=== PATIENT | female | born 1945 | race African-American/Black ===

== ENCOUNTER 2016-03-24 12:29 | Inpatient (IN) | payer MEDICARE, MEDICAID ==
[~2016-03-24] VITALS: Ht 152.4 cm; Wt 65.0 kg
[~2016-03-24 12:29] MED LIST: ASPI81TA3 PO; AZIT250T4 PO; CALC0.257 PO; CINA30TA PO; DOCU-41 PO; FERR-83 PO; FLUO20CA25 PO; FOLI1TAB34 PO; FURO40TA4 PO; HYDR-656 PO; ONDA4TAB12 PO; OXYC-466 PO; PHO667 PO; PROZ20 PO
[2016-03-24 12:38] VITALS: BP 181/77; PULSE 71; RESP 18; O2SAT 100
--- NOTE | 2016-03-24 12:55 | ED.REPORT ---
HPI-Abd Pain F 40 and Over Date of Service Mar 24, 2016 ED Provider: Andrew Kim MD 71 year old diabetic female with a history of cholecystectomy, and ESRD on dialysis M/W/F presents to the ER via EMS complaining of stabbing right side abdominal pain rated 9/10 in severity onset after her dialysis appointment 5 days ago. Associated symptoms include weakness, nausea, vomiting x10, and diarrhea. Patient missed dialysis yesterday due to symptoms. She states that one of her caregivers has lately been ill with cold symptoms. Nursing Notes Stated Complaint: NAUSEA/VOMITING Chief Complaint: Female Abdominal Pain Nursing Notes Reviewed: Yes ([employer] not reconciled) Allergies: Coded Allergies: gabapentin (Verified Allergy, Severe, 12/17/15) Swelling and gait problems hydromorphone HCl (Verified Allergy, Severe, Hallucinations, 12/17/15) "Trip like on LSD" sumatriptan succinate (Verified Allergy, Severe, Dizziness, 12/17/15) Chest pain and dizziness TAPE (Verified Allergy, Intermediate, 12/17/15) itching latex (Verified Allergy, Intermediate, 12/17/15) Itching from gloves morphine (Verified Allergy, Unknown, Hallucinations, 12/17/15) Scheduled Aspirin Chew (Aspirin Chew) 81 Mg Chew 81 MG PO DAILY Azithromycin (Zithromax (Z-Regino)) 250 Mg Tablet 250 MG PO DAILY 2 pills day one then one daily for 4 more days Calcitriol (Rocaltrol) 0.25 Mcg Capsule 0.25 MCG PO DAILY Calcium Acetate (Phoslo) 667 Mg Tablet 1,334 MG PO TIDWM Cinacalcet (Sensipar) 30 Mg Tablet 30 MG PO BID Ferrous Sulfate (Ferrous Sulfate) 325 Mg Tablet 325 MG PO DAILY Fluoxetine (Fluoxetine) 20 Mg Capsule 20 MG PO TID Fluoxetine (Prozac) 20 Mg Capsule 30 MG PO DAILY Folic Acid/Vitamin B Comp W-C (Dialyvite Tablet) 1 Each Tablet 1 EACH PO DAILY Furosemide (Furosemide) 40 Mg Tablet 40 MG PO DAILY Scheduled PRN Docusate Sodium (Colace) 100 Mg Capsule 100 MG PO HS PRN PRN For Constipation Ondansetron ODT (Ondansetron ODT) 4 Mg Tab.rapdis 8 MG PO Q8H PRN PRN For Nausea hydrOXYzine Hcl (HydrOXYzine Hcl) 25 Mg Tablet 25 MG PO QID PRN PRN For Itching oxyCODONE-Acetaminophen 10-325 mg (oxyCODONE-Acetaminophen 10-325 mg) 1 Each Tablet 1 TAB PO Q6H PRN PRN For Pain General Time Seen by MD: 12:41 Chief Complaint Abdominal pain Hx Obtained From: Patient Arrived By: Ambulance Sudden in Onset?: No Onset Occurred: 5 days ago Symptom Duration: Since onset Progression since Onset: Gradually worsening Location: : RLQ Quality: Painful, Sharp, Stabbing Severity: Current: Pain level 9 out of 10 Severity: Maximum: Pain level 9 out of 10 Associated with: Reports: Diarrhea, Nausea, Vomiting Pertinent Negative: Pt denies other symptoms Past Medical History Past Medical History Notes: cpa tax: Dr. Allen chronic pain medication Past Medical History ESRD on dialysis MWF Chronic tobacco dependence. Anemia of chronic disease. History of right lower lobe pneumonia. Hospitalization, November 2012, for atypical chest pain with negative myocardial stress test. Staph aureus sepsis, December 2012. 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 Reports: COPD, Diabetes mellitus, Hypertension, Stroke Past Surgical History Left arm fistula. Left brachial basilic fistula. Right brachial basilic fistula. Evacuation of wound hematoma due to thrombosed left brachial basilic fistula, April 2012. 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 Reports: , Cholecystectomy Family History Noncontributory Smoking History Current Every Day Smoker Social History Alcohol Use: "Social" Drug Use: Denies drug use Other Social History: Lives alone, Local resident Ambulatory Status Wheelchair Review of Systems Constitutional: Reports: Weakness - generalized, Denies: Chills, Fever Respiratory: Denies: Non-productive cough, Shortness of breath Cardiovascular: Denies: Chest pain GI: Reports: Abdominal pain (Right), Diarrhea, Nausea, Vomiting Complete sys rev & neg: except as marked. Neurologic: Denies: Headache Physical Exam Vital Signs Vital Signs (First) Date Time Temp Pulse Resp B/P Pulse Ox O2 Delivery O2 Flow Rate FiO2 03/24/16 12:38 36.4 71 18 181/77 100 Nasal Cannula 03/24/16 14:39 3 Initial VS: Reviewed, Vital signs abnormal (HTN) Head / Eyes: Atraumatic, Normocephalic ENT: Mucous membranes moist, Conjunctiva normal, No scleral icterus Neck: Supple, Non-tender, Full range of motion Extremities: Vascular intact, Neuro intact, No swelling, No tenderness Skin: Warm, Dry, No cyanosis Neurologic: Alert, Oriented, Nonfocal General/Constitutional: Awake, Alert, No acute distress Appears fatigued. Respiratory / Chest: Breath sounds NL, Breath sounds = bilat, No respiratory distress, No rales, No rhonchi, No wheezing, No stridor Dialysis access port, right chest. Cardiovascular: Heart rate NL, Regular rhythm, Heart sounds NL, Peripheral circulation NL Abdomen: No guarding, No rebound, No distention Tenderness/Guarding/Rebound: Positive: McBurney's point tender, Tender RLQ... ( Moderate) Interpretation & Diagnostics Lab Results Interpretation Result Diagram: 03/24/16 1425 03/24/16 1425 Test 03/24/16 14:25 White Blood Count 5.1th/mm3 (3.8-10.1) Red Blood Count 2.92mil/mm3 (3.90-5.20) Hemoglobin 8.6g/dL (12.0-15.6) Hematocrit 26.5% (35.0-46.0) Mean Corpuscular Volume 90.8fL (81-100) Mean Corpuscular Hemoglobin 29.5pg (27.0-35.0) Mean Corpuscular Hemoglobin Concent 32.5% (32.0-37.0) Red Cell Distribution Width 17.8% (12.3-15.4) Platelet Count 147bil/L (150-400) Neutrophils (%) (Auto) 71.3% (40-74) Lymphocytes (%) (Auto) 18.4% (14-46) Monocytes (%) (Auto) 7.2% (4-12) Eosinophils (%) (Auto) 2.5% (0-5) Basophils (%) (Auto) 0.4% (0-3) Sodium Level 138mEq/L (134-144) Potassium Level 5.5mEq/L (3.5-5.2) Chloride Level 98mEq/L (97-108) Carbon Dioxide Level 28mmol/L (18-29) Blood Urea Nitrogen 26mg/dL (8-27) Creatinine 8.40mg/dL (0.57-1.00) Estimat Glomerular Filtration Rate 6mL/min (>59) Glucose Level 94mg/dL (60-99) Calcium Level 9.1mg/dL (8.5-10.1) Phosphorus Level 5.6mg/dL (2.5-4.9) Magnesium Level 2.5mg/dL (1.6-2.6) Total Bilirubin 0.6mg/dL (0.0-1.2) Aspartate Amino Transf (AST/SGOT) 10U/L (0-50) Alanine Aminotransferase (ALT/SGPT) < 5U/L (0-32) Alkaline Phosphatase 416U/L (25-165) Total Protein 6.7g/dL (6.4-8.4) Albumin 3.5g/dL (3.4-5.0) Lab Results Interpretation: CBC chronic anemia unchanged CMP trace hyperkalemia, chronic severe renal failure, glucose normal-no metabolic acidosis CT Abd / Pelvis Interpretation IMPRESSION: 1. Multifocal bilateral renal calcifications in cysts, unchanged compared to prior exam. 2. Asymmetric appearance of the level the distal sigmoid/rectum. This could represent stool or peristalsis. Evaluation is limited without IV or oral contrast. This is of clinical concern for mass lesion, additional followup contrast study or colonoscopy is recommended. 3. No distinct inflammatory changes present within the right lower quadrant, mildly limited secondary to lack of oral and IV contrast. 4. Somewhat mottled appearance of the osseous structures as described above. Appearance can be seen with metastatic disease. In addition, a rounded lucency is present at L1, new compared to prior exam. Recommend clinical correlation to patient history and as clinically indicated, bone scan is recommended for additional evaluation. Dictated by: Nova Benjamin M.D. on 03/24/2016 at 14:40 Approved by: Nova Benjamin M.D. on 03/24/2016 at 14:40 Study type: Abdominal CT no contrast Interpretation / Wet Read by: Interpret - Radiologist Re-Eval/Medical Decision Med Decision/Clinical Course This is a 71-year-old female with multiple comorbidities including dialysis and chronic renal failure who presents complaining of right lower quadrant bowel pain, nausea vomiting and some diarrhea along with concern that she may have appendicitis. She felt poorly and skipped dialysis yesterday. Still feels poorly and weak, and comes in complaining of some nausea and vomiting, moderate to significant diarrhea, and increasing right lower quadrant pain. On exam she is fatigued, she is chronically ill, but she does not appear toxic. He does have mild tenderness to the right lower quadrant on initial exam. Reveal no evidence of leukocytosis, potassium is only marginally elevated, and creatinine and is severely elevated as expected in this chronic renal fair patient CT imaging did not reveal appendicitis or other definite pathology. See the radiology notes for some incidental bone abnormalities with outpatient follow- up recommended. Stool study has been ordered given the patient's multiple comorbidities, status and the dialysis center, and severity of her description of diarrhea. She has not provided a stool sample thus far. Regular to reexamine her she is extremely fatigued, and she slightly difficult to arouse. She had received a dose of fentanyl 40 minutes earlier, but she is breathing at a rate of 22, and does not have overt respiratory depression or hypoxia. Challenges the patient's chronic comorbidities-she does not demonstrate volume overload, and indeed clinically is mildly dehydrated so received some IV fluids. She does not have severe hyperkalemia, and she does not have overt appendicitis or other acute surgical pathology. She does have a vomiting diarrheal illness, with a differential being moderately extensive. There are currently no beds available in the hospital at present. At this time we are reevaluating and watching her for a longer period to determine if she can recover enough that she feels comfortable with discharge home with follow-up tomorrow for her dialysis, or she will ultimately require admission and potentially transfer. She is being turned over to Dr. jacquelyn lópez at change of shift for re-eval. ADDENDUM: I want to stay in the department and managing this patient. (Initial note indicates the patient was turned over Dr. jacquelyn lópez, but I remained to manage the patient in the) Recheck her, she is now alert and perky, she is taking by mouth, she feels much better, she has no abdominal pain, and she would like to go home. She has not had any diarrhea in the department. Again on CT scan there are no signs of appendicitis, she has no tenderness on the abdominal exam on repeat evaluation, and she has some infection, inflammatory findings on CT. Think it is indeed reasonable for discharge home. She tells me she does have ondansetron, and I remain suspicious that she may have a viral illness causing her vomiting and diarrhea, particularly given the recent outbreak of noroovirus. The patient received a dose loperamide in the department just prior to discharge. It was stressed that she is due for dialysis tomorrow and she absolutely needs to make dialysis, and if she feels too poorly and she does not think she should go dialysis-I advised needs to come back to the emergency department. Patient is comfortable this and is discharged in improved condition. Source of Hx: Old records Differential Diagnosis: Positive: Acute abdominal pain, Diarrhea, Negative: Abdominal aortic aneurysm, Ectopic , Esophageal rupture, Peritonitis, Sexually transmit disease Discharge & Departure Shift Change Sign-Out Patient Care Transferred: No Discussed Complaint(s): No Laboratory Evaluation: Back, reviewed by me Imaging Studies: Imaging discussed Primary Impression: Abdominal pain Abdominal location: right lower quadrant Qualified Code: R10.31 - Right lower quadrant pain Additional Impressions: Nausea vomiting and diarrhea Generalized weakness Chronic renal failure, stage 5 Discharge Condition All VS Reviewed: Yes Condition: Stable Referrals: KATI TYSON DO (PCP) Care Transferred to: [facility] Portions of this note were transcribed by Jorden Bahena. I, Dr. Kim, personally performed the history, physical exam and medical decision-making; I reviewed and confirmed the accuracy of the information in the transcribed note. Signed by: Ebenezer Huggins, 03/24/2016 and 14:58. copies to: KATI TYSON Matthew F MD Mar 24, 2016 12:55 JORDEN BAHENA Mar 24, 2016 13:06
[2016-03-24] MEDS ORDERED: 0.9% Sodium Chloride 500 ML IV ONE (13:05)
[2016-03-24] MEDS ORDERED: Ondansetron 2 mg/mL 2 mL Inj IVPUSH ONE (13:05)
[2016-03-24] MEDS: fentaNYL-PF 50 mCg/mL 2 mL Inj IVPUSH PRN ×2 (14:36→16:38)
[2016-03-24 14:37] LABS: BASOPHILS % (AUTO) 0.4 % (0-3); EOSINOPHILS % (AUTO) 2.5 % (0-5); MONOCYTES % (AUTO) 7.2 % (4-12); Mean Corpuscular Hemoglobin 29.5 pg (27.0-35.0); Mean Corpuscular Volume 90.8 fL (81-100); NEUTROPHILS % (AUTO) 71.3 % (40-74); Platelet Count 147 bil/L (150-400)
[2016-03-24 14:39] VITALS: BP 159/73; PULSE 78; RESP 13; O2SAT 96
--- NOTE | 2016-03-24 14:42 | DRSVH ---
PROCEDURE: CT ABDOMEN AND PELVIS WITHOUT CONTRAST ([id number]) INDICATIONS: RLQ pain, renal failure TECHNIQUE: Noncontrast 5 mm thick sections acquired from the diaphragms to the symphysis. 5 mm coronal and sagi ttal reformats were then performed. For radiation dose reduction, the following was used: automated exposure control, adjustment of mA and/or kV according to patient size. COMPARISON: [facility], CT, CT ABD PELVIS WO CON, 07/05/2015, 5:32. FINDINGS: Image quality: Limited exam secondary to patient positioning and artifact. ABDOMEN: Lung bases: Lung bases are clear. Heart size is normal. Solid organs: Liver and spleen are normal in size. Gallbladder has been remaining. There continues to be prominence of the extrahepatic biliary system, unchanged compared to prior exam.. Pancreas is normal in contours. No adrenal nodules. Kidneys are atrophic, without hydronephrosis. Multiple, bi lateral nonobstructing renal calculi are present, unchanged. Bilateral renal cysts are unchanged. Peritoneum and bowel: Unenhanced bowel loops are nonobstructive. There is an asymmetric appearance at the distal sigmoid colon near the level of the rectum, seen on series 2 image 62. Nodes and vessels: No retroperitoneal or mesenteric adenopathy by size criteria. Aorta and inferior vena cava are normal in caliber. Miscellaneous: No ventral hernias. PELVIS: Genitourinary: Bladder wall thickness is normal. Miscellaneous: No inguinal hernias or adenopathy. Bones: The bones demonstrate an overall mottled appearance particularly within the thoracic and lumba r spine as well as pelvic bones, appearing more prominent when compared to prior exam. There is a pro minent area of lucency at the level of L1, new compared to prior exam. IMPRESSION: 1. Multifocal bilateral renal calcifications in cysts, unchanged compared to prior exam. 2. Asymmetric appearance of the level the distal sigmoid/rectum. This could represent stool or perist alsis. Evaluation is limited without IV or oral contrast. This is of clinical concern for mass lesion , additional followup contrast study or colonoscopy is recommended. 3. No distinct inflammatory changes present within the right lower quadrant, mildly limited secondary to lack of oral and IV contrast. 4. Somewhat mottled appearance of the osseous structures as described above. Appearance can be seen w ith metastatic disease. In addition, a rounded lucency is present at L1, new compared to prior exam. Recommend clinical correlation to patient history and as clinically indicated, bone scan is recommend ed for additional evaluation. Dictated by: Nova Benjamin M.D. on 03/24/2016 at 14:40 Approved by: Nova Benjamin M.D. on 03/24/2016 at 14:40
[2016-03-24 15:19] LABS: Magnesium 2.5 mg/dL (1.6-2.6); Phosphorus 5.6 mg/dL (2.5-4.9)
[2016-03-24 16:48] VITALS: BP 130/68; PULSE 89; RESP 25; O2SAT 96
[2016-03-24] MEDS ORDERED: Polyethylene Glycol (PEG) 17 Gm Powder PO PRN (21:10)
[2016-03-24] MEDS ORDERED: Alum-Mag Hydrox-Simeth 30 mL Suspension PO PRN (21:10)
[2016-03-24] MEDS ORDERED: Ondansetron 2 mg/mL 2 mL Inj IVPUSH PRN (21:10)
--- NOTE | 2016-03-24 21:55 | DRSVH ---
PROCEDURE: CT BRAIN WITHOUT CONTRAST ([id number]) INDICATIONS: altered mental status TECHNIQUE: Noncontrast 4.5 mm thick angled axial sections acquired from the foramen magnum to the vertex, with c oronal reformats. COMPARISON: [facility], CT, BRAIN W/O CONTRAST, 10/31/2013, 12:49. FINDINGS: Image quality: Excellent. CSF spaces: Basal cisterns are patent. No extra-axial fluid collections. Ventricles are normal in size and shape. Brain: No midline shift. No intracranial masses or hemorrhage. Fung-white matter interface is norm al. Skull and face: Calvarium and visualized facial bones are intact, without suspicious lesions. Sinuses: Visualized sinuses and mastoids are clear. IMPRESSION: No acute intracranial abnormality. Dictated by: Donn Lizama M.D. on 03/24/2016 at 21:53 Approved by: Donn Lizama M.D. on 03/24/2016 at 21:53
[2016-03-24 22:15] VITALS: BP 123/60; PULSE 84; RESP 16; O2SAT 96
[2016-03-24 22:24] VITALS: PULSE 84
--- NOTE | 2016-03-24 23:26 | PCM.HPMED ---
Subjective Date of Service Mar 24, 2016 Primary Provider: Admitting Physician: Lazaro Camilo MD Primary Care Physician: Latisha Parham DO Attending Physician: Lazaro Camilo MD Admit Status: From the Emergency Department, Full Admit, Remote Telemetry Chief Complaint: Confusion and lethargy History of Present Illness: Dahiana Rosas is a 71 year old female with a history of ESRD on dialysis, COPD on 3L O2 at home, diabetes mellitus, Stroke and hypertension who presents to [facility] Emergency department with complaints of abdominal pain Pain described as stabbing right side abdominal pain rated 9/10 in severity onset after her dialysis appointment 5 days ago. Associated symptoms include weakness, nausea, vomiting x10, and diarrhea. Patient missed dialysis yesterday due to not feeling well. She states that one of her caregivers has lately been ill with cold symptoms. Denies any fever or chills. Patient has history of missing dialysis due to not having transportation. She was hospitalized at [facility] on 12/02-12/04/15 due to Uncontrolled Hypertension and fluid overload, which resolved with dialysis. Patient is chronically on narcotics for pain. Patient was clear for discharge earlier in the day with negative work up (see Dr Nirav Kim note) She received Ativan due to claustrophobia prior to having the CT scan abdomen and also a dose of Fentanyl for pain. Patient was noted to progressively becoming lethargic and sleepy while waiting for her ride home. Case discussed with Dr Rich and patient will be admitted for close monitoring overnight. Review of Systems: unable to obtain due to patient sleeping and feeling tired to talk Allergies Coded Allergies: gabapentin (Verified Allergy, Severe, 12/17/15) Swelling and gait problems hydromorphone HCl (Verified Allergy, Severe, Hallucinations, 12/17/15) "Trip like on LSD" sumatriptan succinate (Verified Allergy, Severe, Dizziness, 12/17/15) Chest pain and dizziness TAPE (Verified Allergy, Intermediate, 12/17/15) itching latex (Verified Allergy, Intermediate, 12/17/15) Itching from gloves morphine (Verified Allergy, Unknown, Hallucinations, 12/17/15) Home Medications From [facility], not yet confirmed Dahiana Rosas [id number] 1945 03/10/2016 11:30 AM Page: 03/12 calcitriol 0.25 mcg capsule take 1 capsule by oral route every day Dialyvite 100 mg-1 mg Tab take 1 tablet by oral route every day Dulcolax Stool Softener (docusate) 100 mg capsule take 1 capsule by oral route every day at bedtime as needed ferrous sulfate 325 mg (65 mg iron) tablet,delayed release take 325 mg tablet P.O Daily fluoxetine 20 mg capsule take 1 capsule by oral route 3 times every day hydroxyzine HCl 25 mg tablet take 1 tablet by oral route 4 times every day Lasix 40 mg Tab take 1 tablet (40MG) by oral route every day Percocet 10 mg-325 mg tablet take 1 tablet by oral route every 6 hours as needed PhosLo 667 mg capsule take 2 capsule by oral route 3 times every day with meals Prozac 20 mg Cap take 1.5 capsule (30MG) by oral route every day in the morning Sensipar 30 mg tablet take 1 tablet by oral route every day with food Zofran ODT [address] 2 tablet by translingual route every 8 hours for 2 days on top of the tongue where they will dissolve, then swallow [facility] Reports mass on pancreas Diastolic dysfunction on echocardiogram, November 10, 2012. 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 ESRD, on hemodialysis Hypertension Chronic tobacco dependence Anemia of chronic disease Staph aureus sepsis, December 2012. Clostridium difficile colitis Diabetic gastroparesis COPD Diabetes mellitus Stroke . Surgical History Left arm fistula Left brachial basilic fistula Right brachial basilic fistula Evacuation of wound hematoma due to thrombosed left brachial basilic fistula, April 2012. 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 Cholecystectomy s/p closed left tibia and fibula proximal shaft fracture Family History Hypertension, stroke Social History Hx Alcohol Use: Yes (OCCAS) Hx Substance Use: No Hx Tobacco Use: Yes (1 pack per 2-3 days since the age of 17) Smoking Status: Current Every Day Smoker Living Arrangement: with Family Exam Vital Signs Vital Sign - Last Date Time Temp Pulse Resp B/P Pulse Ox O2 Delivery O2 Flow Rate FiO2 03/24/16 16:48 89 25 130/68 96 Nasal Cannula 2 03/24/16 12:38 36.4 Exam General: Awake on saying her name but doses off after a few seconds. No acute Distress Eyes: PERRLA, Scleral Anicteric Mouth: Mouth Normal, Mucous Membranes Moist/[place] Neck: Supple, no Thyromegaly, trachea central. Chest & Lungs: Clear to auscultation & percussion, No adventitious breath sounds, no crackles, no wheeze Cardiovascular: Normal S1, Normal S2, No Murmurs/Rubs/Gallops, Regular Rate/ Rhythm, (No JVD, no peripheral edema) Pulses: Radial (present and equal), Dorsalis Pedi (present and equal) Abdomen: Soft, Non-tender, Non-distended, Normoactive bowel tones. Musculoskeletal: Unremarkable. Normal range of motion, no swollen or erythematous joints Extremities: No edema, no cyanosis, no clubbing. Skin: No rashes. Warm and dry, no erythematous areas Neurological: Grossly neurologically intact, has generalized weakness, Normal Speech, Sensation Intact Lymphatic: Lymph nodes Cervical and Axillary not palpable. Lab and Diagnostics Labs Laboratory Tests Test 03/24/16 14:25 White Blood Count 5.1th/mm3 (3.8-10.1) Red Blood Count 2.92mil/mm3 (3.90-5.20) Hemoglobin 8.6g/dL (12.0-15.6) Hematocrit 26.5% (35.0-46.0) Mean Corpuscular Volume 90.8fL (81-100) Mean Corpuscular Hemoglobin 29.5pg (27.0-35.0) Mean Corpuscular Hemoglobin Concent 32.5% (32.0-37.0) Red Cell Distribution Width 17.8% (12.3-15.4) Platelet Count 147bil/L (150-400) Neutrophils (%) (Auto) 71.3% (40-74) Lymphocytes (%) (Auto) 18.4% (14-46) Monocytes (%) (Auto) 7.2% (4-12) Eosinophils (%) (Auto) 2.5% (0-5) Basophils (%) (Auto) 0.4% (0-3) Sodium Level 138mEq/L (134-144) Potassium Level 5.5mEq/L (3.5-5.2) Chloride Level 98mEq/L (97-108) Carbon Dioxide Level 28mmol/L (18-29) Blood Urea Nitrogen 26mg/dL (8-27) Creatinine 8.40mg/dL (0.57-1.00) Estimat Glomerular Filtration Rate 6mL/min (>59) Glucose Level 94mg/dL (60-99) Calcium Level 9.1mg/dL (8.5-10.1) Phosphorus Level 5.6mg/dL (2.5-4.9) Magnesium Level 2.5mg/dL (1.6-2.6) Total Bilirubin 0.6mg/dL (0.0-1.2) Aspartate Amino Transf (AST/SGOT) 10U/L (0-50) Alanine Aminotransferase (ALT/SGPT) < 5U/L (0-32) Alkaline Phosphatase 416U/L (25-165) Total Protein 6.7g/dL (6.4-8.4) Albumin 3.5g/dL (3.4-5.0) Hold Gordon Top Tube Received (Received) Result Diagram: 03/24/16 1425 03/24/16 1425 X-Rays, CTs and MRIs CT ABDOMEN AND PELVIS WITHOUT CONTRAST 03/24 IMPRESSION: 1. Multifocal bilateral renal calcifications in cysts, unchanged compared to prior exam. 2. Asymmetric appearance of the level the distal sigmoid/rectum. This could represent stool or peristalsis. Evaluation is limited without IV or oral contrast. This is of clinical concern for mass lesion, additional followup contrast study or colonoscopy is recommended. 3. No distinct inflammatory changes present within the right lower quadrant, mildly limited secondary to lack of oral and IV contrast. 4. Somewhat mottled appearance of the osseous structures as described above. Appearance can be seen with metastatic disease. In addition, a rounded lucency is present at L1, new compared to prior exam. Recommend clinical correlation to patient history and as clinically indicated, bone scan is recommended for additional evaluation. Dictated by: Nova Benjamin M.D. on 03/24/2016 at 14:40 Approved by: Nova Benjamin M.D. on 03/24/2016 at 14:40 CT BRAIN WITHOUT CONTRAST 03/24 IMPRESSION: No acute intracranial abnormality. Dictated by: Donn Lizama M.D. on 03/24/2016 at 21:53 Approved by: Donn Lizama M.D. on 03/24/2016 at 21:53 Assessment & Plan 71 year old female with a history of ESRD on dialysis, COPD on 3L O2 at home, diabetes mellitus, Stroke and hypertension who presents to the Emergency department for abdominal pain that resolved but then she developed lethargy and difficult to arouse while waiting to be discharge 1. Acute Encephalopathy. Present on admission Etiology unclear but likely multifactorial. Patient received doses of Fentanyl and Ativan in the ED, with missed dialysis these medications may be lingering and not excreted. Also she may have Uremia from missed dialysis. CT head showed no bleeding or Strokes. - monitor clinically - avoid narcotics, benzodiazepines and other sedative medications at this time - Urinalysis ordered - dialysis planned for tomorrow 2. Acute Abdominal pain. Present on admission. Resolved Etiology unclear but CT scan showed no clear cause at this time. Differential diagnosis includes acute pancreatitis but CT showed normal pancreas enhancements. Liver function tests are all normal - monitor closely - checking Lipase levels - checking stools for C difficile (prior history of C diff infection) 3. Hypertension. History of uncontrolled Hypertension - resume all antihypertensive in the morning 4 Endstage Renal Disease on hemodialysis with Renal osteodystrophy and Anemia Schedule for Wed, Wed and Fridays. - Nephrology consulted for inpatient dialysis orders - continuing Calcitrol, Dialyvite and Phoslo - continuing Iron supplementation - social work therapist needs to help address issues with missed dialysis 5 Chronic Obstructive Pulmonary Disease with chronic respiratory failure Currently without any symptoms to meet criteria for acute exacerbation. Patient still smoking despite counselling and will cause more problems down the line. - continue supplemental oxygen (Maintain between 88-92%) - will order PRN Albuterol if needed 6. Depression -Continue home medication (Prozac and Fluoxetine) 7 Chronic pain syndrome with narcotics and related constipation - continuing pain regimen with no changes - continuing Dulcolax PRN 8. Nicotine dependence. Ongoing smoking despite counselling - Nicotine patch on request - Acetaminophen as needed for mild pain/fever/headache - Bowel regimen as needed - Antiemetic as needed Patient is admitted under observation status with expected length of stay less than 2 midnights due to severity of presenting symptoms, risk of adverse event, and complexity of treatment plan . Resuscitation Status: CPR: Attempt Resuscitation Lazaro Camilo MD Mar 24, 2016 21:37
[2016-03-25 00:30] VITALS: BP 114/56; PULSE 92; RESP 16; O2SAT 96
--- NOTE | 2016-03-25 00:31 | NUR ---
Admission note Admission assessment and screening completed. VSS. Pt appears drowsy but arousable. No overt complication noted.
--- NOTE | 2016-03-25 00:40 | NUR ---
Transfer Pt was transferred to [facility] # [id number]. Report given and care transferred to the primary RN (Jerica Noble RN)
[2016-03-25 01:00] VITALS: BP 138/71; PULSE 97; RESP 20; O2SAT 100
--- NOTE | 2016-03-25 06:11 | NUR ---
Patient arrived to [facility]2 extremely sleepy related to fentanyl and Ativan received in the ER;however, the patient was easy to arouse with touch. Alert and oriented x 4 makes needs known to staff reg care. Denies shortness of breath, chest pain, and resp distress. Vitals stable/afebrile. The resident slept most of the shift on and off. She awaken at 0500 upset about still being in the hospital and she wanted to "go home now." The patient sat up on the side of the bed demanding to be released. This RN educated the patient on the risks of leaving against medical advice, so the patient decided to finish out her care in the hospital. She requested something small to eat and drink. A cola and dry crackers given without swallowing issues noted. At this time the patient appears to be asleep in bed resting.
[2016-03-25 09:19] VITALS: PULSE 77
[2016-03-25 09:36] VITALS: BP 139/80; PULSE 70; RESP 18; O2SAT 92
--- NOTE | 2016-03-25 10:08 | NUR ---
Social Work Note - Initial Assessment Dahiana Rosas is a 71 yr old admitted for nausea/vomiting. EMR reviewed: Pt has Medicare and [employer]. Her PCP is Latisha Parham at [facility] Residency clinic. Readmit score is not available at time of writing. See attached CM initial assessment. JEWELRY SALES COORDINATOR met with pt - introduced d/c planning and explained SW role. Pt known from previous admissions - has [facility] report for multiple ED visits, missed outpt dialysis and concerns of noncompliance. Pt lives in [place] in an accessible apartment. Her daughters live in the same complex and her daughter's chris is being paid as pt's GAIL caregiver. Her daughter is Dory Hamilton [phone] and her caregiver is Madi Mccullough. Pt [facility] to [facility] - MD is Tiffany. She has a Hover round wheel chair, transport chair, shower bench and O2 thru [employer]. Pt states that APS is involved - her APS worker is Eugenio Antoine [phone]. JEWELRY SALES COORDINATOR called [facility] and left a message. She states that he is involved because she has been non-compliant with getting to dialysis. She states she has been going to her appointments - admits to missing Wednesday's appointment at dialysis. Pt is interested in Home Health - She states that she is not sure that [facility] is still involved. JEWELRY SALES COORDINATOR called Maximilian at [facility] and left a message. JEWELRY SALES COORDINATOR encouraged pt to follow up with her PCP, to make all dialysis appointments and to begin working on transportation home. JEWELRY SALES COORDINATOR updated [facility] and will continue to follow. Plan: Home with [facility]ADY ESPITIA PT JEWELRY SALES COORDINATOR with transportation from pt's family. ANGE Mott Addendum: 03/25/16 at 1049 by BOBBY URIOSTEGUI SS Amended: Links added.
[2016-03-25] MEDS ORDERED: oxyCODONE-Acetamin 10-325 mg Tablet PO PRN (11:15)
--- NOTE | 2016-03-25 11:30 | PCM.PNMED ---
Subjective Date of Service Mar 25, 2016 Subjective Patient is currently undergoing hemodialysis. She does complain of loose stool yesterday but none since 11:30 AM. She does complain of recurrent nausea vomiting and claims that she cannot keep anything down food chi. She said she missed her hemodialysis on Wednesday and she was not feeling well. She does note some dyspnea and denies chest pain. Exam Vital Signs Vital Sign - Last Date Time Temp Pulse Resp B/P Pulse Ox O2 Delivery O2 Flow Rate FiO2 03/25/16 09:36 Supplement Oxygen 03/25/16 09:36 36.5 70 18 139/80 92 4.00 Intake and Output 03/24/16 03/24/16 03/25/16 Cumulative From/Thru 15:00 23:00 07:00 03/24/16 12:38 - 03/25/16 05:39 Intake Total 500 ml 360 ml 860 ml Balance 500 ml 360 ml 860 ml Intake Oral 360 ml 360 ml IV Total 500 ml 500 ml Exam Constitutional: Elderly woman in no acute distress Head: Normocephalic atraumatic Chest: Crackles at her bases posteriorly Cor: Regular rate and rhythm S1-S2 Abdomen: Soft nontender bowel sounds present Extremities trace bilateral pedal edema does have an ulcer on her left heel chronic Lab and Diagnostics Laboratory Tests 72 Hours Test 03/24/16 14:25 03/25/16 09:45 White Blood Count 5.1th/mm3 (3.8-10.1) Red Blood Count 2.92mil/mm3 (3.90-5.20) Hemoglobin 8.6g/dL (12.0-15.6) Hematocrit 26.5% (35.0-46.0) Mean Corpuscular Volume 90.8fL (81-100) Mean Corpuscular Hemoglobin 29.5pg (27.0-35.0) Mean Corpuscular Hemoglobin Concent 32.5% (32.0-37.0) Red Cell Distribution Width 17.8% (12.3-15.4) Platelet Count 147bil/L (150-400) Neutrophils (%) (Auto) 71.3% (40-74) Lymphocytes (%) (Auto) 18.4% (14-46) Monocytes (%) (Auto) 7.2% (4-12) Eosinophils (%) (Auto) 2.5% (0-5) Basophils (%) (Auto) 0.4% (0-3) Sodium Level 138mEq/L (134-144) Potassium Level 5.5mEq/L (3.5-5.2) Chloride Level 98mEq/L (97-108) Carbon Dioxide Level 28mmol/L (18-29) Blood Urea Nitrogen 26mg/dL (8-27) Creatinine 8.40mg/dL (0.57-1.00) Estimat Glomerular Filtration Rate 6mL/min (>59) Glucose Level 94mg/dL (60-99) Calcium Level 9.1mg/dL (8.5-10.1) Phosphorus Level 5.6mg/dL (2.5-4.9) Magnesium Level 2.5mg/dL (1.6-2.6) Total Bilirubin 0.6mg/dL (0.0-1.2) Aspartate Amino Transf (AST/SGOT) 10U/L (0-50) Alanine Aminotransferase (ALT/SGPT) < 5U/L (0-32) Alkaline Phosphatase 416U/L (25-165) Total Protein 6.7g/dL (6.4-8.4) Albumin 3.5g/dL (3.4-5.0) Lipase 20U/L (13-60) Hold Gordon Top Tube Received (Received) Result Diagram: 03/24/16 1425 03/24/16 1425 X-Rays, CTs and MRIs CT ABDOMEN AND PELVIS WITHOUT CONTRAST 03/24 IMPRESSION: 1. Multifocal bilateral renal calcifications in cysts, unchanged compared to prior exam. 2. Asymmetric appearance of the level the distal sigmoid/rectum. This could represent stool or peristalsis. Evaluation is limited without IV or oral contrast. This is of clinical concern for mass lesion, additional followup contrast study or colonoscopy is recommended. 3. No distinct inflammatory changes present within the right lower quadrant, mildly limited secondary to lack of oral and IV contrast. 4. Somewhat mottled appearance of the osseous structures as described above. Appearance can be seen with metastatic disease. In addition, a rounded lucency is present at L1, new compared to prior exam. Recommend clinical correlation to patient history and as clinically indicated, bone scan is recommended for additional evaluation. Dictated by: Nova Benjamin M.D. on 03/24/2016 at 14:40 Approved by: Nova Benjamin M.D. on 03/24/2016 at 14:40 CT BRAIN WITHOUT CONTRAST 03/24 IMPRESSION: No acute intracranial abnormality. Dictated by: Donn Lizama M.D. on 03/24/2016 at 21:53 Approved by: Donn Lizama M.D. on 03/24/2016 at 21:53 Assessment & Plan 71 year old female with a history of ESRD on dialysis, COPD on 3L O2 at home, diabetes mellitus, Stroke and hypertension who presents to the Emergency department for abdominal pain that resolved but then she developed lethargy and difficult to arouse while waiting to be discharge 1. Acute Encephalopathy. Present on admission Etiology unclear but likely multifactorial. Patient received doses of Fentanyl and Ativan in the ED, with missed dialysis these medications may be lingering and not excreted. Also she may have Uremia from missed dialysis. CT head showed no bleeding or Strokes. - monitor clinically - avoid narcotics, benzodiazepines and other sedative medications at this time - Urinalysis ordered - dialysis planned for tomorrow -Appears to be at baseline is mentating and verbally communicative appropriately 2. Acute Abdominal pain. Present on admission. Resolved Etiology unclear but CT scan showed no clear cause at this time. Differential diagnosis includes acute pancreatitis but CT showed normal pancreas enhancements. Liver function tests are all normal - monitor closely - checking Lipase levels - checking stools for C difficile (prior history of C diff infection) -Currently no stool over 24-hour period of time hence cannot be C. difficile colitis and she currently has no abdominal pain 3. Hypertension. History of uncontrolled Hypertension - resume all antihypertensive in the morning 4 Endstage Renal Disease on hemodialysis with Renal osteodystrophy and Anemia Schedule for Wed, Wed and Fridays. - Nephrology consulted for inpatient dialysis orders - continuing Calcitrol, Dialyvite and Phoslo - continuing Iron supplementation - older adult social work specialist needs to help address issues with missed dialysis 5 Chronic Obstructive Pulmonary Disease with chronic respiratory failure Currently without any symptoms to meet criteria for acute exacerbation. Patient still smoking despite counselling and will cause more problems down the line. - continue supplemental oxygen (Maintain between 88-92%) - will order PRN Albuterol if needed 6. Depression -Continue home medication (Prozac and Fluoxetine) 7 Chronic pain syndrome with narcotics and related constipation - continuing pain regimen with no changes - continuing Dulcolax PRN 8. Nicotine dependence. Ongoing smoking despite counselling - Nicotine patch on request - Acetaminophen as needed for mild pain/fever/headache - Bowel regimen as needed - Antiemetic as needed Patient is admitted under observation status with expected length of stay less than 2 midnights due to severity of presenting symptoms, risk of adverse event, and complexity of treatment plan . Resuscitation Status: CPR: Attempt Resuscitation Time spent 30 minutes Selene Ha MD Mar 25, 2016 11:30
[2016-03-25] MEDS ORDERED: Darbepoetin Alfa (ESRD) 60 mCg/0.3 mL Inj SUBQ ONE (11:45)
--- NOTE | 2016-03-25 12:38 | CONS ---
[address] [address] CONSULTATION REPORT PATIENT: ROMAINE ALEXIS : 1945 MR#: [id number] ADMIT: 03/24/2016 JOB ID: [id number] DATE OF SERVICE: RENAL CONSULTATION: HISTORY: The patient is a very pleasant 71-year-old, female, who has a longstanding history of end-stage renal disease. She had come to the emergency department yesterday for abdominal pain, nausea, vomiting, diarrhea, nasal congestion, cough, wheezing, generalized malaise and myalgias. Today, she was sent to CT and was heavily medicated, and was subsequently admitted because of confusion and lethargy. Today is her dialysis day, and renal consultation is being sought for further management of her chronic kidney disease. She is followed by an outside concrete foreman and normally dialyzes on Wednesday, Wednesday and Wednesday. The etiology of her chronic kidney disease is due to hypertension and diabetic nephropathy. Her last dialysis was on Wednesday. At the time of my evaluation, the patient was quite alert and oriented, and answered all of her questions appropriately. PAST MEDICAL HISTORY: Significant for: 1. End-stage renal disease, which is dialysis dependent. 2. Hypertension with hypertensive heart disease and hypertensive nephrosclerosis, and a history of diastolic dysfunction. 3. COPD. 4. Anemia secondary to her chronic kidney disease. 5. Remote history of staph sepsis. 6. History of C. difficile colitis in the past. 7. She has also had a stroke. PAST SURGICAL HISTORY: Significant for several fistulas in the left arm and in the right arm with a clot evacuation. She has had several tunnelled catheters placed, a closed reduction of the left tibia and fibula, cholecystectomy and a section. ALLERGIES: She is allergic to: 1. GABAPENTIN. 2. HYDROMORPHONE. 3. SUMATRIPTAN. 4. MORPHINE. 5. TAPE. 6. LATEX. SOCIAL HISTORY: She states that she has occasional alcohol and continues to smoke approximately one pack every other day. She is somewhat limited in her activities of daily living. FAMILY HISTORY: Unremarkable. REVIEW OF SYSTEMS: Detailed above. Otherwise, she denies any chest pain or shortness of breath. MEDICATIONS: At time of admission include calcitriol, vitamins, Dulcolax, ferrous sulfate, fluoxetine, hydroxyzine, Lasix, Percocet, PhosLo, Sensipar and Zofran. PHYSICAL EXAMINATION: Revealed an elderly 71-year-old, female, who was alert and oriented x3, in no distress at time of my evaluation. Her blood pressure was 140/80 with a heart rate of 70. HEENT examination was remarkable for some upper eyelid periorbital edema and pale sclerae. Arcus senilis is also noted. Neck is supple without adenopathy, thyromegaly, or jugular venous distention. Lungs were clear to auscultation. Heart was regular and rhythmical, with a soft systolic murmur. Abdomen soft, without any tenderness, rebound, guarding, masses, or hepatosplenomegaly. Extremities do not show any clubbing, cyanosis, or edema. Skin turgor was good. There was no evidence of any rashes. LABORATORY EXAMINATION: In the emergency department her white count was 5.1, hemoglobin of 8.6, hematocrit 26.5, red cell indices and platelet count were normal. She had 71 neutrophils and 18 lymphocytes. Her sodium was 138, potassium 5.5, chloride 98, CO2 of 28, BUN and creatinine were 26 and 8.4. Her phosphorus is elevated at 5.6, and her alkaline phosphatase is also elevated at 416. IMPRESSION: 1. End-stage renal disease -- dialysis dependent. 2. Probable influenza versus other viral illnesses based on the patient's history. 3. Hypertension with hypertensive heart disease and hypertensive nephrosclerosis. 4. Diabetic nephropathy. RECOMMENDATION: The patient should be dialyzed today for 4 hours on a 2 potassium bath. She will be given regular heparin of 1200 and 500 an hour. We will take approximately 2 kg of fluid off, and she will get a dose of Aranesp today. Once again, I would like to thank you for allowing me to participate in the care of this most pleasant, interesting patient. I will be following her closely with you.
[2016-03-25 14:08] VITALS: BP 104/57; PULSE 67; RESP 18; O2SAT 93
--- NOTE | 2016-03-25 15:02 | PCM.DIMED ---
Discharge Instructions Date of Service Mar 25, 2016 Dates of Hospitalization Mar 24, 2016 at 21:30 Discharge Diagnosis Discharge Diagnosis ESRD needing dialysis,lethargy Diet Heart Healthy, Diabetic Activity No restrictions Call your provider Fever or Chills, Shortness of breath, Chest pain, Vomitting Patient Instructions Need to be compliant with dialysis sessions Follow-up with PCP in: 1 week Selene Ha MD Mar 25, 2016 15:02
--- NOTE | 2016-03-25 15:17 | PCM.DC.MED ---
Discharge Summary Date of Service Mar 25, 2016 Dates of Hospitalization Date of Hospital Admission Mar 24, 2016 at 21:30 Date of Discharge: Mar 25, 2016 Providers: Admitting Physician: Lazaro Camilo MD Primary Care Physician: Latisha Parham DO Attending Physician: Lazaro Camilo MD Diagnosis at Time of Discharge Diagnosis at Time of Discharge ESRD needing dialysis,lethargy Consultations Nephrology Procedures XRay, CTs & MRIs CT ABDOMEN AND PELVIS WITHOUT CONTRAST 03/24 IMPRESSION: 1. Multifocal bilateral renal calcifications in cysts, unchanged compared to prior exam. 2. Asymmetric appearance of the level the distal sigmoid/rectum. This could represent stool or peristalsis. Evaluation is limited without IV or oral contrast. This is of clinical concern for mass lesion, additional followup contrast study or colonoscopy is recommended. 3. No distinct inflammatory changes present within the right lower quadrant, mildly limited secondary to lack of oral and IV contrast. 4. Somewhat mottled appearance of the osseous structures as described above. Appearance can be seen with metastatic disease. In addition, a rounded lucency is present at L1, new compared to prior exam. Recommend clinical correlation to patient history and as clinically indicated, bone scan is recommended for additional evaluation. Dictated by: Nova Benjamin M.D. on 03/24/2016 at 14:40 Approved by: Nova Benjamin M.D. on 03/24/2016 at 14:40 CT BRAIN WITHOUT CONTRAST 03/24 IMPRESSION: No acute intracranial abnormality. Dictated by: Donn Lizama M.D. on 03/24/2016 at 21:53 Approved by: Donn Lizama M.D. on 03/24/2016 at 21:53 Brief History Dahiana Rosas is a 71 year old female with a history of ESRD on dialysis, COPD on 3L O2 at home, diabetes mellitus, Stroke and hypertension who presents to [facility] Emergency department with complaints of abdominal pain Pain described as stabbing right side abdominal pain rated 9/10 in severity onset after her dialysis appointment 5 days ago. Associated symptoms include weakness, nausea, vomiting x10, and diarrhea. Patient missed dialysis yesterday due to not feeling well. She states that one of her caregivers has lately been ill with cold symptoms. Denies any fever or chills. Patient has history of missing dialysis due to not having transportation. She was hospitalized at [facility] on 12/02-12/04/15 due to Uncontrolled Hypertension and fluid overload, which resolved with dialysis. Patient is chronically on narcotics for pain. Patient was clear for discharge earlier in the day with negative work up (see Dr Nirav Kim note) She received Ativan due to claustrophobia prior to having the CT scan abdomen and also a dose of Fentanyl for pain. Patient was noted to progressively becoming lethargic and sleepy while waiting for her ride home. Case discussed with Dr Rich and patient will be admitted for close monitoring overnight. Hospital Course 71 year old female with a history of ESRD on dialysis, COPD on 3L O2 at home, diabetes mellitus, Stroke and hypertension who presents to the Emergency department for abdominal pain that resolved but then she developed lethargy and difficult to arouse while waiting to be discharge 1. Acute Encephalopathy. Present on admission, resolved Etiology unclear but likely multifactorial. Patient received doses of Fentanyl and Ativan in the ED, with missed dialysis these medications may be lingering and not excreted. Also she may have Uremia from missed dialysis. CT head showed no bleeding or Strokes. - monitor clinically - avoid narcotics, benzodiazepines and other sedative medications at this time - Urinalysis ordered - dialysis planned for tomorrow -Appears to be at baseline is mentating and verbally communicative appropriately 2. Acute Abdominal pain. Present on admission. Resolved Etiology unclear but CT scan showed no clear cause at this time. Differential diagnosis includes acute pancreatitis but CT showed normal pancreas enhancements. Liver function tests are all normal - monitor closely - checking Lipase levels - checking stools for C difficile (prior history of C diff infection) -Currently no stool over 24-hour period of time hence cannot be C. difficile colitis and she currently has no abdominal pain 3. Hypertension., Chronic History of uncontrolled Hypertension - resume all antihypertensive in the morning 4 Endstage Renal Disease on hemodialysis with Renal osteodystrophy and Anemia Schedule for Wed, Wed and Fridays. - Nephrology consulted for inpatient dialysis orders - continuing Calcitrol, Dialyvite and Phoslo - continuing Iron supplementation - rn social work needs to help address issues with missed dialysis -Patient completed dialysis session today 5 Chronic Obstructive Pulmonary Disease with chronic respiratory failure Currently without any symptoms to meet criteria for acute exacerbation. Patient still smoking despite counselling and will cause more problems down the line. - continue supplemental oxygen (Maintain between 88-92%) - will order PRN Albuterol if needed 6. Depression -Continue home medication (Prozac and Fluoxetine) 7 Chronic pain syndrome with narcotics and related constipation - continuing pain regimen with no changes - continuing Dulcolax PRN 8. Nicotine dependence. Ongoing smoking despite counselling - Nicotine patch on request 9. Social and compliance issues, ongoing Case management and psych social worker have been working with her and have arranged for morteza in the house. Also see their notes for further details. - Acetaminophen as needed for mild pain/fever/headache - Bowel regimen as needed - Antiemetic as needed Patient is admitted under observation status with expected length of stay less than 2 midnights due to severity of presenting symptoms, risk of adverse event, and complexity of treatment plan . Exam Vital Signs (Last) Date Time Temp Pulse Resp B/P Pulse Ox O2 Delivery O2 Flow Rate FiO2 03/25/16 14:08 36.3 67 18 104/57 93 Nasal Cannula 4.00 Test 03/24/16 14:25 03/25/16 09:45 White Blood Count 5.1th/mm3 (3.8-10.1) Red Blood Count 2.92mil/mm3 (3.90-5.20) Hemoglobin 8.6g/dL (12.0-15.6) Hematocrit 26.5% (35.0-46.0) Mean Corpuscular Volume 90.8fL (81-100) Mean Corpuscular Hemoglobin 29.5pg (27.0-35.0) Mean Corpuscular Hemoglobin Concent 32.5% (32.0-37.0) Red Cell Distribution Width 17.8% (12.3-15.4) Platelet Count 147bil/L (150-400) Neutrophils (%) (Auto) 71.3% (40-74) Lymphocytes (%) (Auto) 18.4% (14-46) Monocytes (%) (Auto) 7.2% (4-12) Eosinophils (%) (Auto) 2.5% (0-5) Basophils (%) (Auto) 0.4% (0-3) Sodium Level 138mEq/L (134-144) Potassium Level 5.5mEq/L (3.5-5.2) Chloride Level 98mEq/L (97-108) Carbon Dioxide Level 28mmol/L (18-29) Blood Urea Nitrogen 26mg/dL (8-27) Creatinine 8.40mg/dL (0.57-1.00) Estimat Glomerular Filtration Rate 6mL/min (>59) Glucose Level 94mg/dL (60-99) Calcium Level 9.1mg/dL (8.5-10.1) Phosphorus Level 5.6mg/dL (2.5-4.9) Magnesium Level 2.5mg/dL (1.6-2.6) Total Bilirubin 0.6mg/dL (0.0-1.2) Aspartate Amino Transf (AST/SGOT) 10U/L (0-50) Alanine Aminotransferase (ALT/SGPT) < 5U/L (0-32) Alkaline Phosphatase 416U/L (25-165) Total Protein 6.7g/dL (6.4-8.4) Lipase 20U/L (13-60) Hold Gordon Top Tube Received (Received) Hold Purple Top Tube Received (Received) Hold [place] Top Tube Received (Received) Discharge Medications Discharge Medications Aspirin Chew (Aspirin Chew) 81 Mg Chew 81 MG PO DAILY Prescribed by: WILDA SILVERIO MD Calcitriol (Rocaltrol) 0.25 Mcg Capsule 0.25 MCG PO DAILY (Reported) Calcium Acetate (Phoslo) 667 Mg Tablet 1,334 MG PO TIDWM (Reported) Cinacalcet (Sensipar) 30 Mg Tablet 30 MG PO BID (Reported) Ferrous Sulfate (Ferrous Sulfate) 325 Mg Tablet 325 MG PO DAILY (Reported) Fluoxetine (Fluoxetine) 20 Mg Capsule 20 MG PO TID (Reported) Fluoxetine (Prozac) 20 Mg Capsule 30 MG PO DAILY (Reported) Folic Acid/Vitamin B Comp W-C (Dialyvite Tablet) 1 Each Tablet 1 EACH PO DAILY ( Reported) Furosemide (Furosemide) 40 Mg Tablet 40 MG PO DAILY (Reported) As needed Docusate Sodium (Colace) 100 Mg Capsule 100 MG PO HS PRN PRN For Constipation ( Reported) Ondansetron ODT (Ondansetron ODT) 4 Mg Tab.rapdis 8 MG PO Q8H PRN PRN For Nausea (Reported) hydrOXYzine Hcl (HydrOXYzine Hcl) 25 Mg Tablet 25 MG PO QID PRN PRN For Itching (Reported) oxyCODONE-Acetaminophen 10-325 mg (oxyCODONE-Acetaminophen 10-325 mg) 1 Each Tablet 1 TAB PO Q6H PRN PRN For Pain Prescribed by: WILDA SILVERIO MD Followup Plan Discharge Diet: Heart Healthy, Diabetic Discharge Activity: No restrictions Patient Instructions Need to be compliant with dialysis sessions Follow-up with PCP in: 1 week Time spent 45 minutes Selene Ha MD Mar 25, 2016 15:17
[2016-03-25] MEDS ORDERED: Vitamin B Complex/Vit C Tablet PO SCH (16:00)
[2016-03-25] MEDS ORDERED: hydrOXYzine Pamoate 25 mg Capsule PO PRN (16:05)
--- NOTE | 2016-03-25 17:00 | NUR ---
Social Work Note- Discharge KITMAN spoke with who identified that pt is able to d/c home today. Pt states she does not have a ride home, states that her family can not come to pick her up. KITMAN contacted [facility] and arranged Medicaid transport home. Pt states she is willing to have [facility] involved - MD signed F2F. KITMAN gave access to [facility] and faxed referral to office. KITMAN discussed case with RN - updated RN on taxi arrival - asked RN to provide portable tank for pt to transport home and taxi will return to hospital. Plan: Home with [facility] RN PT and [facility] caregivers. ANGE Mott
--- NOTE | 2016-03-25 17:24 | NUR ---
DISCHARGE Patient discharge home at 1700, left by [employer] that will drive her home to [place]. Patient contacted family who will meet her in [place] to assist her out of cab and into home. Patient left with Oxygen tank ([place] 3L) and cab company will return tank to hospital. Patient dies pain nausea and shortness of breath. Iv catheter removed intact, medication gone over with patient and she verbalized understanding. Patient states she has appointment with Dr Burkett (nephrology) and will follow up with wound care in [facility] for left heel wound. Patient also states she will see PCP in one week.
--- NOTE | 2016-03-25 17:26 | NUR ---
Wound Care Wound evaluation performed, pt seen at bedside. 71 yo female with DM, ESRD and a left heel pressure ulcer (POA) Pt reports the ulcer formed under her cast while being treated for a left Tibial and fibular fracture this past summer. Currently pt is being seen by wound care nurse on [facility], apparently she receives her dialysis in [place]. Assessment; Left heel pressure injury measures 2 cm x 2 cm x 0.3 cm, no drainage or erythema noted. Wound base is dry fibrin plug, no odor or tunneling. Unable to palpate pulses at her left foot or knee for that matter but there is hair growth on the leg. Redressed by offloading wound with thick duoderm dressing, hydrogel to wound bed and then a mepilex adhesive foam overall. Pt has an offloading brace made by [facility] which could use somwe modification, will contact physical optics teacher.
== END 2016-03-25 16:28 | disposition home or self-care (01) | DRG 70 ==
LOC: EDUNIT# 12:29 → SED 12:29 → EDBD 12:29 → MPC 21:30 → OFED 21:52 → MOC 03-25 00:27
PROVIDERS: ADMIT Hospitalist; ATTEND Hospitalist
DX: G93.40 Encephalopathy, unspecified (principal); N18.6 End stage renal disease; J96.10 Chronic respiratory failure, unspecified whether with hypoxia or hypercapnia; I13.11 Hypertensive heart and chronic kidney disease without heart failure, with stage 5 chronic kidney disease, or end stage renal disease; E11.29 Type 2 diabetes mellitus with other diabetic kidney complication; J44.9 Chronic obstructive pulmonary disease, unspecified; F32.9 Major depressive disorder, single episode, unspecified; G89.4 Chronic pain syndrome; R10.9 Unspecified abdominal pain; N25.0 Renal osteodystrophy; D63.1 Anemia in chronic kidney disease; F17.210 Nicotine dependence, cigarettes, uncomplicated; Z91.15 Patient's noncompliance with renal dialysis; Z99.2 Dependence on renal dialysis; Z86.73 Personal history of transient ischemic attack (TIA), and cerebral infarction without residual deficits; Z79.82 Long term (current) use of aspirin

== ENCOUNTER 2016-04-13 04:17 | Emergency (ER) | payer MEDICARE, MEDICAID ==
[~2016-04-13] VITALS: Ht 152.4 cm; Wt 58.2 kg
[~2016-04-13 04:17] MED LIST changes: -AZIT250T4 PO
[2016-04-13 05:04] VITALS: BP 182/78; PULSE 76; RESP 18; O2SAT 97
[2016-04-13] MEDS ORDERED: 0.9% Sodium Chloride 1,000 ML IV ONE (05:32)
[2016-04-13] MEDS ORDERED: Ondansetron 2 mg/mL 2 mL Inj IVPUSH PRN (05:35)
[2016-04-13 06:10] VITALS: BP 176/82; RESP 18; O2SAT 98
--- NOTE | 2016-04-13 06:30 | ED.REPORT ---
HPI-Trauma Minor / Fall Date of Service Apr 13, 2016 ED Provider: Fiaza Waters MD 71 year old diabetic female with ESRD on dialysis presents to the ER via EMS complaining of head injury status post ground level fall in her home just prior to arrival. She states that she fell out of her wheelchair and struck her head on her tiled bathroom floor. Associated symptom of acute on chronic back pain exacerbated by the fall. Patient also reports three days of diarrhea, nausea, and intractable vomiting; unable to keep water down. She denies fever. Symptoms have been treated with Zofran with inconsistent relief. She admits that she has not received dialysis for 5 days. Typically she dialyzes Wednesday/Wednesday/ Wednesday at 05:30, followed by Dr. Allen, Nephrology. Wheelchair-bound due to 6 months of non-healing leg fracture. Nursing Notes Stated Complaint: DIARRHEA,NAUSEA,GLF Chief Complaint: General Complaint Nursing Notes Reviewed: Yes Allergies: Coded Allergies: gabapentin (Verified Allergy, Severe, 04/13/16) Swelling and gait problems hydromorphone HCl (Verified Allergy, Severe, Hallucinations, 04/13/16) "Trip like on LSD" sumatriptan succinate (Verified Allergy, Severe, Dizziness, 04/13/16) Chest pain and dizziness TAPE (Verified Allergy, Intermediate, 04/13/16) itching latex (Verified Allergy, Intermediate, 12/17/15) Itching from gloves morphine (Verified Allergy, Unknown, Hallucinations, 12/17/15) Scheduled Aspirin Chew (Aspirin Chew) 81 Mg Chew 81 MG PO DAILY Calcitriol (Rocaltrol) 0.25 Mcg Capsule 0.25 MCG PO DAILY Calcium Acetate (Phoslo) 667 Mg Tablet 1,334 MG PO TIDWM Cinacalcet (Sensipar) 30 Mg Tablet 30 MG PO BID Ferrous Sulfate (Ferrous Sulfate) 325 Mg Tablet 325 MG PO DAILY Fluoxetine (Fluoxetine) 20 Mg Capsule 20 MG PO TID Fluoxetine (Prozac) 20 Mg Capsule 30 MG PO DAILY Folic Acid/Vitamin B Comp W-C (Dialyvite Tablet) 1 Each Tablet 1 EACH PO DAILY Furosemide (Furosemide) 40 Mg Tablet 40 MG PO DAILY Scheduled PRN Docusate Sodium (Colace) 100 Mg Capsule 100 MG PO HS PRN PRN For Constipation Ondansetron ODT (Ondansetron ODT) 4 Mg Tab.rapdis 8 MG PO Q8H PRN PRN For Nausea hydrOXYzine Hcl (HydrOXYzine Hcl) 25 Mg Tablet 25 MG PO QID PRN PRN For Itching oxyCODONE-Acetaminophen 10-325 mg (oxyCODONE-Acetaminophen 10-325 mg) 1 Each Tablet 1 TAB PO Q6H PRN PRN For Pain General Time Seen by MD: 05:26 Chief Complaint Fall, Head injury Hx Obtained From: Patient Arrived By: Ambulance Onset Occurred: Just prior to arrival Symptom Duration: Since onset Caused by: Accidental, Fall on ground Context: Occurred at: Home injury Location: Head Quality: Painful Severity: Current: Moderate Severity: Maximum: Moderate Associated with: Reports: Nausea, Vomiting, Denies: Fever Additional Notes: Diarrhea Recent Healthcare: Recent doctor visit, Recent hospitalization Past Medical History Past Medical History Notes: pulmonary function technician: Dr. Allen chronic pain medication Past Medical History ESRD on dialysis MWF Chronic tobacco dependence. Anemia of chronic disease. History of right lower lobe pneumonia. Hospitalization, November 2012, for atypical chest pain with negative myocardial stress test. Staph aureus sepsis, December 2012. 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 Reports: COPD, Diabetes mellitus, Hypertension, Stroke Past Surgical History Left arm fistula. Left brachial basilic fistula. Right brachial basilic fistula. Evacuation of wound hematoma due to thrombosed left brachial basilic fistula, April 2012. 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 Reports: , Cholecystectomy Family History Noncontributory Smoking History Current Every Day Smoker Social History Alcohol Use: "Social" Drug Use: Denies drug use Other Social History: Lives alone, Local resident Ambulatory Status Wheelchair Review of Systems Constitutional: Denies: Chills, Fever Respiratory: Reports: Non-productive cough, Denies: Shortness of breath Musculoskeletal: Reports: Back pain, Extremity pain, Lumbar pain, Denies: Neck pain, Thoracic pain Neurologic: Reports: Headache, Denies: Syncope Complete sys rev & neg: except as marked. Cardiovascular: Denies: Chest pain GI: Reports: Diarrhea, Nausea, Vomiting, Denies: Abdominal pain Physical Exam Initial Vital Signs Vital Signs (First) Date Time Temp Pulse Resp B/P Pulse Ox O2 Delivery O2 Flow Rate FiO2 04/13/16 05:04 36.5 76 18 182/78 97 Room Air 04/13/16 12:06 5 Initial VS: Reviewed Abdomen / GI: Soft, Non-tender, No guarding, No rebound, No distention Skin: Warm, Dry, No cyanosis Neurologic: Alert, Oriented, Nonfocal Psychiatric: Mood/affect normal, Behavior normal, Normal thought content General/Constitutional: Awake, Alert, No acute distress Neck: Atraumatic, Supple, Full range of motion, No midline vertebral tend, No tracheal deviation Significant JVD. Head / Eyes: Normocephalic, No photophobia Facial edema Respiratory / Chest: Breath sounds NL, Breath sounds = bilat, No respiratory distress, No rales, No rhonchi, No wheezing, No chest tenderness, No chest wall deformity, No crepitus Cardiovascular: Heart rate NL, Regular rhythm, Heart sounds NL, Cap refill not delayed, Peripheral circulation NL Lower Ext Edema: Positive: Bilateral 2+ Dialysis catheter right subclavian. Back: Full range of motion, No CVA tenderness Point tenderness at T4. Chronic tenderness at T12 and entire lumbar area. Impressive scoliosis. Interpretation & Diagnostics Lab Results Interpretation Result Diagram: 04/13/16 0655 04/13/16 0655 Test 04/13/16 06:55 White Blood Count 7.3th/mm3 (3.8-10.1) Red Blood Count 3.38mil/mm3 (3.90-5.20) Hemoglobin 9.9g/dL (12.0-15.6) Hematocrit 30.1% (35.0-46.0) Mean Corpuscular Volume 89.1fL (81-100) Mean Corpuscular Hemoglobin 29.3pg (27.0-35.0) Mean Corpuscular Hemoglobin Concent 32.9% (32.0-37.0) Red Cell Distribution Width 18.5% (12.3-15.4) Platelet Count 164bil/L (150-400) Neutrophils (%) (Auto) 78.8% (40-74) Lymphocytes (%) (Auto) 11.7% (14-46) Monocytes (%) (Auto) 6.4% (4-12) Eosinophils (%) (Auto) 2.7% (0-5) Basophils (%) (Auto) 0.3% (0-3) Sodium Level 143mEq/L (134-144) Potassium Level 4.7mEq/L (3.5-5.2) Chloride Level 98mEq/L (97-108) Carbon Dioxide Level 25mmol/L (18-29) Blood Urea Nitrogen 42mg/dL (8-27) Creatinine 11.26mg/dL (0.57-1.00) Estimat Glomerular Filtration Rate 4mL/min (>59) Glucose Level 83mg/dL (60-99) Calcium Level 9.2mg/dL (8.5-10.1) Magnesium Level 2.5mg/dL (1.6-2.6) Total Bilirubin 0.6mg/dL (0.0-1.2) Aspartate Amino Transf (AST/SGOT) 12U/L (0-50) Alanine Aminotransferase (ALT/SGPT) 5U/L (0-32) Alkaline Phosphatase 364U/L (25-165) Total Protein 7.5g/dL (6.4-8.4) Albumin 4.1g/dL (3.4-5.0) Lipase 18U/L (13-60) X-Ray Interpretation Xray Interpretation: IMPRESSION: Markedly limited view of the spine. Discrete vertebral bodies there are characterize, and compression deformity cannot be excluded. If there is high clinical suspicion for acute fracture, a noncontrast CT or MRI of the thoracic spine is recommended. Dictated by: Tiffanie Acosta M.D. on 04/13/2016 at 8:42 Approved by: Tiffanie Acosta M.D. on 04/13/2016 at 8:44 Study Performed: PROCEDURE: X-RAY THORACIC SPINE, 3 VIEWS Interpretation / Wet Read by: Interpret - Radiologist CT Head Interpretation CONCLUSION: No acute intracranial hemorrhage is identified. Findings consistent with small vessel ischemic change, which is probably chronic. Findings consistent with an old lacunar infarct in the left thalamus. Bilateral mastoid effusions. Calvarial thickening. Electronically signed by Brigido Rios MD Study: Head CT no contrast Interpretation / Wet Read by: Interpret - Radiologist Re-Eval/Medical Decision Source of Hx: Old records Re-Evaluation/Progress #1: Time of Eval: 06:35 Re-Evaluation/Progress Note: Updated patient on the plan of care. Re-Evaluation/Progress #2: Time of Eval: 08:30 Re-Evaluation/Progress Note: Patient sleeping comfortably with apneic spells. O2 saturation in the 50's. Her purse containing her bottle of oxycodone was sitting on her lap. Patient placed on non-rebreather. Narcan administered. Re-Evaluation/Progress #3: Time of Eval: 08:59 Re-Evaluation/Progress Note: Discussed lab and radiology results and plan to discharge, with instructions to go to dialysis this afternoon. Patient is amenable to the plan. Return precautions given. All other questions addressed. Re-Evaluation/Progress #4: Time of Eval: 09:15 Re-Evaluation/Progress Note: O2 saturation back up to high 90's when awake, drifts back to low 80's when asleep. Counseled Regarding: Diagnosis, Lab results, Need for follow-up, When/why to return to ED Discharge & Departure Impression: Primary Impression: Fall Additional Impressions: Chronic renal failure Overdose Encounter type: initial encounter Injury intent: accidental or unintentional Qualified Code: T50.901A - Poisoning by unspecified drugs, medicaments and biological substances, accidental (unintentional), initial encounter Disposition: Home Discharge Condition All VS Reviewed: Yes Condition: Stable Additional Instructions: Your workup today was reassuring. There were no indications of dangerous injuries on your X-ray and CT scan. Careful with transfers. We will get you to dialysis today. Return to the ER if you develop any worsening or concerning symptoms. Referrals: KATI TYSON DO (PCP) Bere Allen MD Attestation Portions of this note were transcribed by Jorden Bahena. I, Dr. Waters, personally performed the history, physical exam and medical decision-making; I reviewed and confirmed the accuracy of the information in the transcribed note. Signed by: Ebenezer Huggins, 04/13/2016 and 09:46. copies to: Bere Allen MD; KATI TYSON Shawna L MD Apr 13, 2016 06:29 JORDEN BAHENA Apr 13, 2016 06:49
[2016-04-13 07:13] LABS: BASOPHILS % (AUTO) 0.3 % (0-3); EOSINOPHILS % (AUTO) 2.7 % (0-5); MONOCYTES % (AUTO) 6.4 % (4-12); Mean Corpuscular Hemoglobin 29.3 pg (27.0-35.0); Mean Corpuscular Volume 89.1 fL (81-100); NEUTROPHILS % (AUTO) 78.8 % (40-74); Platelet Count 164 bil/L (150-400)
[2016-04-13 07:59] LABS: Magnesium 2.5 mg/dL (1.6-2.6)
--- NOTE | 2016-04-13 08:45 | DRSVH ---
PROCEDURE: X-RAY THORACIC SPINE, 3 VIEWS INDICATIONS: fall, tender t4 area, ? new compression fracture TECHNIQUE: 3 views of the thoracic spine were acquired. COMPARISON: None. FINDINGS: Tunneled hemodialysis catheter is projected over the spine. Bones: This is a markedly view of the spine. Discrete vertebral bodies are not well characterized. Soft tissues: Soft tissues are grossly unremarkable. IMPRESSION: Markedly limited view of the spine. Discrete vertebral bodies there are characterize, and compression deformity cannot be excluded. If there is high clinical suspicion for acute fracture, a noncontrast CT or MRI of the thoracic spine is recommended. Dictated by: Tiffanie Acosta M.D. on 04/13/2016 at 8:42 Approved by: Tiffanie Acosta M.D. on 04/13/2016 at 8:44
[2016-04-13 08:53] VITALS: BP 134/87; PULSE 103; RESP 19; O2SAT 95
--- NOTE | 2016-04-13 09:02 | DRSVH ---
PROCEDURE: CT BRAIN WITHOUT CONTRAST ([id number]) INDICATIONS: fall from wheelchair TECHNIQUE: Noncontrast 4.5 mm thick angled axial sections acquired from the foramen magnum to the vertex, with c oronal reformats. COMPARISON: [facility], CT, CT BRAIN WO CON, 03/24/2016, 21:43. FINDINGS: Image quality: Excellent. CSF spaces: Basal cisterns are patent. No extra-axial fluid collections. The ventricles are symmet doris in size and shape. Brain: No intracranial bleeds or masses. There is an old lacunar infarct in the left thalamus. Ther e is cerebral volume loss for age, with resultant ventricular and sulcal prominence. There are periv entricular and deep white matter chronic small vessel ischemic changes. There is intracranial improvement intern al carotid artery atherosclerosis. Skull and face: Calvarium and visualized facial bones appear intact, without suspicious lesions. Sinuses: Visualized sinuses. There is fluid in mastoids bilaterally. IMPRESSION: 1. No acute intracranial abnormalities. 2. An old lacunar infarct in the left thalamus. 3. Cerebral volume loss and chronic microvascular ischemic changes. 4. Fluid in mastoids bilaterally. Recommend clinical correlation for mastoiditis. No significant discrepancy with the commodity analyst radiology preliminary report. Dictated by: Eliud Lawrence M.D. on 04/13/2016 at 8:04 Approved by: Eliud Lawrence M.D. on 04/13/2016 at 9:00
[2016-04-13 10:42] VITALS: BP 125/75; PULSE 78; RESP 18; O2SAT 92
[2016-04-13 12:06] VITALS: BP 108/52; PULSE 98; RESP 12; O2SAT 95
== END 2016-04-13 12:08 | disposition home or self-care (01) ==
LOC: SED 04:17 → EDBD 04:17 → SED 12:08
DX: S09.90XA Unspecified injury of head, initial encounter (principal); T50.901A Poisoning by unspecified drugs, medicaments and biological substances, accidental (unintentional), initial encounter; I12.0 Hypertensive chronic kidney disease with stage 5 chronic kidney disease or end stage renal disease; N18.6 End stage renal disease; E11.22 Type 2 diabetes mellitus with diabetic chronic kidney disease; Z86.73 Personal history of transient ischemic attack (TIA), and cerebral infarction without residual deficits; W05.0XXA Fall from non-moving wheelchair, initial encounter; Y93.89 Activity, other specified; Y99.8 Other external cause status; Y92.012 Bathroom of single-family (private) house as the place of occurrence of the external cause; Z88.5 Allergy status to narcotic agent; Z99.2 Dependence on renal dialysis; Z91.040 Latex allergy status; Z79.82 Long term (current) use of aspirin; F17.200 Nicotine dependence, unspecified, uncomplicated; M54.6 Pain in thoracic spine; R11.2 Nausea with vomiting, unspecified
CPT/HCPCS: 36415; 70450; 72072; 80053; 83690; 83735; 85025; 96361; 96374; 96375; 99285; J2310; J7030

== ENCOUNTER 2016-04-21 11:25 | Emergency (ER) | payer MEDICARE, MEDICAID ==
[~2016-04-21] VITALS: Ht 152.4 cm; Wt 54.5 kg
[2016-04-21 11:34] VITALS: BP 190/87; RESP 18; O2SAT 97
--- NOTE | 2016-04-21 11:46 | ED.REPORT ---
HPI-Chest Pain 40 and Over Date of Service Apr 21, 2016 ED Provider: Rosalba Borrero MD The patient is a 71 year old with a hx of DM, HTN, COPD, stroke, and frequent ER visits who presents to the ED via EMS from due to intermittent chest pain every other day for the past week. The pain waxes and wanes and she describes it as a sharp, stabbing sensation. She most recently experienced the pain about an hour ago at . Patient isn't quite sure why sent her here and is annoyed at having to pay the ambulance fee. She refuses the EKG because she, "just received one at Urgent Care 20 minutes ago," but agrees to have her blood drawn. She is slightly agitated and complains about the care provided. Pt denies diaphoresis or any other symptoms. She frequently skips dialysis and then calls an ambulance to come to the hospital. Pt just had dialysis yesterday. Nursing Notes Stated Complaint: CHEST PAIN Chief Complaint: Chest Pain Nursing Notes Reviewed: Yes Allergies: Coded Allergies: gabapentin (Verified Allergy, Severe, 04/21/16) Swelling and gait problems hydromorphone HCl (Verified Allergy, Severe, Hallucinations, 04/21/16) "Trip like on LSD" sumatriptan succinate (Verified Allergy, Severe, Dizziness, 04/21/16) Chest pain and dizziness TAPE (Verified Allergy, Intermediate, 04/21/16) itching latex (Verified Allergy, Intermediate, 04/21/16) Itching from gloves morphine (Verified Allergy, Unknown, Hallucinations, 04/21/16) Scheduled Aspirin Chew (Aspirin Chew) 81 Mg Chew 81 MG PO DAILY Calcitriol (Rocaltrol) 0.25 Mcg Capsule 0.25 MCG PO DAILY Calcium Acetate (Phoslo) 667 Mg Tablet 1,334 MG PO TIDWM Cinacalcet (Sensipar) 30 Mg Tablet 30 MG PO BID Ferrous Sulfate (Ferrous Sulfate) 325 Mg Tablet 325 MG PO DAILY Fluoxetine (Fluoxetine) 20 Mg Capsule 20 MG PO TID Fluoxetine (Prozac) 20 Mg Capsule 30 MG PO DAILY Folic Acid/Vitamin B Comp W-C (Dialyvite Tablet) 1 Each Tablet 1 EACH PO DAILY Furosemide (Furosemide) 40 Mg Tablet 40 MG PO DAILY Scheduled PRN Docusate Sodium (Colace) 100 Mg Capsule 100 MG PO HS PRN PRN For Constipation Ondansetron ODT (Ondansetron ODT) 4 Mg Tab.rapdis 8 MG PO Q8H PRN PRN For Nausea hydrOXYzine Hcl (HydrOXYzine Hcl) 25 Mg Tablet 25 MG PO QID PRN PRN For Itching oxyCODONE-Acetaminophen 10-325 mg (oxyCODONE-Acetaminophen 10-325 mg) 1 Each Tablet 1 TAB PO Q6H PRN PRN For Pain General Time Seen by MD: 11:46 Chief Complaint Chest pain Hx Obtained From: Patient Arrived By: Ambulance Sudden in Onset?: Yes Onset Occurred: Just prior to arrival Symptom Duration: Since onset Location: : Chest left Quality: Sharp Radiation: : Does not radiate Severity: Current: Mild Recent Healthcare: Recent doctor visit Similar Sx Previous: Yes Past Medical History 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 Anemia of chronic disease. History of right lower lobe pneumonia. Hospitalization, November 2012, for atypical chest pain with negative myocardial stress test. Staph aureus sepsis, December 2012. 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 Reports: COPD, Diabetes mellitus, Hypertension, Stroke Past Surgical History Left arm fistula. Left brachial basilic fistula. Right brachial basilic fistula. Evacuation of wound hematoma due to thrombosed left brachial basilic fistula, April 2012. 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 Reports: , Cholecystectomy Family History Noncontributory Smoking History Current Every Day Smoker Social History Alcohol Use: "Social" Drug Use: Denies drug use Other Social History: Lives alone, Local resident Ambulatory Status Wheelchair Review of Systems Cardiovascular: Reports: Chest pain (left ) GI: Denies: Nausea Skin: Denies Diaphoresis Complete sys rev & neg: except as marked. Physical Exam Initial Vital Signs Vital Signs (First) Date Time Temp Pulse Resp B/P Pulse Ox O2 Delivery O2 Flow Rate FiO2 04/21/16 11:34 36.1 18 190/87 97 Room Air Initial VS: Reviewed Head / Eyes: Atraumatic, Normocephalic, PERRL ENT: Mucous membranes moist, Conjunctiva normal, No scleral icterus Neck: Supple, Non-tender, Full range of motion Back: No CVA tenderness Extremities: Vascular intact, Neuro intact, No swelling, No tenderness Skin: Warm, Dry, No cyanosis General/Constitutional: Awake, Alert Behavior: Positive: Agitated, Uncooperative Uncooperative at first but agrees to blood draw upon reevaluation Respiratory / Chest: Atraumatic, Breath sounds NL, Breath sounds = bilat, No respiratory distress, No rales, No rhonchi, No wheezing, No retractions Cardiovascular: Heart rate NL, Regular rhythm, Heart sounds NL Lower Ext Edema: Positive: Right 2+ no chest tenderness Abdomen: Atraumatic, Soft, Non-tender, McBurney's non-tender, No guarding, No rebound, BS normoactive Interpretation & Diagnostics Lab Results Interpretation Test 04/21/16 12:35 Troponin T 0.129ug/L (0.0-0.011) ECG Interpretation ECG Interpretation: EKG from this morning pt refuses an EKG at [facility] flipped t-waves Time: 10:00 Interpreted by: ED physician Normal ECG Interpretation: Normal ECG w/ rate of... (72), Normal rate, Normal sinus rhythm, No acute ischemic changes, Normal intervals, No change from prior ECGs (03/24/16) X-Ray Chest Interpretation Chest Xray Interpretation: IMPRESSION: Probable left lower lobe pneumonia, correlate clinically. Dictated by: Ze Lawton M.D. on 04/21/2016 at 12:34 Approved by: Ze Lawton M.D. on 04/21/2016 at 12:35 View: Portable Interpretation / Wet Read by: Interpret - Radiologist Re-Eval/Medical Decision Med Decision/Clinical Course The patient presents with atypical chest pain and has had similar symptoms in the past. Her troponin is elevated however it has been this elevated in the past with normal stress test. It was more than twice evaluated today with a normal stress test. Given the duration of pain and no acute EKG changes or bump in her normal troponin this does not appear to be cardiac in nature. There was possibility of pneumonia on her chest x-ray however when she was questioned she has not been sick in the last couple weeks and there are no infectious type symptoms such as cough or difficulty breathing or increased fatigue. She states she was told she had viral pneumonia at one point and these could be residual changes related to that. The patient was very hesitant to allow many of the tests but she did allow the chest x-ray and troponin. I was able to obtain the EKG she had an urgent care, she refused one here. Time of Eval: 12:14 Patient Status: Condition unchanged Re-Evaluation/Progress Note: Pt rechecked. Her EKG from is normal and she refuses to have another EKG done at [facility]. She agrees in have her blood drawn. Time of Eval: 13:13 Patient Status: Condition unchanged Re-Evaluation/Progress Note: Pt rechecked. Discussed chest x-rays results. Pt states that she had a bad cold two months ago but has not had any other pneumonia symptoms since. Blood work does not show any signs of heart attack. Pt understands and agrees with plan. F/U and RTER warnings given. All questions addressed. Counseled Regarding: Diagnosis, Lab results, Need for follow-up, When/why to return to ED Discharge & Departure Primary Impression: Atypical chest pain Disposition: Home Discharge Condition All VS Reviewed: Yes Condition: Stable Additional Instructions: After reviewing your x-ray and blood work, there is no sign of heart attack. Your chest pain is normal for you. Please follow up with your primary care physician to discuss having a stress test. Return to the Emergency Department if you experience any new or worsening symptoms. We hope you feel better soon! Referrals: Latisha Parham DO (PCP) Jostin Attestation Portion of this note were transcribed by Brielle Doyle. I, Dr. Borrero, personally performed the history, physical exam, and medical decision-making: I reviewed and confirmed the accuracy for the information in the transcribed note. Signed by: jostin Schneider, 04/21/16 [id number] copies to: Latisha Parham Jena M MD Apr 21, 2016 11:46 BRIELLE DOYLE Apr 21, 2016 12:15
[2016-04-21] MEDS ORDERED: oxyCODONE-Acetamin 5-325 mg Tablet PO ONE (12:25)
--- NOTE | 2016-04-21 12:36 | DRSVH ---
PROCEDURE: X-RAY CHEST ONE VIEW, PORTABLE ([id number]) INDICATIONS: chest pain TECHNIQUE: One view of the chest was acquired. COMPARISON: 12/17/2015 FINDINGS: Surgical changes and devices: Right-sided dialysis catheter. Surgical clips right upper quadrant.. Lungs and pleura: No pleural effusions or pneumothorax. Left perihilar and lower lobe infiltrate is suspect for pneumonia. Mediastinum: Mediastinal contours appear normal. Heart size is normal. Bones and chest wall: No suspicious bony lesions. Overlying soft tissues appear unremarkable. IMPRESSION: Probable left lower lobe pneumonia, correlate clinically. Dictated by: Ze Lawton M.D. on 04/21/2016 at 12:34 Approved by: Ze Lawton M.D. on 04/21/2016 at 12:35
== END 2016-04-21 14:47 | disposition home or self-care (01) ==
LOC: SED 11:25
DX: R07.89 Other chest pain (principal); J44.9 Chronic obstructive pulmonary disease, unspecified; I12.0 Hypertensive chronic kidney disease with stage 5 chronic kidney disease or end stage renal disease; E11.22 Type 2 diabetes mellitus with diabetic chronic kidney disease; N18.6 End stage renal disease; F17.200 Nicotine dependence, unspecified, uncomplicated; Z86.73 Personal history of transient ischemic attack (TIA), and cerebral infarction without residual deficits; Z79.82 Long term (current) use of aspirin; Z88.5 Allergy status to narcotic agent; Z88.8 Allergy status to other drugs, medicaments and biological substances; Z91.040 Latex allergy status; Z91.048 Other nonmedicinal substance allergy status
CPT/HCPCS: 36415; 71010; 84484; 99284; G0463

== ENCOUNTER 2016-05-21 03:57 | Emergency (ER) | payer MEDICARE, MEDICAID ==
[~2016-05-21] VITALS: Ht 152.4 cm; Wt 52.3 kg
--- NOTE | 2016-05-21 04:03 | ED.REPORT ---
HPI-General Illness Date of Service May 21, 2016 ED Provider: Dr. Andrea Morgan M.D. A 71 year old female with an extensive medical history including diabetes, hypertension, stroke, COPD, diabetic gastroparesis, and ESRD on dialysis presents to the ED accompanied by her caregiver with intermittent right-sided abdominal pain onset "a while ago," worsening this morning, waking her up. Associated symptoms include nausea and vomiting which have resolved in the ED. The patient also reports palpating a mass in the painful area of her right abdomen. She denies fever or other symptoms. The patient has recently stopped taking her Prozac and Dulcolax. She reports recent intermittent constipation but had a normal bowel movement last night and was incontinent of stool upon arrival in the ED. The patient receives dialysis // with her most recent dialysis appointment yesterday. She is on 2L O2 at home. Nursing Notes Stated Complaint: RT SIDE PAIN Nursing Notes Reviewed: Yes Allergies: Coded Allergies: gabapentin (Verified Allergy, Severe, 04/21/16) Swelling and gait problems hydromorphone HCl (Verified Allergy, Severe, Hallucinations, 04/21/16) "Trip like on LSD" sumatriptan succinate (Verified Allergy, Severe, Dizziness, 04/21/16) Chest pain and dizziness TAPE (Verified Allergy, Intermediate, 04/21/16) itching latex (Verified Allergy, Intermediate, 04/21/16) Itching from gloves morphine (Verified Allergy, Unknown, Hallucinations, 04/21/16) Scheduled Aspirin Chew (Aspirin Chew) 81 Mg Chew 81 MG PO DAILY Calcitriol (Rocaltrol) 0.25 Mcg Capsule 0.25 MCG PO DAILY Calcium Acetate (Phoslo) 667 Mg Tablet 1,334 MG PO TIDWM Cinacalcet (Sensipar) 30 Mg Tablet 30 MG PO BID Ferrous Sulfate (Ferrous Sulfate) 325 Mg Tablet 325 MG PO DAILY Fluoxetine (Fluoxetine) 20 Mg Capsule 20 MG PO TID Fluoxetine (Prozac) 20 Mg Capsule 30 MG PO DAILY Folic Acid/Vitamin B Comp W-C (Dialyvite Tablet) 1 Each Tablet 1 EACH PO DAILY Furosemide (Furosemide) 40 Mg Tablet 40 MG PO DAILY Scheduled PRN Docusate Sodium (Colace) 100 Mg Capsule 100 MG PO HS PRN PRN For Constipation Ondansetron ODT (Ondansetron ODT) 4 Mg Tab.rapdis 8 MG PO Q8H PRN PRN For Nausea hydrOXYzine Hcl (HydrOXYzine Hcl) 25 Mg Tablet 25 MG PO QID PRN PRN For Itching oxyCODONE-Acetaminophen 10-325 mg (oxyCODONE-Acetaminophen 10-325 mg) 1 Each Tablet 1 TAB PO Q6H PRN PRN For Pain General Time Seen by MD: 04:02 Chief Complaint 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 Anemia of chronic disease. History of right lower lobe pneumonia. Hospitalization, November 2012, for atypical chest pain with negative myocardial stress test. Staph aureus sepsis, December 2012. 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 Reports: COPD, Diabetes mellitus, Hypertension, Stroke Past Surgical History Left arm fistula. Left brachial basilic fistula. Right brachial basilic fistula. Evacuation of wound hematoma due to thrombosed left brachial basilic fistula, April 2012. 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 Reports: , Cholecystectomy Family History Noncontributory Smoking History Current Every Day Smoker Social History Alcohol Use: "Social" Drug Use: Denies drug use Other Social History: Lives alone, Local resident Ambulatory Status Wheelchair Review of Systems + Palpable right abdomen mass per patient Full Review of Systems Constitutional: Denies: Fever Respiratory: Denies: Non-productive cough, Shortness of breath GI: Reports: Abdominal pain (Right-sided, intermittent), Constipation ( Intermittent), Nausea, Vomiting Neurologic: Reports: Bowel dysfunction Complete sys rev & neg: except as marked. Physical Exam Vital Signs Vital Signs Date Time Temp Pulse Resp B/P Pulse Ox O2 Delivery O2 Flow Rate FiO2 05/21/16 06:10 22 146/73 100 Room Air 05/21/16 04:07 36.3 74 16 178/90 97 Nasal Cannula Initial VS: Reviewed Head / Eyes: Atraumatic, Normocephalic ENT: Conjunctiva normal, No scleral icterus Respiratory: Breath sounds normal, Clear to auscultation, No respiratory distress Cardiovascular: Regular rate & rhythm, Heart sounds normal Extremities: Vascular intact, Neuro intact Skin: Warm, Dry, No cyanosis Neurologic: Alert, Oriented, Nonfocal Psychiatric: Mood/affect normal, Behavior normal, Normal thought content General/Constitutional: Awake, Alert, No acute distress Abdomen: Soft, No palpable mass Tenderness to right mid abdomen Interpretation & Diagnostics Lab Results Interpretation Result Diagram: 05/21/16 0455 05/21/16 0455 Test 05/21/16 04:55 White Blood Count 6.0th/mm3 (3.8-10.1) Red Blood Count 3.50mil/mm3 (3.90-5.20) Hemoglobin 10.2g/dL (12.0-15.6) Hematocrit 30.6% (35.0-46.0) Mean Corpuscular Volume 87.4fL (81-100) Mean Corpuscular Hemoglobin 29.1pg (27.0-35.0) Mean Corpuscular Hemoglobin Concent 33.3% (32.0-37.0) Red Cell Distribution Width 19.3% (12.3-15.4) Platelet Count 162bil/L (150-400) Neutrophils (%) (Auto) 71.5% (40-74) Lymphocytes (%) (Auto) 17.1% (14-46) Monocytes (%) (Auto) 8.1% (4-12) Eosinophils (%) (Auto) 2.0% (0-5) Basophils (%) (Auto) 0.5% (0-3) Hematology Comments A Sodium Level 135mEq/L (134-144) Potassium Level 5.0mEq/L (3.5-5.2) Chloride Level 93mEq/L (97-108) Carbon Dioxide Level 24mmol/L (18-29) Blood Urea Nitrogen 14mg/dL (8-27) Creatinine 4.37mg/dL (0.57-1.00) Estimat Glomerular Filtration Rate 13mL/min (>59) Glucose Level 105mg/dL (60-99) Calcium Level 9.1mg/dL (8.5-10.1) Magnesium Level 2.4mg/dL (1.6-2.6) Total Bilirubin 0.5mg/dL (0.0-1.2) Aspartate Amino Transf (AST/SGOT) 36U/L (0-50) Alanine Aminotransferase (ALT/SGPT) 6U/L (0-32) Alkaline Phosphatase 393U/L (25-165) Total Protein 7.8g/dL (6.4-8.4) Albumin 4.2g/dL (3.4-5.0) Lipase 35U/L (13-60) CT Abd / Pelvis Interpretation No CT evidence of acute intra-abdominal pathology. Probable vascular calcification in the kidneys but small calculi cannot be excluded but there is no hydronephrosis. Coarse trabecular pattern of the pelvic bones raising the possibility of Paget's disease. Irregularity of the inferior endplate of T11 may have been the result of previous osteomyelitis/discitis. Transmitted to ED by Neel Aguilar M.D. at 05/21/2016 5:20:21 AM PDT Study type: Abdominal CT no contrast Interpretation / Wet Read by: Interpret - Radiologist Re-Eval/Medical Decision Med Decision/Clinical Course 71-year-old end-stage renal disease patient well known to this emergency Department, presents with intermittent abdominal pain and nausea. This is been going on for months. She is concerned there is a mass in her abdomen. CT scan does not reveal a mass but moderate constipation, well known because of her chronic opioid use. Very strategies discussed with her caregiver. No findings to require hospitalization. Discharged now in stable condition. Source of Hx: Old records Time of Eval: 05:48 Patient Status: Condition improved Re-Evaluation/Progress Note: Patient's pain has improved. Discussed with patient CT and lab results, diagnosis, and plan for discharge. Follow-up and return to the ER instructions given. Patient agrees with plan for care and all questions were addressed. Counseled Regarding: Diagnosis, Lab results, Need for follow-up, When/why to return to ED Discharge & Departure Shift Change Sign-Out Response to Therapy: Improved Primary Impression: Abdominal pain Abdominal location: unspecified location Qualified Code: R10.9 - Unspecified abdominal pain Additional Impressions: ESRD (end stage renal disease) on dialysis Nausea Constipation Constipation type: unspecified constipation type Qualified Code: K59.00 - Constipation, unspecified Disposition: Home Discharge Condition All VS Reviewed: Yes Condition: Improved Patient Instructions: Constipation (ED) Additional Instructions: Begin Metamucil twice daily. Continue intermittent Dulcolax as needed Follow-up with your doctor in the office Return for any immediate issues. Referrals: Latisha Parham DO (PCP) Jordynibe Attestation Portions of this note were transcribed by Cierra Bryant. I, Dr. Morgan, personally performed the history, physical exam, and medical decision-making; I reviewed and confirmed the accuracy of the information in the transcribed note. Signed by: Ebenezer Smiley, 05/21/2016, 06:00 copies to: Latisha Parham Christopher W MD May 21, 2016 04:03 CIERRA BRYANT May 21, 2016 04:19
[2016-05-21 04:07] VITALS: BP 178/90; PULSE 74; RESP 16; O2SAT 97
[2016-05-21] MEDS ORDERED: Ondansetron 2 mg/mL 2 mL Inj IVPUSH ONE (04:25)
[2016-05-21] MEDS ORDERED: Ketorolac 15 mg/mL Inj IVPUSH ONE (04:25)
[2016-05-21 05:04] LABS: BASOPHILS % (AUTO) 0.5 % (0-3); MONOCYTES % (AUTO) 8.1 % (4-12); Mean Corpuscular Hemoglobin 29.1 pg (27.0-35.0); Mean Corpuscular Volume 87.4 fL (81-100); NEUTROPHILS % (AUTO) 71.5 % (40-74); Platelet Count 162 bil/L (150-400)
[2016-05-21 05:35] LABS: Magnesium 2.4 mg/dL (1.6-2.6)
[2016-05-21 06:10] VITALS: BP 146/73; RESP 22; O2SAT 100
--- NOTE | 2016-05-21 12:18 | DRSVH ---
PROCEDURE: CT ABDOMEN AND PELVIS WITHOUT CONTRAST ([id number]) INDICATIONS: pain, ?mass rlq TECHNIQUE: Noncontrast 5 mm thick sections acquired from the diaphragms to the symphysis. 5 mm coronal and sagi ttal reformats were then performed. For radiation dose reduction, the following was used: automated exposure control, adjustment of mA and/or kV according to patient size. COMPARISON: [facility], CT, CT ABD PELVIS WO CON, 07/05/2015, 5:32. [facility] al, MR, MR ABD MRCP, 07/05/2015, 21:44. [facility], CT, CT ABD PELVIS WO CON, 03/24/2016, 13:42. FINDINGS: Image quality: Excellent. ABDOMEN: Lung bases: Lung bases are clear. Heart size is normal. Solid organs: Liver and spleen are normal in size. Gallbladder has been removed. There is a mild pr ominence of the pancreatic duct within the pancreatic head with an overall appearance of soft tissue prominence of the pancreatic head and uncinate process. Evaluation is considered limited secondary to lack of IV and oral contrast. However, a similar appearance was identified on MR examination dated . No adrenal nodules. Kidneys are atrophic with multiple areas of nonobstructing calcification bilaterally. There is felt to be a significant component of arterial calcification present. Renal cy sts are present bilaterally, most prominent and numerous on the left measuring 31 mm in transverse di mension. Peritoneum and bowel: Unenhanced bowel loops demonstrate normal wall thickness and caliber. No free fluid or air. Nodes and vessels: No retroperitoneal or mesenteric adenopathy by size criteria. Aorta and inferior vena cava are normal in caliber. Miscellaneous: No ventral hernias. PELVIS: Genitourinary: Bladder wall thickness is normal. Miscellaneous: No inguinal hernias or adenopathy. Bones: Osseous structures demonstrate overall diffuse mottled appearance particularly within the thor acic and lumbar spine extending into the pelvic bones. This has demonstrated interval progression ove r multiple prior exams, although appear stable compared to most recent prior exam on 03/24/16. IMPRESSION: 1. No acute visualized cause of pain. 2. Likely prominent renal vascular calcifications. Underlying areas of nonobstructing renal calculi c annot be excluded. 3. Poorly visualized appearance of the pancreas with suggestion of enlargement in the pancreatic head and uncinate process, as suggested on prior MRI examination of 07/05/15. If concern for pancreatic ma ss exists, CT or MRI with pancreatic protocol is recommended. 4. Persistent diffuse mottled appearance of the osseous structures as above. This could be related to metastatic disease or potentially Paget's disease. As previously noted, bone scan could be obtained if clinically indicated for additional evaluation. Dictated by: Nova Benjamin M.D. on 05/21/2016 at 12:10 Approved by: Nova Benjamin M.D. on 05/21/2016 at 12:16
== END 2016-05-21 05:52 | disposition home or self-care (01) ==
LOC: SED 03:57
DX: K59.00 Constipation, unspecified (principal); R11.0 Nausea; I12.0 Hypertensive chronic kidney disease with stage 5 chronic kidney disease or end stage renal disease; N18.6 End stage renal disease; E11.29 Type 2 diabetes mellitus with other diabetic kidney complication; E11.43 Type 2 diabetes mellitus with diabetic autonomic (poly)neuropathy; J44.9 Chronic obstructive pulmonary disease, unspecified; D64.9 Anemia, unspecified; F17.200 Nicotine dependence, unspecified, uncomplicated; Z86.73 Personal history of transient ischemic attack (TIA), and cerebral infarction without residual deficits; Z99.2 Dependence on renal dialysis; Z79.82 Long term (current) use of aspirin; Z88.8 Allergy status to other drugs, medicaments and biological substances; Z88.5 Allergy status to narcotic agent
CPT/HCPCS: 36415; 74176; 80053; 83690; 83735; 85025; 96372; 99285; J1885

== ENCOUNTER 2016-06-29 06:46 | Emergency (ER) | payer MEDICARE, MEDICAID ==
[~2016-06-29] VITALS: Ht 152.4 cm; Wt 50.0 kg
[2016-06-29 06:48] VITALS: BP 144/85; PULSE 80; RESP 16; O2SAT 95
--- NOTE | 2016-06-29 06:51 | ED.REPORT ---
HPI-Chest Pain 40 and Over Date of Service Jun 29, 2016 ED Provider: Faiza Waters MD 71 year old female with an extensive medical history including COPD, HTN, diabetes, stroke, and ESRD on dialysis presents to the ER via EMS complaining of chest pain onset around 01:30 this morning. Her pain is described as stabbing in character, and rated 10/10 in severity at its worst. Currently her pain is significantly improved, nearly resolved. Associated symptoms of shortness of breath, headache, and diffuse right side weakness similar to prior stroke. Symptoms spontaneously resolved upon medics' arrival at her home. Patient denies radiation of pain, diaphoresis, and any other symptoms at this time. Her dialysis is schedule for today, and she states that she missed her last appointment. She has a chronic left heel wound due to peripheral neuropathy secondary to PVD and was started on a 14 day course of clindamycin days as of June 23. Nursing Notes Stated Complaint: CHEST PAIN Chief Complaint: Chest Pain Nursing Notes Reviewed: Yes Allergies: Coded Allergies: gabapentin (Verified Allergy, Severe, 04/21/16) Swelling and gait problems hydromorphone HCl (Verified Allergy, Severe, Hallucinations, 04/21/16) "Trip like on LSD" sumatriptan succinate (Verified Allergy, Severe, Dizziness, 04/21/16) Chest pain and dizziness TAPE (Verified Allergy, Intermediate, 04/21/16) itching latex (Verified Allergy, Intermediate, 04/21/16) Itching from gloves morphine (Verified Allergy, Unknown, Hallucinations, 04/21/16) Scheduled Aspirin Chew (Aspirin Chew) 81 Mg Chew 81 MG PO DAILY Calcitriol (Rocaltrol) 0.25 Mcg Capsule 0.25 MCG PO DAILY Calcium Acetate (Phoslo) 667 Mg Tablet 1,334 MG PO TIDWM Cinacalcet (Sensipar) 30 Mg Tablet 30 MG PO BID Ferrous Sulfate (Ferrous Sulfate) 325 Mg Tablet 325 MG PO DAILY Fluoxetine (Fluoxetine) 20 Mg Capsule 20 MG PO TID Fluoxetine (Prozac) 20 Mg Capsule 30 MG PO DAILY Folic Acid/Vitamin B Comp W-C (Dialyvite Tablet) 1 Each Tablet 1 EACH PO DAILY Furosemide (Furosemide) 40 Mg Tablet 40 MG PO DAILY Scheduled PRN Docusate Sodium (Colace) 100 Mg Capsule 100 MG PO HS PRN PRN For Constipation Ondansetron ODT (Ondansetron ODT) 4 Mg Tab.rapdis 8 MG PO Q8H PRN PRN For Nausea hydrOXYzine Hcl (HydrOXYzine Hcl) 25 Mg Tablet 25 MG PO QID PRN PRN For Itching oxyCODONE-Acetaminophen 10-325 mg (oxyCODONE-Acetaminophen 10-325 mg) 1 Each Tablet 1 TAB PO Q6H PRN PRN For Pain General Time Seen by MD: 06:38 Chief Complaint Chest pain Hx Obtained From: Patient Arrived By: Ambulance Sudden in Onset?: No Onset Occurred: 5 - 8 hours ago Symptom Duration: 5 - 8 hours Location: : Substernal Quality: Stabbing Radiation: : Does not radiate Migration/Movement: Reports: None Severity: Current: No pain currently Severity: Maximum: Pain level 10 out of 10 Associated with: Reports: Shortness of Breath Pertinent Negative: Pt denies other symptoms Context Related History: Reports: Diabetes mellitus, Hypertension Recent Healthcare: Recent doctor visit Similar Sx Previous: Yes Past Medical History Past Medical History 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 Allen chronic pain medication Past Medical History ESRD on dialysis MWF Chronic tobacco dependence. Anemia of chronic disease. History of right lower lobe pneumonia. Hospitalization, November 2012, for atypical chest pain with negative myocardial stress test. Staph aureus sepsis, December 2012. 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 Reports: COPD, Diabetes mellitus, Hypertension, Stroke Past Surgical History Left arm fistula. Left brachial basilic fistula. Right brachial basilic fistula. Evacuation of wound hematoma due to thrombosed left brachial basilic fistula, April 2012. 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 Reports: , Cholecystectomy Family History Noncontributory Smoking History Current Every Day Smoker Social History Alcohol Use: "Social" Drug Use: Denies drug use Other Social History: Lives alone, Local resident Ambulatory Status Wheelchair Review of Systems Constitutional: Denies: Chills, Fever Respiratory: Reports: Shortness of breath, Denies: Non-productive cough Cardiovascular: Reports: Chest pain GI: Denies: Abdominal pain, Constipation, Diarrhea, Nausea, Vomiting Musculoskeletal: Denies: Back pain, Extremity pain, Neck pain Skin: Denies Diaphoresis Neurologic: Reports: Focal weakness (Right Side), Headache Complete sys rev & neg: except as marked. Physical Exam Initial Vital Signs Vital Signs (First) Date Time Temp Pulse Resp B/P Pulse Ox O2 Delivery O2 Flow Rate FiO2 06/29/16 06:48 36 80 16 144/85 95 Nasal Cannula 2 Initial VS: Reviewed Head / Eyes: Atraumatic, Normocephalic Neck: Supple, Non-tender, Full range of motion Extremities: Vascular intact, Neuro intact, No swelling, No tenderness Skin: Warm, Dry, No cyanosis Neurologic: Alert, Oriented, Nonfocal General/Constitutional: Awake, Alert Respiratory / Chest: Breath sounds NL, Breath sounds = bilat, No respiratory distress, No rales, No rhonchi, No wheezing Cardiovascular: Heart rate NL, Regular rhythm, Heart sounds NL, No murmurs, Peripheral circulation NL, Pulses = bilaterally, No gross BP differential Dialysis catheter in the right upper chest. Veins are distended, diffusely. Abdomen: Atraumatic, Soft, Non-tender, No guarding, No rebound, No distention Neurologic: Oriented X3, Speech NL, No motor deficits, No sensory deficits, CN II - XII intact Describes weakness in the right side, though not elicited on clinical testing. Ankle / Foot: Full range of motion, No deformity Left heel is wrapped Interpretation & Diagnostics Interpretation & Diagnostics: Elevated troponin and her chronic ranges PROCEDURE: CT TIBIA FIBULA LEFT W/O CONTRAST (61215) INDICATIONS: LEG FX TECHNIQUE: Noncontrast 3 mm axial sections acquired of the left lower extremity, with coronal and sagittal reformats. For radiation dose reduction, the following was used: automated exposure control, adjustment of mA and/or kV according to patient size. COMPARISON: Outside Film, CR, XR TIBIA FIBULA 2VW LT, 06/17/2016, 14:36. FINDINGS: Image quality: Excellent. Bones: There is a non-unified fracture of the proximal third of the tibial diaphysis. And a similar-appearing non-unified fracture at the proximal third of the fibular diaphysis. There is sclerosis of the fracture margins and non- bridging callus present. Bones are osteopenic. There is a partially healed fracture of the distal tibial diaphysis and a partially healed fracture of the distal fibular diaphysis. There is a small non-unified fracture of the medial malleolus which has a chronic, corticated appearance. Soft tissues: Dense atheromatous calcifications are present throughout the vasculature. IMPRESSION: 1. Non-unified fractures of the proximal tibial and fibular diaphyses. 2. Partial unified fractures of the distal tibial and fibular diaphyses. 3. Extensive arterial atherosclerosis. Dictated by: Tiffanie Acosta M.D. on 06/29/2016 at 8:14 Approved by: Tiffanie Acosta M.D. on 06/29/2016 at 8:19 Lab Results Interpretation Result Diagram: 06/29/16 0735 06/29/16 0735 Test 06/29/16 07:35 White Blood Count 5.0th/mm3 (3.8-10.1) Red Blood Count 3.69mil/mm3 (3.90-5.20) Hemoglobin 10.4g/dL (12.0-15.6) Hematocrit 31.7% (35.0-46.0) Mean Corpuscular Volume 85.9fL (81-100) Mean Corpuscular Hemoglobin 28.2pg (27.0-35.0) Mean Corpuscular Hemoglobin Concent 32.8% (32.0-37.0) Red Cell Distribution Width 18.7% (12.3-15.4) Platelet Count 176bil/L (150-400) Neutrophils (%) (Auto) 64.1% (40-74) Lymphocytes (%) (Auto) 27.7% (14-46) Monocytes (%) (Auto) 5.6% (4-12) Eosinophils (%) (Auto) 2.0% (0-5) Basophils (%) (Auto) 0.4% (0-3) Sodium Level 137mEq/L (134-144) Potassium Level 4.7mEq/L (3.5-5.2) Chloride Level 94mEq/L (97-108) Carbon Dioxide Level 21mmol/L (18-29) Blood Urea Nitrogen 55mg/dL (8-27) Creatinine 8.92mg/dL (0.57-1.00) Estimat Glomerular Filtration Rate 6mL/min (>59) Glucose Level 93mg/dL (60-99) Calcium Level 10.2mg/dL (8.5-10.1) Magnesium Level 2.6mg/dL (1.6-2.6) Total Bilirubin 0.4mg/dL (0.0-1.2) Aspartate Amino Transf (AST/SGOT) 12U/L (0-50) Alanine Aminotransferase (ALT/SGPT) 5U/L (0-32) Alkaline Phosphatase 479U/L (25-165) Troponin T 0.147ug/L (0.0-0.011) Total Protein 7.6g/dL (6.4-8.4) Albumin 4.5g/dL (3.4-5.0) ECG Interpretation ECG Interpretation: Sinus rhythm, rate 74 Repolarization abnormality in lateral leads Similar to 12/17/2015 Time: 07:12 Interpreted by: ED physician X-Ray Chest Interpretation Chest Xray Interpretation: IMPRESSION: 1. Focal right upper lobe airspace opacity present in mass or consolidation cannot be excluded. When clinically feasible recommend obtaining two-view chest radiograph for further assessment. 2. Interstitial opacities similar to prior examination and mild cardiomegaly suggesting chronic CHF. Acute superimposed interstitial process cannot be excluded and clinical correlation recommended. Dictated by: Noam Amado RR Interpreted: Asad Hung MD on 06/29/2016 at 9:35 Transcribed by: IVETH on 06/29/2016 at 9:38 View: Portable, 1 view Interpretation / Wet Read by: Interpret - Radiologist Re-Eval/Medical Decision Med Decision/Clinical Course 71-year-old woman presents with chest pain over the course of the evening or crepitus sleep. Has had multiple similar presentations. Typically happens when she misses dialysis and, coincidentally, she missed dialysis on Wednesday. She has moderate volume overload at this point and is due for dialysis at 11:00 this morning. Labs are remarkable for her chronic abnormalities but nothing new or acutely changed. EKG does not show any acute ischemia. She was to have a CT scan of her left lower extremity done on July 01 after she missed her appointment last week. Because she was in the emergency Department we went ahead and facilitated ordering that CT scan so she does not need to worry about transport on the . Source of Hx: Old records Time of Eval: 08:04 Re-Evaluation/Progress Note: Patient is resting peacefully. Time of Eval: 09:44 Re-Evaluation/Progress Note: Patient is doing well. Discussed lab and imaging results and plan to discharge with instructions to go to scheduled dialysis appointment today. Patient is amenable to the plan. Return precautions given. All other questions addressed. Counseled Regarding: Diagnosis, Lab results, Need for follow-up, When/why to return to ED Discharge & Departure Primary Impression: Non-cardiac chest pain Additional Impression: Chronic renal failure Disposition: Home Discharge Condition All VS Reviewed: Yes Condition: Stable Patient Instructions: Chest Pain (ED) Additional Instructions: I am happy to tell you that we did not find any severe problems today. You are not having a heart attack. I suspect the chest pain you are currently having is because you need your dialysis. Go to your scheduled dialysis appointment today. We were able to do the CT of your left leg here in the ER rather than in two days from now. Follow-up as planned after the CT. Return to the ER if you develop worsening or concerning symptoms. Referrals: Latisha Parham DO (PCP) Nestor Ang Attestation Portions of this note were transcribed by Jorden Bahena. I, Dr. Waters, personally performed the history, physical exam and medical decision-making; I reviewed and confirmed the accuracy of the information in the transcribed note. Signed by: Ebenezer Huggins, 06/29/2016 at 09:59 copies to: Nestor Ang DO; Latisha Parham Shawna L MD Jun 29, 2016 06:51 JORDEN BAHENA Jun 29, 2016 06:59
[2016-06-29 07:44] LABS: BASOPHILS % (AUTO) 0.4 % (0-3); MONOCYTES % (AUTO) 5.6 % (4-12); Mean Corpuscular Hemoglobin 28.2 pg (27.0-35.0); Mean Corpuscular Volume 85.9 fL (81-100); NEUTROPHILS % (AUTO) 64.1 % (40-74); Platelet Count 176 bil/L (150-400)
--- NOTE | 2016-06-29 08:21 | DRSVH ---
PROCEDURE: CT TIBIA FIBULA LEFT W/O CONTRAST ([id number]) INDICATIONS: LEG FX TECHNIQUE: Noncontrast 3 mm axial sections acquired of the left lower extremity, with coronal and sagittal refor mats. For radiation dose reduction, the following was used: automated exposure control, adjustment of mA and/or kV according to patient size. COMPARISON: Outside Film, CR, XR TIBIA FIBULA 2VW LT, 06/17/2016, 14:36. FINDINGS: Image quality: Excellent. Bones: There is a non-unified fracture of the proximal third of the tibial diaphysis. And a similar-a ppearing non-unified fracture at the proximal third of the fibular diaphysis. There is sclerosis of t he fracture margins and non-bridging callus present. Bones are osteopenic. There is a partially heale d fracture of the distal tibial diaphysis and a partially healed fracture of the distal fibular diaph ysis. There is a small non-unified fracture of the medial malleolus which has a chronic, corticated a ppearance. Soft tissues: Dense atheromatous calcifications are present throughout the vasculature. IMPRESSION: 1. Non-unified fractures of the proximal tibial and fibular diaphyses. 2. Partial unified fractures of the distal tibial and fibular diaphyses. 3. Extensive arterial atherosclerosis. Dictated by: Tiffanie Acosta M.D. on 06/29/2016 at 8:14 Approved by: Tiffanie Acosta M.D. on 06/29/2016 at 8:19
[2016-06-29 08:26] LABS: Magnesium 2.6 mg/dL (1.6-2.6)
[2016-06-29 08:31] LABS: TROPONIN T 0.147 ug/L (0.0-0.011)
--- NOTE | 2016-06-29 09:39 | DRSVH ---
PROCEDURE: X-RAY CHEST ONE VIEW, PORTABLE ([id number]) INDICATIONS: CHEST PAIN TECHNIQUE: One view of the chest was acquired. COMPARISON: [facility], CR, XR CHEST 1VW (PORTABLE), 08/22/2015, 19:04. [facility], CR, XR CHEST 1VW (PORTABLE), 12/17/2015, 12:07. [facility], CR, XR CHEST 1VW (PO RTABLE), 04/21/2016, 12:20. FINDINGS: Surgical changes and devices: Stable positioning of right IJ dialysis catheter. Lungs and pleura: Focal air space opacity involves the right upper lobe. Diffuse, widespread bilater al interstitial opacities present similar to prior examination. No pleural effusion or pneumothorax. Mediastinum: Mediastinal contours appear normal. Heart size is enlarged. Bones and chest wall: No suspicious bony lesions. Overlying soft tissues appear unremarkable. IMPRESSION: 1. Focal right upper lobe airspace opacity present in mass or consolidation cannot be excluded. When clinically feasible recommend obtaining two-view chest radiograph for further assessment. 2. Interstitial opacities similar to prior examination and mild cardiomegaly suggesting chronic CHF. Acute superimposed interstitial process cannot be excluded and clinical correlation recommended. Dictated by: Noam Amado [facility] Interpreted: Asad Hung MD on 06/29/2016 at 9:35 Transcribed by: IVETH on 06/29/2016 at 9:38 Approved by: Asad Hung M.D. on 06/29/2016 at 10:52
[2016-06-29 10:29] VITALS: BP 155/81; PULSE 77; RESP 18; O2SAT 95
== END 2016-06-29 10:37 | disposition home or self-care (01) ==
LOC: SED 06:46
DX: R07.89 Other chest pain (principal); I12.0 Hypertensive chronic kidney disease with stage 5 chronic kidney disease or end stage renal disease; N18.6 End stage renal disease; E11.29 Type 2 diabetes mellitus with other diabetic kidney complication; I73.9 Peripheral vascular disease, unspecified; G62.9 Polyneuropathy, unspecified; J44.9 Chronic obstructive pulmonary disease, unspecified; F17.200 Nicotine dependence, unspecified, uncomplicated; Z86.73 Personal history of transient ischemic attack (TIA), and cerebral infarction without residual deficits; Z99.2 Dependence on renal dialysis; Z79.82 Long term (current) use of aspirin; Z88.5 Allergy status to narcotic agent; Z88.8 Allergy status to other drugs, medicaments and biological substances

== ENCOUNTER 2016-07-06 16:09 | Inpatient (IN) | payer MEDICARE, MEDICAID ==
[~2016-07-06] VITALS: Ht 152.4 cm; Wt 55.6 kg
[2016-07-06 16:17] VITALS: BP 111/70; PULSE 81; RESP 14; O2SAT 92
[2016-07-06] MEDS ORDERED: oxyCODONE-Acetamin 5-325 mg Tablet PO ONE (17:55)
--- NOTE | 2016-07-06 18:00 | ED.REPORT ---
HPI-Extremity Problem Lower Date of Service July 06, 2016 ED Provider: Raymundo Ma PA-C Dahiana is a 71-year-old female with a history of kidney failure who presents with a chief complaint of a wound on her left heel. She reports that the wound has been present for several months but worsening pain today. Complains of foul -smelling green discharge. Denies fever, vomiting. Reports a history of a fracture of the left leg which results in chronic swelling. Seen at [facility] approximately 2 weeks ago. Placed on clindamycin, but she reports only taking a few days of it as it upset her stomach. Nursing Notes Stated Complaint: HEEL WOUND,INFECTED Chief Complaint: General Complaint Nursing Notes Reviewed: Yes Allergies: Coded Allergies: gabapentin (Verified Allergy, Severe, 04/21/16) Swelling and gait problems hydromorphone HCl (Verified Allergy, Severe, Hallucinations, 04/21/16) "Trip like on LSD" sumatriptan succinate (Verified Allergy, Severe, Dizziness, 04/21/16) Chest pain and dizziness TAPE (Verified Allergy, Intermediate, 04/21/16) itching latex (Verified Allergy, Intermediate, 04/21/16) Itching from gloves morphine (Verified Allergy, Unknown, Hallucinations, 04/21/16) Scheduled Calcitriol (Rocaltrol) 0.25 Mcg Capsule 0.25 MCG PO DAILY Calcium Acetate (Calcium Acetate) 667 Mg Tablet 667 MG PO TIDWM Cinacalcet (Sensipar) 30 Mg Tablet 30 MG PO BID Ferrous Sulfate (Ferrous Sulfate) 325 Mg Tablet 325 MG PO DAILY Fluoxetine (Fluoxetine) 20 Mg Capsule 20 MG PO TID Fluoxetine (Prozac) 20 Mg Capsule 30 MG PO DAILY Folic Acid/Vitamin B Comp W-C (Dialyvite Tablet) 1 Each Tablet 1 EACH PO DAILY Furosemide (Furosemide) 40 Mg Tablet 40 MG PO BID Scheduled PRN Docusate Sodium (Colace) 100 Mg Capsule 100 MG PO HS PRN PRN For Constipation Ondansetron ODT (Ondansetron ODT) 4 Mg Tab.rapdis 8 MG PO Q8H PRN PRN For Nausea hydrOXYzine Hcl (HydrOXYzine Hcl) 25 Mg Tablet 25 MG PO QID PRN PRN For Itching oxyCODONE-Acetaminophen 10-325 mg (oxyCODONE-Acetaminophen 10-325 mg) 1 Each Tablet 1 TAB PO Q6H PRN PRN For Pain General Time Seen by MD: 17:26 Chief Complaint Foot injury left Past Medical History 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 Anemia of chronic disease. History of right lower lobe pneumonia. Hospitalization, November 2012, for atypical chest pain with negative myocardial stress test. Staph aureus sepsis, December 2012. 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 Reports: COPD, Diabetes mellitus, Hypertension, Stroke Past Surgical History Left arm fistula. Left brachial basilic fistula. Right brachial basilic fistula. Evacuation of wound hematoma due to thrombosed left brachial basilic fistula, April 2012. 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 Reports: , Cholecystectomy Family History Noncontributory Smoking History Current Every Day Smoker Social History Alcohol Use: "Social" Drug Use: Denies drug use Other Social History: Lives alone, Local resident Ambulatory Status Wheelchair Review of Systems Negative unless stated otherwise in history of present illness Physical Exam General: Well appearing, well developed, well nourished, no acute distress. Head: Atraumatic, normocephalic. Eyes: No scleral icterus or injection. No discharge. Vision grossly intact. ENT: Voice clear, hearing grossly intact. Respiratory: Regular rate and rhythm. Breath sounds present, clear to auscultation and equal bilaterally. No respiratory distress. No increased work of breathing, speaks in complete sentences. Cardiovascular: Regular rate and rhythm, without murmur, gallop or rub. No pedal edema. Gastrointestinal: Abdomen flat and non-tender without guarding or rebound. Bowel sounds normoactive. Skin: Warm and dry. Left leg/foot: Notably more swollen than right leg, with mild heat. Difficult to assess capillary refill due to dark skin color. DP and PT pulses not appreciated bilaterally, but detected with Doppler. 2 cm sore present on posterior calcaneus, without obvious swelling, purulent discharge. Tenderness to palpation over her ankle and heel. Neurological: Grossly nonfocal. Psychological: Alert and oriented. Speech appropriate, linear and logical. Behavior appropriate. Initial Vital Signs Vital Signs (First) Date Time Temp Pulse Resp B/P Pulse Ox O2 Delivery O2 Flow Rate FiO2 07/06/16 16:17 36.1 81 14 111/70 92 Room Air Initial VS: Vital signs normal Interpretation & Diagnostics Lab Results Interpretation Result Diagram: 07/07/16 0705 07/07/16 0705 Test 07/06/16 18:45 07/06/16 21:05 Erythrocyte Sedimentation Rate 71mm/hr (0-40) C-Reactive Protein 2.1mg/dL (0.0-0.5) Urine Color Yellow (YELLOW) Urine Appearance Clear (CLEAR,HAZY) Urine pH 7.0 (5.0-8.0) Urine Specific [place] 1.020 (1.003-1.035) Urine Protein 100mg/dL (NEG,TRACE) Urine Glucose (UA) 100mg/dL (NEGATIVE) Urine Ketones Negativemg/dL (NEGATIVE) Urine Occult Blood Small (NEGATIVE) Urine Nitrite Negative (NEGATIVE) Urine Bilirubin Negative (NEGATIVE) Urine Urobilinogen Normalmg/dL (NORMAL) Urine Leukocyte Esterase Small (NEGATIVE) Urine RBC 0-2/hpf (0-2) Urine WBC 0-5/hpf (0-5) Urine Epithelial Cells None/hpf (NONE-MOD) Urine Crystals None seen (NONE SEEN) Urine Bacteria Few/hpf (NONE-FEW) Urine Hyaline Casts None/lpf (NONE) Urine Granular Casts None seen (NONE SEEN) Urine Waxy Casts None seen (NONE SEEN) Urine Red Blood Cell Casts None seen (NONE SEEN) Urine White Blood Cell Casts None seen (NONE SEEN) Urine Mucus None seen (None Seen) Urine Trichomonas None seen (NONE SEEN) Urine Yeast None (NONE SEEN) Urinalysis Comment None Urine Culture Reflexed Indicated Re-Eval/Medical Decision Med Decision/Clinical Course After initial evaluation by Raymundo Ma, I feel this patient's care at 2100 hrs. This is an elderly dialysis patient known to me from multiple previous visits. Today she is complaining of pain in her right heel however she also has a cough generalized weakness and mental status is not at baseline. She is noted to have infiltrates on her chest x-ray. She was pancultured and started on broad-spectrum antibiotic coverage associated pneumonia. Case was discussed with Dr. Day, she will be admitted to the hospitalist service. 71-year-old female also patient presents with chief complaint of left heel sore. States increasing pain over the last several days, purulent discharge. Recent history of poorly healed tib-fib fracture. Examination reveals swelling in the left leg but the patient states is at baseline as well as heat. Open sore present on posterior calcaneus and left foot, negative discharge. DP and PT pulses not appreciated on palpation but detected with Doppler. I discussed his case with Dr. Joseph who met with and examine the patient and CBC CMP sedimentation rate and CRP ordered as well as x-ray. X-ray is reassuring against osteomyelitis. CBC reveals slight left shift but no leukocytosis. Sedimentation rate 71 and CRP 2.1. CMP reveals hypokalemia at 3.3, hypochloremia at 92, creatinine high at 3.24, calcium 10.7. Care transferred to Dr. Kohli at shift change. Discharge & Departure Impression: Primary Impression: Healthcare associated bacterial pneumonia Disposition: ADMITTED TO HOSPITAL Referrals: Latisha Parham DO (PCP) EDSupervising Provider for APC: Diogo Kohli MD, Seth PA-C July 06, 2016 18:00 Diogo Kohli MD July 07, 2016 03:03 None/hpf (NONE-MOD) Urine Crystals None seen (NONE SEEN) Urine Bacteria Few/hpf (NONE-FEW) Urine Hyaline Casts None/lpf (NONE) Urine Granular Casts None seen (NONE SEEN) Urine Waxy Casts None seen (NONE SEEN) Urine Red Blood Cell Casts None seen (NONE SEEN) Urine White Blood Cell Casts None seen (NONE SEEN) Urine Mucus None seen (None Seen) Urine Trichomonas None seen (NONE SEEN) Urine Yeast None (NONE SEEN) Urinalysis Comment None Urine Culture Reflexed Indicated Re-Eval/Medical Decision Med Decision/Clinical Course After initial evaluation by Raymundo Ma, I feel this patient's care at 2100 hrs. This is an elderly dialysis patient known to me from multiple previous visits. Today she is complaining of pain in her right heel however she also has a cough generalized weakness and mental status is not at baseline. She is noted to have infiltrates on her chest x-ray. She was pancultured and started on broad-spectrum antibiotic coverage associated pneumonia. Case was discussed with Dr. Day, she will be admitted to the hospitalist service. 71-year-old female also patient presents with chief complaint of left heel sore. States increasing pain over the last several days, purulent discharge. Recent history of poorly healed tib-fib fracture. Examination reveals swelling in the left leg but the patient states is at baseline as well as heat. Open sore present on posterior calcaneus and left foot, negative discharge. DP and PT pulses not appreciated on palpation but detected with Doppler. I discussed his case with Dr. Joseph who met with and examine the patient and CBC CMP sedimentation rate and CRP ordered as well as x-ray. X-ray is reassuring against osteomyelitis. CBC reveals slight left shift but no leukocytosis. Sedimentation rate 71 and CRP 2.1. CMP reveals hypokalemia at 3.3, hypochloremia at 92, creatinine high at 3.24, calcium 10.7. Care transferred to Dr. Kohli at shift change. Discharge & Departure Impression: Primary Impression: Healthcare associated bacterial pneumonia Disposition: ADMITTED TO HOSPITAL Referrals: Latisha Parham DO (PCP) Raymundo aM PA-C July 06, 2016 18:00 Diogo Kohli MD July 07, 2016 03:03
--- NOTE | 2016-07-06 18:25 | DRSVH ---
PROCEDURE: X-RAY LEFT FOOT COMPLETE, MINIMUM THREE VIEWS ([id number]) INDICATIONS: heel wound TECHNIQUE: 3 views of the foot were acquired. COMPARISON: Outside Film, CR, XR FOOT 3VW LT, 06/17/2016, 14:36. FINDINGS: Bones: Diffuse osteopenia is present. Healing fractures of the mid shafts of the third and fourth met atarsals are present, as before. Healing fracture of the distal fifth metatarsal is present, as befor e. Healing distal tibial and fibular fractures. Soft tissues: No tibiotalar joint effusion. Achilles tendon appears normal. IMPRESSION: 1. Healing third, fourth, and fifth metatarsal fractures. 2. No plain film evidence of osteomyelitis. Bone scan could be performed to assess for osteomyelitis, if clinically indicated. 3. Healing distal tibial and fibular fractures. Dictated by: Donn Lizama M.D. on 07/06/2016 at 18:22 Approved by: Donn Lizama M.D. on 07/06/2016 at 18:24
[2016-07-06 19:03] LABS: BASOPHILS % (AUTO) 0.2 % (0-3); EOSINOPHILS % (AUTO) 2.6 % (0-5); MONOCYTES % (AUTO) 5.1 % (4-12); Mean Corpuscular Hemoglobin 28.5 pg (27.0-35.0); Mean Corpuscular Volume 87.3 fL (81-100); NEUTROPHILS % (AUTO) 75.6 % (40-74); Platelet Count 189 bil/L (150-400)
[2016-07-06 20:26] LABS: ERYTHROCYTE SEDIMENTATION RATE 71 mm/hr (0-40)
[2016-07-06 21:11] VITALS: BP 95/56; PULSE 70; RESP 14; O2SAT 94
--- NOTE | 2016-07-06 21:19 | DRSVH ---
PROCEDURE: X-RAY CHEST ONE VIEW, PORTABLE ([id number]) INDICATIONS: weakness cough TECHNIQUE: One view of the chest was acquired. COMPARISON: [facility], CR, XR CHEST 1VW (PORTABLE), 06/29/2016, 7:09. FINDINGS: Surgical changes and devices: Right internal jugular vein tunneled hemodialysis catheter. Lungs and pleura: No pleural effusions or pneumothorax. Mild patchy airspace opacity within the left midlung and lung base. Mediastinum: Mediastinal contours appear normal. Heart size is enlarged. Bones and chest wall: No suspicious bony lesions. Overlying soft tissues appear unremarkable. IMPRESSION: Left mid and lower lung pneumonia. Follow up plain films of the chest are recommended to ensure resolution, and to exclude underlying or central malignancy. Dictated by: Donn Lizama M.D. on 07/06/2016 at 21:16 Approved by: Donn Lizama M.D. on 07/06/2016 at 21:17
[2016-07-06] MEDS ORDERED: 0.9% Sodium Chloride 500 ML IV ONE (21:25)
[2016-07-06] MEDS ORDERED: Piperacillin-Tazo 3.375 Gm Inj 3.375 GM in Dextrose 5% Minibag Plus 50 ML IV ONE (21:30)
[2016-07-06] MEDS ORDERED: Vancomycin Dose per Pharmacist XX ONE (21:30)
[2016-07-06] MEDS ORDERED: levoFLOXacin Inj 750 MG in IV Premix 1 EACH IV ONE (21:30)
[2016-07-06 21:50] LABS: APPEARANCE,URINE CLEAR (CLEAR,HAZY); COLOR,URINE YELLOW (YELLOW); OCCULT BLOOD,URINE SMALL (NEGATIVE); UROBILINOGEN,URINE NORMAL (NORMAL)
[2016-07-06] MEDS ORDERED: Vancomycin Inj 1,000 MG in IV Premix 1 EACH IV ONE (21:50)
[2016-07-06] MEDS ORDERED: Alum-Mag Hydrox-Simeth 30 mL Suspension PO PRN (22:20)
[2016-07-06] MEDS ORDERED: CALC667T5 PO (22:56)
[2016-07-06 22:57] VITALS: BP 120/69; PULSE 71; RESP 16; O2SAT 96
[2016-07-06] MEDS ORDERED: 0.9% Sodium Chloride 1,000 ML IV SCH (23:28)
[2016-07-06] MEDS ORDERED: Polyethylene Glycol (PEG) 17 Gm Powder PO PRN (23:30)
[2016-07-06] MEDS ORDERED: hydrOXYzine Pamoate 25 mg Capsule PO PRN (23:35)
--- NOTE | 2016-07-06 23:44 | PCM.HPMED ---
Subjective Date of Service July 06, 2016 Primary Provider: Admitting Physician: Vicki Day DO Primary Care Physician: Latisha Parham DO Attending Physician: Vicki Day DO Chief Complaint: Left heel pain and SOB History of Present Illness: Dahiana Rosas is a delightful 71 year old woman with a PMH of ESRD on HD MWF, DM2 diet controlled, chronic pain secondary to multiple orthopedic issues, tobacco dependence, HTN, and impaired physical capacity who presents with a several day history of Left heel pain and a 2 day history of SOB with cough. She states that since breaking her leg in August of last year she has never fully recovered, and continues to have severe pain and greatly impaired strength in the afflicted limb. She further relates that she has been experiencing a general physical decline over the past several months, and is concerned that she may not be being adequately dialyzed at her current HD center in [place]. She relates that over the past couple days she has been feeling increasingly SOB, with a non productive cough; her main complaint is pain in her left heel from a chronic non-healing ulcer which she states has been expressing purulent discharge. She denies chest pain, palpitations, pain with deep inspiration, headache, alterations in speech vision or sensation, or any changes in bowel or bladder habits beyond her chronic constipation. In the ED the wound on her heel was examined and felt not to be infected with a benign xray, CXR revealed LLL pneumonia and thus the patient was started on HCAP antibiotics given her HD status. Review of Systems: Comprehensive ROS negative except as listed in the HPI Allergies Coded Allergies: gabapentin (Verified Allergy, Severe, 04/21/16) Swelling and gait problems hydromorphone HCl (Verified Allergy, Severe, Hallucinations, 04/21/16) "Trip like on LSD" sumatriptan succinate (Verified Allergy, Severe, Dizziness, 04/21/16) Chest pain and dizziness TAPE (Verified Allergy, Intermediate, 04/21/16) itching latex (Verified Allergy, Intermediate, 04/21/16) Itching from gloves morphine (Verified Allergy, Unknown, Hallucinations, 04/21/16) Home Medications Aspirin Chew (Aspirin Chew) 81 Mg Chew 81 MG PO DAILY Calcitriol (Rocaltrol) 0.25 Mcg Capsule 0.25 MCG PO DAILY Calcium Acetate (Phoslo) 667 Mg Tablet 1,334 MG PO TIDWM Cinacalcet (Sensipar) 30 Mg Tablet 30 MG PO BID Ferrous Sulfate (Ferrous Sulfate) 325 Mg Tablet 325 MG PO DAILY Fluoxetine (Fluoxetine) 20 Mg Capsule 20 MG PO TID Fluoxetine (Prozac) 20 Mg Capsule 30 MG PO DAILY Folic Acid/Vitamin B Comp W-C (Dialyvite Tablet) 1 Each Tablet 1 EACH PO DAILY Furosemide (Furosemide) 40 Mg Tablet 40 MG PO DAILY Scheduled PRN Docusate Sodium (Colace) 100 Mg Capsule 100 MG PO HS PRN PRN For Constipation Ondansetron ODT (Ondansetron ODT) 4 Mg Tab.rapdis 8 MG PO Q8H PRN PRN For Nausea hydrOXYzine Hcl (HydrOXYzine Hcl) 25 Mg Tablet 25 MG PO QID PRN PRN For Itching oxyCODONE-Acetaminophen 10-325 mg (oxyCODONE-Acetaminophen 10-325 mg) 1 Each Tablet 1 TAB PO Q6H PRN PRN For Pain PMH ESRD on HD MWF HTN DM2 diet controlled Tobacco dependence Depression and anxiety chronic pain chronic constipation secondary to opiate analgesia Family History Father HTN, DM2, and CAD Mother with early onset Alzheimer's Social History Hx Alcohol Use: No Hx Substance Use: No Hx Tobacco Use: Yes (1 pack per 2-3 days since the age of 17) Smoking Status: Current Every Day Smoker Living Arrangement: Alone Exam Vital Signs Vital Sign - Last Date Time Temp Pulse Resp B/P Pulse Ox O2 Delivery O2 Flow Rate FiO2 07/06/16 22:57 36.4 71 16 120/69 96 Room Air Exam Gen: A/O x3 pleasant cooperative, frail elderly woman in NAD, kyphotic in bed HEENT: L eye non reactive to light with arcus senilis and erythema, R eye reactive to light, EOMI in R, mucous membranes moist, dentures in place Neck: Supple, Full ROM within general kyphotic parameters CV: RRR, no murmurs rubs or gallops Vascular: Tunnel cath HD access below right clavicle Resp: Diffuse expiratory wheezing and coarse breath sounds in LLL Abd: Soft, non tender, no organomegaly Extr: Small approx 1.5 cm diameter non purulent ulcer on L heel, no cyanosis clubbing or edema Neuro: CN 2-12 grossly intact, no focal neurologic deficit Psych: Pleasant and appropriate affect, very talkative Lab and Diagnostics Labs Item Value Date Time Red Blood Count 4.10 mil/mm3 07/06/161844 Red Cell Distribution Width 17.9 % H 07/06/161844 Neutrophils (%) (Auto) 75.6 % H 07/06/161844 Lymphocytes (%) (Auto) 16.3 % 07/06/161844 Monocytes (%) (Auto) 5.1 % 07/06/161844 Eosinophils (%) (Auto) 2.6 % 07/06/161844 Basophils (%) (Auto) 0.2 % 07/06/161844 Erythrocyte Sedimentation Rate 71 mm/hr H 07/06/161844 Estimat Glomerular Filtration Rate 18 mL/min 07/06/161844 Calcium Level 10.7 mg/dL H 07/06/161844 C-Reactive Protein 2.1 mg/dL H 07/06/161844 Result Diagram: 07/06/16184407/06/161844 Microbiology Blood and urine cultures pending X-Rays, CTs and MRIs X-RAY LEFT FOOT COMPLETE, MINIMUM THREE VIEWS IMPRESSION: 1. Healing third, fourth, and fifth metatarsal fractures. 2. No plain film evidence of osteomyelitis. Bone scan could be performed to assess for osteomyelitis, if clinically indicated. 3. Healing distal tibial and fibular fractures. Dictated by: Donn Lizama M.D. on 07/06/2016 at 18:22 Approved by: Donn Lizama M.D. on 07/06/2016 at 18:24 X-RAY CHEST ONE VIEW, PORTABLE IMPRESSION: Left mid and lower lung pneumonia. Follow up plain films of the chest are recommended to ensure resolution, and to exclude underlying or central malignancy. Dictated by: Donn Lizama M.D. on 07/06/2016 at 21:16 Approved by: Donn Lizama M.D. on 07/06/2016 at 21:17 . Assessment & Plan Dahiana Rosas is a 71 year old woman presenting with complaints of heel pain and SOB with non productive cough. PE and imaging reassuring that L heel ulcer is not actively infected; the patient does have a LLL infiltrate by CXR and will be treated for HCAP, which will incidentally cover any potential soft tissue infections as well. 1. Healthcare associated pneumonia, present on admission, acute. Active -LLL on CXR as above, no leukocytosis but does have a neutrophilic shift in the setting of ESRD immune suppression -Vanco per pharmacy, Zosyn, Levofloxacin for HCAP coverage -Repeat CXR, CBC, CMP, procalc tomorrow AM -NS @ 45 ml/hr, may consider discontinuation if remains stable following admission 2. ESRD on hemodialysis, present on admission, chronic. Active -Patient is MWF dialysis patient in [place] -Dr. Pate from nephrology is aware of the patient and will likely provide dialysis tomorrow -Continue home Cinalcet 3. Chronic Pain, present on admission. Active -Continue home Oxycodone 10-325 Q6 -Acetaminophen 975 Q6 PRN for pain 4. HTN, present on admission, chronic. Active -Hold home Lasix 40 mg PO BID with acute illness, likely restart 5/ or 5/3 5. Chronic constipation secondary to opiate analgesia, present on admission. Active -Senna, Miralax 6. Anxiety and depression, present on admission, chronic. Active/stable -Continue home Fluoxetine 7. Tobacco dependence, present on admission, chronic. Active -Patient counseled on tobacco cessation -Nicotine patch 14 mg/24hr provided Code Status: patient is adamantly FULL CODE Disposition: Inpatient, with anticipated Length of stay >2 midnights due to severity of condition and complexity of treatment plan. Pain Evaluation: Adequate Pain Control GI Prophylaxis: Proton Pump Inhibitor VTE Prophylaxis: Sub-Q Heparin (Unfractionated) VTE Mechanical Devices: Intermittant Pneumatic CD Resuscitation Status: CPR: Attempt Resuscitation Attending Statement The patient was seen and examined together with house staff on 07/06/2016 and I agree with the history, exam and plan as outlined in the note above. Diego Hdz DO July 06, 2016 23:44 Vicki Day DO July 07, 2016 00:40
[2016-07-07] MEDS: Heparin 5,000 Unit/mL Inj SUBQ SCH ×3 (00:10→17:58)
--- NOTE | 2016-07-07 02:11 | PCM.CONPHA ---
Subjective Date of Service: July 07, 2016 Requesting Provider: Diego Hdz DO Left heel pain and SOB History of Present Illness HCAP Reason for Pharmacy Consult: Vancomycin Dosing Objective Weight (Kilograms): 55.600 Height (Feet): 5 Height (Inches): 0.00 Assessment/Plan Assessment/Plan A/ - 71 y/o female required Vancomycin for empirical coverage of health care associated pneumonia. Patient has medical hx of ESRD on HD: Mon, Wed, and Wed. had not received HD yesterday, and likely be tomorrow - In ER, patient received Vancomycin 1G loading dose, along with Zosyn and Levaquin - Afebrile; WBC: 4.4 with left shift of neutrophil; blood cultures and sputum are pending - Wt: 55.6kg, ht: 152.4cm, SCr: 3.24 mg/dL, P/ - Random trough ordered on dialysis day and dose follows per trough level. Pharmacy will follow and make necessary adjustment. Thank you for consulting clinical pharmacy in the care of this patient Sharmila Richardson July 07, 2016 02:11
[2016-07-07] MEDS ORDERED: Vancomycin Serum Trough XX ONE (05:00)
[2016-07-07] MEDS: oxyCODONE-Acetamin 10-325 mg Tablet PO PRN ×2 (05:11→14:41)
[2016-07-07] MEDS: Ondansetron 2 mg/mL 2 mL Inj IVPUSH PRN ×2 (05:31→10:11)
[2016-07-07 05:35] VITALS: BP 117/73; PULSE 77; RESP 16; O2SAT 96
[2016-07-07 07:29] LABS: BASOPHILS % (AUTO) 0.4 % (0-3); EOSINOPHILS % (AUTO) 2.6 % (0-5); MONOCYTES % (AUTO) 5.8 % (4-12); Mean Corpuscular Hemoglobin 28.3 pg (27.0-35.0); Mean Corpuscular Volume 88.2 fL (81-100); NEUTROPHILS % (AUTO) 68.7 % (40-74); Platelet Count 152 bil/L (150-400)
--- NOTE | 2016-07-07 07:58 | PCM.PNMED ---
Subjective Date of Service July 07, 2016 Subjective Patient is still feeling " not good ". Has numerous complaints including pain in her left heel from chronic ulcer, is probably her most acute problem at this time. It seems to note difficulty breathing and cough as well likely related to her pneumonia. Appetite however is adequate. As any current fever or chills. No other acute complaints at this time. Exam Vital Signs Vital Sign - Last Date Time Temp Pulse Resp B/P Pulse Ox O2 Delivery O2 Flow Rate FiO2 07/07/16 05:35 36.2 77 16 117/73 96 Room Air Intake and Output 07/06/16 07/06/16 07/07/16 Cumulative From/Thru 15:00 23:00 07:00 07/06/16 16:17 - 07/07/16 06:13 Intake Total 0 ml 0 ml Output Total 240 ml 240 ml Balance -240 ml -240 ml Intake TPN/PPN 0 ml 0 ml Output Urine Total 240 ml 240 ml # Bowel Movements 0 0 General: Alert, Oriented X3, Cooperative, Mild Distress Chest & Lungs: Other (patient demonstrated diminished breath sounds in left lower quadrant and distant with dullness on percussion. Otherwise lung colon are clear auscultation. ) Cardiovascular: Regular Rate/Rhythm Extremities: No cyanosis/clubbing/edma bilat, Other (ulceration of left heel demonstrates some epithelial tissue over the top approximately 2 cm in circumference. No surrounding erythema is noted. ) Neurological: Grossly Neurologically Intact IVs and Medications Medications Reviewed: Medications were reviewed in detail Lab and Diagnostics Result Diagram: 07/07/16 0705 07/06/16 1845 Microbiology Blood and urine cultures pending X-Rays, CTs and MRIs X-RAY LEFT FOOT COMPLETE, MINIMUM THREE VIEWS IMPRESSION: 1. Healing third, fourth, and fifth metatarsal fractures. 2. No plain film evidence of osteomyelitis. Bone scan could be performed to assess for osteomyelitis, if clinically indicated. 3. Healing distal tibial and fibular fractures. Dictated by: Donn Lizama M.D. on 07/06/2016 at 18:22 Approved by: Donn Lizama M.D. on 07/06/2016 at 18:24 X-RAY CHEST ONE VIEW, PORTABLE IMPRESSION: Left mid and lower lung pneumonia. Follow up plain films of the chest are recommended to ensure resolution, and to exclude underlying or central malignancy. Dictated by: Donn Lizama M.D. on 07/06/2016 at 21:16 Approved by: Donn Lizama M.D. on 07/06/2016 at 21:17 . Assessment & Plan Dahiana Rosas is a 71 year old woman presenting with complaints of heel pain and SOB with non productive cough. PE and imaging reassuring that L heel ulcer is not actively infected; the patient does have a LLL infiltrate by CXR and will be treated for HCAP, which will incidentally cover any potential soft tissue infections as well. #. Healthcare associated pneumonia, present on admission, acute. Active -LLL on CXR as above, no leukocytosis but does have a neutrophilic shift in the setting of ESRD immune suppression -Vanco per pharmacy, Zosyn, Levofloxacin for HCAP coverage. Patient did have a reaction to vancomycin overnight but was benefited with copious gestation of Benadryl. -NS @ 45 ml/hr started initially now discontinued will defer fluid management to nephrology consult. #. ESRD on hemodialysis, present on admission, chronic. Active -Patient is MWF dialysis patient in [place] -Dr. Pate from nephrology is aware of the patient and will likely provide dialysis tomorrow -Continue home Cinalcet #Heel ulcer/diabetic foot wound - Antibiotic coverage for hospital-acquired pneumonia will be covering for infection at this time which does not appear severe in spite of the patient's discomfort. - We will consult wound care for further evaluation, consider possible x-ray of foot should pain continue or other concerns develop. #. Chronic Pain, present on admission. Active -Continue home Oxycodone 10-325 Q6 -Acetaminophen 975 Q6 PRN for pain #. HTN, present on admission, chronic. Active -Continue to hold home Lasix 40 mg PO BID with acute illness, likely restart 07/08 , will consider nephrology recommendations. #. Chronic constipation secondary to opiate analgesia, present on admission. Active -Senna, Miralax #. Anxiety and depression, present on admission, chronic. Active/stable -Continue home Fluoxetine #. Tobacco dependence, present on admission, chronic. Active -Patient counseled on tobacco cessation -Nicotine patch 14 mg/24hr provided Code Status: patient is adamantly FULL CODE Disposition: Inpatient, with anticipated Length of stay >2 midnights due to severity of condition and complexity of treatment plan. Pain Evaluation: Adequate Pain Control GI Prophylaxis: Proton Pump Inhibitor VTE Prophylaxis: Sub-Q Heparin (Unfractionated) VTE Mechanical Devices: Intermittant Pneumatic CD Resuscitation Status: CPR: Attempt Resuscitation Time spent 30 minutes Fox Oswald DO July 07, 2016 07:58
[2016-07-07] MEDS ORDERED: Vancomycin Dose per Pharmacist XX SCH (08:30)
[2016-07-07] MEDS: Vitamin B Complex/Vit C Tablet PO SCH (08:39)
[2016-07-07] MEDS: Pantoprazole 20 mg ER24 Tablet PO SCH (08:39)
--- NOTE | 2016-07-07 09:32 | DRSVH ---
PROCEDURE: X-RAY CHEST ONE VIEW, PORTABLE ([id number]) INDICATIONS: HCAP TECHNIQUE: One view of the chest was acquired. COMPARISON: [facility], CR, XR CHEST 1VW (PORTABLE), 07/06/2016, 21:01. [facility], CR, XR CHEST 1VW (PORTABLE), 06/29/2016, 7:09. FINDINGS: Surgical changes and devices: Stable positioning of right IJ dialysis catheter. Lungs and pleura: Focal air space opacity involves the right upper lobe appears unchanged. Diffuse, widespread bilateral interstitial opacities present similar to prior examination. Patchy airspace op acity involves the lung bases similar to prior examination. Mediastinum: Mediastinal contours appear normal. Heart size is enlarged. Bones and chest wall: No suspicious bony lesions. Overlying soft tissues appear unremarkable. IMPRESSION: 1. Focal right upper lobe airspace opacity present . A mass or consolidation cannot be excluded. Recommend continued radiographic followup and if the density does not resolve, recommend n oncontrast chest CT scan to exclude neoplasm. 2. Interstitial opacities similar to prior examination and mild cardiomegaly suggesting chronic CHF. 3. Bibasilar patchy air space opacities similar prior examination which may be related to focal pulm onary edema but pneumonia cannot be excluded.. Dictated by: Noam ALEXANDRE Interpreted: Song Lee MD on 07/07/2016 at 9:28 Transcribed by: DARIUS on 07/07/2016 at 9:32 Approved by: Song Lee M.D. on 07/07/2016 at 10:24
[2016-07-07] MEDS: Piperacillin-Tazo 3.375 Gm Inj 3.375 GM in Dextrose 5% Minibag Plus 50 ML IV SCH ×2 (10:59→20:29)
--- NOTE | 2016-07-07 13:00 | PCM.PHAPRO ---
Progress Left heel pain and SOB VANCOMYCIN DOSING PER PHARMACY SCr: 3.86 WBC: 4.7 A: Pt receiving dialysis MWF, Received 1 g loading dose last night (07/06) P: Will draw another trough tomorrow (07/08) @ 0500 and dose as appropriate, thanks! Lina Cox PharmD July 07, 2016 13:00
--- NOTE | 2016-07-07 13:19 | CONS ---
[address] [address] CONSULTATION REPORT PATIENT: ROMAINE LAEXIS : 1945 MR#: [id number] ADMIT: 07/06/2016 JOB ID: [id number] DATE OF SERVICE: 07/07/2016 NEPHROLOGY CONSULTATION: REQUESTING PHYSICIAN: Dr. Day. REASON FOR CONSULTATION: Management of end-stage renal disease. CHIEF COMPLAINT: Left heel pain. PRESENT ILLNESS: This is a 71-year-old lady with multiple comorbidities include end-stage renal disease on hemodialysis, type 2 diabetes, hypertension, COPD, stroke who presented to the emergency department due to left heel pain. The patient reported that she broke her left leg last year. Since then, she had chronic left leg pain. She has been seen by Wound Care. She reported that the pain has gotten worse over the past two weeks and she believes that it could be infected. She then came to the hospital for further investigation. According to the ED note, she was complaining of shortness of breath and productive cough. The chest x-ray showed possible left lower lung pneumonia. During my evaluation today, she reports no history of cough, no fever, no chills. Her last dialysis was performed yesterday. She appears to be comfortable at the moment. The only complaint is that she has chronic back pain due to scoliosis and chronic left heel pain. Overnight the patient received IV vancomycin, Zosyn and Levaquin. Left foot x-ray performed yesterday showed no evidence of osteomyelitis, healing 3rd, 4th and 5th metatarsal fractures and healing distal tibia and fibula fractures. Initial CBC showed WBC of 5.7, hemoglobin of 11.7. Basic metabolic panel showed a sodium of 138, potassium of 3.3, BUN of 11, and creatinine of 3.24. PAST MEDICAL HISTORY: 1. End-stage renal disease, on hemodialysis every Wednesday, Wednesday, and Wednesday. 2. Diastolic heart failure. 3. Hypertension with hypertensive nephrosclerosis. 4. Type 2 diabetes. 5. COPD with history of tobacco dependence. 6. Anemia of chronic kidney disease. 7. Renal osteodystrophy. 8. Stroke. 9. History of C. difficile colitis. SURGICAL HISTORY: 1. Status post multiple bilateral AV fistula placement which became malfunctioning. 2. Repeated tunneled catheter placement and revision with a high-grade stenosis of the left brachial basilic veins. 3. Status post C section. 4. Status post cholecystectomy. 5. Status post ORIF left tibia and fibular proximal fracture. FAMILY HISTORY: Positive for hypertension and stroke. SOCIAL HISTORY: The patient smokes one pack for 2-3 days since the age of 17. The patient drinks alcohol occasionally. No history of illicit drug use. ALLERGIES: GABAPENTIN, HYDROMORPHONE, SUMATRIPTAN, TAPE, LATEX and MORPHINE. REVIEW OF SYSTEMS: Fourteen point review of system was performed. PHYSICAL EXAM: Vitals: Temperature 36.2, pulse 77, respiratory rate 16, blood pressure 117/73, O2 sat 96% on room air. General appearance: Awake, alert, oriented x3. Not in acute distress. HEENT: Mild pallor. No jaundice. No JVD. No lymphadenopathy. No thyroid enlargement. Atraumatic. Moist mucous membranes. PERRLA. Neck: Supple. No lymphadenopathy. No thyroid enlargement. Heart: Regular rhythm. Normal S1, S2. No murmurs, rubs or gallops. Lungs: Fine crackles at the bases. No wheezing. No rhonchi. Abdomen: Soft, active bowel sounds. Nontender. Nondistended. No hepatosplenomegaly. Extremities: No edema. Positive for chronic skin changes on the lower extremities. Nonhealing ulcers noted on the left heel measured 2 x 2 cm. Granulation tissue noted. No pulse. No drainage. LABORATORY: WBC 4.7, hemoglobin 10.1, platelets 152. Sodium 134, potassium 3.9, chloride 92, bicarbonate 27, BUN 17, creatinine 3.86, calcium 9.8, alkaline phosphatase 468, albumin 3.9. ASSESSMENT: 1. End-stage renal disease, on hemodialysis every Wednesday, Wednesday and Wednesday. 2. Suspected healthcare associated pneumonia. 3. Chronic nonhealing ulcers on the left heel. 4. COPD with history of tobacco dependence. 5. Hypertension with hypertensive nephrosclerosis. 6. History of depression. 7. Renal osteodystrophy. 8. Anemia of chronic kidney disease. Per renal standpoint, the patient does not require emergent dialysis today. We will continue Sensipar 60 mg once a day. Will hold PhosLo and calcitriol given hypercalcemia. Will check phosphorus level today. Given stable blood pressure, will discontinue IV fluids Thank you for the consultation. We will monitor along with you. SURESH
[2016-07-07 15:20] VITALS: BP 100/56; PULSE 74; RESP 17; O2SAT 93
[2016-07-07 20:39] VITALS: BP 106/68; PULSE 75; RESP 17; O2SAT 96
[2016-07-08] MEDS: Ondansetron 2 mg/mL 2 mL Inj IVPUSH PRN ×2 (01:30→02:46)
[2016-07-08] MEDS: Heparin 5,000 Unit/mL Inj SUBQ SCH ×3 (01:30→16:30)
[2016-07-08] MEDS ORDERED: Vancomycin Serum Trough XX ONE (05:00)
[2016-07-08 05:20] VITALS: BP 108/62; PULSE 82; RESP 18; O2SAT 97
[2016-07-08] MEDS: Pantoprazole 20 mg ER24 Tablet PO SCH (08:54)
[2016-07-08] MEDS: Vitamin B Complex/Vit C Tablet PO SCH (08:55)
[2016-07-08 09:28] VITALS: BP 110/63; PULSE 80
--- NOTE | 2016-07-08 10:48 | PCM.PNNEPH ---
Subjective Date of Service July 08, 2016 Subjective Pt is seen during HD. BP stable. c/o back and left heel pain. Exam Vital Signs Vital Sign - Last Date Time Temp Pulse Resp B/P Pulse Ox O2 Delivery O2 Flow Rate FiO2 07/08/16 05:20 36.4 82 18 108/62 97 Room Air Intake and Output 07/07/16 07/07/16 07/08/16 Cumulative From/Thru 15:00 23:00 07:00 07/06/16 16:17 - 07/08/16 06:40 Intake Total 1332 ml 400 ml 1732 ml Output Total 0 ml 240 ml Balance 1332 ml 400 ml 1492 ml Intake Oral 298 ml 400 ml 698 ml IV Total 1034 ml 1034 ml TPN/PPN 0 ml Output Urine Total 0 ml 240 ml # Voids 3 3 # Bowel Movements 0 0 Exam General appearance: Awake, alert, oriented x3. Not in acute distress. HEENT: Mild pallor. No jaundice. No JVD. No lymphadenopathy. No thyroid enlargement. Atraumatic. Moist mucous membranes. PERRLA. Neck: Supple. No lymphadenopathy. No thyroid enlargement. Heart: Regular rhythm. Normal S1, S2. No murmurs, rubs or gallops. Lungs: Fine crackles at the bases. No wheezing. No rhonchi. Abdomen: Soft, active bowel sounds. Nontender. Nondistended. No hepatosplenomegaly. Extremities: No edema. Positive for chronic skin changes on the lower extremities. Nonhealing ulcers noted on the left heel measured 2 x 2 cm. Granulation tissue noted. No pulse. No drainage. Lab and Diagnostics Result Diagram: 07/07/16 0707/07/16 07 Microbiology Blood and urine cultures pending X-Rays, CTs and MRIs X-RAY LEFT FOOT COMPLETE, MINIMUM THREE VIEWS IMPRESSION: 1. Healing third, fourth, and fifth metatarsal fractures. 2. No plain film evidence of osteomyelitis. Bone scan could be performed to assess for osteomyelitis, if clinically indicated. 3. Healing distal tibial and fibular fractures. Dictated by: Donn Lizama M.D. on 07/06/2016 at 18:22 Approved by: Donn Lizama M.D. on 07/06/2016 at 18:24 X-RAY CHEST ONE VIEW, PORTABLE IMPRESSION: Left mid and lower lung pneumonia. Follow up plain films of the chest are recommended to ensure resolution, and to exclude underlying or central malignancy. Dictated by: Donn Lizama M.D. on 07/06/2016 at 21:16 Approved by: Donn Lizama M.D. on 07/06/2016 at 21:17 . Plan Impression ASSESSMENT: 1. End-stage renal disease, on hemodialysis every Wednesday, Wednesday and Wednesday. 4 hr, 3K, 35HCO3, UF 2L DFR 600, BFR 400, tunneled cath, revaclear. 2. Suspected healthcare associated pneumonia. 3. Chronic nonhealing ulcers on the left heel. 4. COPD with history of tobacco dependence. 5. Hypertension with hypertensive nephrosclerosis. 6. History of depression. 7. Renal osteodystrophy. 8. Anemia of chronic kidney disease. Plan: Continue HD per schedule. Abx as per primary team. Wound care. Joseline Garcia MD July 08, 2016 10:48
[2016-07-08] MEDS: Piperacillin-Tazo 3.375 Gm Inj 3.375 GM in Dextrose 5% Minibag Plus 50 ML IV SCH (14:55)
[2016-07-08] MEDS ORDERED: LEVO750T9 PO (15:39)
--- NOTE | 2016-07-08 15:42 | PCM.DIMED ---
Discharge Instructions Date of Service July 08, 2016 Dates of Hospitalization July 06, 2016 at 22:12 Discharge Diagnosis Discharge Diagnosis #. Healthcare associated pneumonia, present on admission, acute. Active: - Transition to oral Levaquin for 5 days. Condition has been improving. #. ESRD on hemodialysis, present on admission, chronic. Active #Heel ulcer/diabetic foot wound - Follow up in wound care clinic as previously planned Diet Diabetic, Renal Diet Activity No restrictions Call your provider Fever or Chills, Shortness of breath, Chest pain Patient Instructions Follow-up Provider: Latisha Parham DO Follow-up with PCP in: 1 week Fox Oswald DO July 08, 2016 15:42
--- NOTE | 2016-07-08 15:48 | PCM.DC.MED ---
Discharge Summary Date of Service July 08, 2016 Dates of Hospitalization Date of Hospital Admission July 06, 2016 at 22:12 Date of Discharge: July 08, 2016 Providers: Admitting Physician: Vicki Day DO Primary Care Physician: Latisha Parham DO Attending Physician: Vicki Day DO Diagnosis at Time of Discharge Diagnosis at Time of Discharge #. Healthcare associated pneumonia, present on admission, acute. Active: - Transition to oral Levaquin for 5 days. Condition has been improving. #. ESRD on hemodialysis, present on admission, chronic. Active #Heel ulcer/diabetic foot wound - Follow up in wound care clinic as previously planned Consultations Nephrology, Dr. Garcia Procedures XRay, CTs & MRIs X-RAY LEFT FOOT COMPLETE, MINIMUM THREE VIEWS IMPRESSION: 1. Healing third, fourth, and fifth metatarsal fractures. 2. No plain film evidence of osteomyelitis. Bone scan could be performed to assess for osteomyelitis, if clinically indicated. 3. Healing distal tibial and fibular fractures. Dictated by: Donn Lizama M.D. on 07/06/2016 at 18:22 Approved by: Donn Lizama M.D. on 07/06/2016 at 18:24 X-RAY CHEST ONE VIEW, PORTABLE IMPRESSION: Left mid and lower lung pneumonia. Follow up plain films of the chest are recommended to ensure resolution, and to exclude underlying or central malignancy. Dictated by: Donn Lizama M.D. on 07/06/2016 at 21:16 Approved by: Donn Lizama M.D. on 07/06/2016 at 21:17 . Brief History per HPI by admitting physcian. "Dahiana Rosas is a delightful 71 year old woman with a PMH of ESRD on HD MWF, DM2 diet controlled, chronic pain secondary to multiple orthopedic issues, tobacco dependence, HTN, and impaired physical capacity who presents with a several day history of Left heel pain and a 2 day history of SOB with cough. She states that since breaking her leg in August of last year she has never fully recovered, and continues to have severe pain and greatly impaired strength in the afflicted limb. She further relates that she has been experiencing a general physical decline over the past several months, and is concerned that she may not be being adequately dialyzed at her current HD center in [place]. She relates that over the past couple days she has been feeling increasingly SOB, with a non productive cough; her main complaint is pain in her left heel from a chronic non-healing ulcer which she states has been expressing purulent discharge. She denies chest pain, palpitations, pain with deep inspiration, headache, alterations in speech vision or sensation, or any changes in bowel or bladder habits beyond her chronic constipation. In the ED the wound on her heel was examined and felt not to be infected with a benign xray, CXR revealed LLL pneumonia and thus the patient was started on HCAP antibiotics given her HD status. " Hospital Course #. Healthcare associated pneumonia, present on admission, acute. Active Respiratory function is significantly improved. Cultures thus far negative after nearly 48 hours. MRSA swab also is negative. The patient is stable on room air, resting discharge home given her improved condition. About X were thus tapered from initially being broad-spectrum including Zosyn and Levaquin and vancomycin, to solely Levaquin by mouth for an additional 5 days to complete course. Follow-up was recommended within 1 week for further evaluation and respiratory function and consideration of resistant pulmonary condition. #. ESRD on hemodialysis, present on admission, chronic. Active Performed on day of discharge. Patient will continue all medications and follow-up as previously #Heel ulcer/diabetic foot wound Patient seen by wound care during hospitalization no no acute intervention or treatment was required No evidence of acute cellulitic process is appears to be more chronic ulceration healing likely limited due to diabetic condition and vascular disease. Plan for follow-up with wound care and outpatient setting on July 22 which was already scheduled. #. Chronic Pain, present on admission. Active: Home meds continued -Continue home Oxycodone 10-325 Q6 -Acetaminophen 975 Q6 PRN for pain #. HTN, present on admission, chronic. Active Lasix held on admission but restarted at time of discharge #. Chronic constipation secondary to opiate analgesia, present on admission. Active -Senna, Miralax #. Anxiety and depression, present on admission, chronic. Active/stable -Continued home Fluoxetine #. Tobacco dependence, present on admission, chronic. Active -Patient counseled on tobacco cessation, but patient declined. -Nicotine patch 14 mg/24hr provided while in hospital. Exam Vital Signs (Last) Date Time Temp Pulse Resp B/P Pulse Ox O2 Delivery O2 Flow Rate FiO2 07/08/16 09:28 80 5/3/17 05:20 36.4 18 108/62 97 Room Air Test 07/06/16 18:45 07/06/16 21:05 07/07/16 07:05 07/07/16 14:20 Erythrocyte Sedimentation Rate 71mm/hr (0-40) C-Reactive Protein 2.1mg/dL (0.0-0.5) Urine Color Yellow (YELLOW) Urine Appearance Clear (CLEAR,HAZY) Urine pH 7.0 (5.0-8.0) Urine Specific [place] 1.020 (1.003-1.035) Urine Protein 100mg/dL (NEG,TRACE) Urine Glucose (UA) 100mg/dL (NEGATIVE) Urine Ketones Negativemg/dL (NEGATIVE) Urine Occult Blood Small (NEGATIVE) Urine Nitrite Negative (NEGATIVE) Urine Bilirubin Negative (NEGATIVE) Urine Urobilinogen Normalmg/dL (NORMAL) Urine Leukocyte Esterase Small (NEGATIVE) Urine RBC 0-2/hpf (0-2) Urine WBC 0-5/hpf (0-5) Urine Epithelial Cells None/hpf (NONE-MOD) Urine Crystals None seen (NONE SEEN) Urine Bacteria Few/hpf (NONE-FEW) Urine Hyaline Casts None/lpf (NONE) Urine Granular Casts None seen (NONE SEEN) Urine Waxy Casts None seen (NONE SEEN) Urine Red Blood Cell Casts None seen (NONE SEEN) Urine White Blood Cell Casts None seen (NONE SEEN) Urine Mucus None seen (None Seen) Urine Trichomonas None seen (NONE SEEN) Urine Yeast None (NONE SEEN) Urinalysis Comment None Urine Culture Reflexed Indicated White Blood Count 4.7th/mm3 (3.8-10.1) Red Blood Count 3.57mil/mm3 (3.90-5.20) Hemoglobin 10.1g/dL (12.0-15.6) Hematocrit 31.5% (35.0-46.0) Mean Corpuscular Volume 88.2fL (81-100) Mean Corpuscular Hemoglobin 28.3pg (27.0-35.0) Mean Corpuscular Hemoglobin Concent 32.1% (32.0-37.0) Red Cell Distribution Width 17.9% (12.3-15.4) Platelet Count 152bil/L (150-400) Neutrophils (%) (Auto) 68.7% (40-74) Lymphocytes (%) (Auto) 22.3% (14-46) Monocytes (%) (Auto) 5.8% (4-12) Eosinophils (%) (Auto) 2.6% (0-5) Basophils (%) (Auto) 0.4% (0-3) Sodium Level 134mEq/L (134-144) Potassium Level 3.9mEq/L (3.5-5.2) Chloride Level 92mEq/L (97-108) Carbon Dioxide Level 27mmol/L (18-29) Blood Urea Nitrogen 17mg/dL (8-27) Creatinine 3.86mg/dL (0.57-1.00) Estimat Glomerular Filtration Rate 15mL/min (>59) Glucose Level 94mg/dL (60-99) Calcium Level 9.8mg/dL (8.5-10.1) Phosphorus Level 5.0mg/dL (2.5-4.9) Total Bilirubin 0.4mg/dL (0.0-1.2) Aspartate Amino Transf (AST/SGOT) 14U/L (0-50) Alanine Aminotransferase (ALT/SGPT) 5U/L (0-32) Alkaline Phosphatase 468U/L (25-165) Total Protein 6.9g/dL (6.4-8.4) Albumin 3.9g/dL (3.4-5.0) Procalcitonin 0.31ng/mL (0.00-0.08) Parathyroid Hormone (Intact) 650pg/mL (15-65) Test 07/08/16 07:15 Vancomycin Level Trough 12.8mcg/mL Microbiology Results Blood and urine cultures pending Discharge Medications Discharge Medications Calcitriol (Rocaltrol) 0.25 Mcg Capsule 0.25 MCG PO DAILY (Reported) Calcium Acetate (Calcium Acetate) 667 Mg Tablet 667 MG PO TIDWM (Reported) Cinacalcet (Sensipar) 30 Mg Tablet 30 MG PO BID (Reported) Ferrous Sulfate (Ferrous Sulfate) 325 Mg Tablet 325 MG PO DAILY (Reported) Fluoxetine (Fluoxetine) 20 Mg Capsule 20 MG PO TID (Reported) Fluoxetine (Prozac) 20 Mg Capsule 30 MG PO DAILY (Reported) Folic Acid/Vitamin B Comp W-C (Dialyvite Tablet) 1 Each Tablet 1 EACH PO DAILY ( Reported) Furosemide (Furosemide) 40 Mg Tablet 40 MG PO BID (Reported) Levofloxacin (Levaquin) 750 Mg Tablet 750 MG PO DAILY Prescribed by: MIRANDA RAYMUNDO DO As needed Docusate Sodium (Colace) 100 Mg Capsule 100 MG PO HS PRN PRN For Constipation ( Reported) Ondansetron ODT (Ondansetron ODT) 4 Mg Tab.rapdis 8 MG PO Q8H PRN PRN For Nausea (Reported) hydrOXYzine Hcl (HydrOXYzine Hcl) 25 Mg Tablet 25 MG PO QID PRN PRN For Itching (Reported) oxyCODONE-Acetaminophen 10-325 mg (oxyCODONE-Acetaminophen 10-325 mg) 1 Each Tablet 1 TAB PO Q6H PRN PRN For Pain Prescribed by: WILDA SILVERIO MD Followup Plan Disposition: Patient discharged home establishment of home health services. Right initial 5 day course of Levaquin to complete treatment for pneumonia. Discharge Diet: Diabetic, Renal Diet Discharge Activity: No restrictions Follow-up Provider: Latisha Parham DO Follow-up with PCP in: 1 week Time spent 45 minute copies to: Latisha Parham Benjamin P DO July 08, 2016 15:48
[2016-07-08 17:30] VITALS: BP 102/60; PULSE 80; RESP 18; O2SAT 100
[2016-07-08] MEDS ORDERED: levoFLOXacin Inj 500 MG in IV Premix 1 EACH IV SCH (20:00)
== END 2016-07-08 19:01 | disposition home health service (06) | DRG 177 ==
LOC: SED 16:09 → OBSVTOIN 22:12 → MPC 22:12 → INTOOBSV 22:12 → MPC 22:25
PROVIDERS: ADMIT Internal Medicine; ATTEND Internal Medicine
PROC: 5A1D00Z (ICD-10-PCS; principal; 2016-07-08)
DX: J15.6 Pneumonia due to other Gram-negative bacteria (principal); N18.6 End stage renal disease; L97.429 Non-pressure chronic ulcer of left heel and midfoot with unspecified severity; I12.0 Hypertensive chronic kidney disease with stage 5 chronic kidney disease or end stage renal disease; J44.0 Chronic obstructive pulmonary disease with (acute) lower respiratory infection; F17.210 Nicotine dependence, cigarettes, uncomplicated; E11.621 Type 2 diabetes mellitus with foot ulcer; G89.29 Other chronic pain; F41.9 Anxiety disorder, unspecified; F32.9 Major depressive disorder, single episode, unspecified; Z99.2 Dependence on renal dialysis

== ENCOUNTER 2016-07-15 04:21 | Emergency (ER) | payer MEDICARE, MEDICAID ==
[~2016-07-15] VITALS: Ht 152.4 cm; Wt 50.0 kg
[~2016-07-15 04:21] MED LIST changes: -ASPI81TA3 PO; +CALC667T5 PO; +LEVO750T9 PO; -PHO667 PO
[2016-07-15 04:33] VITALS: BP 155/64; PULSE 70; RESP 26; O2SAT 100
--- NOTE | 2016-07-15 04:35 | ED.REPORT ---
HPI-General Illness Date of Service July 15, 2016 ED Provider: Andrea Morgan MD 71 year old female with an extensive medical history including COPD, HTN, diabetes, stroke, and ESRD on dialysis presents to the ER via EMS complaining of shortness of breath onset upon awakening four hours ago. She is scheduled for dialysis this morning, and she missed her last dialysis appointment two days ago. Patient was discharged a from the hospital here a week ago after being treated for pneumonia. She is well known to us here in the department. Nursing Notes Stated Complaint: SHORT OF BREATH Chief Complaint: Respiratory Complaints Nursing Notes Reviewed: Yes Allergies: Coded Allergies: gabapentin (Verified Allergy, Severe, 07/15/16) Swelling and gait problems hydromorphone HCl (Verified Allergy, Severe, Hallucinations, 07/15/16) "Trip like on LSD" sumatriptan succinate (Verified Allergy, Severe, Dizziness, 07/15/16) Chest pain and dizziness TAPE (Verified Allergy, Intermediate, 07/15/16) itching latex (Verified Allergy, Intermediate, 07/15/16) Itching from gloves morphine (Verified Allergy, Unknown, Hallucinations, 07/15/16) Scheduled Calcitriol (Rocaltrol) 0.25 Mcg Capsule 0.25 MCG PO DAILY Calcium Acetate (Calcium Acetate) 667 Mg Tablet 667 MG PO TIDWM Cinacalcet (Sensipar) 30 Mg Tablet 30 MG PO BID Ferrous Sulfate (Ferrous Sulfate) 325 Mg Tablet 325 MG PO DAILY Fluoxetine (Fluoxetine) 20 Mg Capsule 20 MG PO TID Fluoxetine (Prozac) 20 Mg Capsule 30 MG PO DAILY Folic Acid/Vitamin B Comp W-C (Dialyvite Tablet) 1 Each Tablet 1 EACH PO DAILY Furosemide (Furosemide) 40 Mg Tablet 40 MG PO BID Levofloxacin (Levaquin) 750 Mg Tablet 750 MG PO DAILY Scheduled PRN Docusate Sodium (Colace) 100 Mg Capsule 100 MG PO HS PRN PRN For Constipation Ondansetron ODT (Ondansetron ODT) 4 Mg Tab.rapdis 8 MG PO Q8H PRN PRN For Nausea hydrOXYzine Hcl (HydrOXYzine Hcl) 25 Mg Tablet 25 MG PO QID PRN PRN For Itching oxyCODONE-Acetaminophen 10-325 mg (oxyCODONE-Acetaminophen 10-325 mg) 1 Each Tablet 1 TAB PO Q6H PRN PRN For Pain General Time Seen by MD: :34 Chief Complaint Other (Shortness of Breath) Hx Obtained From: Patient Arrived By: Ambulance Sudden in Onset?: No Onset Occurred: 1 - 4 hours ago (4) Symptom Duration: Since onset Pertinent Negative: Pt denies other symptoms Context Related History: Reports COPD Recent Healthcare: Recent doctor visit, Recent hospitalization Similar Sx Previous: Yes Past Medical History 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 Anemia of chronic disease. History of right lower lobe pneumonia. Hospitalization, November 2012, for atypical chest pain with negative myocardial stress test. Staph aureus sepsis, December 2012. 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 Reports: COPD, Diabetes mellitus, Hypertension, Stroke Past Surgical History Left arm fistula. Left brachial basilic fistula. Right brachial basilic fistula. Evacuation of wound hematoma due to thrombosed left brachial basilic fistula, April 2012. 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 Reports: , Cholecystectomy Family History Noncontributory Smoking History Current Every Day Smoker Social History Alcohol Use: "Social" Drug Use: Denies drug use Other Social History: Lives alone, Local resident Ambulatory Status Wheelchair Review of Systems Full Review of Systems Constitutional: Denies: Chills, Fever Respiratory: Reports: Shortness of breath, Denies: Non-productive cough Cardiovascular: Denies: Chest pain GI: Denies: Abdominal pain, Diarrhea, Nausea, Vomiting Complete sys rev & neg: except as marked. Physical Exam Vital Signs Vital Signs Date Time Temp Pulse Resp B/P Pulse Ox O2 Delivery O2 Flow Rate FiO2 07/15/16 04:33 36.4 70 26 155/64 100 Room Air Initial VS: Reviewed Head / Eyes: Atraumatic, Normocephalic Abdomen / GI: Soft, Non-tender, No guarding, No rebound, No distention Extremities: Vascular intact, Neuro intact, No swelling, No tenderness Skin: Warm, Dry, No cyanosis Neurologic: Alert, Oriented, Nonfocal Psychiatric: Mood/affect normal, Behavior normal, Normal thought content General/Constitutional: Awake, Alert Neck: Supple, Full range of motion, Non-tender Neck Vascular: Positive: JVD moderate Respiratory / Chest: No respiratory distress, No wheezing, No chest tenderness , No chest wall deformity Crackles bilaterally. Cardiovascular: Heart rate NL, Regular rhythm, Heart sounds NL, Cap refill not delayed, Peripheral circulation NL Interpretation & Diagnostics ECG Interpretation ECG Interpretation: Sinus rhythm, rate 69 Abnormal T Time: 04:30 Interpreted by: ED physician X-Ray Chest Interpretation Chest Xray Interpretation: Findings consistent with CHF. View: Portable, 1 view Interpretation / Wet Read by: Wet read ED physician Re-Eval/Medical Decision Med Decision/Clinical Course 71-year-old presents with shortness of breath and mild CHF after missing dialysis. She is due this morning for dialysis in any case. No acute findings on exam and no particular distress at this point. She is transported to dialysis via ambulance for her scheduled appointment. Discharged in stable condition. Incidental note of fungal dermatitis on her feet. Turbinafine cream provided. Source of Hx: Old records Time of Eval: 05:04 Re-Evaluation/Progress Note: Patient is resting comfortably. Discussed plan to discharge to dialysis. Patient is amenable to the plan. Return precautions given. All other questions addressed. Counseled Regarding: Diagnosis, Lab results, Need for follow-up, When/why to return to ED Discharge & Departure Primary Impression: ESRD (end stage renal disease) on dialysis Additional Impressions: Shortness of breath Fluid overload Fungal dermatitis Disposition: Home Discharge Condition All VS Reviewed: Yes Condition: Stable Patient Instructions: Foot Care for People with Diabetes (ED) Additional Instructions: Go to dialysis as scheduled. It is critical that you do not miss your appointments. These emergencies are avoidable if you would keep your scheduled dialysis appointments. Terbinafine cream twice daily to the scaly parts of your feet. Referrals: Franklyn Bose DO (PCP) Ebenezer Attestation Portions of this note were transcribed by Jorden Bahena. I, Dr. Morgan, personally performed the history, physical exam and medical decision-making; I reviewed and confirmed the accuracy of the information in the transcribed note. Signed by: Ebenezer Huggins, 07/15/2016 at 05:13 copies to: Franklyn Bose Christopher W MD July 15, 2016 04:35 JORDEN BAHENA July 15, 2016 04:44
[2016-07-15] MEDS ORDERED: TerBINafine 1% 15 Gm Cream TOPICAL ONE (05:05)
--- NOTE | 2016-07-15 08:39 | DRSVH ---
PROCEDURE: X-RAY CHEST ONE VIEW, PORTABLE ([id number]) INDICATIONS: SHORT OF BREATH TECHNIQUE: One view of the chest was acquired. COMPARISON: [facility], CR, XR CHEST 1VW (PORTABLE), 07/07/2016, 5:33. FINDINGS: Surgical changes and devices: Stable right-sided dual-lumen dialysis catheter with tips in the right atrium. Bilateral breast postoperative change. Lungs and pleura: No pleural effusions or pneumothorax. Right apical pulmonary opacity is stable and partially scared of the right clavicle. Previously noted bibasilar pulmonary opacities are poorly se en. Stable interstitial pulmonary opacities. Mediastinum: Mild enlargement of the cardiac mediastinal silhouette.. Heart size is normal. Bones and chest wall: No suspicious bony lesions. Overlying soft tissues appear unremarkable. IMPRESSION: 1. Stable right apical pulmonary opacity partially obscured by the clavicle. Recommend a chest CT wit h contrast for further evaluation. 2. Interval mild enlargement of the cardiomediastinal silhouette. 3. Right sided dialysis catheter with tips in the right atrium. Dictated by: Marty Thompson M.D. on 07/15/2016 at 8:28 Approved by: Marty Thompson M.D. on 07/15/2016 at 8:32
== END 2016-07-15 05:20 | disposition other institution (70) ==
LOC: SED 04:21
DX: I12.0 Hypertensive chronic kidney disease with stage 5 chronic kidney disease or end stage renal disease (principal); N18.6 End stage renal disease; R06.02 Shortness of breath; B36.9 Superficial mycosis, unspecified; E87.70 Fluid overload, unspecified; E11.22 Type 2 diabetes mellitus with diabetic chronic kidney disease; E11.43 Type 2 diabetes mellitus with diabetic autonomic (poly)neuropathy; K31.84 Gastroparesis; J44.9 Chronic obstructive pulmonary disease, unspecified; F17.200 Nicotine dependence, unspecified, uncomplicated; Z99.2 Dependence on renal dialysis; Z86.73 Personal history of transient ischemic attack (TIA), and cerebral infarction without residual deficits; Z88.5 Allergy status to narcotic agent; Z88.8 Allergy status to other drugs, medicaments and biological substances; Z91.040 Latex allergy status; Z91.048 Other nonmedicinal substance allergy status

== ENCOUNTER 2016-08-10 09:30 | Emergency (ER) | payer MEDICARE, MEDICAID ==
[~2016-08-10] VITALS: Ht 152.4 cm; Wt 52.3 kg
[2016-08-10 09:32] VITALS: BP 147/68; PULSE 61; RESP 14; O2SAT 100
--- NOTE | 2016-08-10 09:40 | ED.REPORT ---
HPI-General Illness Date of Service Aug 10, 2016 ED Provider: Hermilo Walker MD Patient is a 71 year old female with a history of CVA, CHF, hypertension, ERSD and chronic back pain from scoliosis who presents to the ED via EMS initially complaining of shortness of breath. Upon further interviewing the patient's complain is back pain from her scoliosis. Associated symptoms include diarrhea, abdominal pain, nausea and vomiting. Patient reports that she missed her dialysis treatment and is also out of pain medication. Nursing Notes Stated Complaint: PAIN CONTROL/NEEDS DIALYSIS Chief Complaint: General Complaint Nursing Notes Reviewed: Yes Allergies: Coded Allergies: gabapentin (Verified Allergy, Severe, 07/15/16) Swelling and gait problems hydromorphone HCl (Verified Allergy, Severe, Hallucinations, 07/15/16) "Trip like on LSD" sumatriptan succinate (Verified Allergy, Severe, Dizziness, 07/15/16) Chest pain and dizziness TAPE (Verified Allergy, Intermediate, 07/15/16) itching latex (Verified Allergy, Intermediate, 07/15/16) Itching from gloves morphine (Verified Allergy, Unknown, Hallucinations, 07/15/16) Scheduled Calcitriol (Rocaltrol) 0.25 Mcg Capsule 0.25 MCG PO DAILY Calcium Acetate (Calcium Acetate) 667 Mg Tablet 667 MG PO TIDWM Cinacalcet (Sensipar) 30 Mg Tablet 30 MG PO BID Ferrous Sulfate (Ferrous Sulfate) 325 Mg Tablet 325 MG PO DAILY Fluoxetine (Fluoxetine) 20 Mg Capsule 20 MG PO TID Fluoxetine (Prozac) 20 Mg Capsule 30 MG PO DAILY Folic Acid/Vitamin B Comp W-C (Dialyvite Tablet) 1 Each Tablet 1 EACH PO DAILY Furosemide (Furosemide) 40 Mg Tablet 40 MG PO BID Levofloxacin (Levaquin) 750 Mg Tablet 750 MG PO DAILY Scheduled PRN Docusate Sodium (Colace) 100 Mg Capsule 100 MG PO HS PRN PRN For Constipation Ondansetron ODT (Ondansetron ODT) 4 Mg Tab.rapdis 8 MG PO Q8H PRN PRN For Nausea hydrOXYzine Hcl (HydrOXYzine Hcl) 25 Mg Tablet 25 MG PO QID PRN PRN For Itching oxyCODONE-Acetaminophen 10-325 mg (oxyCODONE-Acetaminophen 10-325 mg) 1 Each Tablet 1 TAB PO Q6H PRN PRN For Pain General Time Seen by : 09:40 Chief Complaint Back pain Hx Obtained From: Patient, EMS Arrived By: Ambulance Sudden in Onset?: No Context of Onset: Ran out of medication Symptom Duration: Since onset Location: : Back Severity: Current: Moderate Associated with: Reports: Abdominal pain, Nausea, Vomiting Recent Healthcare: Recent doctor visit, Recent hospitalization Similar Sx Previous: Yes Past Medical History 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 Anemia of chronic disease. History of right lower lobe pneumonia. Hospitalization, November 2012, for atypical chest pain with negative myocardial stress test. Staph aureus sepsis, December 2012. 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 Reports: COPD, Diabetes mellitus, Hypertension, Stroke Past Surgical History Left arm fistula. Left brachial basilic fistula. Right brachial basilic fistula. Evacuation of wound hematoma due to thrombosed left brachial basilic fistula, April 2012. 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 Reports: , Cholecystectomy Family History Noncontributory Smoking History Current Every Day Smoker Social History Alcohol Use: "Social" Drug Use: Denies drug use Other Social History: Lives alone, Local resident Ambulatory Status Wheelchair Review of Systems Full Review of Systems Constitutional: Denies: Fever Respiratory: Denies: Non-productive cough, Shortness of breath GI: Reports: Abdominal pain, Diarrhea, Nausea, Vomiting Musculoskeletal: Reports: Back pain Complete sys rev & neg: except as marked. Physical Exam Vital Signs Vital Signs Date Time Temp Pulse Resp B/P Pulse Ox O2 Delivery O2 Flow Rate FiO2 08/10/16 09:32 36.7 61 14 147/68 100 Nasal Cannula 2 Initial VS: Reviewed General/Constitutional: Awake, Alert, No acute distress, Well appearing Head / Eyes: Atraumatic, Normocephalic, PERRL, EOMI Respiratory / Chest: Atraumatic, Breath sounds NL, Breath sounds = bilat, No respiratory distress Cardiovascular: Heart rate NL, Regular rhythm, Heart sounds NL Abdomen: Atraumatic, Soft, Non-tender BACK: right paraspinal tenderness Skin: Atraumatic, Color NL, No rash, Warm, Dry Neurologic: Oriented X3, Speech NL, No motor deficits, No sensory deficits Psychiatric: Affect NL, Mood NL Re-Eval/Medical Decision Med Decision/Clinical Course [place] elements: patient has been out of Percocet since yesterday and her chronic back pain is worse without medication. She also missed her dialysis treatment. Patient's exam was normal, her abdomen was soft and she was well appearing. Source of Hx: Old records Time of Eval: 09:45 Re-Evaluation/Progress Note: Discussed plan for transfer to dialysis treatment. Patient understands and agrees to the plan. All questions were addressed. Consultation #1: Referral / Consult Name: Franklyn Bose DO Consulted With: Primary care physician Call Returned at: 09:45 Family Specialist: Agrees with eval, Agrees with plan Consultation #2: Call Returned at: 09:53 Family Specialist: Will see patient, Agrees with eval, Agrees with plan Note: Dialysis will accept the patient for treatment at 1100. Counseled Regarding: Diagnosis, Lab results, Need for follow-up, When/why to return to ED Discharge & Departure Primary Impression: Chronic back pain Additional Impressions: Has run out of medications End stage renal disease on dialysis Disposition: Transfer, Acute Care Facility Discharge Condition All VS Reviewed: Yes Condition: Stable Additional Instructions: We gave you to 10 mg Percocet while you were here. No laboratory data was collected by Dr. Bose's request. Go directly to kidney dialysis. Referrals: Franklyn Bose DO (PCP) Scribe Attestation Portions of this note were transcribed by Marlee Espinosa. I, Dr. Walker personally performed the history, physical exam and medical decision-making; I reviewed and confirmed the accuracy of the information in the transcribed note. Signed by: Ebenezer Elizabeth, 08/10/16 and 1918. copies to: Franklyn Bose Kirk H MD Aug 10, 2016 09:40 Obdulia Espinosa Aug 10, 2016 09:51
[2016-08-10] MEDS ORDERED: oxyCODONE-Acetamin 10-325 mg Tablet PO ONE (09:45)
== END 2016-08-10 11:05 | disposition short-term general hospital (02) ==
LOC: SED 09:30
DX: M54.9 Dorsalgia, unspecified (principal); I12.0 Hypertensive chronic kidney disease with stage 5 chronic kidney disease or end stage renal disease; N18.6 End stage renal disease; I50.9 Heart failure, unspecified; D63.1 Anemia in chronic kidney disease; J44.9 Chronic obstructive pulmonary disease, unspecified; E11.9 Type 2 diabetes mellitus without complications; F17.200 Nicotine dependence, unspecified, uncomplicated; Z99.2 Dependence on renal dialysis; Z86.73 Personal history of transient ischemic attack (TIA), and cerebral infarction without residual deficits; Z79.891 Long term (current) use of opiate analgesic; Z88.8 Allergy status to other drugs, medicaments and biological substances; Z88.5 Allergy status to narcotic agent

== ENCOUNTER 2016-08-18 10:03 | Emergency (ER) | payer MEDICARE, MEDICAID ==
[~2016-08-18] VITALS: Ht 147.3 cm; Wt 75.0 kg
[2016-08-18 10:12] VITALS: BP 172/85; PULSE 72; RESP 21; O2SAT 96
--- NOTE | 2016-08-18 10:22 | ED.REPORT ---
HPI-General Illness Date of Service Aug 18, 2016 ED Provider: Hermilo Walker MD 71 y/o female with a hx of ESRD on dialysis, Diabetic gastroparesis and chronic pain presents to the ED via EMS complaining of worsening back pain since last week. Associated sx include weakness, diarrhea and vomiting. She denies fever. The pt states she fell out of her wheelchair twice. She tales 3-4 pills of 10mg Percocet per day for pain. She has also not had dialysis for the last 8 days as she has not yet been cleared for hepatitis. Nursing Notes Stated Complaint: WEAKNESS Chief Complaint: General Complaint Nursing Notes Reviewed: Yes Allergies: Coded Allergies: gabapentin (Verified Allergy, Severe, 07/15/16) Swelling and gait problems hydromorphone HCl (Verified Allergy, Severe, Hallucinations, 07/15/16) "Trip like on LSD" sumatriptan succinate (Verified Allergy, Severe, Dizziness, 07/15/16) Chest pain and dizziness TAPE (Verified Allergy, Intermediate, 07/15/16) itching latex (Verified Allergy, Intermediate, 07/15/16) Itching from gloves morphine (Verified Allergy, Unknown, Hallucinations, 07/15/16) Scheduled Calcitriol (Rocaltrol) 0.25 Mcg Capsule 0.25 MCG PO DAILY Calcium Acetate (Calcium Acetate) 667 Mg Tablet 667 MG PO TIDWM Cinacalcet (Sensipar) 30 Mg Tablet 30 MG PO BID Ferrous Sulfate (Ferrous Sulfate) 325 Mg Tablet 325 MG PO DAILY Fluoxetine (Fluoxetine) 20 Mg Capsule 20 MG PO TID Fluoxetine (Prozac) 20 Mg Capsule 30 MG PO DAILY Folic Acid/Vitamin B Comp W-C (Dialyvite Tablet) 1 Each Tablet 1 EACH PO DAILY Furosemide (Furosemide) 40 Mg Tablet 40 MG PO BID Levofloxacin (Levaquin) 750 Mg Tablet 750 MG PO DAILY Scheduled PRN Docusate Sodium (Colace) 100 Mg Capsule 100 MG PO HS PRN PRN For Constipation Ondansetron ODT (Ondansetron ODT) 4 Mg Tab.rapdis 8 MG PO Q8H PRN PRN For Nausea hydrOXYzine Hcl (HydrOXYzine Hcl) 25 Mg Tablet 25 MG PO QID PRN PRN For Itching oxyCODONE-Acetaminophen 10-325 mg (oxyCODONE-Acetaminophen 10-325 mg) 1 Each Tablet 1 TAB PO Q6H PRN PRN For Pain General Time Seen by MD: 10:11 Chief Complaint Back pain Hx Obtained From: Patient, EMS Arrived By: Ambulance Sudden in Onset?: No Onset Occurred: 1 week ago Symptom Duration: Since onset Caused by: Fall on ground (fall from wheelchair) Location: : Back Quality: Painful Radiation: : Does not radiate Severity: Current: Moderate Severity: Maximum: Moderate Recent Healthcare: No recent doctor visit Similar Sx Previous: Yes Past Medical History 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 Anemia of chronic disease. History of right lower lobe pneumonia. Hospitalization, November 2012, for atypical chest pain with negative myocardial stress test. Staph aureus sepsis, December 2012. 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 Reports: COPD, Diabetes mellitus, Hypertension, Stroke Past Surgical History Left arm fistula. Left brachial basilic fistula. Right brachial basilic fistula. Evacuation of wound hematoma due to thrombosed left brachial basilic fistula, April 2012. 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 Reports: , Cholecystectomy Family History Noncontributory Smoking History Current Every Day Smoker Social History Alcohol Use: "Social" Drug Use: Denies drug use Other Social History: Lives alone, Local resident Ambulatory Status Wheelchair Review of Systems Full Review of Systems Musculoskeletal: Reports: Back pain Neurologic: Reports: Weakness Complete sys rev & neg: except as marked. Physical Exam Vital Signs Vital Signs Date Time Temp Pulse Resp B/P Pulse Ox O2 Delivery O2 Flow Rate FiO2 08/18/16 12:35 85 16 139/49 92 Nasal Cannula 2 08/18/16 10:12 36.8 72 21 172/85 96 Nasal Cannula 2 Initial VS: Reviewed Head / Eyes: Atraumatic, Normocephalic Neck: Non-tender, Full range of motion Respiratory: Breath sounds normal, Clear to auscultation, No respiratory distress Abdomen / GI: Soft, Non-tender Extremities: Vascular intact, Neuro intact, No tenderness Skin: Warm, Dry, No cyanosis Neurologic: Alert, Oriented, Nonfocal General/Constitutional: Awake, Alert, No acute distress, Cooperative Edematous female with eye lid edema consistent with her history. Kyphotic posture. Cardiovascular: Heart rate NL, Regular rhythm, Heart sounds NL, No gallop, No murmurs, No rubs, Peripheral circulation NL Mild peripheral edema. Back: Atraumatic, Full range of motion Excoriations in the back Interpretation & Diagnostics PROCEDURE: X-RAY LUMBAR SPINE, 2 OR 3 VIEW IMPRESSION: No lumbar spine vertebral body compression fractures. Grade 1 L4-L5 spondylolisthesis. Dictated by: Rogers Gonsales M.D. on 08/18/2016 at 10:26 Approved by: Rogers Gonsales M.D. on 08/18/2016 at 10:30 Lab Results Interpretation Result Diagram: 08/18/16 1120 08/18/16 1120 Test 08/18/16 11:20 White Blood Count 5.0th/mm3 (3.8-10.1) Red Blood Count 3.48mil/mm3 (3.90-5.20) Hemoglobin 10.2g/dL (12.0-15.6) Hematocrit 31.5% (35.0-46.0) Mean Corpuscular Volume 90.5fL (81-100) Mean Corpuscular Hemoglobin 29.3pg (27.0-35.0) Mean Corpuscular Hemoglobin Concent 32.4% (32.0-37.0) Red Cell Distribution Width 17.7% (12.3-15.4) Platelet Count 122bil/L (150-400) Neutrophils (%) (Auto) 64.7% (40-74) Lymphocytes (%) (Auto) 23.8% (14-46) Monocytes (%) (Auto) 9.1% (4-12) Eosinophils (%) (Auto) 2.2% (0-5) Basophils (%) (Auto) 0.2% (0-3) Sodium Level 139mEq/L (134-144) Potassium Level 4.7mEq/L (3.5-5.2) Chloride Level 96mEq/L (97-108) Carbon Dioxide Level 21mmol/L (18-29) Blood Urea Nitrogen 71mg/dL (8-27) Creatinine 12.64mg/dL (0.57-1.00) Estimat Glomerular Filtration Rate 4mL/min (>59) Glucose Level 98mg/dL (60-99) Calcium Level 9.3mg/dL (8.5-10.1) Total Bilirubin 0.5mg/dL (0.0-1.2) Aspartate Amino Transf (AST/SGOT) 10U/L (0-50) Alanine Aminotransferase (ALT/SGPT) 5U/L (0-32) Alkaline Phosphatase 579U/L (25-165) Total Protein 7.3g/dL (6.4-8.4) Albumin 4.1g/dL (3.4-5.0) Re-Eval/Medical Decision Source of Hx: Old records Time of Eval: 12:47 Patient Status: Condition improved Re-Evaluation/Progress Note: Rechecked pt. Discussed lab results, imaging results, diagnosis and plan to discharge. Pt understands and agrees with the plan. F/U instructions and RTER warning given. All questions addressed. Consultation #1: Call Returned at: 11:12 Note: Consulted dialysis unit. They don't have space available for the pt. Consultation #2: Referral / Consult Name: Myron Vaughan MD Consulted With: Nephrology Call Returned at: 12:40 Manager Float: Will see in office, Agrees with eval, Agrees with plan Note: Dr. Vaughan at [facility] agrees to follow up with the pt. he will arrange for outpatient dialysis at [facility] in [place] this . No emergent dialysis indicated today based on laboratory findings. Patient does not clinically appear to be excessively fluid overloaded. Counseled Regarding: Diagnosis, Need for follow-up, When/why to return to ED Discharge & Departure Primary Impression: Chronic renal failure, stage 5 Additional Impression: Chronic back pain Back pain location: low back pain Back pain laterality: left Sciatica presence: with sciatica Sciatica laterality: sciatica of left side Qualified Code: M54.42 - Lumbago with sciatica, left side Disposition: Home Discharge Condition All VS Reviewed: Yes Condition: Stable Patient Instructions: Chronic Kidney Disease (DC) Additional Instructions: Your blood work looks relatively reassuring and I believe that it is safe to wait until for your next dialysis. We were able to obtain the hepatitis panel and the results should be available tomorrow. I discussed the case myself with Dr. Vaughan who will arrange for dialysis on . Referrals: Franklyn Bose DO (PCP) Myron Vauhgan MD Scribe Attestation Portions of this note were transcribed by Edmar Azul. I, , personally performed the history, physical exam and medical decision-making;I reviewed and confirmed the accuracy of the information in the transcribed note. Signed by Ebenezer Warner. 08/18/16 12:49 copies to: Franklyn Bose DO; Myron Vaughan MD, Kirk H MD Aug 18, 2016 10:22 Edmar Azul Aug 18, 2016 10:34
[2016-08-18] MEDS ORDERED: oxyCODONE-Acetamin 10-325 mg Tablet PO ONE (10:45)
--- NOTE | 2016-08-18 11:31 | DRSVH ---
PROCEDURE: X-RAY LUMBAR SPINE, 2 OR 3 VIEW INDICATIONS: 71 year-old female with low back pain after fall 3 days ago. TECHNIQUE: 3 views of the lumbar spine were acquired. COMPARISON: [facility], CR, XR LUMBAR SPINE 2 OR 3VW, 06/17/2016, 14:36. FINDINGS: Bones: 5 [id number] vertebrae are present. There is mild L4-L5 spondylolisthesis from facet swapna nt degeneration. No vertebral body compression fractures. No suspicious bony lesions. Soft tissues: Patient is status post cholecystectomy. Overlying bowel gas pattern is normal. No fiorella picious soft tissue calcifications. There is moderate aortoiliac and femoral atherosclerosis. IMPRESSION: No lumbar spine vertebral body compression fractures. Grade 1 L4-L5 spondylolisthesis. Dictated by: Rogers Gonsales M.D. on 08/18/2016 at 10:26 Approved by: Rogers Gonsales M.D. on 08/18/2016 at 10:30
[2016-08-18 11:36] LABS: BASOPHILS % (AUTO) 0.2 % (0-3); EOSINOPHILS % (AUTO) 2.2 % (0-5); MONOCYTES % (AUTO) 9.1 % (4-12); Mean Corpuscular Hemoglobin 29.3 pg (27.0-35.0); Mean Corpuscular Volume 90.5 fL (81-100); NEUTROPHILS % (AUTO) 64.7 % (40-74); Platelet Count 122 bil/L (150-400)
[2016-08-18 12:35] VITALS: BP 139/49; PULSE 85; RESP 16; O2SAT 92
[2016-08-18 13:08] VITALS: BP 140/65; PULSE 86; RESP 20; O2SAT 93
[2016-08-18 13:37] VITALS: BP 140/65; PULSE 86; RESP 20; O2SAT 93
== END 2016-08-18 13:10 | disposition home or self-care (01) ==
LOC: SED 10:03
DX: I12.0 Hypertensive chronic kidney disease with stage 5 chronic kidney disease or end stage renal disease (principal); M54.42 Lumbago with sciatica, left side; N18.5 Chronic kidney disease, stage 5; W05.0XXA Fall from non-moving wheelchair, initial encounter; Y93.89 Activity, other specified; Y99.8 Other external cause status; Y92.129 Unspecified place in nursing home as the place of occurrence of the external cause; E08.43 Diabetes mellitus due to underlying condition with diabetic autonomic (poly)neuropathy; G89.29 Other chronic pain; D63.1 Anemia in chronic kidney disease; J44.9 Chronic obstructive pulmonary disease, unspecified; F17.200 Nicotine dependence, unspecified, uncomplicated; R60.0 Localized edema; Z86.73 Personal history of transient ischemic attack (TIA), and cerebral infarction without residual deficits; Z99.2 Dependence on renal dialysis; Z88.5 Allergy status to narcotic agent; Z88.8 Allergy status to other drugs, medicaments and biological substances

== ENCOUNTER 2016-08-21 11:20 | Emergency (ER) | payer MEDICARE, MEDICAID ==
[~2016-08-21] VITALS: Ht 152.4 cm; Wt 50.0 kg
--- NOTE | 2016-08-21 11:29 | ED.REPORT ---
HPI-Eye Problem Date of Service Aug 21, 2016 ED Provider: Dr. Walker 71 y/o female with a hx of ESRD on dialysis, Diabetic gastroparesis and chronic pain presents to the ED via EMS complaining of swollen eyes, onset a week ago. The pt has not had a dialysis treatment in two weeks but is scheduled for one tomorrow. She states her daughter insisted she visit the ED as the swelling was getting worse. She also complains of back pain. She is currently out of Percocet. The pt uses 2L of Oxygen at home. The pt denies fever and abdominal pain. Nursing Notes Stated Complaint: EYE SWELLING Nursing Notes Reviewed: Yes Allergies: Coded Allergies: gabapentin (Verified Allergy, Severe, 07/15/16) Swelling and gait problems hydromorphone HCl (Verified Allergy, Severe, Hallucinations, 07/15/16) "Trip like on LSD" sumatriptan succinate (Verified Allergy, Severe, Dizziness, 07/15/16) Chest pain and dizziness TAPE (Verified Allergy, Intermediate, 07/15/16) itching latex (Verified Allergy, Intermediate, 07/15/16) Itching from gloves morphine (Verified Allergy, Unknown, Hallucinations, 07/15/16) Scheduled Calcitriol (Rocaltrol) 0.25 Mcg Capsule 0.25 MCG PO DAILY Calcium Acetate (Calcium Acetate) 667 Mg Tablet 667 MG PO TIDWM Cinacalcet (Sensipar) 30 Mg Tablet 30 MG PO BID Ferrous Sulfate (Ferrous Sulfate) 325 Mg Tablet 325 MG PO DAILY Fluoxetine (Fluoxetine) 20 Mg Capsule 20 MG PO TID Fluoxetine (Prozac) 20 Mg Capsule 30 MG PO DAILY Folic Acid/Vitamin B Comp W-C (Dialyvite Tablet) 1 Each Tablet 1 EACH PO DAILY Furosemide (Furosemide) 40 Mg Tablet 40 MG PO BID Levofloxacin (Levaquin) 750 Mg Tablet 750 MG PO DAILY Scheduled PRN Docusate Sodium (Colace) 100 Mg Capsule 100 MG PO HS PRN PRN For Constipation Ondansetron ODT (Ondansetron ODT) 4 Mg Tab.rapdis 8 MG PO Q8H PRN PRN For Nausea hydrOXYzine Hcl (HydrOXYzine Hcl) 25 Mg Tablet 25 MG PO QID PRN PRN For Itching oxyCODONE-Acetaminophen 10-325 mg (oxyCODONE-Acetaminophen 10-325 mg) 1 Each Tablet 1 TAB PO Q6H PRN PRN For Pain General Time Seen by MD: 11:28 Chief Complaint Both eyes affected (swelling) Hx Obtained From: Patient Arrived By: Ambulance Sudden in Onset?: No Onset Occurred: 1 day ago Symptom Duration: Since onset Quality: Painful (Back) Radiation: Does not radiate Severity: Current: Moderate Severity: Maximum: Moderate Recent Healthcare: Recent doctor visit Similar Sx Previous: Yes Past Medical History 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 Anemia of chronic disease. History of right lower lobe pneumonia. Hospitalization, November 2012, for atypical chest pain with negative myocardial stress test. Staph aureus sepsis, December 2012. 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 Reports: COPD, Diabetes mellitus, Hypertension, Stroke Past Surgical History Left arm fistula. Left brachial basilic fistula. Right brachial basilic fistula. Evacuation of wound hematoma due to thrombosed left brachial basilic fistula, April 2012. 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 Reports: , Cholecystectomy Family History Noncontributory Smoking History Current Every Day Smoker Social History Alcohol Use: "Social" Drug Use: Denies drug use Other Social History: Lives alone, Local resident Ambulatory Status Wheelchair Review of Systems Reports: Eyes swollen Constitutional: Denies: Fever Complete sys rev & neg: except as marked. GI: Denies: Abdominal pain Musculoskeletal: Reports: Back pain Physical Exam Initial Vital Signs Vital Signs (First) Date Time Temp Pulse Resp B/P Pulse Ox O2 Delivery O2 Flow Rate FiO2 08/21/16 11:44 36.5 84 17 173/86 97 Nasal Cannula 4 Initial VS: Reviewed Neck: Non-tender, Full range of motion Respiratory: Breath sounds normal, Clear to auscultation, No respiratory distress Cardiovascular: Regular rate & rhythm, Heart sounds normal, Intact distal pulses Abdomen / GI: Soft, Non-tender Extremities: Vascular intact, Neuro intact, No swelling, No tenderness Skin: Warm, Dry, No cyanosis Neurologic: Alert, Oriented, Nonfocal Head / Eyes: Atraumatic, Normocephalic Significant facial edema, pronounced in eyelids. General/Constitutional: Awake, Alert Kyphotic No peripheral edema Re-Eval/Medical Decision Source of Hx: Old records Re-Evaluation/Progress : Time of Eval: 11:32 Re-Evaluation/Progress Note: Discussed the plan to discharge pt to dialysis directly. She understands and agrees with the plan. All questions answered. Consultation : Referral / Consult Name: Joseline Garcia MD Consulted With: Nephrology Call Returned at: 11:59 [facility]: Will see patient, Agrees with eval, Agrees with plan Note: Agrees the pt can be seen for a dialysis appointment today. Counseled Regarding: Diagnosis, Need for follow-up, When/why to return to ED Discharge & Departure Primary Impression: Edema Additional Impressions: Periorbital edema Chronic renal failure Chronic back pain COPD (chronic obstructive pulmonary disease) Supplemental oxygen dependent Disposition: Home Discharge Condition All VS Reviewed: Yes Condition: Stable Patient Instructions: Hemodialysis for Acute Renal Failure (ED) Additional Instructions: Go directly to kidney dialysis. Referrals: Franklyn Bose DO (PCP) Scribe Attestation Portions of this note were transcribed by Edmar Azul. I, , personally performed the history, physical exam and medical decision- making;I reviewed and confirmed the accuracy of the information in the transcribed note. Signed by Ebenezer Warner. 08/21/16 12:14 copies to: Franklyn Bose Kirk H MD Aug 21, 2016 11:29 Edmar Azul Aug 21, 2016 11:42
[2016-08-21 11:44] VITALS: BP 173/86; PULSE 84; RESP 17; O2SAT 97
[2016-08-21] MEDS ORDERED: oxyCODONE-Acetamin 5-325 mg Tablet PO ONE (11:55)
== END 2016-08-21 12:25 | disposition home or self-care (01) ==
LOC: EDBD 11:20 → SED 11:20
DX: H05.223 Edema of bilateral orbit (principal); I12.0 Hypertensive chronic kidney disease with stage 5 chronic kidney disease or end stage renal disease; E11.22 Type 2 diabetes mellitus with diabetic chronic kidney disease; N18.6 End stage renal disease; J44.9 Chronic obstructive pulmonary disease, unspecified; M54.9 Dorsalgia, unspecified; G89.29 Other chronic pain; E11.65 Type 2 diabetes mellitus with hyperglycemia; K31.84 Gastroparesis; F17.200 Nicotine dependence, unspecified, uncomplicated; Z99.2 Dependence on renal dialysis; Z86.73 Personal history of transient ischemic attack (TIA), and cerebral infarction without residual deficits; Z99.81 Dependence on supplemental oxygen; Z88.5 Allergy status to narcotic agent; Z88.8 Allergy status to other drugs, medicaments and biological substances; Z91.040 Latex allergy status; Z91.048 Other nonmedicinal substance allergy status

== ENCOUNTER 2016-09-12 15:52 | Inpatient (IN) | payer MEDICARE, MEDICAID ==
[~2016-09-12] VITALS: Ht 162.6 cm; Wt 52.2 kg
[2016-09-12 16:14] VITALS: BP 147/74; PULSE 92; RESP 15; O2SAT 83
--- NOTE | 2016-09-12 16:22 | ED.REPORT ---
HPI-General Illness Date of Service Sep 12, 2016 ED Provider: Venancio Oseguera DO The patient is a 71 year old female with history of end stage renal disease on dialysis MWF, chronic anemia, diabetes mellitus, gastroparesis, hypertension, COPD, and prior stroke, who presents to the emergency department by EMS complaining of not feeling well. The patient skipped 2 recent dialysis appointments. She went today and was on for 3 hours 45 minutes. Her family was concerned about her fatigue and edema. The patient is sleeping during interview and exam, and does not contribute any history. Nursing Notes Stated Complaint: NOT FEELING WELL Chief Complaint: General Complaint Nursing Notes Reviewed: Yes Allergies: Coded Allergies: gabapentin (Verified Allergy, Severe, 07/15/16) Swelling and gait problems hydromorphone HCl (Verified Allergy, Severe, Hallucinations, 07/15/16) "Trip like on LSD" sumatriptan succinate (Verified Allergy, Severe, Dizziness, 07/15/16) Chest pain and dizziness TAPE (Verified Allergy, Intermediate, 07/15/16) itching latex (Verified Allergy, Intermediate, 07/15/16) Itching from gloves morphine (Verified Allergy, Unknown, Hallucinations, 07/15/16) Scheduled Calcitriol (Rocaltrol) 0.25 Mcg Capsule 0.25 MCG PO DAILY Calcium Acetate (Calcium Acetate) 667 Mg Tablet 667 MG PO TIDWM Cinacalcet (Sensipar) 30 Mg Tablet 30 MG PO BID Ferrous Sulfate (Ferrous Sulfate) 325 Mg Tablet 325 MG PO DAILY Fluoxetine (Fluoxetine) 20 Mg Capsule 20 MG PO TID Fluoxetine (Prozac) 20 Mg Capsule 30 MG PO DAILY Folic Acid/Vitamin B Comp W-C (Dialyvite Tablet) 1 Each Tablet 1 EACH PO DAILY Furosemide (Furosemide) 40 Mg Tablet 40 MG PO BID Levofloxacin (Levaquin) 750 Mg Tablet 750 MG PO DAILY Scheduled PRN Docusate Sodium (Colace) 100 Mg Capsule 100 MG PO HS PRN PRN For Constipation Ondansetron ODT (Ondansetron ODT) 4 Mg Tab.rapdis 8 MG PO Q8H PRN PRN For Nausea hydrOXYzine Hcl (HydrOXYzine Hcl) 25 Mg Tablet 25 MG PO QID PRN PRN For Itching oxyCODONE-Acetaminophen 10-325 mg (oxyCODONE-Acetaminophen 10-325 mg) 1 Each Tablet 1 TAB PO Q6H PRN PRN For Pain General Time Seen by MD: 16:17 Chief Complaint Not feeling well Hx Obtained From: Other family..., EMS Unable to Obtain Hx: Patient condition Arrived By: Ambulance Sudden in Onset?: No Onset Occurred: 3 days ago Symptom Duration: Since onset Severity: Current: No pain currently Severity: Maximum: No pain Recent Healthcare: No recent hospitalization, Recent doctor visit Similar Sx Previous: Yes Past Medical History 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 Anemia of chronic disease. History of right lower lobe pneumonia. Hospitalization, November 2012, for atypical chest pain with negative myocardial stress test. Staph aureus sepsis, December 2012. 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 Reports: COPD, Diabetes mellitus, Hypertension, Stroke Past Surgical History Left arm fistula. Left brachial basilic fistula. Right brachial basilic fistula. Evacuation of wound hematoma due to thrombosed left brachial basilic fistula, April 2012. 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 Reports: , Cholecystectomy Family History Noncontributory Smoking History Current Every Day Smoker Social History Alcohol Use: "Social" Drug Use: Denies drug use Other Social History: Lives alone, Local resident Ambulatory Status Wheelchair Review of Systems Unable to Obtain ROS Patient condition Full Review of Systems Constitutional: Reports: Fatigue, Malaise Cardiovascular: Reports: Edema Physical Exam Vital Signs Vital Signs Date Time Temp Pulse Resp B/P Pulse Ox O2 Delivery O2 Flow Rate FiO2 09/12/16 16:14 37.0 92 15 147/74 83 Room Air 4 Initial VS: Reviewed Skin: Warm, Dry Alertness: Positive: Sleeping but arousable Eye opening to voice Head / Eyes: Normocephalic Periorbital edema bilaterally ENT: Atraumatic, Airway patent Respiratory / Chest: Breath sounds = bilat, No respiratory distress Cardiovascular: Heart rate NL, Regular rhythm, Heart sounds NL, No gallop, No murmurs Lower Ext Edema: Positive: Bilateral 2+ Abdomen: Atraumatic, Soft Upper Extremities Upper Extremity / MS: No deformity Lower Extremity / Pelvis / MS: No deformity NEURO: unable to evaluate PSY: unable to evaluate Interpretation & Diagnostics ECG Interpretation ECG Interpretation: Sinus rhythm Nonspecific ST changes Time: 17:35 Interpreted by: ED physician CT Head Interpretation IMPRESSION: 1. No acute intracranial findings. 2. Abnormal appearance of the medullary bone of the calvarium. Please correlate clinical history. This finding is suggestive of diffuse metastatic disease or multiple myeloma. This finding was discussed with Dr. Joseph at 5:45 PM on 09/12/16. Dictated by: Tiffanie Acosta M.D. on 09/12/2016 at 17:42 Study: Head CT no contrast Interpretation / Wet Read by: Interpret - Radiologist Re-Eval/Medical Decision Med Decision/Clinical Course Patient brought in for altered level of consciousness, her oxygen saturation is mildly low. She has had some minimal improvement but however continues to be somnolent in the ER. Head CT is negative for acute stroke or intracranial hemorrhage however currently waiting on laboratory and other evaluation. Source of Hx: Old records, EMS Time of Eval: 17:23 Re-Evaluation/Progress Note: Rechecked the patient. She is still sleeping but does respond to verbal stimuli. Counseled Regarding: Diagnosis, Lab results Discharge & Departure Shift Change Sign-Out Patient Care Transferred: Yes Discussed Complaint(s): Yes Laboratory Evaluation: Ordered, not yet done Imaging Studies: Ordered, not yet done Response to Therapy: Unchanged, Discussed Primary Impression: Fatigue Fatigue type: unspecified Qualified Code: R53.83 - Other fatigue Discharge Condition All VS Reviewed: Yes Condition: Stable Referrals: Franklyn Bose DO (PCP) Care Transferred to: Dr. Guerrero Care Transferred at: 18:01 Ebenezer Attestation Portions of this note were transcribed by Gayle Jose. I, Dr. Oseguera personally performed the history, physical exam and medical decision-making; I reviewed and confirmed the accuracy of the information in the transcribed note. Signed by: Ebenezer Hernandez, 09/12/2016 at 1800. copies to: Franklyn Bose Timothy S DO Sep 12, 2016 16:22 Gayle Jose Sep 12, 2016 16:24
--- NOTE | 2016-09-12 17:48 | DRSVH ---
PROCEDURE: CT BRAIN WITHOUT CONTRAST ([id number]) INDICATIONS: ALOC TECHNIQUE: Noncontrast 4.5 mm thick angled axial sections acquired from the foramen magnum to the vertex, with c oronal reformats. COMPARISON: [facility], CT, CT BRAIN WO CON, 04/13/2016, 6:09. FINDINGS: Image quality: Excellent. CSF spaces: Basal cisterns are patent. No extra-axial fluid collections. The ventricles are symmet doris in size and shape. Brain: No intracranial bleeds or masses. There is cerebral volume loss for age, with resultant vent ricular and sulcal prominence. There are periventricular and deep white matter chronic small vessel ischemic changes. There is intracranial internal carotid artery atherosclerosis. Skull and face: The medullary bone of the calvarium has a heterogeneous appearance with multiple subm illimeter lytic lesions. Although retrospectively may be present on the study dated 04/13/16, it is ma rkedly increased in conspicuity on the current study. Sinuses: Visualized sinuses and mastoids are clear. IMPRESSION: 1. No acute intracranial findings. 2. Abnormal appearance of the medullary bone of the calvarium. Please correlate clinical history. Thi s finding is suggestive of diffuse metastatic disease or multiple myeloma. This finding was discussed with Dr. Joseph at 5:45 PM on 09/12/16. Dictated by: Tiffanie Acosta M.D. on 09/12/2016 at 17:42 Approved by: Tiffanie Acosta M.D. on 09/12/2016 at 17:46
--- NOTE | 2016-09-12 18:34 | NUR ---
looked with ultrasound however did not find good results for IV start, patient position difficult as she is sitting forward not wishing to lie back, at one point needed to raise her as she having emesis
[2016-09-12 18:45] VITALS: BP 154/44; PULSE 100; RESP 19; O2SAT 100
--- NOTE | 2016-09-12 18:53 | DRSVH ---
PROCEDURE: X-RAY CHEST ONE VIEW, PORTABLE ([id number]) INDICATIONS: weakness, lethargy TECHNIQUE: One view of the chest was acquired. COMPARISON: [facility], CR, XR CHEST 1VW (PORTABLE), 07/15/2016, 4:30. FINDINGS: This is a limited study given patient positioning. Surgical changes and devices: Tunneled hemodialysis catheter is unchanged. Lungs and pleura: Lung volumes are low. There are diffuse interstitial markings throughout both lungs in a perihilar distribution. Mediastinum: The mediastinum is difficult to characterize given patient positioning. Bones and chest wall: No suspicious bony lesions. Overlying soft tissues appear unremarkable. IMPRESSION: Diffuse pulmonary interstitial markings suspicious for pulmonary edema. Infection could a lso be considered in the appropriate differential. Dictated by: Tiffanie Acosta M.D. on 09/12/2016 at 18:46 Approved by: Tiffanie Acosta M.D. on 09/12/2016 at 18:52
[2016-09-12] MEDS ORDERED: Lidocaine-Prilo 2.5-2.5% 30 Gm Cream TOPICAL ONE (18:55)
[2016-09-12 20:15] VITALS: BP 152/56; PULSE 95; RESP 22; O2SAT 100
[2016-09-12] MEDS ORDERED: fentaNYL-PF 50 mCg/mL 2 mL Inj IVPUSH ONE (22:10)
[2016-09-12 22:15] VITALS: BP 135/74; PULSE 95; RESP 22; O2SAT 100
[2016-09-12 22:22] LABS: BASOPHILS % (AUTO) 0.1 % (0-3); EOSINOPHILS % (AUTO) 0.1 % (0-5); MONOCYTES % (AUTO) 3.9 % (4-12); Mean Corpuscular Hemoglobin 29.7 pg (27.0-35.0); Mean Corpuscular Volume 91.6 fL (81-100); NEUTROPHILS % (AUTO) 90.2 % (40-74); Platelet Count 129 bil/L (150-400)
[2016-09-12] MEDS ORDERED: Cefepime Inj 2,000 MG in Dextrose 5% Minibag Plus 100 ML IV ONE (22:40)
[2016-09-12] MEDS: Ondansetron 2 mg/mL 2 mL Inj IVPUSH PRN (22:40)
[2016-09-12 22:57] LABS: TROPONIN T 0.161 ug/L (0.0-0.011)
[2016-09-12] MEDS ORDERED: DICL100G8 TOPICAL (23:27)
[2016-09-12 23:30] VITALS: BP 134/60; RESP 25; O2SAT 100
[2016-09-12] MEDS ORDERED: Alum-Mag Hydrox-Simeth 30 mL Suspension PO PRN (23:45)
[2016-09-12] MEDS ORDERED: Ondansetron 2 mg/mL 2 mL Inj IVPUSH PRN (23:45)
[2016-09-12] MEDS ORDERED: Polyethylene Glycol (PEG) 17 Gm Powder PO PRN (23:45)
[2016-09-12 23:56] VITALS: BP 113/73; PULSE 94; RESP 19; O2SAT 97
--- NOTE | 2016-09-12 23:57 | PCM.HPMED ---
Subjective Date of Service Sep 12, 2016 Primary Provider: Admitting Physician: Vicki Day DO Primary Care Physician: Franklyn Bose DO Attending Physician: Vicki Day DO Admit Status: From the Emergency Department, [facility] Telemetry Chief Complaint: Fatigue History of Present Illness: Ms. Alexis is a pleasant 71-year-old female with history of end-stage renal disease on hemodialysis MWF, tobacco dependence, chronic pain secondary to multiple orthopedic issues, and history of suspicious lesions of pancreas and bone, that presented to [facility] 09/12/2016 with complaints of fatigue and decreased consciousness following hemodialysis session. Patient was admitted for evaluation and treatment of need for additional hemodialysis, and etiology of decreased level of consciousness, including possibility of infection, electrolyte abnormality, or dysrhythmia. Hospital day: 1 Ms. Alexis is accompanied by her two daughters, who provided additional history. Patient states that she has felt "terrible" over the recent year, and states she feels the same pre-and postdialysis sessions. Patient and daughters confirm that patient has been noncompliant with dialysis session, often missing appointments, with a recent absence of 8 sessions, which estimates to a total of 2 weeks without receiving dialysis. Patient and family attribute missed dialysis sessions secondary to transport issues general feeling of being unwell. Her daughters that are present, state that the patient was unresponsive after her dialysis session today, and reports that she recently over the past week has been experiencing cold-like symptoms, such as runny nose, cough, congestion. Patient is a current smoker. Patient currently denies any of these cold-like symptoms, and states that she simply feels very fatigued. Patient denies any fever, chills, nausea, vomiting, diarrhea, constipation, dysuria, hematuria. She states chronic bilateral lower extremity pain, which she reports secondary to previous fractures that have remained "unhealed." The daughters have expressed concern of her recent unresponsive episode, and states that the patient is normally witty and alert. During the admission interview, patient was requesting multiple food items, including seasoned beef, grape crush, and lays potato chips. Patient states her conditioner tender is Dr. Vaughan, and receives dialysis at [facility]. Most recent dialysis session day of admission, 09/12/2016, with prior dialysis session 09/07/2016. In the ED, temperature 37.3, pulse 94, respiratory rate 19, blood pressure 113/ 73, 97% on room air; initial labs revealed sodium 141, potassium 5.1, creatinine 5.71, troponin 0.161, alkaline phosphatase 482, pro calcitonin 0.91, lactic acid 1.4; initial imaging included chest x-ray which revealed diffuse pulmonary interstitial markings; CT brain without contrast reviewed showed abnormal appearance of medullary bone of calvarium suggestive of diffuse metastatic disease or multiple myeloma, no other acute intracranial findings were noted. Initial therapies included cefepime 2 g and 50 g fentanyl. At time of admission, patient was alert, oriented, and responsive. She was transferred to [facility] in stable condition. Review of Systems: Complete ROS obtained; pertinent positives and negatives as noted in history of present illness Allergies Coded Allergies: gabapentin (Verified Allergy, Severe, 07/15/16) Swelling and gait problems hydromorphone HCl (Verified Allergy, Severe, Hallucinations, 07/15/16) "Trip like on LSD" sumatriptan succinate (Verified Allergy, Severe, Dizziness, 07/15/16) Chest pain and dizziness TAPE (Verified Allergy, Intermediate, 07/15/16) itching latex (Verified Allergy, Intermediate, 07/15/16) Itching from gloves morphine (Verified Allergy, Unknown, Hallucinations, 07/15/16) Home Medications Obtained from ED documentation; patient and family deny any changes since most recent admission July 2016 Calcitriol (Rocaltrol) 0.25 Mcg Capsule 0.25 MCG PO DAILY Calcium Acetate (Calcium Acetate) 667 Mg Tablet 667 MG PO TIDWM Cinacalcet (Sensipar) 30 Mg Tablet 30 MG PO BID Ferrous Sulfate (Ferrous Sulfate) 325 Mg Tablet 325 MG PO DAILY Fluoxetine (Fluoxetine) 20 Mg Capsule 20 MG PO TID Fluoxetine (Prozac) 20 Mg Capsule 30 MG PO DAILY Folic Acid/Vitamin B Comp W-C (Dialyvite Tablet) 1 Each Tablet 1 EACH PO DAILY Furosemide (Furosemide) 40 Mg Tablet 40 MG PO BID Scheduled PRN Docusate Sodium (Colace) 100 Mg Capsule 100 MG PO HS PRN PRN For Constipation Ondansetron ODT (Ondansetron ODT) 4 Mg Tab.rapdis 8 MG PO Q8H PRN PRN For Nausea hydrOXYzine Hcl (HydrOXYzine Hcl) 25 Mg Tablet 25 MG PO QID PRN PRN For Itching oxyCODONE-Acetaminophen 10-325 mg (oxyCODONE-Acetaminophen 10-325 mg) 1 Each Tablet 1 TAB PO Q6H PRN PRN For Pain PMH ESRD on dialysis MWF Chronic tobacco dependence. Anemia of chronic disease. History of right lower lobe pneumonia. Hospitalization, November 2012, for atypical chest pain with negative myocardial stress test. Staph aureus sepsis, December 2012. 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 Reports: COPD, Diabetes mellitus, Hypertension, Stroke Surgical History Left arm fistula. Not functioning Left brachial basilic fistula. Not functioning Right brachial basilic fistula. Evacuation of wound hematoma due to thrombosed left brachial basilic fistula, April 2012. 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 Reports: , Cholecystectomy Right-sided tunneled dialysis cath Status post ORIF left tibia and fibular proximal fracture Family History Father HTN, DM2, and CAD Mother with early onset Alzheimer's Social History Hx Alcohol Use: Yes (social; infrequent) Hx Substance Use: No Hx Tobacco Use: Yes (1 pack per 2-3 days since the age of 17) Smoking Status: Current Every Day Smoker (approximately 1 pack per day) Living Arrangement: Alone Exam Vital Signs Vital Sign - Last Date Time Temp Pulse Resp B/P Pulse Ox O2 Delivery O2 Flow Rate FiO2 09/12/16 23:30 25 134/60 100 Room Air 09/12/16 22:15 95 09/12/16 16:14 37.0 4 Exam General: Alert, oriented, no acute distress; patient was resting in bed HEENT: Atraumatic; arcus senilis noted; mild to moderate periorbital edema Cardiac: Regular rate and rhythm in time of examination, with rate approximately 80; no murmurs appreciated Respiratory: Adequate airflow all colon, faint wheeze noted bilateral upper lobes, no coarse sounds appreciated GI: Soft, nontender, nondistended, normal bowel sounds heard Extremities: No edema; ulceration noted on left heel with bandage is clean dry and intact; no cyanosis; mild pain noted with palpation to bilateral arches of feet; IV site left lower extremity without surrounding erythema Skin: Dry, warm; diffuse scaling of bilateral lower extremities Neuro: Facial expression symmetric, speech without slurring; cranial nerves grossly intact without focal deficit Psych: Appropriate mood, affect, and response to questioning Lymph: no cervical or supraclavicular lymphadenopathy Lab and Diagnostics Result Diagram: 09/12/16 2210 09/12/16 2210 X-Rays, CTs and MRIs Patient Name: ROMAINE ALEXIS MR#: [id number] Location: SED Ordering Phys: Venancio Oseguear DO Date of Service: 09/12/16 1633 PROCEDURE: X-RAY CHEST ONE VIEW, PORTABLE ([id number]) INDICATIONS: weakness, lethargy TECHNIQUE: One view of the chest was acquired. COMPARISON: [facility], CR, XR CHEST 1VW (PORTABLE), 07/15/2016, 4: 30. FINDINGS: This is a limited study given patient positioning. Surgical changes and devices: Tunneled hemodialysis catheter is unchanged. Lungs and pleura: Lung volumes are low. There are diffuse interstitial markings throughout both lungs in a perihilar distribution. Mediastinum: The mediastinum is difficult to characterize given patient positioning. Bones and chest wall: No suspicious bony lesions. Overlying soft tissues appear unremarkable. IMPRESSION: Diffuse pulmonary interstitial markings suspicious for pulmonary edema. Infection could also be considered in the appropriate differential. Dictated by: Tiffanie Acosta M.D. on 09/12/2016 at 18:46 Approved by: Tiffanie Acosta M.D. on 09/12/2016 at 18:52 Patient Name: ROMAINE ALEXIS MR#: [id number] Location: SED Ordering Phys: Venancio Oseguera DO Date of Service: 09/12/16 1639 PROCEDURE: CT BRAIN WITHOUT CONTRAST ([id number]) INDICATIONS: ALOC TECHNIQUE: Noncontrast 4.5 mm thick angled axial sections acquired from the foramen magnum to the vertex, with coronal reformats. COMPARISON: [facility], CT, CT BRAIN WO CON, 04/13/2016, 6:09. FINDINGS: Image quality: Excellent. CSF spaces: Basal cisterns are patent. No extra-axial fluid collections. The ventricles are symmetric in size and shape. Brain: No intracranial bleeds or masses. There is cerebral volume loss for age , with resultant ventricular and sulcal prominence. There are periventricular and deep white matter chronic small vessel ischemic changes. There is intracranial internal carotid artery atherosclerosis. Skull and face: The medullary bone of the calvarium has a heterogeneous appearance with multiple submillimeter lytic lesions. Although retrospectively may be present on the study dated 04/13/16, it is markedly increased in conspicuity on the current study. Sinuses: Visualized sinuses and mastoids are clear. IMPRESSION: 1. No acute intracranial findings. 2. Abnormal appearance of the medullary bone of the calvarium. Please correlate clinical history. This finding is suggestive of diffuse metastatic disease or multiple myeloma. This finding was discussed with Dr. Joseph at 5:45 PM on 09/12/16. Dictated by: Tiffanie Acosta M.D. on 09/12/2016 at 17:42 Approved by: Tiffanie Acosta M.D. on 09/12/2016 at 17:46 Assessment & Plan Ms. Alexis is a pleasant 71-year-old female with history of end-stage renal disease on hemodialysis MWF, tobacco dependence, chronic pain secondary to multiple orthopedic issues, and history of suspicious lesions of pancreas and bone, that presented to [facility] 09/12/2016 with complaints of fatigue and decreased consciousness following hemodialysis session. Patient was admitted for evaluation and treatment of need for additional hemodialysis, and etiology of decreased level of consciousness, including possibility of infection, electrolyte abnormality, or dysrhythmia. Hospital day: 1 Acute hypoxemic respiratory failure, present on admission. Resolved - On admit: 83% on room air - Resolved to 97% on room air - Likely secondary to decreased loss of consciousness at time of admission - No history of home oxygen, although patient is a current tobacco user - Monitor Suspected healthcare associated pneumonia, acute, present on admission. Under evaluation - On admit: WBC 9.3 with 90% neutrophils; chest x-ray revealed diffuse interstitial markings, which appear worsened compared to previous CXR July 2016 ( reviewed by admitting team at time of admission); PCT 0.91; afebrile - Family reports recent cough, congestion, rhinorrhea - Received cefepime 2 g in ED, MRSA screen - Elevated pro calcitonin may also be secondary to end-stage renal disease - Obtain PCR; patient does have history of osborn virus March 2016, and current chronic tobacco use - Continue cefepime at this time based on worsened CXR; patient received large dose in ER, no additional doses ordered at this time; consider completing 1 g postdialysis, it patient completes dialysis in a.m. Decreased LOC, acute, present on admission. Resolved - Family reports decreased LOC/unresponsiveness following HD day of admission; pt does not recall these events - Likely secondary to fluid shifts/fatigue following HD session - Resolved at time of admission - CT brain did not reveal evidence of acute intracranial changes suggestive of stroke - Will continue to monitor; consideration of infection on differential - No additional imaging at this time Abnormal CT brain, chronicity unknown, present on admission. Under investigation - On admit: Alkaline phosphatase 482 - CT brain without contrast 09/12/2016: No acute intracranial findings, abnormal appearance of medullary bone of calvarium suggestive of diffuse metastatic disease or multiple myeloma - Previous CT brain without contrast April 2016 did not reveal any suspicious lesions of calvarium - Previous CT abdomen and pelvis without contrast May 2016 did reveal a mild prominence of the pancreatic duct within the pancreatic head with an overall appearance of a soft tissue prominence of the pancreatic head and uncinate process. This evaluation was considered limited secondary to lack of IV and oral contrast. Another note of persistent diffuse mottled appearance of thoracic and lumbar spine in addition to the pelvic bones was noted, with concern of metastatic disease or Paget's disease. - Previous XR lumbar spine August 2016 did not note any suspicious bony lesions - Unknown history of malignancy and/or multiple myeloma - CA 19-9 Dated June 2015: Elevated at 63 - Alpha/beta/gamma globulins and monoclonal protein studies were ordered March 2016, which appeared unremarkable at that time - Consideration of CT chest, abdomen, pelvis, with contrast, which will need to be timed with hemodialysis sessions; or consideration of bone scan, MR pancreatic protocol - If considered imaging involves contrast, will need to work with nephrology team to correlate scan with hemodialysis - No additional tumor markers ordered at this time - No additional imaging ordered at this time ESRD on HD, chronic. Presumed stable - On admit: Creatinine 5.71, potassium 5.1, phosphorus 5.0 - Patient reports dialysis completed at [facility]; outpatient conditioner tender Dr. Vaughan - Reports last dialysis day of admission, 09/12/2016 - ED kindly contacted on-call nephrology; agrees to consult - Consult order placed - Continue renal medications when reconciliation completed HFrEF, chronic. Presumed stable - Echo 11/2015: EF 65-70, with mild concentric left ventricular hypertrophy; right ventricle mildly dilated with right ventricular systolic function mildly reduced - May be etiology of increase in abnormal chest x-ray findings - Continue furosemide Elevated troponin, likely chronic. Presumed stable - On admit: 0.161 - Records indicate history of elevation with most recently June 2016 at 0.147 - Likely secondary to ESRD - Monitor for symptoms of chest pain, shortness of breath Elevated alkaline phosphatase, chronic. Appears stable - On admit: 482 - Previous values, with earliest dated March 2016, at 416 - May be secondary to underlying malignancy Diabetes mellitus, non-insulin using, chronic. Presumed stable - Patient denies any history of diabetes, although diagnosis is found throughout chart - A1c November 2015: 5.5 - No diabetic medications on reconciliation - No correctional scale ordered at time Left heel ulceration, chronic. Presumed stable - Wound care consult Chronic bilateral lower extremity pain. Presumed stable - Patient reports history of "unhealed" fractures - No additional imaging ordered at this time Tobacco dependence, chronic. Presumed stable - Patient and family report daily tobacco use, estimated at 1 pack per day - Nicotine patch ordered Depression, chronic. Presumed stable - Continue fluoxetine per home schedule when reconciliation completed Goals of care. Ongoing - Patient currently full code - Questionable underlying malignancy based on previous imaging and laboratory values for tumor marker - Uncertain family is aware of these findings - At time of admission, daughters state that they are aware she is dying, but are consistent she remained full code - No definitive diagnosis has been found in chart - Palliative care consult placed Family concerns. - ANALYSIS ENGINEER consult - Pt has fired multiple caregivers, and family admits pt is "difficult" and "demanding" - Please assist with resources Diet: General; although patient is a renal patient, patient is unlikely to be compliant with renal diet. Due to uncertainty of underlying malignancy, will proceed with general diet at this time DVT: Hep q8 GI: None PRN: Bowel/nausea/fever/pain IVF: None Code: FULL CODE Patient status: Due to severity of presenting symptoms, anticipated course of care, and risk of adverse events, anticipated length of stay exceeds two midnights; patient admitted as inpatient status. Pain Evaluation: Adequate Pain Control GI Prophylaxis: Not indicated VTE Prophylaxis: Sub-Q Heparin (Unfractionated) Resuscitation Status: CPR: Attempt Resuscitation Attending Statement The patient was seen and examined together with house staff on 09/13/2016 and I agree with the history, exam and plan as outlined in the note above. Shara Godoy DO Sep 12, 2016 23:57 Vicki Day DO Sep 13, 2016 04:43
[2016-09-13] VITALS (9 sets, daily range): BP systolic 96–127; BP diastolic 56–73; PULSE 74–98; RESP 18–20; O2SAT 94–100
[2016-09-13 03:03] LABS: BASOPHILS % (AUTO) 0.1 % (0-3); EOSINOPHILS % (AUTO) 0 % (0-5); MONOCYTES % (AUTO) 5.3 % (4-12); Mean Corpuscular Hemoglobin 29.6 pg (27.0-35.0); Mean Corpuscular Volume 92.6 fL (81-100); Platelet Count 113 bil/L (150-400)
--- NOTE | 2016-09-13 05:57 | NUR ---
Admission Arrived to unit from ED. Pt. received dialysis today and later presented to ED with increased SOB and Edema. A&O to self and environment, reports generalized pain with more emphasis in spine r/t history of scoliosis and non-healing fracture to left leg. Transfer via slider board to bed. Had ~150cc emesis and incontinent of stool. Patent SL (22g IV Cath) placed in left calf. SPO2 94% on RA. Skin checks performed, med rec and admission completed. VSS, Tele: SR 90S with PAC/PVCs.
--- NOTE | 2016-09-13 08:43 | DRSVH ---
PROCEDURE: X-RAY CHEST ONE VIEW, PORTABLE ([id number]) INDICATIONS: Evaluate pneumonia. TECHNIQUE: One view of the chest was acquired. COMPARISON: [facility], CR, XR CHEST 1VW (PORTABLE), 09/12/2016, 18:19. FINDINGS: Surgical changes and devices: Right tunneled hemodialysis catheter with the tip extending into the ri ght atrium redemonstrated. Lungs and pleura: Evaluation is limited due to patient positioning with the neck soft tissues obscur ing the upper lung zones. There is persistent but decreased pulmonary edema. No definite pleural ef fusions. Mediastinum: Mediastinal contours appear similar to the prior study. Heart size is enlarged. Bones and chest wall: No suspicious bony lesions. Overlying soft tissues appear unremarkable. IMPRESSION: 1. Limited study demonstrates persistent but decreased pulmonary edema. Dictated by: Delroy Aguirre M.D. on 09/13/2016 at 8:34 Approved by: Delroy Aguirre M.D. on 09/13/2016 at 8:36
[2016-09-13] MEDS: Heparin 5,000 Unit/mL Inj SUBQ SCH ×3 (09:11→23:56)
--- NOTE | 2016-09-13 09:59 | PCM.PNMED ---
Subjective Date of Service Sep 13, 2016 Subjective Overnight patient was admitted for evaluation and treatment of need for additional hemodialysis, and etiology of decreased level of consciousness, including possibility of infection, electrolyte abnormality, or dysrhythmia. No acute event. This morning, patient remains somnolent but responsive to verbal stimuli. She states that she has "pain all over," then she mumbles and falls asleep. No further history can be obtained. No family in the room. Soon after I saw the patient, nursing reports that patient desats to 70s at room air while sleep so she was put on 6L of Oxymask and saturation went up to 96%. Exam Vital Signs Vital Sign - Last Date Time Temp Pulse Resp B/P Pulse Ox O2 Delivery O2 Flow Rate FiO2 09/13/16 08:14 91 09/13/16 02:46 36.8 19 113/63 94 Room Air 09/12/16 16:14 4 Intake and Output 09/12/16 09/12/16 09/13/16 Cumulative From/Thru 15:00 23:00 07:00 09/12/16 23:55 - 09/13/16 05:14 Intake Total 25 ml 25 ml Balance 25 ml 25 ml Intake Oral 25 ml 25 ml # Voids 2 2 # Bowel Movements 2 2 Exam General: Somnolent but responsive to verbal stimuli, no acute distress, chronically ill appearance HEENT: Atraumatic; arcus senilis noted; moderate bilateral periorbital edema Cardiac: Regular rate and rhythm; no murmurs appreciated Respiratory: Adequate airflow all colon, scattered rales noted, no wheezes appreciated GI: Soft, nontender, nondistended, normal bowel sounds Extremities: No edema; ulceration noted on left heel with bandage is clean dry and intact; no cyanosis; IV site left lower extremity without surrounding erythema Skin: Dry, warm; diffuse scaling of bilateral lower extremities Neuro: Facial expression symmetric, speech without slurring but incoherent; unable to assess the rest of neuro exam due eto Psych: Unable to assess IVs and Medications Medications Reviewed: Medications were reviewed in detail Lab and Diagnostics Result Diagram: 09/13/16 0255 09/12/16 8000 X-Rays, CTs and MRIs PROCEDURE: X-RAY CHEST ONE VIEW, PORTABLE IMPRESSION: Diffuse pulmonary interstitial markings suspicious for pulmonary edema. Infection could also be considered in the appropriate differential. Dictated by: Tiffanie Acosta M.D. on 09/12/2016 at 18:46 PROCEDURE: CT BRAIN WITHOUT CONTRAST IMPRESSION: 1. No acute intracranial findings. 2. Abnormal appearance of the medullary bone of the calvarium. Please correlate clinical history. This finding is suggestive of diffuse metastatic disease or multiple myeloma. Dictated by: Tiffanie Acosta M.D. on 09/12/2016 at 17:42 12-lead ECG Sinus rhythm at rate of [address] changes Assessment & Plan Ms. Rosas is a pleasant 71-year-old female with history of end-stage renal disease on hemodialysis MWF, tobacco dependence, chronic pain secondary to multiple orthopedic issues, and history of suspicious lesions of pancreas and bone, that presented to [facility] 09/12/2016 with complaints of fatigue and decreased consciousness following hemodialysis session. Patient was admitted for evaluation and treatment of need for additional hemodialysis, and etiology of decreased level of consciousness, including possibility of infection, electrolyte abnormality, or dysrhythmia. Hospital day: 2 C. diff diarrhea, POA, active. - Patient reports having diarrhea for several days. She denies any recent antibiotic use, but record indicates that she was on Levaquin for HCAP in July 2016. - c. diff PCR positive. - Contact isolation. - Vancomycin 125mg PO Q6H x 14 days. Day 1. Acute hypoxemic respiratory failure, present on admission. Active. - Patient had a desaturation episode on admission (83% at RA) then resolved to 97% at room air, but shows signs of sleep apnea this morning. - Likely secondary to decreased loss of consciousness - No history of home oxygen, although patient is a current tobacco user - Patient has a history of KATERIN, but reports not using CPAP at home. - Follow clinically and O2 during sleep. Suspected healthcare associated pneumonia, acute, present on admission. Under evaluation - On admit: WBC 9.3 with 90% neutrophils; chest x-ray revealed diffuse interstitial markings, which appear worsened compared to previous CXR July 2016 ( reviewed by admitting team at time of admission); afebrile - Family reports recent cough, congestion, rhinorrhea - Received cefepime 2 g in ED, MRSA screen pending. 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 Renal dose per pharmacist to be 1000mg daily. Decreased LOC, acute, present on admission. Resolved - Family reports decreased LOC/unresponsiveness following HD day of admission; pt does not recall these events - Likely secondary to fluid shifts/fatigue following HD session - Resolved at time of admission - CT brain did not reveal evidence of acute intracranial changes suggestive of stroke - Will continue to monitor; consideration of infection on differential - No additional imaging at this time Abnormal CT brain, chronicity unknown, present on admission. Under investigation - CT brain without contrast 09/12/2016: No acute intracranial findings, abnormal appearance of medullary bone of calvarium suggestive of diffuse metastatic disease or multiple myeloma - Previous CT brain without contrast April 2016 did not reveal any suspicious lesions of calvarium - Previous CT abdomen and pelvis without contrast May 2016 did reveal a mild prominence of the pancreatic duct within the pancreatic head with an overall appearance of a soft tissue prominence of the pancreatic head and uncinate process. This evaluation was considered limited secondary to lack of IV and oral contrast. Another note of persistent diffuse mottled appearance of thoracic and lumbar spine in addition to the pelvic bones was noted, with concern of metastatic disease or Paget's disease. - Unknown history of malignancy and/or multiple myeloma. - CA 19-9 Dated June 2015: Elevated at 63 - Alpha/beta/gamma globulins and monoclonal protein studies were ordered March 2016, which appeared unremarkable at that time - Will check CT abd pancreatic protocol. - Need mammogram as outpatient. ESRD on HD, chronic. Presumed stable - On admit: Creatinine 5.71, potassium 5.1, phosphorus 5.0 - Patient reports dialysis completed at [facility]; outpatient buzzle buffer Dr. Vaughan - Reports last dialysis day of admission, 09/12/2016 with prior dialysis session on 09/07/16. - Dr. Bose was consulted in the ED and agreed to follow. Appreciate his input. - Continue renal medications. HFrEF, chronic. Presumed stable - Echo 11/2015: EF 65-70, with mild concentric left ventricular hypertrophy; right ventricle mildly dilated with right ventricular systolic function mildly reduced - May be etiology of increase in abnormal chest x-ray findings - Resume home furosemide Elevated troponin, likely chronic. Presumed stable - On admit: 0.161 - Records indicate history of elevation with most recently June 2016 at 0.147 - EKG normal - Likely secondary to ESRD - Monitor for symptoms of chest pain, shortness of breath Elevated alkaline phosphatase, chronic. Appears stable - On admit: Alkaline phosphatase 482, likely due to bony lesions such as bone metastases or Paget's disease. - Previous values, with earliest dated March 2016, at 416 - May be secondary to underlying malignancy Diabetes mellitus, non-insulin using, chronic. Presumed stable - Patient denies any history of diabetes, although diagnosis is found throughout chart - A1c November 2015: 5.5 - No diabetic medications on reconciliation - No correctional scale ordered at time Left heel ulceration, chronic. Presumed stable - Wound care consult Chronic bilateral lower extremity pain. Presumed stable - Patient reports history of "unhealed" fractures - No additional imaging ordered at this time - Resume home pain management with Percocet 10mg Q6H PRN Tobacco dependence, chronic. Presumed stable - Patient and family report daily tobacco use, estimated at 1 pack per day - Nicotine patch ordered Depression, chronic. Presumed stable - Continue fluoxetine per home schedule when reconciliation completed Goals of care. Ongoing - Patient currently full code - Questionable underlying malignancy based on previous imaging and laboratory values for tumor marker - Uncertain family is aware of these findings - At time of admission, daughters state that they are aware she is dying, but are consistent she remained full code - No definitive diagnosis has been found in chart - Palliative care consult on Wednesday Family concerns. - POWER LINE INSTALLER AND REPAIRER consult - Pt has fired multiple caregivers, and family admits pt is "difficult" and "demanding" - Please assist with resources Diet: General; although patient is a renal patient, patient is unlikely to be compliant with renal diet. Due to uncertainty of underlying malignancy, will proceed with general diet at this time DVT: Hep q8 GI: None PRN: Bowel/nausea/fever/pain IVF: None Code: FULL CODE Patient status: Due to severity of presenting symptoms, anticipated course of care, and risk of adverse events, anticipated length of stay exceeds two midnights; patient admitted as inpatient status. Pain Evaluation: Adequate Pain Control GI Prophylaxis: Not indicated VTE Prophylaxis: Sub-Q Heparin (Unfractionated) Resuscitation Status: CPR: Attempt Resuscitation Attending Statement Patient seen and examined with house staff. Agree with all attached documentation. Dayo Mckeon DO Sep 13, 2016 09:35 Mac Hanks MD Sep 13, 2016 18:23
[2016-09-13] MEDS: Ondansetron 2 mg/mL 2 mL Inj IVPUSH PRN ×2 (11:23→17:19)
[2016-09-13] MEDS ORDERED: Albuterol-Ipratropium 3 mL Inhalation Solution NEB PRN (11:50)
--- NOTE | 2016-09-13 12:04 | NUR ---
Social Work: Attempted Assessment/Multidisciplinary Rounds D: Pt discussed in am rounds. Pt on dya 1 of stay. Pt scheduled for dialysis today. Normally dialyzes at [facility]. REWORK MACHINE OPERATOR attempted to meet with the patient at [facility] during dialysis. Pt declined to speak with REWORK MACHINE OPERATOR at this time and would like REWORK MACHINE OPERATOR to return at a later time. Per EMR review, pt lives alone in [place]; pt has GAIL but reportedly fired her caregivers. REWORK MACHINE OPERATOR received a telephone call from the patient's HCS CM Tanisha Valencia. She confirms that the patient lives, alone in [place]. She has 166 hours/month of caregiving but has fired every caregiver who is willing to work with her. Pt also has a $140 participation fee for GAIL which she has not been willing to pay. Per CM, The pt is non-compliant with dialysis and was recently transferred to the [facility] approximately 1 month ago- the pt has gone only 3 times during this time period. She states that the pt uses [facility] and that they come to pick her up and she states that she does not want to go. Only barriers to pt's dialysis appear to be the patient herself. CM is requesting MD address goals of care with the patient as it seems like dialysis is not something she wants to regularly do. The patient was briefly open with home health services however due to non-compliance was discharged from service. A: Pt who lives at home, alone. Family reportedly lives in a nearby apartment complex but does not provide a lot of assistance to the patient. P: Evolving; Anticipate the patient will discharge home via POV. REWORK MACHINE OPERATOR will continue to attempt assessment with the patient and will address concerns about pt's non-compliance with dialysis and caregiving with MD. REX Velarde
--- NOTE | 2016-09-13 12:09 | NUR ---
Loose Stool Pt has had 3 episodes of liquid loose stool. aware. Stool samples sent to lab.
--- NOTE | 2016-09-13 12:54 | CONS ---
[address] [address] CONSULTATION REPORT PATIENT: ROMAINE ALEXIS : 1945 MR#: [id number] ADMIT: 09/12/2016 JOB ID: [id number] DATE OF SERVICE: 09/13/2016 RENAL CONSULTATION: HISTORY OF PRESENT ILLNESS: The patient is a rather unfortunate 71-year-old female who was admitted to [facility] for generalized fatigue, difficulty with breathing, and waxing and waning consciousness following her dialysis treatment today. The patient is well known to our service from multiple previous admissions. Renal consultation is being sought for further evaluation of her end-stage renal disease. The patient has a longstanding history of end-stage renal disease secondary to diabetic and hypertensive renal disease. She is scheduled to dialyze on Wednesday, Wednesday, and Wednesday, but is chronically noncompliant with her dialysis treatment. She has had a number of admissions to the hospital for complications following her noncompliance. During several these hospitalizations she has been found to have a possible mass on her pancreas and other metastatic manifestations. Unfortunately, she has not followed through with any type of further workup with this. She complains of generalized weakness, cough, wheezing, and shortness of breath. She has also been losing weight, has had anorexia, and states that she has chronic diarrhea which has a foul odor. She has not had any recent antibiotics. She denies any fever, chills, nausea, or vomiting. There is no hemoptysis or any urinary complaints. PAST MEDICAL HISTORY: Significant for end-stage renal disease which she is scheduled to do her dialysis on Wednesday, Wednesday, and Wednesday. There is also a history of recurrent pneumonia, COPD, C. diff colitis, staph sepsis, possible mass on the head of the pancreas, depression, hypertension with hypertensive heart disease and hypertensive nephrosclerosis, prior stroke, and diabetes. 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 She is currently dialyzing through a tunneled catheter. She has also had a cholecystectomy, section, and an ORIF of her left tibia and fibula, ALLERGIES: SHE IS ALLERGIC TO TAPE, GABAPENTIN, HYDROMORPHONE, LATEX, AND SUMATRIPTAN. SOCIAL HISTORY: She states she drinks alcohol occasionally. She continues to smoke between 1/2 to a pack of cigarettes per day. There is no history of any drug abuse. She lives by herself and is unable to take care of her basic needs; however, she refuses any type of assistance or placement. MEDICATIONS: At time of admission include calcitriol, calcium acetate, cinacalcet, ferrous sulfate, fluoxetine, folic acid, furosemide, hydroxyzine, oxycodone, and Zofran. REVIEW OF SYSTEMS: As detailed above. Otherwise is noncontributory. FAMILY HISTORY: Significant for diabetes, hypertension, and dementia. PHYSICAL EXAMINATION: Revealed a frail, chronically ill appearing, 71-year-old female who was alert and oriented x3 and in some mild respiratory distress at the time of my evaluation. Her blood pressure was 113/63 with a pulse rate of 92. HEENT examination was remarkable for an occluded cornea of the left eye but her right eye showed some mild exophthalmos and pale sclera. Neck is supple, without adenopathy or thyromegaly; however, she had considerable jugular venous distention at 60 degrees. Lungs showed bibasilar rales and scattered end-expiratory wheezes. Heart was irregularly irregular. Abdomen was mildly distended, with diminished bowel sounds. There was some mild nonfocal tenderness without any rebound, guarding, masses, or hepatosplenomegaly. Extremities do not show any evidence of any clubbing, cyanosis, or edema. Skin turgor is good. LABORATORY EXAMINATION: On admission her sodium is 141, potassium 5.1, chloride 96, bicarbonate 23, BUN and creatinine were 27 and 5.7, with a white count of 9.2 and 86% neutrophils. Hemoglobin was 8.4. IMPRESSION: 1. End-stage renal disease-dialysis dependent. 2. Pulmonary edema secondary to noncompliance. 3. Diabetic nephropathy. 4. Hypertension with hypertensive heart disease and hypertensive nephrosclerosis. 5. Possible pancreatic mass. 6. Chronic obstructive pulmonary disease. RECOMMENDATION: I will go ahead and make arrangements for her to have 2-1/2 hours of ultrafiltration today on a standard dialyzer, 400 blood flow, 1000 of heparin, and 500 an hour. Will try to take 2 to 2.5 L of fluid off as tolerated. I will also go ahead and order some breathing treatments on her and would strongly urge a GI consult and further evaluation of the possible pancreatic mass. Once again, I would like to thank you for allowing me to participate in the care of this most pleasant but unfortunate patient. I will be following her closely with you.
--- NOTE | 2016-09-13 15:00 | NUR ---
Dialysis note: 2 1/2 hrs PUF 2500 ml net UF Right catheter, dsg changed, no s/s of infection noted Pls see DTR for VS details Qb 400 w/ cath limbs reversed A-V V-A due to poor cath function Heparin given O2 @ 2L via NC on during tx Pt had 2x loose brown stool, cleaned PRN Tolerated tx, slept at intervals Catheter flushed, heparin dwelled and secured Stable condition at end of tx Report given to Ashley ESPITIA
[2016-09-13] MEDS: Vancomycin 125 mg Oral Capsule PO SCH ×2 (15:55→21:09)
[2016-09-13] MEDS ORDERED: Cefepime Inj 1,000 MG in Dextrose 5% Minibag Plus 50 ML IV SCH (16:00)
[2016-09-13] MEDS ORDERED: 0.9% Sodium Chloride 250 ML ONE (17:08)
[2016-09-13] MEDS: oxyCODONE-Acetamin 10-325 mg Tablet PO PRN (17:12)
[2016-09-13] MEDS: CEFEPIME IV SCH (17:26)
[2016-09-13] MEDS: DEXTROSE 5% IV SCH (17:26)
--- NOTE | 2016-09-13 19:24 | NUR ---
FMS FMS order received from for containment of loose stool. Procedure was explained to pt and she was agreeable. FMS was placed and pt became extremely aggravated and c/o of rectal pain from the containment system. FMS was kept in place approximately 5 minutes before pt demanded to have it removed. Pt's anal area/perineum cleansed with 3/1 barrier wipes to help protect skin from breakdown from incontinence of bowel related to C-Diff.
--- NOTE | 2016-09-13 22:05 | NUR ---
dc tele pt stating she no longer wanted the tele box on it was bugging her and the stickers were making her itch, pt also not wanting to wear oxygen at night called MD and received order to dc tele if pt agrees to wear PUPIL PERSONNEL SERVICES DIRECTOR and oxygen at night when needs to. pt agreed, removed tele box placed pt on 2L NC and PUPIL PERSONNEL SERVICES DIRECTOR SpO2 mid to high 90s dropping to low 9s with some apnea spells
[2016-09-14] MEDS: Vancomycin 125 mg Oral Capsule PO SCH ×4 (02:29→21:35)
--- NOTE | 2016-09-14 04:14 | NUR ---
AM labs pt refused AM labs this morning, will try again when pt wakes up more Addendum: 09/14/16 at 0607 by NANCY JAY RN pt allowing labs to be drawn. said they can only try one time, was successful
[2016-09-14 05:45] LABS: BASOPHILS % (AUTO) 0.2 % (0-3); EOSINOPHILS % (AUTO) 1.7 % (0-5); MONOCYTES % (AUTO) 7.4 % (4-12); Mean Corpuscular Hemoglobin 29.7 pg (27.0-35.0); NEUTROPHILS % (AUTO) 75.8 % (40-74); Platelet Count 129 bil/L (150-400)
[2016-09-14] MEDS: oxyCODONE-Acetamin 10-325 mg Tablet PO PRN ×2 (05:57→14:20)
[2016-09-14] MEDS: hydrOXYzine Pamoate 25 mg Capsule PO PRN ×2 (05:57→14:21)
--- NOTE | 2016-09-14 06:07 | NUR ---
stool pt with one small stool this shift
[2016-09-14 06:14] LABS: Magnesium 2.1 mg/dL (1.6-2.6)
[2016-09-14 08:33] VITALS: BP 99/62; PULSE 62; RESP 20; O2SAT 91
[2016-09-14 08:55] VITALS: BP 113/67; PULSE 87
--- NOTE | 2016-09-14 10:48 | PCM.CONPAL ---
Date of Service Sep 14, 2016 Date of Hospital Admission: Sep 12, 2016 at 23:07 Date of Palliative Consult: Sep 14, 2016 Requesting Provider: Dayo Mckeon DO Reason Palliative Care Consult: Advance Care Planning, Goals of Care Discussion Reason for Consultation Clarification of Goals of Care. Discussion of stages of illness and prognosis. Hospital Unit @time of consult: Progressive Care Palliative Care Recommendation Summary of palliative recommendations: -Symptom management (Pain/other) Percocet has been effective for the right flank/abdominal pain -DPOA/Advanced Directives/POLST POA is Jordan Pozo Main family contact is daughter Betina. She is full code because she "doesn't want to ." She has a simplistic view of the code process. Chucky Mortality score predicts a 7-10% risk of dying in the next 6 months, much higher if the dialysis is stopped or cancer is confirmed. -Family/emotional support She would love to have her 83 year old sister from [place] visit her, but talks to her on the phone frequently. Her daughter in [place] has suggested that she move there and live with her, an offer that she has turned down. -Spiritual support Patient Goals: 1. Patient wants to be told the truth about his/her illness, even if it is unpleasant. - Yes, she confirms that. 2. Patient would like to be told prognosis when it can be predicted, to better guide treatment decisions. - Yes, she confirms that. 3. Patient would choose quality of life over quantity of life, and defines quality as..... She does not grasp the bipolar nature of this question and is unable to prioritize quality or quantity. Additional Medical Diagnoses with primary management by Hospitalist team include : C. diff diarrhea, POA, active. Acute hypoxemic respiratory failure, present on admission. Active. Suspected healthcare associated pneumonia, acute, present on admission. Under evaluation Decreased LOC, acute, present on admission. Resolved Abnormal CT brain, chronicity unknown, present on admission. Under investigation - CT brain without contrast 09/12/2016: No acute intracranial findings, abnormal appearance of medullary bone of calvarium suggestive of diffuse metastatic disease or multiple myeloma - Previous CT brain without contrast April 2016 did not reveal any suspicious lesions of calvarium - Previous CT abdomen and pelvis without contrast May 2016 did reveal a mild prominence of the pancreatic duct within the pancreatic head with an overall appearance of a soft tissue prominence of the pancreatic head and uncinate process. This evaluation was considered limited secondary to lack of IV and oral contrast. Another note of persistent diffuse mottled appearance of thoracic and lumbar spine in addition to the pelvic bones was noted, with concern of metastatic disease or Paget's disease. - Unknown history of malignancy and/or multiple myeloma. - CA 19-9 Dated June 2015: Elevated at 63 - Alpha/beta/gamma globulins and monoclonal protein studies were ordered March 2016, which appeared unremarkable at that time - Will check CT abd pancreatic protocol. - Need mammogram as outpatient. ESRD on HD, chronic. Presumed stable HFrEF, chronic. Presumed stable Elevated troponin, likely chronic. Presumed stable Elevated alkaline phosphatase, chronic. Appears stable Diabetes mellitus, non-insulin using, chronic. Presumed stable Left heel ulceration, chronic. Presumed stable Chronic bilateral lower extremity pain. Presumed stable Tobacco dependence, chronic. Presumed stable Depression, chronic. Presumed stable Problems: End of Life Preferences She is adamant that she wants to be full code and doesn't want to be "let go." Goals of Care To live independently. To have the possible cancer diagnosis clarified, so she knows what she is facing. To have her pain controlled. Disposition Family meeting with Daughter Betina and Palliative Care Varnish Remover tomorrow at 10:30 am. Try to get repeat pancreatic imaging results before the family meeting tomorrow. D/W hospitalist team who are looking for ways to accomplish the imaging despite the patient's stated intolerance/claustrophobia to CT scans. Resuscitation Status Resuscitation Status: CPR: Attempt Resuscitation POLST Updates/Changes POLST Review Outcome: No Change . Pain: Mild Pt History History of Present Illness Ms. Rosas is a pleasant 71-year-old female with history of end-stage renal disease on hemodialysis MWF, tobacco dependence, chronic pain secondary to multiple orthopedic issues, and history of suspicious lesions of pancreas and bone, that presented to [facility] 09/12/2016 with complaints of fatigue and decreased consciousness following hemodialysis session. Patient was admitted for evaluation and treatment of need for additional hemodialysis, and etiology of decreased level of consciousness, including possibility of infection, electrolyte abnormality, or dysrhythmia. Hospital day: 1 Ms. Rosas is accompanied by her two daughters, who provided additional history. Patient states that she has felt "terrible" over the recent year, and states she feels the same pre-and postdialysis sessions. Patient and daughters confirm that patient has been noncompliant with dialysis session, often missing appointments, with a recent absence of 8 sessions, which estimates to a total of 2 weeks without receiving dialysis. Patient and family attribute missed dialysis sessions secondary to transport issues general feeling of being unwell. Her daughters that are present, state that the patient was unresponsive after her dialysis session today, and reports that she recently over the past week has been experiencing cold-like symptoms, such as runny nose, cough, congestion. Patient is a current smoker. Patient currently denies any of these cold-like symptoms, and states that she simply feels very fatigued. Patient denies any fever, chills, nausea, vomiting, diarrhea, constipation, dysuria, hematuria. She states chronic bilateral lower extremity pain, which she reports secondary to previous fractures that have remained "unhealed." The daughters have expressed concern of her recent unresponsive episode, and states that the patient is normally witty and alert. During the admission interview, patient was requesting multiple food items, including seasoned beef, grape crush, and lays potato chips. Patient states her welfare case worker is Dr. Vaughan, and receives dialysis at [facility]. Most recent dialysis session day of admission, 09/12/2016, with prior dialysis session 09/07/2016. In the ED, temperature 37.3, pulse 94, respiratory rate 19, blood pressure 113/ 73, 97% on room air; initial labs revealed sodium 141, potassium 5.1, creatinine 5.71, troponin 0.161, alkaline phosphatase 482, pro calcitonin 0.91, lactic acid 1.4; initial imaging included chest x-ray which revealed diffuse pulmonary interstitial markings; CT brain without contrast reviewed showed abnormal appearance of medullary bone of calvarium suggestive of diffuse metastatic disease or multiple myeloma, no other acute intracranial findings were noted. Initial therapies included cefepime 2 g and 50 g fentanyl. At time of admission, patient was alert, oriented, and responsive. She was transferred to [facility] in stable condition. Past Medical History Significant PMH Noted: ESRD on dialysis MWF Chronic tobacco dependence. Anemia of chronic disease. History of right lower lobe pneumonia. Hospitalization, November 2012, for atypical chest pain with negative myocardial stress test. Staph aureus sepsis, December 2012. 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 COPD, Diabetes mellitus, Hypertension, Stroke Surgical History Left arm fistula. Not functioning Left brachial basilic fistula. Not functioning Right brachial basilic fistula. Evacuation of wound hematoma due to thrombosed left brachial basilic fistula, April 2012. 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 Her sister, Robi Forrester is 86 years old and still lives in [place]. She is too old and frail to travel. She would like nothing better than to see her sister again. That's what would make her the most happy. She moved here from [place] 15 years ago to be near her daughters, Betina and Jillian, and to help them raise the children after the daughters divorce. Alexia lives in [place]. She admits that she has been accused of being rude and mean to her caregivers but says that they sit and watch TV, come into her house dirty and nasty, and because she used to be a OVERHEAD LINE WORKER she knows better. She has many complaints about her previous welfare case worker and previous dialysis center. She thinks they messed up her knee, which messed up her body and that she was given Gabapentin and Robitussin DM instead of something that would have been better for her kidney failure. She is immediately sobered when I mention the possibility of Pancreatic cancer, and stops the conversation to call her daughter. I hear her say, "Pancreatic Cancer kills you right away. I'd rather just go like I am." She takes several phone calls while we are trying to talk to her. She doesn't want to lose her independence, doesn't want to live in an HALF-WAY, and is tired of everyone telling her what to do. She says she would talk over any treatment recommendations with her sister and is unable to tolerate the CT scan that was ordered, blaming that on claustrophobia. Social Support: Daughter Betina - lives in [place] Adopted Daughter Jillian - lives in [place] Daughter Alexia - lives in [place] [employer] Jordan Pozo - [employer] Sister Robi Forrester - lives in [place], Living Situation: Lives alone in an apartment in [place]. Spiritual Support Spiritual Support Tie Layer Jordan [facility] cell cleaner referral. Palliative Performance Scale PPS Patient Status: Current PPS Ambulation: Mainly Bed PPS Activity: Unable to do most activity PPS Self-Care: Considerable assistance required PPS Intake: Normal PPS Conscious Level: Full Performance Scale: 40% ADLs ADL Ambulation: Mainly Sit/Lie Allergy Allergies Reviewed: Yes Medications Current Medications: Current Medications Ondansetron HCl 4 mg Q15M PRN IVPUSH Last administered on 09/13/16 17:19; Admin Dose 4 MG; Start 09/12/16 at 22:25 Al Hydrox/Mg Hydrox/Simethicone 30 ml Q6H PRN PO; Start 09/12/16 at 23:45 Ondansetron HCl 4 to 8 mg Q4H PRN IVPUSH; Start 09/12/16 at 23:45; Stop 09/13/16 at 04:45; Status DC Senna 17.2 mg BID PRN PO; Start 09/12/16 at 23:45 Polyethylene Glycol 17 gm DAILY PRN PO; Start 09/12/16 at 23:45 Nicotine 1 patch Q24H TOPICAL Last administered on 09/13/16 23:59; Admin Dose 1 PATCH; Start 09/13/16 at 00:35 Acetaminophen 650 mg Q6H PRN PO; Start 09/13/16 at 00:35 Heparin Sodium (Porcine) 5,000 unit Q8 SUBQ Last administered on 09/13/16 23:56 ; Admin Dose 5,000 UNIT; Start 09/13/16 at 08:30 Calcitriol 0.25 mcg DAILY PO Last administered on 09/13/16 09:10; Admin Dose 0.25 MCG; Start 09/13/16 at 08:30 Calcium Acetate 1,334 mg TIDWM PO Last administered on 09/13/16 18:07; Admin Dose 1,334 MG; Start 09/13/16 at 08:00 Cinacalcet 30 mg DAILY PO Last administered on 09/13/16 09:10; Admin Dose 30 MG ; Start 09/13/16 at 08:30 Docusate Sodium 100 mg HS PRN PO; Start 09/13/16 at 01:45 Ferrous Sulfate 325 mg DAILY PO Last administered on 09/13/16 09:10; Admin Dose 325 MG; Start 09/13/16 at 08:30 Fluoxetine HCl 20 mg DAILY PO Last administered on 09/14/16 08:16; Admin Dose 20 MG; Start 09/13/16 at 08:30 Furosemide 40 mg DAILY PO Last administered on 09/13/16 09:11; Admin Dose 40 MG ; Start 09/13/16 at 08:30 Hydroxyzine Pamoate 25 mg Q8H PRN PO Last administered on 09/14/16 05:57; Admin Dose 25 MG; Start 09/13/16 at 01:50 Albuterol/ Ipratropium 3 ml Q6H PRN NEB; Start 09/13/16 at 11:50 Vancomycin HCl 125 mg Q6 PO Last administered on 09/14/16 02:29; Admin Dose 125 MG; Start 09/13/16 at 14:30 Oxycodone/ Acetaminophen 1 tab 1 tab Q6H PRN PO Last administered on 09/14/16 05:57; Admin Dose 1 TAB; Start 09/13/16 at 15:40 Cefepime HCl 1000 mg/Dextrose/Water 50 ml @ 12.5 mls/hr Q24 IV; Start 09/13/16 at 16:00; Status Cancel Cefepime HCl/ Dextrose/Water 50 ml @ 12.5 mls/hr DAILY@1830 IV Last administered on 09/13/16 17:26; Admin Dose 12.5 MLS/HR; Start 09/13/16 at 18:30 Scheduled Calcitriol (Rocaltrol) 0.25 Mcg Capsule 0.25 MCG PO DAILY Calcium Acetate (Calcium Acetate) 667 Mg Tablet 1,334 MG PO TIDWM Cinacalcet (Sensipar) 30 Mg Tablet 30 MG PO DAILY Ferrous Sulfate (Ferrous Sulfate) 325 Mg Tablet 325 MG PO DAILY Fluoxetine (Prozac) 20 Mg Capsule 20 MG PO DAILY Folic Acid/Vitamin B Comp W-C (Dialyvite Tablet) 1 Each Tablet 1 EACH PO DAILY Furosemide (Furosemide) 40 Mg Tablet 40 MG PO QAM Scheduled PRN Diclofenac Gel (Voltaren Gel) 100 Gm Tube 1 APPLIC TOPICAL QID PRN PRN joint pain Docusate Sodium (Colace) 100 Mg Capsule 100 MG PO HS PRN PRN For Constipation Ondansetron ODT (Ondansetron ODT) 4 Mg Tab.rapdis 4 MG PO Q8H PRN PRN For Nausea hydrOXYzine Hcl (HydrOXYzine Hcl) 25 Mg Tablet 25 MG PO Q8H PRN PRN For Itching oxyCODONE-Acetaminophen 10-325 mg (oxyCODONE-Acetaminophen 10-325 mg) 1 Each Tablet 1 TAB PO Q6H PRN PRN For Pain Objective Findings Exam Vital Sign - Last Date Time Temp Pulse Resp B/P Pulse Ox O2 Delivery O2 Flow Rate FiO2 09/14/16 08:33 36.9 62 20 99/62 91 Nasal Cannula 1.50 Intake and Output 09/13/16 09/13/16 09/14/16 Cumulative From/Thru 15:00 23:00 07:00 09/12/16 23:55 - 09/14/16 06:19 Intake Total 74 ml 511 ml 610 ml Output Total 2500 ml 1 ml 2501 ml Balance -2500 ml 74 ml 510 ml -1891 ml Intake Oral 0 ml 400 ml 425 ml IV Total 74 ml 111 ml 185 ml Output Urine/Stool Mix 1 ml 1 ml Ultrafiltrate 2500 ml 2500 ml # Voids 2 # Bowel Movements 10 12 General: Alert/Oriented x3, No acute distress Lungs: Normal Air Movement Abdomen: Tenderness to Palpation (Right lower quadrant/right flank mildly tender) Neuro: Weakness Extremities: No Edema Skin: Other (Typical skin lesions of ESRD/shelter dialysis) Lab/Diagnostics Lab and Imaging results reviewed in detail in EMR. Patient/Family Conference Members Present Family Members Present N/A - Meeting pending for tomorrow. Discussion/Goals of Care Seen today while undergoing active dialysis in [place] [facility] [place]. She was able to talk continuously for over 45 minutes, with an obvious need to express herself and explain her experience and life. She is committed to living alone despite multiple family/caregiver recommendations for other/better situations. She lacks insight into the failures of care that she has experienced as a result of living alone. This admission is an example of that problem and her lack of insight into that is a symptom of her larger problem. She is fiercely independent. Palliative Care counselled: Prognosis of currently known disease/comorbid conditions to be clarified with the patient and her family. Realistic understanding of caregiving needs and remaining resources for care/ independent living. Time spent Total time [85 ] minutes; >50% face to face with patient and/or family, providing counselling regarding plans and recommendations, and in care coordination with her medical team. I also spent an additional [5] minutes counseling for advanced care planning with the patient. Gregorio Askew MD Sep 14, 2016 10:48 taking care of themselves: Would patient choose quality of life over quantity of life? Would comfort care be more important than being awake and alert? If patient is no longer alert and aware because of their illness, would you choose comfort for them? Palliative Care counselled: Time spent Total time [85 ] minutes; >50% face to face with patient and/or family, providing counselling regarding plans and recommendations, and in care coordination with her medical team. I also spent an additional [5] minutes counseling for advanced care planning with the patient. Gregorio Askew MD Sep 14, 2016 10:48
--- NOTE | 2016-09-14 11:07 | NUR ---
Palliative Care Palliative Care received order from Dr Godoy 09/13/16 to assist with goals of care. Patient was admitted 09/12/16. She lives alone in [place]. Jillian Sotomayor (daughter) [phone] Palliative Care to follow. Sydnee Scott Addendum: 09/14/16 at 1109 by SYDNEE ALFARO [facility] will be held 09/15/16 at 10:30 a.m. Sydnee Scott
--- NOTE | 2016-09-14 11:13 | NUR ---
NUTRITION ASSESSMENT Assess: 71 YO F admitted with C.diff diarrhea, respiratory failure, and suspected PNA. Pt with ESRD, noncompliant with dialysis. General diet ordered due to pt's noncompliance with renal diet. PO intake has been inconsistent. Per EMR, it appears pt may have lost weight but specific amount is hard to determine as pt's weight has been variable over the past year, possibly d/t fluid shifts with dialysis noncompliance. Pt being worked up for possible pancreatic cancer. Palliative care consulted. PMHX: ESRD on HD, COPD, type 2 DM, HTN, PNA, stroke, sepsis, C.diff colitis, gastroparesis, tobacco dependence, anemia of chronic disease, pancreatic mass, L eye blindness. DIET: General. PO intake 0-100%. LABS: BUN 39, Cr 7.52, Ca 8.4, Alk Phos 429. MEDICATIONS: Reviewed. Lasix. GI: 12 BM (09/13) SKIN: No issues noted. ANTHROPOMETRICS: Wt: 51.3 kg, BMI 19.4 kg/m2, Admit wt: 54.0 kg, Per EMR, wt has been variable from 49.09-75 kg over the past year. ESTIMATED NEEDS: DIALYSIS Calories: 9950-9560 kcal/day (30-35 kcal/kg BW) Protein: 62-103 g/day (1.2-2.0 g/kg BW) NUTRITION DIAGNOSIS: 1) Altered GI function related to C.diff as evidenced by diarrhea, BM X 12 (09/13). 2) Increased nutrient needs related ESRD as evidence by need for dialysis. INTERVENTION: 1) Continue current diet as ordered. 2) Will add Nepro to pt's diet to encourage adequate calories and protein. 3) Consider addition of probiotics due to pt's diarrhea. MONITOR/EVALUATE: PO intake, labs, diet tolerance, GI/nutrition status. Follow per moderate nutrition risk guidelines.
--- NOTE | 2016-09-14 12:45 | NUR ---
neuros/IV/skin/Respiratory Pt in pleasant spirits this AM. C/O 9/10 pain to back but able to be repositioned and distracted. Able to swallow pills without difficulty. Pt very friendly with staff. Per IV therapist instruction, L venegas IV removed. IV therapy placed new IV to RFA. Pt skin is very flaky and dry. Lotion applied. Difficulty with getting nicotine patch to stay on. L heel remains covered with mepilex. Oxygen dipped into 80s on RA but quickly recovered to 91%.
--- NOTE | 2016-09-14 13:52 | PCM.PNMED ---
Subjective Date of Service Sep 14, 2016 Subjective Overnight: patient was not cooperative with care, requesting to have Telemetry and O2 off, but agreed to have O2 on at night and D/C telemetry. She has a total of 12 diarrhea yesterday. Today, patient is seen during dialysis and is more alert and talkative. She is clear that she does not want any further imaging or invasive procedure. She reports to have a history of endometrial cancer and breast cancer s/p lumpectomy. She does not remember what side of the breast, but denies any chemo/ radiation therapy in the past. She admits that she knows there is cancer in her body, but she does not wish to pursue any imaging and let "nature takes its course." Currently, she admits to mild RUQ abdominal pain and denies any other symptoms. Exam Vital Signs Vital Sign - Last Date Time Temp Pulse Resp B/P Pulse Ox O2 Delivery O2 Flow Rate FiO2 09/13/16 23:53 36.9 74 18 105/65 99 Nasal Cannula 2.00 Intake and Output 09/13/16 09/13/16 09/14/16 Cumulative From/Thru 15:00 23:00 07:00 09/12/16 23:55 - 09/14/16 06:19 Intake Total 74 ml 511 ml 610 ml Output Total 2500 ml 1 ml 2501 ml Balance -2500 ml 74 ml 510 ml -1891 ml Intake Oral 0 ml 400 ml 425 ml IV Total 74 ml 111 ml 185 ml Output Urine/Stool Mix 1 ml 1 ml Ultrafiltrate 2500 ml 2500 ml # Voids 2 # Bowel Movements 10 12 Exam General: Alert and oriented, in no acute distress, chronically ill appearance, cachetic HEENT: Atraumatic; arcus senilis noted; mild bilateral periorbital edema Cardiac: Regular rate and rhythm; no murmurs appreciated Respiratory: Adequate airflow all colon, scattered rales noted, no wheezes appreciated, no increased work of breathing GI: Soft, nondistended, mild tenderness to palpation in the RUQ, no guarding or rebound tenderness, normal bowel sounds Extremities: No edema; ulceration noted on left heel with bandage is clean dry and intact; no cyanosis; IV site left lower extremity without surrounding erythema Skin: Dry, warm; diffuse scaling of bilateral lower extremities Neuro: Facial expression symmetric, speech without slurring, Psych: appropriate mood and affect. IVs and Medications Medications Reviewed: Medications were reviewed in detail Lab and Diagnostics Result Diagram: 09/14/1615 09/14/1615 X-Rays, CTs and MRIs PROCEDURE: X-RAY CHEST ONE VIEW, PORTABLE IMPRESSION: Diffuse pulmonary interstitial markings suspicious for pulmonary edema. Infection could also be considered in the appropriate differential. Dictated by: Tiffanie Acosta M.D. on 09/12/2016 at 18:46 PROCEDURE: CT BRAIN WITHOUT CONTRAST IMPRESSION: 1. No acute intracranial findings. 2. Abnormal appearance of the medullary bone of the calvarium. Please correlate clinical history. This finding is suggestive of diffuse metastatic disease or multiple myeloma. Dictated by: Tiffanie Acosta M.D. on 09/12/2016 at 17:42 12-lead ECG Sinus rhythm at rate of [address] changes Assessment & Plan Ms. Rosas is a pleasant 71-year-old female with history of end-stage renal disease on hemodialysis MWF, tobacco dependence, chronic pain secondary to multiple orthopedic issues, and history of suspicious lesions of pancreas and bone, that presented to [facility] 09/12/2016 with complaints of fatigue and decreased consciousness following hemodialysis session. Patient was admitted for evaluation and treatment of need for additional hemodialysis, and etiology of decreased level of consciousness, including possibility of infection, electrolyte abnormality, or dysrhythmia. C. diff diarrhea, POA, active. - Patient reports having diarrhea for several days. She denies any recent antibiotic use, but record indicates that she was on Levaquin for HCAP in July 2016. - C. diff PCR positive. - Contact isolation. - Vancomycin 125mg PO Q6H x 14 days. Day 2. Acute hypoxemic respiratory failure, present on admission. Active. - Patient had a desaturation episode on admission (83% at RA) then resolved to 97% at room air, but shows signs of sleep apnea this morning. - Likely secondary to decreased loss of consciousness - No history of home oxygen, although patient is a current tobacco user - Patient has a history of KATERIN, but reports not using CPAP at home. - Follow clinically and have O2 available during sleep. Suspected healthcare associated pneumonia, acute, present on admission. Under evaluation - On admit: WBC 9.3 with 90% neutrophils; chest x-ray revealed diffuse interstitial markings, which appear worsened compared to previous CXR July 2016 ( reviewed by admitting team at time of admission); afebrile - Family reports recent cough, congestion, rhinorrhea - Elevated pro calcitonin at 0.91, but may also be secondary to end-stage renal disease. Today trend up to 1.41. 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 Continue cefepime at this time based on worsened CXR. Renal dose per pharmacist to be 500mg daily. Day 2. - Follow clinically and consider d/c antibiotics if she does not show any other signs of infection. Decreased LOC, acute, present on admission. Resolved - Family reports decreased LOC/unresponsiveness following HD day of admission; pt does not recall these events - Likely secondary to fluid shifts/fatigue following HD session - Resolved at time of admission - CT brain did not reveal evidence of acute intracranial changes suggestive of stroke - Will continue to monitor; consideration of infection on differential - No additional imaging at this time Abnormal CT brain, chronicity unknown, present on admission. Under investigation - High index of suspicion for bony metastasis from breast cancer. Patient has a history of breast cancer s/p lumpectomy. - CT brain without contrast 09/12/2016: No acute intracranial findings, abnormal appearance of medullary bone of calvarium suggestive of diffuse metastatic disease or multiple myeloma - Previous CT brain without contrast April 2016 did not reveal any suspicious lesions of calvarium - Previous CT abdomen and pelvis without contrast May 2016 did reveal a mild prominence of the pancreatic duct within the pancreatic head with an overall appearance of a soft tissue prominence of the pancreatic head and uncinate process. This evaluation was considered limited secondary to lack of IV and oral contrast. Another note of persistent diffuse mottled appearance of thoracic and lumbar spine in addition to the pelvic bones was noted, with concern of metastatic disease or Paget's disease. - Unknown history of malignancy and/or multiple myeloma. - CA 19-9 Dated June 2015: Elevated at 63 - Alpha/beta/gamma globulins and monoclonal protein studies were ordered March 2016, which appeared unremarkable at that time - Patient declined to have CT abd pancreatic protocol or any other imaging. She accepts the fact that she might have cancer and is not interested in further treatment at this point. ESRD on HD, chronic. Presumed stable - On admit: Creatinine 5.71, potassium 5.1, phosphorus 5.0 - Patient reports dialysis completed at [facility]; outpatient apprenticeship training representative Dr. Vaughan - Reports last dialysis day of admission, 09/12/2016 with prior dialysis session on 09/07/16. - Dr. Bose was consulted in the ED and agreed to follow. Appreciate his input. - Continue renal medications. HFrEF, chronic. Presumed stable - Echo 11/2015: EF 65-70, with mild concentric left ventricular hypertrophy; right ventricle mildly dilated with right ventricular systolic function mildly reduced - May be etiology of pulmonary edema in CXR. - Resume home furosemide Elevated troponin, likely chronic. Presumed stable - On admit: 0.161 - Records indicate history of elevation with most recently June 2016 at 0.147 - EKG normal - Likely secondary to ESRD - Monitor for symptoms of chest pain, shortness of breath Elevated alkaline phosphatase, chronic. Appears stable - On admit: Alkaline phosphatase 482, likely due to bony lesions such as bone metastases or Paget's disease. - Previous values, with earliest dated March 2016, at 416 - May be secondary to underlying malignancy Diabetes mellitus, non-insulin using, chronic. Presumed stable - Patient denies any history of diabetes, although diagnosis is found throughout chart - A1c November 2015: 5.5 - No diabetic medications on reconciliation - No correctional scale ordered at time Left heel ulceration, chronic. Presumed stable - Wound care consult Chronic bilateral lower extremity pain. Presumed stable - Patient reports history of "unhealed" fractures - No additional imaging ordered at this time - Resume home pain management with Percocet 10mg Q6H PRN Tobacco dependence, chronic. Presumed stable - Patient and family report daily tobacco use, estimated at 1 pack per day - Nicotine patch ordered Depression, chronic. Presumed stable - Continue fluoxetine per home schedule when reconciliation completed Goals of care. Ongoing - Patient currently full code - Questionable underlying malignancy based on previous imaging and laboratory values for tumor marker - Uncertain family is aware of these findings - At time of admission, daughters state that they are aware she is dying, but are consistent she remained full code - No definitive diagnosis has been found in chart, but possible metastatic cancer. Patient declined further imaging or treatment, but she is not interested in Hospice care either. - Palliative care consulted. Appreciate their input. Plan for a family meeting at 1000am tomorrow. Family concerns. - BUTTON P[employer]HER consult - Pt has fired multiple caregivers, and family admits pt is "difficult" and "demanding" - Please assist with resources Diet: General; although patient is a renal patient, patient is unlikely to be compliant with renal diet. Due to uncertainty of underlying malignancy, will proceed with general diet at this time DVT: Hep q8 GI: None PRN: Bowel/nausea/fever/pain IVF: None Code: Limited interventions. DNI. Patient status: Due to severity of presenting symptoms, anticipated course of care, and risk of adverse events, anticipated length of stay exceeds two midnights; patient admitted as inpatient status. Pain Evaluation: Adequate Pain Control GI Prophylaxis: Not indicated VTE Prophylaxis: Sub-Q Heparin (Unfractionated) Resuscitation Status: CPR: Attempt Resuscitation Attending Statement Patient seen and examined with house staff. Agree with all attached documentation. Dayo Mckeon DO Sep 14, 2016 07:52 Mac Hanks MD Sep 14, 2016 17:43
[2016-09-14 14:04] VITALS: BP 86/47; PULSE 87; RESP 20; O2SAT 95
--- NOTE | 2016-09-14 14:16 | NUR ---
Dialysis note: 4 hr tx. Net UF 1200 Right cath, A-V, V-A QB 400. contact precautions r/t C-diff Changed patient x 2 Dresg CDI Limbs secured with Heparin 1000 and caps. Report given to primary RN Chichi Pt returned to floor stable Please see DTR for complete record of VS
[2016-09-14] MEDS: Heparin 5,000 Unit/mL Inj SUBQ SCH ×2 (14:17→16:10)
--- NOTE | 2016-09-14 15:54 | NUR ---
Social Work Note: Multidisciplinary Rounds/Continued Discharge Planning Data& Assessment: Pt was discussed in AM rounds this morning. Pt remains medically complex and is not medically ready for discharge at this time. Palliative Care has been consulted. SW attempted to meet with pt at bedside to complete initial assessment and discuss discharge planning. Per pt RN, pt is less alert after dialysis and pt declined having anymore visitors this afternoon. SW to continue to attempt to meet with pt and discuss discharge planning with MD. No other discharge orders at this time. Plan: Pt is not medically ready for discharge at this time. SW to continue to attempt to meet with pt and discuss discharge planning with MD. No other discharge orders at this time. REX Mcnally
--- NOTE | 2016-09-14 16:12 | PCM.PNNEPH ---
Subjective Date of Service Sep 14, 2016 Subjective Patient feels a bit better today. She states that she is in less pain and is much more alert and interactive. Her blood pressures have ranged in the 90s. This morning her sodium is 139, potassium 4.8, chloride 98, bicarbonate 23, BUN/ creatinine were 39 and 7.5. Exam Vital Signs Vital Sign - Last Date Time Temp Pulse Resp B/P Pulse Ox O2 Delivery O2 Flow Rate FiO2 09/14/16 14:04 37.5 87 20 86/47 95 Room Air 09/14/16 08:33 1.50 Intake and Output 09/13/16 09/13/16 09/14/16 Cumulative From/Thru 15:00 23:00 07:00 09/12/16 23:55 - 09/14/16 06:19 Intake Total 74 ml 511 ml 610 ml Output Total 2500 ml 1 ml 2501 ml Balance -2500 ml 74 ml 510 ml -1891 ml Intake Oral 0 ml 400 ml 425 ml IV Total 74 ml 111 ml 185 ml Output Urine/Stool Mix 1 ml 1 ml Ultrafiltrate 2500 ml 2500 ml # Voids 2 # Bowel Movements 10 12 Exam HEENT examination is remarkable for pale sclera. Neck is supple without adenopathy, thyromegaly, or jugular venous distention. Lungs are clear to auscultation. Heart was regular and rhythmical with a soft systolic murmur. Abdomen is distended with some diminished bowel sounds noted. Extremities symmetric evidence of any edema. Lab and Diagnostics Result Diagram: 09/14/16 0515 09/14/16 0515 X-Rays, CTs and MRIs PROCEDURE: X-RAY CHEST ONE VIEW, PORTABLE IMPRESSION: Diffuse pulmonary interstitial markings suspicious for pulmonary edema. Infection could also be considered in the appropriate differential. Dictated by: Tiffanie Acosta M.D. on 09/12/2016 at 18:46 PROCEDURE: CT BRAIN WITHOUT CONTRAST IMPRESSION: 1. No acute intracranial findings. 2. Abnormal appearance of the medullary bone of the calvarium. Please correlate clinical history. This finding is suggestive of diffuse metastatic disease or multiple myeloma. Dictated by: Tiffanie Acosta M.D. on 09/12/2016 at 17:42 12-lead ECG Sinus rhythm at rate of [address] changes Plan Impression Impression #1 end-stage renal disease dialysis dependent #2 pulmonary edema which is resolving #3 diabetic nephropathy #4 hypertension with hypertensive heart disease #5 pancreatic mass Indication #1 patient to be dialyzed today for 4 hours on a standard dialyzer, 2 potassium bath, 400 blood flow and 600 dialysate flow, 36.5 dialysate temperature: 100 heparin, 500 probably, and we will take 1-2 L of fluid off. Franklyn Bose DO Sep 14, 2016 16:12
--- NOTE | 2016-09-14 17:25 | NUR ---
Wound Care 71 yo diabetic female on dialysis has a diabetic left heel ulcer which is 2 cm in diameter with a depth of 0.4 cm, there is a dry eschar over the wound which I cleaned with saline and gauze. Wound is chronic in nature and has not changed since the last time I saw her in the hospital. Redressed with hydrogel and mepilex foam dressing, I know patient has in the past removed these dressings on her own so recommend nursing reapply dressing as needed. Stable, chronic, nonhealing diabetic ulcer. Wound to follow up as needed for worsening.
[2016-09-14] MEDS: CEFEPIME IV SCH (18:04)
[2016-09-14] MEDS: DEXTROSE 5% IV SCH (18:04)
[2016-09-14 21:35] VITALS: BP 87/48; PULSE 76; RESP 18; O2SAT 95
[2016-09-15 00:20] VITALS: PULSE 80; O2SAT 100
[2016-09-15] MEDS: Heparin 5,000 Unit/mL Inj SUBQ SCH ×3 (03:26→17:51)
[2016-09-15] MEDS: Vancomycin 125 mg Oral Capsule PO SCH ×4 (03:26→20:18)
[2016-09-15 03:29] VITALS: BP 114/54; PULSE 83; RESP 16; O2SAT 100
--- NOTE | 2016-09-15 06:41 | NUR ---
No Pain / Hypotension / Dressing Pt denied pain all night. VS originally on night warehouse selector were hypotensive, but then hypotension resolved with BP 114/54. Pt had just finished Dialysis on 09/14/16 and they took 1.5L of fluid off. Pt slept for most of the night. Tele DCd. Pt pulled dressing off left heal, mepilex dressing applied and secured with hypafix tape.
--- NOTE | 2016-09-15 07:51 | NUR ---
Palliative care note (late note for 09/14/16) D/A: Phone call to pt dtr Yaneth [phone] to arrange for FCTM for 09/15/16. Dr. Askew had originally arranged for 1000 meeting but forgot that this conflicts with another meeting. Thadhan able to reschedule this meeting to 1030. This is pt dtr who lives close to her, in the same apt complex. Dr. Askew informed. P: Palliative care to follow. Flora CASSIDY, CCM
--- NOTE | 2016-09-15 07:54 | NUR ---
Palliative care note D/A: Ms left for [facility] this am to indicate 1030 FCTM and ask if there were any issues that could be addressed at that time. P: Palliative care to follow. Flora CASSIDY [facility] Addendum: 09/15/16 at 1257 by KHALIF COWART Palliative care note D/A: Conference later discussed with alonzo Hobson, prior to family conference. Met with pt, her dtr Yaneth and Kathy"s spouse Araceli, as well as pt's two grand dtr's Dahiana and Lashawn and Dahiana's karie. (Madi?) Discussed at length pt finding of a mass that may be pancreatic cancer. Pt is very worried about this finding and has not been able to say yes to imaging that might be able to shed light on the correct diagnosis. . Family is very upset by this and would like pt to have the imaging so that more is known about what is causing her decrease in functionality. Family understands that pt does not wish "to get cut on" and may not wish for chemo. She indicates that she has had two cancers to this, previously and may have undergone treatment for those. Pt voices weariness at telling people that something was wrong and medical staff not listening to her. She is referring to a long span of time when she indicates this. (Longer note to follow) Flora CASSIDY [facility] Addendum: 09/15/16 at 1601 by KHALIF Nicholas COWART SS PC note continued D/A: Family is able to work with pt and individually tell her how they wish that she would take the test to give a more definitive answer as to possible pancreatic cancer. Dtr later relates that she is fairly confident that pt does have cancer, based on her changes in function of past several months. Family aware that if pt has cancer, this may impact family plan for a wedding June of 2017. Family does not wish for pt to be told the results of her scan, when she is alone. They are worried about her mental health without her family around to support her. They would like information to come when they are there and would like for PC to be a part of delivering the results of the scan, good or bad. Discussed briefly dc planning with family. Discussed above with alonzo Hobson. P: Palliative care to follow. Flora Cowart [facility], [facility]
[2016-09-15 08:30] VITALS: BP 103/62; PULSE 79; RESP 20; O2SAT 96
[2016-09-15] MEDS: Ondansetron 2 mg/mL 2 mL Inj IVPUSH PRN (09:17)
[2016-09-15] MEDS: oxyCODONE-Acetamin 10-325 mg Tablet PO PRN (09:24)
--- NOTE | 2016-09-15 11:31 | NUR ---
CHELE: Patient refused to sign CHELE
[2016-09-15] MEDS ORDERED: LORazepam 1 mg Tablet PO ONE (11:35)
--- NOTE | 2016-09-15 11:54 | PCM.PNPALL ---
Date of Service Sep 15, 2016 Date of Hospital Admission: Sep 12, 2016 at 23:07 Date of Palliative Consult: Sep 14, 2016 Palliative Care Recommendation Summary of palliative recommendations: -Symptom management (Pain/other) Percocet has been effective for the right flank/abdominal pain Proceed with another attempt at Abdominal CT today after much persuasion from her family. -DPOA/Advanced Directives/POLST POA is Jordan Pozo Main family contact is daughter Betina. She is full code because she "doesn't want to ." She has a simplistic view of the code process. Chucky Mortality score predicts a 7-10% risk of dying in the next 6 months, much higher if the dialysis is stopped or cancer is confirmed. -Family/emotional support She would love to have her 83 year old sister from [place] visit her, but talks to her on the phone frequently. Her daughter in [place] has suggested that she move there and live with her, an offer that she has turned down. -Spiritual support Patient Goals: 1. Patient wants to be told the truth about his/her illness, even if it is unpleasant. - Yes, she confirms that. 2. Patient would like to be told prognosis when it can be predicted, to better guide treatment decisions. - Yes, she confirms that. 3. Patient would choose quality of life over quantity of life, and defines quality as..... She does not grasp the bipolar nature of this question and is unable to prioritize quality or quantity. Additional Medical Diagnoses with primary management by Hospitalist team include : C. diff diarrhea, POA, active. Acute hypoxemic respiratory failure, present on admission. Active. Suspected healthcare associated pneumonia, acute, present on admission. Under evaluation Decreased LOC, acute, present on admission. Resolved Abnormal CT brain, chronicity unknown, present on admission. Under investigation - CT brain without contrast 09/12/2016: No acute intracranial findings, abnormal appearance of medullary bone of calvarium suggestive of diffuse metastatic disease or multiple myeloma - Previous CT brain without contrast April 2016 did not reveal any suspicious lesions of calvarium - Previous CT abdomen and pelvis without contrast May 2016 did reveal a mild prominence of the pancreatic duct within the pancreatic head with an overall appearance of a soft tissue prominence of the pancreatic head and uncinate process. This evaluation was considered limited secondary to lack of IV and oral contrast. Another note of persistent diffuse mottled appearance of thoracic and lumbar spine in addition to the pelvic bones was noted, with concern of metastatic disease or Paget's disease. - Unknown history of malignancy and/or multiple myeloma. - CA 19-9 Dated June 2015: Elevated at 63 - Alpha/beta/gamma globulins and monoclonal protein studies were ordered March 2016, which appeared unremarkable at that time - Will check CT abd pancreatic protocol. - Need mammogram as outpatient. ESRD on HD, chronic. Presumed stable HFrEF, chronic. Presumed stable Elevated troponin, likely chronic. Presumed stable Elevated alkaline phosphatase, chronic. Appears stable Diabetes mellitus, non-insulin using, chronic. Presumed stable Left heel ulceration, chronic. Presumed stable Chronic bilateral lower extremity pain. Presumed stable Tobacco dependence, chronic. Presumed stable Depression, chronic. Presumed stable Problems: End of Life Preferences She is adamant that she wants to be full code and doesn't want to be "let go. Goals of Care To live independently. To have the possible cancer diagnosis clarified, so she knows what she is facing. To have her pain controlled. Disposition Family meeting with Daughter Betina and Palliative Care Cook Dessert this morning. See conclusions. Resuscitation Status Resuscitation Status: CPR: Attempt Resuscitation POLST Updates/Changes POLST Review Outcome: No Change Palliative Subjective Palliative Care Daily Responde: Patient, Family/Proxy, Team Brief History Since yesterday the family have been gathering and discussing her possible new diagnosis of Pancreatic Cancer. The patient has been fatigued and feels forgetful with the daily series of dialysis she has been going through. Today's family meeting has been on her mind and it's clear that the family have been preparing for it also since yesterday. Patient/Family Concerns The issue of a possible Pancreatic Tumor diagnosis has become the focus of the family members as they grapple with her prognosis and the next steps in her care and living situation. Subjective She feels tired and looks fatigued. She remains clearly "in charge" and has opinions about all aspects of her care. She has no new pain complaints, but continues to have right-sided flank pain intermittently. Palliative Performance Scale PPS Patient Status: Current PPS Ambulation: Mainly Bed PPS Activity: Unable to do most activity PPS Self-Care: Considerable assistance required PPS Intake: Normal PPS Conscious Level: Full Performace Scale: 40% ADLs ADL Ambulation: Mainly Sit/Lie Objective Findings Exam Vital Sign - Last Date Time Temp Pulse Resp B/P Pulse Ox O2 Delivery O2 Flow Rate FiO2 09/15/16 08:30 37.1 79 20 103/62 96 Room Air 09/15/16 03:29 2.00 Intake and Output 09/14/16 09/14/16 09/15/16 Cumulative From/Thru 15:00 23:00 07:00 09/12/16 23:55 - 09/15/16 06:09 Intake Total 200 ml 344 ml 1154 ml Output Total 1200 ml 3701 ml Balance -1200 ml 200 ml 344 ml -2547 ml Intake Oral 200 ml 200 ml 825 ml IV Total 144 ml 329 ml Output Urine/Stool Mix 1 ml Ultrafiltrate 1200 ml 3700 ml # Voids 4 0 6 # Bowel Movements 1 13 General: Alert/Oriented x3, No acute distress Lungs: Normal Air Movement Neuro: Exam Intact, Weakness Extremities: No Edema Skin: Other (Typical skin lesions of 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 Patient/Family Conference Members Present Family Members Present Daughter - Betina Daughter's Granddaughter - Lashawn Granddaughter - Dahiana Granddaughters [facility] Medical Team Members Present? Flora Cowart - Palliative Care SW Nathan Askew - Palliative Care Physician Navdeep Elizabeth - Palliative Care Resident Diego Kenny - Medical Student Discussion/Goals of Care Discussion FAMILY UNDERSTANDING OF DISEASE: Family have lived with her personality quirks and chronic illnesses for many years, and obviously are supportive and emotionally attached. They appear to have an adequate grasp of her disease. DISEASE PROGRESSION/EVIDENCE OF DECLINE: She has a unique combination of personality characteristics and chronic illness that make her situation particularly unstable. She now has a probable pancreatic neoplasm to think about. SYMPTOM BURDEN: She admits that the dialysis program has "ruined her life". The fatigue, the constant travel to doctor's offices and dialysis centers and the need to be dependent on family have worn her down. GOALS: She wants to be at home, surrounded by her family members, not in a hospital, longterm or other care center. HOPES/WORRIES: She worries about what will happen to her grandchildren when she dies. This is a strong motivation for her to continue dialysis. FAMILY WISHES/VALUES: She is clearly the matriarch of this family with significant devotion pouring out of everyone's behavior/mouth/actions during today's visit. Do you want to be told truth about his illness, even if unpleasant? She is clearly in charge and wants to know her diagnosis. Family make it clear that they would like to be present when that is discussed, so she does not need to face any bad news alone. What is quality of life for the patient: To be near her granddaughters, providing emotional and familial support to them and during their teenage years. She would like to be alive for her granddaughters planned wedding next year. Would patient choose quality of life over quantity of life? To her this is not a bipolar either or decision. Would comfort care be more important than being awake and alert? This was not addressed today. Palliative Care counselled: Today's family meeting lasted over 60 minutes. It was quite intense as she in very direct ways discussed her actions regarding missing dialysis appointments and her potential diagnoses of cancer with her daughter, and interacted with her other family members in less extremely direct ways. She talked about her granddaughters being what she lives for, and the oswaldo in her life. She wants nothing more than to live until June 2017 to see her granddaughter Dahiana's wedding. She does not want to be a burden and recognizes that it is getting too much for her and for her family as her disease has progressed. She wants to be at home, like her sister Tamika was, when she dies, as suddenly as possible. Her family is quite focused on finding out whether she does have pancreatic cancer or not. This means a lot to them. At one point she pointedly asked her daughter why she was dressed in black. She says "you do not need to look slim, you already have a ." Her granddaughters remind her that she "gave to that dragon lady." ( Meaning Betina) Those last 2 comments describe the ems director side of the meeting. The family has a distinctive way with words. The meeting closed with each of her four closest family members spending several minutes at her bedside explaining to her their perspectives and how much they wished her to proceed with a CT scan for their benefit and for her hers. This seemed to be the family's goal for the meeting, somewhat different than the palliative care team had expected, but definitely what appeared to be within the norm for her family structure and traditional interactions. She is clearly the matriarch, used to being in charge, but also conversely very aware of how much she depends on them . Time spent Total time 120 minutes; >50% face to face with patient and/or family, providing counselling regarding plans and recommendations, and in care coordination with his/her medical teams. I also spent an additional [10] minutes counseling for advanced care planning with the patient and the patients family. Gregorio Askew MD Sep 15, 2016 11:54 Gregorio Askew MD Sep 15, 2016 11:54
--- NOTE | 2016-09-15 13:00 | PCM.PNNEPH ---
Subjective Date of Service Sep 15, 2016 Subjective Patient history denies any further workup of her abdominal issues including the pancreatic mass. The risks have been explained to her. In addition of this she refuses to her dialysis treatment today. Exam Vital Signs Vital Sign - Last Date Time Temp Pulse Resp B/P Pulse Ox O2 Delivery O2 Flow Rate FiO2 09/15/16 08:30 37.1 79 20 103/62 96 Room Air 09/15/16 03:29 2.00 Intake and Output 09/14/16 09/14/16 09/15/16 Cumulative From/Thru 15:00 23:00 07:00 09/12/16 23:55 - 09/15/16 06:09 Intake Total 200 ml 344 ml 1154 ml Output Total 1200 ml 3701 ml Balance -1200 ml 200 ml 344 ml -2547 ml Intake Oral 200 ml 200 ml 825 ml IV Total 144 ml 329 ml Output Urine/Stool Mix 1 ml Ultrafiltrate 1200 ml 3700 ml # Voids 4 0 6 # Bowel Movements 1 13 Exam Lungs showed a few scattered rhonchi. Heart was regular and rhythmic with a soft systolic murmur. Abdomen is soft without any tenderness rebound guarding masses her pelvis splenomegaly. Extremities that show any evidence of any clubbing, cyanosis, or edema. Skin turgor is good. Lab and Diagnostics Result Diagram: 09/14/16 0515 09/15/16 1003 X-Rays, CTs and MRIs PROCEDURE: X-RAY CHEST ONE VIEW, PORTABLE IMPRESSION: Diffuse pulmonary interstitial markings suspicious for pulmonary edema. Infection could also be considered in the appropriate differential. Dictated by: Tiffanie Acosta M.D. on 09/12/2016 at 18:46 PROCEDURE: CT BRAIN WITHOUT CONTRAST IMPRESSION: 1. No acute intracranial findings. 2. Abnormal appearance of the medullary bone of the calvarium. Please correlate clinical history. This finding is suggestive of diffuse metastatic disease or multiple myeloma. Dictated by: Tiffanie Acosta M.D. 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 Recommendations #1 field we have very limited options with the patient and I do feel that if she is up into her throat reconsideration from palliative care. Otherwise I will make arrangements for dialysis in the morning. Franklyn Bose DO Sep 15, 2016 13:00
[2016-09-15 13:02] VITALS: BP 91/54; PULSE 82; RESP 18; O2SAT 92
[2016-09-15] MEDS: hydrOXYzine Pamoate 25 mg Capsule PO PRN (13:10)
--- NOTE | 2016-09-15 13:48 | PCM.PNMED ---
Subjective Date of Service Sep 15, 2016 Subjective No acute event overnight. No reported diarrhea. This morning, patient states that she has pain "all over," mostly her back, and is tired. She also wants something for the nausea. Otherwise, she denies any CP , SOB, abdominal pain, or change in mental status. She states that she would like to continue dialysis, but she wants help with pain management and daily activities at home. Exam Vital Signs Vital Sign - Last Date Time Temp Pulse Resp B/P Pulse Ox O2 Delivery O2 Flow Rate FiO2 09/15/16 13:02 36.7 82 18 91/54 92 Nasal Cannula 2.00 Intake and Output 09/14/16 09/14/16 09/15/16 Cumulative From/Thru 15:00 23:00 07:00 09/12/16 23:55 - 09/15/16 06:09 Intake Total 200 ml 344 ml 1154 ml Output Total 1200 ml 3701 ml Balance -1200 ml 200 ml 344 ml -2547 ml Intake Oral 200 ml 200 ml 825 ml IV Total 144 ml 329 ml Output Urine/Stool Mix 1 ml Ultrafiltrate 1200 ml 3700 ml # Voids 4 0 6 # Bowel Movements 1 13 Exam General: Alert and oriented, in no acute distress, chronically ill appearance, cachetic HEENT: Atraumatic; arcus senilis noted. Cardiac: Regular rate and rhythm; no murmurs appreciated Respiratory: Adequate airflow all colon, scattered rales noted, no wheezes appreciated, no increased work of breathing GI: Soft, nondistended, mild tenderness to palpation in the RUQ, no guarding or rebound tenderness, normal bowel sounds Extremities: No edema; ulceration noted on left heel with bandage is clean dry and intact; no cyanosis; IV site left lower extremity without surrounding erythema Skin: Dry, warm; diffuse scaling of bilateral lower extremities Neuro: Facial expression symmetric, speech without slurring, Psych: appropriate mood and affect. IVs and Medications Medications Reviewed: Medications were reviewed in detail Lab and Diagnostics Result Diagram: 09/14/16 0515 09/15/16 1003 X-Rays, CTs and MRIs PROCEDURE: X-RAY CHEST ONE VIEW, PORTABLE IMPRESSION: Diffuse pulmonary interstitial markings suspicious for pulmonary edema. Infection could also be considered in the appropriate differential. Dictated by: Tiffanie Acosta M.D. on 09/12/2016 at 18:46 PROCEDURE: CT BRAIN WITHOUT CONTRAST IMPRESSION: 1. No acute intracranial findings. 2. Abnormal appearance of the medullary bone of the calvarium. Please correlate clinical history. This finding is suggestive of diffuse metastatic disease or multiple myeloma. Dictated by: Tiffanie Acosta M.D. on 09/12/2016 at 17:42 12-lead ECG Sinus rhythm at rate of [address] changes Assessment & Plan Ms. Rosas is a pleasant 71-year-old female with history of end-stage renal disease on hemodialysis MWF, tobacco dependence, chronic pain secondary to multiple orthopedic issues, and history of suspicious lesions of pancreas and bone, that presented to [facility] 09/12/2016 with complaints of fatigue and decreased consciousness following hemodialysis session. Patient was admitted for evaluation and treatment of need for additional hemodialysis, and etiology of decreased level of consciousness, including possibility of infection, electrolyte abnormality, or dysrhythmia. C. diff diarrhea, POA, active, improving. - Patient reports having diarrhea for several days prior to admission. She denies any recent antibiotic use, but record indicates that she was on Levaquin for HCAP in July 2016. - C. diff PCR positive. - Continue contact isolation. - Continue Vancomycin 125mg PO Q6H x 14 days. Day 3. - Patient has not had any diarrhea since yesterday afternoon. Abnormal CT brain, chronicity unknown, present on admission. Under investigation - High index of suspicion for bony metastasis from unknown origin, likely breast cancer. Patient has a history of breast cancer s/p lumpectomy in the past. Unclear of current status. - CT brain without contrast 09/12/2016: No acute intracranial findings, abnormal appearance of medullary bone of calvarium suggestive of diffuse metastatic disease or multiple myeloma - Previous CT brain without contrast April 2016 did not reveal any suspicious lesions of calvarium - Previous CT abdomen and pelvis without contrast May 2016 did reveal a mild prominence of the pancreatic duct within the pancreatic head with an overall appearance of a soft tissue prominence of the pancreatic head and uncinate process. This evaluation was considered limited secondary to lack of IV and oral contrast. Another note of persistent diffuse mottled appearance of thoracic and lumbar spine in addition to the pelvic bones was noted, with concern of metastatic disease or Paget's disease. - Unknown history of malignancy and/or multiple myeloma. - CA 19-9 Dated June 2015: Elevated at 63 - Alpha/beta/gamma globulins and monoclonal protein studies were ordered March 2016, which appeared unremarkable at that time - Patient declined to have CT abd pancreatic protocol or any other imaging. She accepted the fact that she might have cancer and is not interested in further treatment at this point. However, at the family meeting with Palliative Care today, patient's family would like to do the imaging to find the cancer. Patient agreed to it under conscious sedation. Another family meeting is scheduled for tomorrow to discuss about the next step. Acute hypoxemic respiratory failure, present on admission. Active. - Patient had a desaturation episode on admission (83% at RA) then resolved to 97% at room air, but shows signs of sleep apnea this morning. - Likely secondary to decreased loss of consciousness - No history of home oxygen, although patient is a current tobacco user - Patient has a history of KATERIN, but reports not using CPAP at home. She states she already has O2 at home but does not want to use it. - Follow clinically and have O2 available during sleep. Suspected healthcare associated pneumonia, acute, present on admission. Unlikely. - On admit: WBC 9.3 with 90% neutrophils; chest x-ray revealed diffuse interstitial markings, which appear worsened compared to previous CXR July 2016 ( reviewed by admitting team at time of admission). - Family reports recent cough, congestion, rhinorrhea. - Elevated pro calcitonin at 0.91, but may also be secondary to end-stage renal disease. Today trend up to 1.41. 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 - Patient received cefepime 2 g in ED and 500mg daily for a total of 3 days. Will D/C Cefepime today. - Follow clinically Possible metabolic encephalopathy, acute, present on admission. Resolved - Family reports decreased LOC/unresponsiveness following HD day of admission; pt does not recall these events - Likely secondary to fluid shifts/fatigue following HD session and noncompliance with dialysis. - Resolved at time of admission - CT brain did not reveal evidence of acute intracranial changes suggestive of stroke - Will continue to monitor; consideration of infection on differential - No additional imaging at this time ESRD on HD, chronic. Presumed stable - On admit: Creatinine 5.71, potassium 5.1, phosphorus 5.0 - Patient reports dialysis completed at [facility]; outpatient medical dermatologist Dr. Vaughan - Reports last dialysis day of admission, 09/12/2016 with prior dialysis session on 09/07/16. - Dr. Bose was consulted in the ED and agreed to follow. Appreciate his input. - Continue renal medications. HFrEF, chronic. Presumed stable - Echo 11/2015: EF 65-70, with mild concentric left ventricular hypertrophy; right ventricle mildly dilated with right ventricular systolic function mildly reduced - May be etiology of pulmonary edema in CXR. - Resume home furosemide Elevated troponin, likely chronic. Presumed stable - On admit: 0.161 - Records indicate history of elevation with most recently June 2016 at 0.147 - EKG normal - Likely secondary to ESRD - Monitor for symptoms of chest pain, shortness of breath Elevated alkaline phosphatase, chronic. Appears stable - On admit: Alkaline phosphatase 482, likely due to bony lesions such as bone metastases or Paget's disease. - Previous values, with earliest dated March 2016, at 416 - May be secondary to underlying malignancy Diabetes mellitus, non-insulin using, chronic. Presumed stable - Patient denies any history of diabetes, although diagnosis is found throughout chart - A1c November 2015: 5.5 - No diabetic medications on reconciliation - No correctional scale ordered at time Left heel ulceration, chronic. Presumed stable - Wound care consult Chronic bilateral lower extremity pain. Presumed stable - Patient reports history of "unhealed" fractures - No additional imaging ordered at this time - Resume home pain management with Percocet 10mg Q6H PRN Tobacco dependence, chronic. Presumed stable - Patient and family report daily tobacco use, estimated at 1 pack per day - Nicotine patch ordered Depression, chronic. Presumed stable - Continue fluoxetine per home schedule when reconciliation completed Goals of care. Ongoing - Patient currently full code - Questionable underlying malignancy based on previous imaging and laboratory values for tumor marker - Family wants to pursue further imaging to confirm the cancer and will decide. Family meeting tomorrow. - Patient is adamant about full code - Palliative care consulted. Appreciate their input. Family concerns. - DELI/BAKERY ASSOCIATE consult - Pt has fired multiple caregivers, and family admits pt is "difficult" and "demanding" - Please assist with resources Diet: General; although patient is a renal patient, patient is unlikely to be compliant with renal diet. Due to uncertainty of underlying malignancy, will proceed with general diet at this time DVT: Hep q8 GI: None PRN: Bowel/nausea/fever/pain IVF: None Code: Limited interventions. DNI. Patient status: Due to severity of presenting symptoms, anticipated course of care, and risk of adverse events, anticipated length of stay exceeds two midnights; patient admitted as inpatient status. Pain Evaluation: Adequate Pain Control GI Prophylaxis: Not indicated VTE Prophylaxis: Sub-Q Heparin (Unfractionated) Resuscitation Status: CPR: Attempt Resuscitation Attending Statement The patient was seen and examined with staff. Agree with all attached documentation. Dayo Mckeon DO Sep 15, 2016 13:31 Mac Hanks MD Sep 15, 2016 17:35
--- NOTE | 2016-09-15 15:36 | DRSVH ---
PROCEDURE: CT ABDOMEN PANCREATIC PROTOCOL INDICATIONS: Possible pancreatic mass TECHNIQUE: Noncontrast 3 mm thick sections acquired through the pancreas. After the administration of intraveno us contrast, 3 mm thick pancreatic-phase images acquired from the diaphragm to the iliac crests. 3 m m thick coronal and sagittal reformats were performed. For radiation dose reduction, the following w as used: automated exposure control, adjustment of mA and/or kV according to patient size. COMPARISON: [facility], MR, MR ABD MRCP, 07/05/2015, 21:44. [facility], CT, CT ABD PELVIS WO CON, 05/21/2016, 5:02. FINDINGS: Image quality: Excellent. Lung bases: Mild bibasilar interstitial pulmonary opacity. There is a new 17 mm diameter subpleural n odule within the right lower lobe posteromedially. Lung bases are otherwise clear. Heart size is nor mal. Pancreas: Pancreas divisum is present. Pancreas is otherwise normal in morphology. There is severe pa ncreatic ductal dilatation, which is increased. The pancreatic duct within the neck measures 13 mm on the current examination (previously measuring 9 mm). No peripancreatic fluid collections. No abnorma l pancreatic enhancement to indicate mass lesion. Other solid organs: Liver and spleen are normal in size and enhancement. Gallbladder is surgically absent. There is mild intrahepatic biliary ductal dilatation. No extrahepatic biliary ductal dilatati on. No adrenal nodules. Kidneys are normal in size bilaterally. There is an exophytic cyst protruding superiorly and posteriorly from the superior pole left kidney, and 30 mm. At the superolateral aspec t of this cyst, there is a new, 11 mm diameter rounded density which demonstrates precontrast Hounsfi eld units of 40.8, and post contrast Hounsfield units of 78, indicating enhancement. Additionally, mu ral calcifications within the posterior aspect of this cyst are present, new since the prior examinat ion. Inferior pole left renal cyst with mural calcifications are unchanged. Multiple bilateral renal vascular calcifications are present. Small nonobstructing collecting system calcifications may also b e present. These are unchanged. Peritoneum and bowel: Unenhanced bowel loops demonstrate normal wall thickness and caliber. No free fluid or air. Nodes and vessels: No change in mildly prominent retrocrural lymph nodes, measuring 14 mm short axis . Aorta and inferior vena cava are normal in size. Bones: There is a diffuse mottled appearance of the osseous structures, as before. There is increase d, severe wedging of T11, which demonstrates severe erosive abnormality within its mid and inferior a spects extending to the T11-T12 endplate. Increased erosions involving the superior T12 endplate. No change in superior L1 endplate erosion. Moderate rightward curvature of the mid/lower thoracic spine. Miscellaneous: No ventral hernias. The prominent collateral vessels within the anterior subcutaneou s fat of the abdomen and pelvis are present. IMPRESSION: 1. Increased, severe pancreatic ductal dilatation, associated with mild biliary ductal dilatation. Fi ndings indicate a stricture, possibly malignant. Given the suboptimal MRCP examination, ERCP is recom mended for further assessment. 2. 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 Atypical appearance of metastatic disease could produce this appearance as well. Further assessment with lumba r spine MRI with and without intravenous contrast recommended. Findings and recommendations discussed with Dr. Mckeon on 09.15.16 at 1532 hrs. 3. Left superior pole renal cyst demonstrates mural calcifications as well as a new enhancing mural n odule, possibly indicating malignancy. 4. Bilateral renal calcifications, as before. 5. New right lower lobe pulmonary nodule. Followup is recommended as below. 6. No change in mildly prominent retrocrural lymph nodes. Fleischner Society criteria for SOLID lung nodule followup. Nodule size (mm)Low-risk patientHigh-risk patient<6 (single or multiple)No routine followup.Optional CT at 12 months. 6-8 (single or multiple)CT at 6-12 months, then optional CT at 18-24 mo.CT at 6-12 m onths, then CT at 18-24 months. >8 (single)CT, PET-CT, or biopsy at 3 months. Same as for low-risk p ts. >8 (multiple)CT at 3-6 months, then optional CT at 18-24 mo.CT at 3-6 months, then CT at 18-24 m onths. Recommendations do not apply to lung cancer screening, patients with immunosuppression, or pa tients with known primary cancer. Dictated by: Donn Lizama M.D. on 09/15/2016 at 15:15 Approved by: Donn Lizama M.D. on 09/15/2016 at 15:33
--- NOTE | 2016-09-15 15:43 | NUR ---
Social Work Note: Initial Assessment/Multidisciplinary Rounds Data& Assessment: Pt was discussed in AM rounds. Pt is not medically ready for discharge at this time and will be undergoing a CT scan. Palliative care is now following. SW met with pt and pt family at bedside to discuss discharge planning, SW role explained and Discharge Planning Checklist provided. Gold Rosas is a 71 year old female admitted on 09/12/2016 for bilateral LL pneumonia and pulmonary edema. Pt has Medicare and [employer] Supplement. Pt sees Franklyn Bose DO for primary care. Pt lives at home in a ground level apartment alone, but her daughter lives in an apartment in the same complex and helps pt with chores and meal prep. Pt uses a wheelchair but is independent with transfers. Pt is current with [facility] for transportation. Pt has 166 hours of GAIL caregiving with Tanisha Valencia as her CM, however, pt has apparently fired all the caregivers that have been assigned to her. Pt explained that she "doesn't want someone hanging out, I can watch TV by myself. I want them to clean my house and get out." Pt admitted she needs help at home but admitted that "I am very particular." Pt shared that she has also had Meals on Wheels in the past but she did not like not knowing where her food was coming from so she discontinued that service. Pt is a dialysis pt at [facility] in [place] but is noncompliant with her scheduled dialysis appointments and will not get on the bus when [employer] comes to pick her up. Pt states to her daughter during this bedside assessment "From now on, I will get on the bus when they come to pick me up for dialysis." Pt has a hx with [facility] and [facility] hx. Pt states she would be interested in home health services again if appropriate. SW to discuss with MD and await order. Pt does not have SNF hx and made very clear that she will never agree to go to SNF or ERI. Pt does not have LTC insurance or VA benefits. Pt and pt daughter provided with DPOA/AD paperwork to review and complete when possible. Pt and pt family denies any other needs at this time. SW to continue to follow for MD orders and pt needs. Plan: Anticipated discharge home via POV with family support. SW to r/o home health services. Pt and pt family denies any other needs at this time. SW to continue to follow for MD orders and pt needs. REX Mcnally Addendum: 09/15/16 at 1553 by BRITTANY ALFARO Amended: Links added.
--- NOTE | 2016-09-15 18:19 | NUR ---
dialysis/CT/family/agitation/respiratory Pt refused dialysis that was scheduled for today. Pt stated "this would be 4 days in row so no, I'm not doing that." Pt (with much encouragement) agreed to do a CT. Pt was given Lorazepam 1mg for comfort and was escorted down to the CT room by family member. No issues. Pt returned and had lunch that was ordered and also ate [employer] fast food and kit cathy that family brought in. Pt took all scheduled medications. Pt informed this RN that "Earle only has a month to live". Pt left in sad spirits and explained that they will be back in the morning to talk all of this over with their Mama. Pt was quite agitated all day today. Family was very helpful in encouraging pt to take meds and eat food. O2 sats on RA was dropping as low as low 70s today. Quickly recovers with deep breathing but then will drop back down. O2 2L NC applied for maintenance.
[2016-09-15 20:10] VITALS: BP 95/60; PULSE 82; RESP 16; O2SAT 97
[2016-09-15 23:13] VITALS: BP 89/51; PULSE 81; RESP 16; O2SAT 96
[2016-09-16] MEDS: Heparin 5,000 Unit/mL Inj SUBQ SCH ×2 (00:58→09:01)
[2016-09-16] MEDS: hydrOXYzine Pamoate 25 mg Capsule PO PRN ×2 (01:06→09:01)
[2016-09-16] MEDS: oxyCODONE-Acetamin 10-325 mg Tablet PO PRN (01:06)
[2016-09-16] MEDS: Ondansetron 2 mg/mL 2 mL Inj IVPUSH PRN ×3 (01:08→13:01)
[2016-09-16] MEDS: Vancomycin 125 mg Oral Capsule PO SCH ×3 (02:54→15:24)
[2016-09-16 03:34] VITALS: BP 88/50; PULSE 89; RESP 16; O2SAT 91
[2016-09-16 05:01] LABS: Mean Corpuscular Hemoglobin 29.8 pg (27.0-35.0); Mean Corpuscular Volume 94.2 fL (81-100)
--- NOTE | 2016-09-16 06:11 | NUR ---
Oxygenation: Pt stable throughout the night. Pt's oxygen saturations checked when pt removed nasal cannula; O2 saturations noted to drop to the low 80s and quickly recovered to the mid-90s when oxygen was placed back on the pt. Pt has been cooperative in keeping the oxygen on. Will cont. to monitor.
--- NOTE | 2016-09-16 06:13 | NUR ---
Stool: Pt cleaned of two incontinent loose stools during the night.. SCREEN PRINTING SUPERVISOR reports stools to be loose and "dark english" in color.
[2016-09-16 08:51] VITALS: BP 93/48; PULSE 84; RESP 22; O2SAT 90
[2016-09-16 09:00] VITALS: PULSE 85; RESP 17; O2SAT 91
--- NOTE | 2016-09-16 10:00 | PCM.PALLBR ---
Palliative Care Recommendation Summary of palliative recommendations: -Symptom management (Pain/other) Percocet has apparently not been fully effective for the right flank/abdominal pain. She has had delirium from Dilaudid use in the past. She has not tried Morphine before but worries that use of Morphine means she is about to . She agrees to trial Morphine but is not willing to stay in the hospital another night to be sure she tolerates it and that it is effective. The CT shows severe infiltrative/collapsing processes involving several levels of the lower Thoracic and upper Lumbar spine level. This is probably metastasis from her prior breast cancer but could also be caused by a number of other potential primary neoplasms. A chronic infection would also look like this. Hospice will be taking over the titration and trials of opiates for this condition when they begin following her tomorrow. NSAIDs are usually very effective for bone mets but are not able to be used with her ESRD. -DPOA/Advanced Directives/POLST POA is Jordan Mireillesb Main family contact is daughter Betina. She is now DNR, after lengthy discussion of situation and prognosis with her daughter, daughter in law, the Palliative care team and Dr. Bose. Chucky Mortality score predicts a 7-10% risk of dying in the next 6 months, That number is now 100 % and is likely to occur in the next 30 days now that she is formally stopping dialysis. -Family/emotional support She would love to have her 83 year old sister from [place] visit her, but talks to her on the phone frequently. Her daughter feels that it is likely that the sister will be able to come and visit her here soon. She has started making the arrangements. Her daughter in [place] has suggested that she move there and live with her, an offer that she has turned down. -Spiritual support Patient Goals: 1. Patient wants to be told the truth about his/her illness, even if it is unpleasant. - Yes, she confirms that. 2. Patient would like to be told prognosis when it can be predicted, to better guide treatment decisions. - Yes, she confirms that. 3. Patient would choose quality of life over quantity of life, and defines quality as..... She does not grasp the bipolar nature of this question but when informed of the pancreatic duct abnormality and the spinal abnormalities she effectively chooses quality of life, by stopping dialysis, as that has been a great burden to her. Additional Medical Diagnoses with primary management by Hospitalist team include : C. diff diarrhea, POA, active. Acute hypoxemic respiratory failure, present on admission. Active. Suspected healthcare associated pneumonia, acute, present on admission. Under evaluation Decreased LOC, acute, present on admission. Resolved Abnormal CT brain, chronicity unknown, present on admission. Under investigation - CT brain without contrast 09/12/2016: No acute intracranial findings, abnormal appearance of medullary bone of calvarium suggestive of diffuse metastatic disease or multiple myeloma - Previous CT brain without contrast April 2016 did not reveal any suspicious lesions of calvarium - Previous CT abdomen and pelvis without contrast May 2016 did reveal a mild prominence of the pancreatic duct within the pancreatic head with an overall appearance of a soft tissue prominence of the pancreatic head and uncinate process. This evaluation was considered limited secondary to lack of IV and oral contrast. Another note of persistent diffuse mottled appearance of thoracic and lumbar spine in addition to the pelvic bones was noted, with concern of metastatic disease or Paget's disease. - Unknown history of malignancy and/or multiple myeloma. - CA 19-9 Dated June 2015: Elevated at 63 - Alpha/beta/gamma globulins and monoclonal protein studies were ordered March 2016, which appeared unremarkable at that time. - Need mammogram as outpatient. ESRD on HD, chronic. Presumed stable HFrEF, chronic. Presumed stable Elevated troponin, likely chronic. Presumed stable Elevated alkaline phosphatase, chronic. Appears stable Diabetes mellitus, non-insulin using, chronic. Presumed stable Left heel ulceration, chronic. Presumed stable Chronic bilateral lower extremity pain. Presumed stable Tobacco dependence, chronic. Presumed stable Depression, chronic. Presumed stable Problems: End of Life Preferences She has firmly decided to be DNR and to at home, stopping dialysis and going on hospice, now that she has been informed of the CT results. Goals of Care To live as independently as possible with hospice and family support. To decide not to go to dialysis again, which is something she has already done by her actions, although not by her words previously. Disposition Home today on a new trial of Morphine, with [facility] to begin care for her tomorrow, with a hospital bed to be delivered as soon as possible. Resuscitation Status Resuscitation Status: DNR/DNI:Do Not Resuscitate/Intubate POLST Updates/Changes POLST Review Outcome: No Change . Advanced Care Planning Address: Code status change, Comfort care Pain: Moderate Symptom management: Pain Total time [70] minutes; >50% face to face with patient and/or family, providing counselling regarding plans and recommendations, and in care coordination with his/her medical teams. Palliative Brief Note Date of Service Sep 16, [address] of the Pancreas was apparently tolerated yesterday. The pancreatic duct dilation has progressed, which would be consistent with progressive scarring of either early ductal malignancy or some other non neoplastic ductal process. Either way her path forward is quite limited as she would need an actual ERCP for tissue diagnosis biopsy and for therapeutic stenting. She is unlikely to agree to that intervention. She continues to be contradictory and oppositional, refusing dialysis again today, apparently because she is upset with being awakened over night. This pattern of frequent refusal of life sustaining care is typical of her recent outpatient approach and is probably quite chronic. Her daughter has previously requested to be present for discussion of the results of the CT. I informed her daughter of the results by phone today and spoke with her hospitalist resident. Later in the morning her daughter came in and talked with me and Dr. Bose, and then together we talked with the patient. She can be challenging to understand clearly at times but it was clear that she was choosing to stop dialysis in this context and now needs something more than prn Oxycodone for her back pain. Gregorio Askew MD Sep 16, 2016 10:00
--- NOTE | 2016-09-16 11:57 | PCM.PNNEPH ---
Subjective Date of Service Sep 16, 2016 Subjective The patient is about the same however she continues to slowly lose ground physically. She is declining dialysis once again today. Have had a long and ana luisa discussion with the patient's daughter and with the patient as far as our limited option and strong likelihood of metastatic malignancy in her abdomen. I have them know that we are willing to do as much as little as possible but I also balance with the bleak outlook. I also appreciate Dr. Askew's input off from palliative care. Exam Vital Signs Vital Sign - Last Date Time Temp Pulse Resp B/P Pulse Ox O2 Delivery O2 Flow Rate FiO2 09/16/16 09:00 85 17 91 Room Air 09/16/16 08:51 36.5 93/48 09/16/16 03:34 2.00 09/15/16 23:13 Intake and Output 09/15/16 09/15/16 09/16/16 Cumulative From/Thru 15:00 23:00 07:00 09/12/16 23:55 - 09/16/16 05:12 Intake Total 600 ml 150 ml 1904 ml Output Total 2 ml 3703 ml Balance 598 ml 150 ml -1799 ml Intake Oral 600 ml 150 ml 1575 ml IV Total 329 ml Output Stool Total 2 ml 2 ml Urine/Stool Mix 1 ml Ultrafiltrate 3700 ml # Voids 3 1 10 # Bowel Movements 2 15 Exam Neck is supple without lymphadenopathy but she does have moderate to severe jugular venous distention at 75. Lungs showed scattered rhonchi. Heart was regular and rhythmical with a soft systolic murmur. Abdomen is soft without any tenderness rebound guarding masses or hepatosplenomegaly. Extremities do not show any evidence of any clubbing, cyanosis, or edema. Lab and Diagnostics Result Diagram: 09/16/165 09/16/16 0445 X-Rays, CTs and MRIs PROCEDURE: X-RAY CHEST ONE VIEW, PORTABLE IMPRESSION: Diffuse pulmonary interstitial markings suspicious for pulmonary edema. Infection could also be considered in the appropriate differential. Dictated by: Tiffanie Acosta M.D. on 09/12/2016 at 18:46 PROCEDURE: CT BRAIN WITHOUT CONTRAST IMPRESSION: 1. No acute intracranial findings. 2. Abnormal appearance of the medullary bone of the calvarium. Please correlate clinical history. This finding is suggestive of diffuse metastatic disease or multiple myeloma. Dictated by: Tiffanie Acosta M.D. on 09/12/2016 at 17:42 12-lead ECG Sinus rhythm at rate of [address] changes Plan Impression Impression 1. 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 Total time involved was 40 minutes. Franklyn Bose DO Sep 16, 2016 11:57
[2016-09-16] MEDS ORDERED: MORP15TA PO (12:02)
[2016-09-16] MEDS ORDERED: MORP-32 PO ×2 (12:02→13:55)
[2016-09-16] MEDS ORDERED: OXYC-466 PO ×2 (12:02→13:55)
--- NOTE | 2016-09-16 13:06 | NUR ---
Palliative care note D/A: Pt seen by Dr. Askew today. She and dtr have made decision to stop dialysis and go home on hospice. She is indicating that she would like to go home today. Dr. Askew has written order for hospice services. Met with pt and her dtr/radha to provide choice list for hospice's. Family all live on [facility], including pt. They also have a family friend Irma that works for [facility] ( ) that pt would like to have be her caregiver. Family to work with agency in that regard. Family feeling urgency about leaving today as this is pt's strong wish. She states she wants to go right now. Family aware that most likely, will not be able to start hospice services immediately but that equipment may be able to be delivered. They are very focused on a hospital bed and would like that charly. They also request a lift toilet, a shower chair with handles and a transfer bench and O2. Phone call to [facility] and speak to Felisa. Request info visit and agency is not able to respond to this need. Referral made today due to pt urgency and wish to have hospital bed delivered charly. They can deliver equipment tomorrow, 09/17/16 and can open on 09/17/16 am if pt goes home today. Discuss further with family for details. Pt will be going home to [address], [address]. ( Please note that this is pt dtr unit. Same address as pt but dtr unit. Hospice is aware and will deliver equipment to this address.) Pt does not have a PCP and [facility] aware and will ask their director to take over her care. Family aware that they need to be home for delivery and that delivery company cannot move furniture around. Pt radha Charles has phone number to [facility] to call for details. Phone call to Dr. Askew to discuss who is going to dc pt. He calls Dr. Winslow who agrees to dc pt. This worker also talks to Dr. Odonnell to ask her to check in with Dr. Winslow regarding meds and if any assistance is needed as Dr. Askew is now off. Have also talked to pt NUPUR Cadet about plan. While discussing with her, she receives call from dialysis and informs them that pt has made decision to cease services. Case management to take over at this point. Have discussed case with Maria Elena. Hospice and family aware that she will be taking over regarding discharge arrangements. Have discussed sending clinicals to agency. Maria Elena aware that this worker has discussed case with both Sydney and Felisa at [facility]. P: Palliative to follow as needed. Flora CASSIDY, CCM
[2016-09-16 13:09] VITALS: BP 129/81; PULSE 79; RESP 21; O2SAT 100
[2016-09-16] MEDS ORDERED: VANC125C3 PO (13:48)
[2016-09-16] MEDS ORDERED: HYDR-656 PO (13:48)
[2016-09-16] MEDS ORDERED: ONDA4TAB12 PO (13:48)
[2016-09-16] MEDS ORDERED: MORPHINE SULFATE PO (13:55)
--- NOTE | 2016-09-16 14:02 | PCM.DIMED ---
Discharge Instructions Date of Service Sep 16, 2016 Dates of Hospitalization Sep 12, 2016 at 23:07 Discharge Diagnosis Discharge Diagnosis C. diff diarrhea, POA, active, improving. Abnormal CT brain and abdomen, chronicity unknown, present on admission. Under investigation. Acute hypoxemic respiratory failure, present on admission. Active. Suspected healthcare associated pneumonia, acute, present on admission. Unlikely. Possible metabolic encephalopathy, acute, present on admission. Resolved ESRD on HD, chronic. Presumed stable HFrEF, chronic. Presumed stable Elevated troponin, likely chronic. Presumed stable Elevated alkaline phosphatase, chronic. Appears stable Diabetes mellitus, non-insulin using, chronic. Presumed stable Left heel ulceration, chronic. Presumed stable Chronic bilateral lower extremity pain. Presumed stable Tobacco dependence, chronic. Presumed stable Depression, chronic. Presumed stable Goals of care. Ongoing Diet Discharge Diet: Renal Diet Activity Discharge Activity: No restrictions Call your provider Call your provider for: Fever or Chills, Shortness of breath, Chest pain, Excessive diarrhea Patient Instructions Patient Instructions - You were found to have C. diff infection that cause the diarrhea. Please continue to take the Vancomycin 125mg by oral route every 6 hours (or 4 times daily) until finish for a total of 14 days. You should start taking the pill today! - The Palliative Care team has had discussion with you and your family about the prognosis. Your bone is abnormal and is concerning for cancer, but we are not sure of the primary source. However, because you wish not to pursue further imaging or treatment, Hospice Care is the most appropriate. - Hospice Care will send someone to your house to take care of you. - We give you some pain medication to take daily and as needed for pain. Further refills will come from the Hospice doctor. - You agreed to no further dialysis at this point. - Please call the Hospice Care if you need anything. You should also discuss about what medications to continue with them. Follow-up Provider: VALENTINA GUERRA Follow-up with PCP in: 1 week Dayo Mckeon DO Sep 16, 2016 13:43
--- NOTE | 2016-09-16 15:03 | NUR ---
Wound Care Patient seen for right hel wound care at bedside prior to discharge. Heel wound (diabetic foot ulcer) cleaned with saline and gauze, measures 1.5 cm in diameter with depth of 0.4 cm. redressed with hydrogel and mepilex foam dressing. Wound stable, patient reports she is going home with hospice.
--- NOTE | 2016-09-16 15:32 | NUR ---
Discharge Pt and family members received education on new medications. All prescriptions were given. IVs were removed. Pt was not on telemetry. Received zofran for nausea. Pt and family demonstrated understanding of teaching, able to verbalize back. Pt received Vanco dose prior to leaving. Pt left with all belongings and was escorted down to vehicle by a staff member.
--- NOTE | 2016-09-16 15:39 | NUR ---
Faxed discharge information to [facility] per [employer]PORTER [phone]
--- NOTE | 2016-09-16 15:40 | NUR ---
Social Work Note: Discharge/Multidisciplinary Rounds Data& Assessment: Pt was discussed in AM rounds, per pt is medically ready for discharge. Palliative care has met with pt and pt family at bedside to discuss goals of care. Pt has decided to discontinue dialysis and go home with home with hospice. Pt was choiced and prefers [facility], referral made and they will be able to open with pt tomorrow morning at 10am with equipment delivery tomorrow morning as well. SW confirmed discharge plan with "PC" from [facility] and confirmed discharge plan with pt daughter at bedside. Pt daughter denies any other needs and feels comfortable transporting pt home privately. Pt and pt daughter denies any other needs. No other discharge needs or Md orders identified. All updated and agreeable to plan. Plan: Per pt is medically stable to discharge home via with [facility] to open in her home tomorrow morning at 10am. Pt and pt daughter denies any other needs. No other discharge needs or Md orders identified. All updated and agreeable to plan. REX Mcnally
--- NOTE | 2016-09-16 19:42 | PCM.DC.MED ---
Discharge Summary Date of Service Sep 16, 2016 Dates of Hospitalization Date of Hospital Admission Sep 12, 2016 at 23:07 Date of Discharge: Sep 16, 2016 Providers: Admitting Physician: Vicki Day DO Primary Care Physician: Franklyn Bose DO Attending Physician: Mac Hanks MD Diagnosis at Time of Discharge Diagnosis at Time of Discharge C. diff diarrhea, POA, active, improving. Abnormal CT brain and abdomen, chronicity unknown, present on admission. Under investigation. Acute hypoxemic respiratory failure, present on admission. Active. Suspected healthcare associated pneumonia, acute, present on admission. Unlikely. Possible metabolic encephalopathy, acute, present on admission. Resolved ESRD on HD, chronic. Presumed stable HFrEF, chronic. Presumed stable Elevated troponin, likely chronic. Presumed stable Elevated alkaline phosphatase, chronic. Appears stable Diabetes mellitus, non-insulin using, chronic. Presumed stable Left heel ulceration, chronic. Presumed stable Chronic bilateral lower extremity pain. Presumed stable Tobacco dependence, chronic. Presumed stable Depression, chronic. Presumed stable Goals of care. Ongoing Consultations Nephrology Palliative care Procedures XRay, CTs & MRIs PROCEDURE: CT ABDOMEN PANCREATIC PROTOCOL IMPRESSION: 1. Increased, severe pancreatic ductal dilatation, associated with mild biliary ductal dilatation. Findings indicate a stricture, possibly malignant. Given the suboptimal MRCP examination, ERCP is recommended for further assessment. 2. 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 Atypical appearance of metastatic disease could produce this appearance as well. Further assessment with lumbar spine MRI with and without intravenous contrast recommended. Findings and recommendations discussed with Dr. Gifford on 09.15.16 at 1532 hrs. 3. Left superior pole renal cyst demonstrates mural calcifications as well as a new enhancing mural nodule, possibly indicating malignancy. 4. Bilateral renal calcifications, as before. 5. New right lower lobe pulmonary nodule. Followup is recommended as below. 6. No change in mildly prominent retrocrural lymph nodes. Fleischner Society criteria for SOLID lung nodule followup. Nodule size (mm)Low-risk patientHigh-risk patient<6 (single or multiple)No routine followup.Optional CT at 12 months. 6-8 (single or multiple)CT at 6-12 months, then optional CT at 18-24 mo.CT at 6-12 months, then CT at 18-24 months. >8 (single)CT, PET-CT, or biopsy at 3 months. Same as for low-risk pts. >8 (multiple)CT at 3-6 months, then optional CT at 18-24 mo.CT at 3-6 months, then CT at 18-24 months. Recommendations do not apply to lung cancer screening, patients with immunosuppression, or patients with known primary cancer. Dictated by: Donn Lizama M.D. on 09/15/2016 at 15:15 PROCEDURE: X-RAY CHEST ONE VIEW, PORTABLE IMPRESSION: Diffuse pulmonary interstitial markings suspicious for pulmonary edema. Infection could also be considered in the appropriate differential. Dictated by: Tiffanie Acosta M.D. on 09/12/2016 at 18:46 PROCEDURE: CT BRAIN WITHOUT CONTRAST IMPRESSION: 1. No acute intracranial findings. 2. Abnormal appearance of the medullary bone of the calvarium. Please correlate clinical history. This finding is suggestive of diffuse metastatic disease or multiple myeloma. Dictated by: Tiffanie Acosta M.D. on 09/12/2016 at 17:42 ECG 12 Lead Sinus rhythm at rate of [address] changes Brief History Ms. Rosas is a pleasant 71-year-old female with history of end-stage renal disease on hemodialysis MWF, tobacco dependence, chronic pain secondary to multiple orthopedic issues, and history of suspicious lesions of pancreas and bone, that presented to [facility] 09/12/2016 with complaints of fatigue and decreased consciousness following hemodialysis session. Patient was admitted for evaluation and treatment of need for additional hemodialysis, and etiology of decreased level of consciousness, including possibility of infection, electrolyte abnormality, or dysrhythmia. Hospital day: 1 Ms. Rosas is accompanied by her two daughters, who provided additional history. Patient states that she has felt "terrible" over the recent year, and states she feels the same pre-and postdialysis sessions. Patient and daughters confirm that patient has been noncompliant with dialysis session, often missing appointments, with a recent absence of 8 sessions, which estimates to a total of 2 weeks without receiving dialysis. Patient and family attribute missed dialysis sessions secondary to transport issues general feeling of being unwell. Her daughters that are present, state that the patient was unresponsive after her dialysis session today, and reports that she recently over the past week has been experiencing cold-like symptoms, such as runny nose, cough, congestion. Patient is a current smoker. Patient currently denies any of these cold-like symptoms, and states that she simply feels very fatigued. Patient denies any fever, chills, nausea, vomiting, diarrhea, constipation, dysuria, hematuria. She states chronic bilateral lower extremity pain, which she reports secondary to previous fractures that have remained "unhealed." The daughters have expressed concern of her recent unresponsive episode, and states that the patient is normally witty and alert. During the admission interview, patient was requesting multiple food items, including seasoned beef, grape crush, and lays potato chips. 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 Vaughan, and receives dialysis at [facility]. Most recent dialysis session day of admission, 09/12/2016, with prior dialysis session 09/07/2016. In the ED, temperature 37.3, pulse 94, respiratory rate 19, blood pressure 113/ 73, 97% on room air; initial labs revealed sodium 141, potassium 5.1, creatinine 5.71, troponin 0.161, alkaline phosphatase 482, pro calcitonin 0.91, lactic acid 1.4; initial imaging included chest x-ray which revealed diffuse pulmonary interstitial markings; CT brain without contrast reviewed showed abnormal appearance of medullary bone of calvarium suggestive of diffuse metastatic disease or multiple myeloma, no other acute intracranial findings were noted. Initial therapies included cefepime 2 g and 50 g fentanyl. At time of admission, patient was alert, oriented, and responsive. She was transferred to [facility] in stable condition. Hospital Course Ms. Rosas is a pleasant 71-year-old female with history of end-stage renal disease on hemodialysis MWF, tobacco dependence, chronic pain secondary to multiple orthopedic issues, and history of suspicious lesions of pancreas and bone, that presented to [facility] 09/12/2016 with complaints of fatigue and decreased consciousness following hemodialysis session. Patient was admitted for evaluation and treatment of need for additional hemodialysis, and etiology of decreased level of consciousness, including possibility of infection, electrolyte abnormality, or dysrhythmia. C. diff diarrhea, POA, active, improving. - Patient reports having diarrhea for several days prior to admission. She denies any recent antibiotic use, but record indicates that she was on Levaquin for HCAP in July 2016. - C. diff PCR positive. - Continue contact isolation. - Continue Vancomycin 125mg PO Q6H x 14 days. Day 4 today. Patient was discharged with PO Vanco for total of [address] brain and abdomen, chronicity unknown, present on admission. Under investigation - Unknown history of malignancy and/or multiple myeloma. - CA 19-9 Dated June 2015: Elevated at 63 - Alpha/beta/gamma globulins and monoclonal protein studies were ordered March 2016, which appeared unremarkable at that time - High index of suspicion for bony metastasis from unknown origin, likely breast cancer. Patient has a history of breast cancer s/p lumpectomy in the past. Unclear of current status. - CT brain without contrast 09/12/2016: No acute intracranial findings, abnormal appearance of medullary bone of calvarium suggestive of diffuse metastatic disease or multiple myeloma - CT abdomen Pancreatic protocol on 09/15/16 showed Increased, severe pancreatic ductal dilatation, associated with mild biliary ductal dilatation. Findings indicate a stricture, possibly malignant. Given the suboptimal MRCP examination , ERCP is recommended for further assessment. 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 Atypical appearance of metastatic disease could produce this appearance as well. Further assessment with lumbar spine MRI with and without intravenous contrast recommended. - Findings were discussed with the patient and her family on 09/16/16. Patient declined further treatment and agreed to go on Hospice Care. She would like to stop dialysis as well. - Follow up with [facility] next week. Acute hypoxemic respiratory failure, present on admission. Active. - Patient had a desaturation episode on admission (83% at RA) then resolved to 97% at room air, but shows signs of sleep apnea this morning. - Likely secondary to decreased loss of consciousness - No history of home oxygen, although patient is a current tobacco user - Patient has a history of KATERIN, but reports not using CPAP at home. She states she already has O2 at home but does not want to use it. - Follow clinically and have O2 available during sleep. Will need further evaluation by Hospice. Suspected healthcare associated pneumonia, acute, present on admission. Unlikely. - On admit: WBC 9.3 with 90% neutrophils; chest x-ray revealed diffuse interstitial markings, which appear worsened compared to previous CXR July 2016 ( reviewed by admitting team at time of admission). - Family reports recent cough, congestion, rhinorrhea. - Elevated pro calcitonin at 0.91, but may also be secondary to end-stage renal disease. Today trend up to 1.41. 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 - Patient received cefepime 2 g in ED and 500mg daily for a total of 3 days. - Follow clinically Possible metabolic encephalopathy, acute, present on admission. Resolved - Family reports decreased LOC/unresponsiveness following HD day of admission; pt does not recall these events - Likely secondary to fluid shifts/fatigue following HD session and noncompliance with dialysis. - Resolved at time of admission - CT brain did not reveal evidence of acute intracranial changes suggestive of stroke - Will continue to monitor; consideration of infection on differential - No additional imaging at this time ESRD on HD, chronic. Presumed stable - On admit: Creatinine 5.71, potassium 5.1, phosphorus 5.0 - Patient reports dialysis completed at [facility]; outpatient clinical athletic instructor Dr. Vaughan - Reports last dialysis day of admission, 09/12/2016 with prior dialysis session on 09/07/16. - Appreciate Nephrology input. Per patient's request, will stop dialysis at this point. - D/C renal medications. HFrEF, chronic. Presumed stable - Echo 11/2015: EF 65-70, with mild concentric left ventricular hypertrophy; right ventricle mildly dilated with right ventricular systolic function mildly reduced - May be etiology of pulmonary edema in CXR. - Resume home furosemide for comfort. Follow up with Hospice for medication reconciliation as outpatient. Elevated troponin, likely chronic. Presumed stable - On admit: 0.161 - Records indicate history of elevation with most recently June 2016 at 0.147 - EKG normal - Likely secondary to ESRD - Monitor for symptoms of chest pain, shortness of breath Elevated alkaline phosphatase, chronic. Appears stable - On admit: Alkaline phosphatase 482, likely due to bony lesions such as bone metastases or Paget's disease. - Previous values, with earliest dated March 2016, at 416 - May be secondary to underlying malignancy Diabetes mellitus, non-insulin using, chronic. Presumed stable - Patient denies any history of diabetes, although diagnosis is found throughout chart - A1c November 2015: 5.5 - No diabetic medications on reconciliation - No correctional scale ordered at time Left heel ulceration, chronic. Presumed stable - Wound care consult Chronic bilateral lower extremity pain. Presumed stable - Patient reports history of "unhealed" fractures - No additional imaging ordered at this time - Resume home pain management with Percocet 10mg Q6H PRN Tobacco dependence, chronic. Presumed stable - Patient and family report daily tobacco use, estimated at 1 pack per day - Nicotine patch ordered Depression, chronic. Presumed stable - Continue fluoxetine per home schedule when reconciliation completed Goals of care. Ongoing - Patient currently full code - Questionable underlying malignancy based on previous imaging and laboratory values for tumor marker - Family wants to pursue further imaging to confirm the cancer and will decide. Family meeting tomorrow. - Patient is adamant about full code - Palliative care consulted. Appreciate their input. Family concerns. - [employer] consult - Pt has fired multiple caregivers, and family admits pt is "difficult" and "demanding" - Please assist with resources Diet: General; although patient is a renal patient, patient is unlikely to be compliant with renal diet. Due to uncertainty of underlying malignancy, will proceed with general diet at this time DVT: Hep q8 GI: None PRN: Bowel/nausea/fever/pain IVF: None Code: Limited interventions. DNI. Patient status: Due to severity of presenting symptoms, anticipated course of care, and risk of adverse events, anticipated length of stay exceeds two midnights; patient admitted as inpatient status. Exam Vital Signs (Last) Date Time Temp Pulse Resp B/P Pulse Ox O2 Delivery O2 Flow Rate FiO2 09/16/16 13:09 36.5 79 21 129/81 100 Nasal Cannula 2.00 09/15/16 23:13 Exam General: Alert and oriented, in no acute distress, chronically ill appearance, cachetic HEENT: Atraumatic; arcus senilis noted. Cardiac: Regular rate and rhythm; no murmurs appreciated Respiratory: Adequate airflow all colon, scattered rales noted, no wheezes appreciated, no increased work of breathing GI: Soft, nondistended, mild tenderness to palpation in the RUQ, no guarding or rebound tenderness, normal bowel sounds Extremities: No edema; ulceration noted on left heel with bandage is clean dry and intact; no cyanosis; IV site left lower extremity without surrounding erythema Skin: Dry, warm; diffuse scaling of bilateral lower extremities Neuro: Facial expression symmetric, speech without slurring, Psych: appropriate mood and affect. Test 09/12/16 22:10 09/13/16 02:55 09/14/16 05:15 09/15/16 10:03 Lactic Acid Level 1.4mmol/L (0.4-2.0) Ammonia 29ug/dL (18-53) Troponin T 0.161ug/L (0.0-0.011) Phosphorus Level 6.0mg/dL (2.5-4.9) Neutrophils (%) (Auto) 75.8% (40-74) Lymphocytes (%) (Auto) 14.7% (14-46) Monocytes (%) (Auto) 7.4% (4-12) Eosinophils (%) (Auto) 1.7% (0-5) Basophils (%) (Auto) 0.2% (0-3) Procalcitonin 1.46ng/mL (0.00-0.08) Total Bilirubin 0.4mg/dL (0.0-1.2) Aspartate Amino Transf (AST/SGOT) 16U/L (0-50) Alanine Aminotransferase (ALT/SGPT) 5U/L (0-32) Alkaline Phosphatase 402U/L (25-165) Total Protein 6.4g/dL (6.4-8.4) Albumin 3.7g/dL (3.4-5.0) Hold Gordon Top Tube Received (Received) Test 09/15/16 17:14 09/16/16 04:45 White Blood Count 5.3th/mm3 (3.8-10.1) Red Blood Count 2.75mil/mm3 (3.90-5.20) Hemoglobin 8.2g/dL (12.0-15.6) Hematocrit 25.9% (35.0-46.0) Mean Corpuscular Volume 94.2fL (81-100) Mean Corpuscular Hemoglobin 29.8pg (27.0-35.0) Mean Corpuscular Hemoglobin Concent 31.7% (32.0-37.0) Red Cell Distribution Width 16.8% (12.3-15.4) Platelet Count 167bil/L (150-400) Sodium Level 136mEq/L (134-144) Potassium Level 3.7mEq/L (3.5-5.2) Chloride Level 94mEq/L (97-108) Carbon Dioxide Level 26mmol/L (18-29) Blood Urea Nitrogen 18mg/dL (8-27) Creatinine 5.57mg/dL (0.57-1.00) Estimat Glomerular Filtration Rate 10mL/min (>59) Glucose Level 137mg/dL (60-99) Calcium Level 7.7mg/dL (8.5-10.1) Magnesium Level 2.0mg/dL (1.6-2.6) Discharge Medications Discharge Medications Fluoxetine (Prozac) 20 Mg Capsule 20 MG PO DAILY (Reported) Furosemide (Furosemide) 40 Mg Tablet 40 MG PO QAM (Reported) Morphine Sulfate ER (Morphine Sulfate ER) 15 Mg Tablet 15 MG PO BID Prescribed by: ANGIE GIFFORD DO Vancomycin (Vancomycin) 125 Mg Capsule 125 MG PO Q6 Prescribed by: AGNIE GIFFORD DO As needed ([Morphine sulfate ]) 15 MG PO Q4H PRN PRN For Pain Prescribed by: ANGIE GIFFORD DO Diclofenac Gel (Voltaren Gel) 100 Gm Tube 1 APPLIC TOPICAL QID PRN PRN joint pain (Reported) Docusate Sodium (Colace) 100 Mg Capsule 100 MG PO HS PRN PRN For Constipation ( Reported) Ondansetron ODT (Ondansetron ODT) 4 Mg Tab.rapdis 4 MG PO Q8H PRN PRN For Nausea Prescribed by: ANGIE GIFFORD DO hydrOXYzine Hcl (HydrOXYzine Hcl) 25 Mg Tablet 25 MG PO Q8H PRN PRN For Itching Prescribed by: ANGIE GIFFORD DO oxyCODONE-Acetaminophen 10-325 mg (oxyCODONE-Acetaminophen 10-325 mg) 1 Each Tablet 1 TABLET PO Q6H PRN PRN For Pain Prescribed by: ANGIE GIFFORD DO Followup Plan Disposition: Home with [facility] Discharge Diet: Renal Diet Discharge Activity: No restrictions Patient Instructions - You were found to have C. diff infection that cause the diarrhea. Please continue to take the Vancomycin 125mg by oral route every 6 hours (or 4 times daily) until finish for a total of 14 days. You should start taking the pill today! - The Palliative Care team has had discussion with you and your family about the prognosis. Your bone is abnormal and is concerning for cancer, but we are not sure of the primary source. However, because you wish not to pursue further imaging or treatment, Hospice Care is the most appropriate. - Hospice Care will send someone to your house to take care of you. - We give you some pain medication to take daily and as needed for pain. Further refills will come from the Hospice doctor. - You agreed to no further dialysis at this point. - Please call the Hospice Care if you need anything. You should also discuss about what medications to continue with them. Follow-up Provider: HOLLY MCLAUGHLIN Follow-up with PCP in: 1 week copies to: HOLLY MCLAUGHLIN Ngochanh H DO Sep 16, 2016 14:03
[2016-09-17] MEDS ORDERED: Morphine ER 15 mg (MS Contin) Tablet PO SCH (06:00)
== END 2016-09-16 14:20 | disposition hospice, home (50) | DRG 189 ==
LOC: SED 15:52 → EDBD 15:52 → PCC 23:07
PROVIDERS: ADMIT Internal Medicine; ATTEND Internal Medicine
PROC: 5A1D00Z (ICD-10-PCS; principal; 2016-09-13)
PROC: 5A1D00Z (ICD-10-PCS; 2016-09-14)
DX: J96.01 Acute respiratory failure with hypoxia (principal); J18.9 Pneumonia, unspecified organism; N18.6 End stage renal disease; G93.41 Metabolic encephalopathy; A04.7 Enterocolitis due to Clostridium difficile; I50.22 Chronic systolic (congestive) heart failure; I13.2 Hypertensive heart and chronic kidney disease with heart failure and with stage 5 chronic kidney disease, or end stage renal disease; R64 Cachexia; L97.429 Non-pressure chronic ulcer of left heel and midfoot with unspecified severity; C25.9 Malignant neoplasm of pancreas, unspecified; C79.51 Secondary malignant neoplasm of bone; Y95 Nosocomial condition; Z99.2 Dependence on renal dialysis; Z91.15 Patient's noncompliance with renal dialysis; J44.9 Chronic obstructive pulmonary disease, unspecified; H54.42 Blindness, left eye, normal vision right eye; G47.33 Obstructive sleep apnea (adult) (pediatric); E11.21 Type 2 diabetes mellitus with diabetic nephropathy; Z68.20 Body mass index [BMI] 20.0-20.9, adult; E11.621 Type 2 diabetes mellitus with foot ulcer; F17.210 Nicotine dependence, cigarettes, uncomplicated; Z66 Do not resuscitate; Z51.5 Encounter for palliative care

== ENCOUNTER 2016-09-27 22:10 | Emergency (ER) | payer MEDICARE, MEDICAID ==
[~2016-09-27] VITALS: Ht 152.4 cm; Wt 52.3 kg
[2016-09-27 22:10] VITALS: BP 120/60; PULSE 73; RESP 17; O2SAT 99
[~2016-09-27 22:10] MED LIST changes: -CALC0.257 PO; -CALC667T5 PO; -CINA30TA PO; +DICL100G8 TOPICAL; -FERR-83 PO; -FLUO20CA25 PO; -FOLI1TAB34 PO; -LEVO750T9 PO; +MORP-32 PO; +MORPHINE SULFATE PO; +VANC125C3 PO
--- NOTE | 2016-09-27 22:55 | ED.REPORT ---
HPI-General Illness Date of Service Sep 27, 2016 ED Provider: Andrea Morgan MD A 71 year old female with history of end stage renal disease on dialysis MWF, chronic anemia, diabetes mellitus, gastroparesis, hypertension, COPD, prior stroke, and newly diagnosed stage IV pancreatic and bone cancer presents to the ED [facility] with SOB that began earlier this evening. Patient also endorsees generalized weakness over the past few days. Patient is due for dialysis tomorrow and denies missing any recent dialysis appointments. She was recently admitted to the hospital on 09/12 for fatigue. Admission work-up revealed C.Diff diarrhea that was treated with Vancomycin and CT scan revealed suspicious lesions to the pancreas and bone. She was discharged in stable condition on 09/16 with plan to follow up with PCP and nephrology. Nursing Notes Stated Complaint: WEAKNESS Chief Complaint: Respiratory Complaints Nursing Notes Reviewed: Yes Allergies: Coded Allergies: gabapentin (Verified Allergy, Severe, 09/27/16) Swelling and gait problems hydromorphone HCl (Verified Allergy, Severe, Hallucinations, 09/27/16) "Trip like on LSD" sumatriptan succinate (Verified Allergy, Severe, Dizziness, 09/27/16) Chest pain and dizziness TAPE (Verified Allergy, Intermediate, 09/27/16) itching latex (Verified Allergy, Intermediate, 09/27/16) Itching from gloves morphine (Verified Allergy, Unknown, Hallucinations, 09/27/16) Scheduled Fluoxetine (Prozac) 20 Mg Capsule 20 MG PO DAILY Furosemide (Furosemide) 40 Mg Tablet 40 MG PO QAM Morphine Sulfate ER (Morphine Sulfate ER) 15 Mg Tablet 15 MG PO BID Vancomycin (Vancomycin) 125 Mg Capsule 125 MG PO Q6 Scheduled PRN ([Morphine sulfate ]) 15 MG PO Q4H PRN PRN For Pain Albuterol Neb Soln (Albuterol Neb Soln) 2.5 Mg/3 Ml Vial.neb 2.5 MG INHALATION Q4H PRN PRN For Shortness of Breath Diclofenac Gel (Voltaren Gel) 100 Gm Tube 1 APPLIC TOPICAL QID PRN PRN joint pain Docusate Sodium (Colace) 100 Mg Capsule 100 MG PO HS PRN PRN For Constipation Ondansetron ODT (Ondansetron ODT) 4 Mg Tab.rapdis 4 MG PO Q8H PRN PRN For Nausea hydrOXYzine Hcl (HydrOXYzine Hcl) 25 Mg Tablet 25 MG PO Q8H PRN PRN For Itching oxyCODONE-Acetaminophen 10-325 mg (oxyCODONE-Acetaminophen 10-325 mg) 1 Each Tablet 1 TABLET PO Q6H PRN PRN For Pain General Time Seen by MD: 22:40 Chief Complaint Other (Shortness of breath) Hx Obtained From: Patient Arrived By: Ambulance Sudden in Onset?: No Onset Occurred: 1 - 4 hours ago Symptom Duration: Since onset Associated with: Reports: Shortness of breath, Weakness Pertinent Negative: Pt denies other symptoms Recent Healthcare: Recent doctor visit, Recent hospitalization Past Medical History Past Medical History Notes: Dietitian Helper: Dr. Allen Past Medical History 1. ESRD on dialysis MWF 2. Hypertension 3. Recently diagnosed stage IV cancer 4. Diabetes mellitus 5. Stroke 6. COPD 7. Chronic tobacco dependence. 8. Anemia of chronic disease. 9. History of right lower lobe pneumonia. 10. Hospitalization, November 2012, for atypical chest pain with negative myocardial stress test. 11. Staph aureus sepsis, December 2012. 12. Clostridium difficile colitis 13. Diabetic gastroparesis 14. Reports mass on pancreas 15. Diastolic dysfunction on echocardiogram, November 10, 2012. 16. 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 Past Surgical History 1. Left arm fistula. 2. Left brachial basilic fistula. 3. Right brachial basilic fistula. 4. Cholecysectomy 5. 6. Evacuation of wound hematoma due to thrombosed left brachial basilic fistula, April 2012. 7. 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 Family History Noncontributory Smoking History Current Every Day Smoker Social History Lives in [place] Alcohol Use: "Social" Drug Use: Denies drug use Other Social History: Lives alone, Local resident Ambulatory Status Wheelchair Review of Systems Full Review of Systems Constitutional: Reports: Weakness - generalized Respiratory: Reports: Shortness of breath Complete sys rev & neg: except as marked. Physical Exam Vital Signs Vital Signs Date Time Temp Pulse Resp B/P Pulse Ox O2 Delivery O2 Flow Rate FiO2 09/28/16 02:12 36.8 68 18 140/75 95 Nasal Cannula 2 09/28/16 01:07 67 20 100 Nasal Cannula 2 09/28/16 00:28 65 18 117/65 94 Nasal Cannula 2 09/27/16 22:10 36.8 73 17 120/60 99 Nasal Cannula 2 Initial VS: Reviewed Neck: Supple, Non-tender, Full range of motion Extremities: Vascular intact, Neuro intact, No swelling, No tenderness Neurologic: Alert, Oriented, Nonfocal Psychiatric: Mood/affect normal, Behavior normal, Normal thought content General/Constitutional: Awake, Alert, No acute distress Head / Eyes: Atraumatic, Normocephalic, PERRL HEAD/EYES: Mild facial edema around bilateral eyes Respiratory / Chest: Atraumatic Diminished Breath Sounds: Positive: Decreased bilateral Rales / Rhonchi: Positive: Rales bilateral bases Cardiovascular: Heart rate NL, Pulses = bilaterally Trace lower extrmity edema Heart sounds inaudible Abdomen: Atraumatic, Soft, Non-tender Skin: Atraumatic, Warm, Dry SKIN: Chronic psoriasis Interpretation & Diagnostics Lab Results Interpretation Result Diagram: 09/27/16232409/27/165 Test 09/27/16 23:25 White Blood Count 6.4th/mm3 (3.8-10.1) Red Blood Count 3.14mil/mm3 (3.90-5.20) Hemoglobin 9.6g/dL (12.0-15.6) Hematocrit 29.8% (35.0-46.0) Mean Corpuscular Volume 94.9fL (81-100) Mean Corpuscular Hemoglobin 30.6pg (27.0-35.0) Mean Corpuscular Hemoglobin Concent 32.2% (32.0-37.0) Red Cell Distribution Width 17.2% (12.3-15.4) Platelet Count 162bil/L (150-400) Neutrophils (%) (Auto) 74.8% (40-74) Lymphocytes (%) (Auto) 18.0% (14-46) Monocytes (%) (Auto) 5.3% (4-12) Eosinophils (%) (Auto) 1.2% (0-5) Basophils (%) (Auto) 0.2% (0-3) Prothrombin Time 10.8sec (8.1-12.5) Prothromb Time International Ratio 1.01ratio Activated Partial Thromboplast Time 26.3sec (22.8-33.0) Sodium Level 139mEq/L (134-144) Potassium Level 4.7mEq/L (3.5-5.2) Chloride Level 97mEq/L (97-108) Carbon Dioxide Level 21mmol/L (18-29) Blood Urea Nitrogen 47mg/dL (8-27) Creatinine 7.39mg/dL (0.57-1.00) Estimat Glomerular Filtration Rate 7mL/min (>59) Glucose Level 119mg/dL (60-99) Calcium Level 8.8mg/dL (8.5-10.1) Magnesium Level 2.3mg/dL (1.6-2.6) Total Bilirubin 0.2mg/dL (0.0-1.2) Aspartate Amino Transf (AST/SGOT) 11U/L (0-50) Alanine Aminotransferase (ALT/SGPT) 5U/L (0-32) Alkaline Phosphatase 517U/L (25-165) Troponin T 0.187ug/L (0.0-0.011) Pro-B-Type Natriuretic Peptide 39165ze/mL (0-301) Total Protein 6.7g/dL (6.4-8.4) Albumin 3.5g/dL (3.4-5.0) Hold Gordon Top Tube Received (Received) ECG Interpretation ECG Interpretation: Sinus Rhythm Rate 68 bpm Atrial premature complex Abnormal T in lateral leads Time: 22:32 Interpreted by: ED physician X-Ray Chest Interpretation Chest Xray Interpretation: Lung mat CHF Interpretation / Wet Read by: Wet read ED physician Re-Eval/Medical Decision Med Decision/Clinical Course 71-year-old female with end-stage renal disease, recently diagnosed pancreatic cancer stage IV with metastases to bone and suspicious for metastasis to lung. She presents with dyspnea tonight, and feels much relieved after an albuterol nebulizer, which she requested. She does continue to smoke. Her chest x-ray does not have any significant amount of pulmonary congestion above and beyond her usual. She does have a lesion in the right upper lobe that appears suspicious for metastasis. No evidence of pneumonia. She feels much better and wishes to go home if possible, and was provided with a nebulizer for home use. She was given a single dose of Decadron for her presumptive COPD, albuterol for home use, and a nebulizer. She has dialysis appointment this morning at 11:30. She is discharged in stable condition. Time of Eval: 00:41 Re-Evaluation/Progress Note: Pt is rechecked. Sleeping with a rattling cough upon re-examination. She is informed of her lab results, EKG results and X-ray results. She is offered admission but declines at this time. Time of Eval: 01:11 Patient Status: Condition improved Re-Evaluation/Progress Note: Symptoms have improved following treatment. Patient is agreeable to discharge at this time. Counseled Regarding: Diagnosis, Lab results, Need for follow-up, When/why to return to ED Discharge & Departure Primary Impression: COPD (chronic obstructive pulmonary disease) COPD type: COPD with acute exacerbation Qualified Code: J44.1 - Chronic obstructive pulmonary disease with (acute) exacerbation Additional Impressions: Chronic back pain Pancreatic mass End stage renal disease on dialysis Tobacco dependence Disposition: Home Discharge Condition All VS Reviewed: Yes Condition: Stable Patient Instructions: Albuterol (By mouth), COPD (Chronic Obstructive Pulmonary Disease) (ED), Pulmonary Edema (ED), Shortness of Breath (ED) Additional Instructions: You may use albuterol one capsule nebulized four times daily. Follow-up with your doctor in the office today. Your doctor must re-prescribe the pain medication as appropriate. We are prohibited from doing that. Return if your breathing worsens despite treatment, or if you develop chest pain or other new symptoms. Referrals: Franklyn Bose DO (PCP) Scribe Attestation Portions of this note were transcribed by Courtney Kendall. I, Dr. Morgan personally performed the history, physical exam and medical decision-making; I reviewed and confirmed the accuracy of the information in the transcribed note. Signed by: Ebenezer Esqueda, 09/28/16 0122. copies to: Franklyn Bose Christopher W MD Sep 27, 2016 22:55 COURTNEY KENDALL Sep 27, 2016 23:02
[2016-09-27 23:32] LABS: BASOPHILS % (AUTO) 0.2 % (0-3); EOSINOPHILS % (AUTO) 1.2 % (0-5); MONOCYTES % (AUTO) 5.3 % (4-12); Mean Corpuscular Hemoglobin 30.6 pg (27.0-35.0); Mean Corpuscular Volume 94.9 fL (81-100); NEUTROPHILS % (AUTO) 74.8 % (40-74); Platelet Count 162 bil/L (150-400)
[2016-09-27 23:51] LABS: INR 1.01 ratio
[2016-09-28 00:19] LABS: Magnesium 2.3 mg/dL (1.6-2.6); TROPONIN T 0.187 ug/L (0.0-0.011)
[2016-09-28 00:28] VITALS: BP 117/65; PULSE 65; RESP 18; O2SAT 94
[2016-09-28] MEDS ORDERED: Albuterol 2.5 mg/3 mL Inhalation Solution NEB ONE ×2 (00:45→01:15)
[2016-09-28] MEDS ORDERED: Albuterol-Ipratropium 3 mL Inhalation Solution NEB ONE (00:45)
[2016-09-28] MEDS ORDERED: Dexamethasone Inj 10 MG in 0.9% Sodium Chloride-Pha MIX 50 ML IV ONE (01:00)
[2016-09-28 01:07] VITALS: PULSE 67; RESP 20; O2SAT 100
[2016-09-28] MEDS ORDERED: oxyCODONE ER 10 mg ER12 Tablet PO ONE (01:15)
[2016-09-28] MEDS ORDERED: ALBU2.5V4 INHALATION (01:19)
[2016-09-28] MEDS ORDERED: Dexamethasone 20 mg/2 mL Oral Solution PO ONE (01:20)
[2016-09-28 02:12] VITALS: BP 140/75; PULSE 68; RESP 18; O2SAT 95
--- NOTE | 2016-09-28 11:53 | DRSVH ---
PROCEDURE: X-RAY CHEST ONE VIEW, PORTABLE ([id number]) INDICATIONS: shortness of breath TECHNIQUE: One view of the chest was acquired. COMPARISON: [facility], CR, XR CHEST 1VW (PORTABLE), 06/29/2016, 7:09. [facility], CR, XR CHEST 1VW (PORTABLE), 04/21/2016, 12:20. [facility], CR, XR CHEST 1VW (PORT ABLE), 07/06/2016, 21:01. [facility], CR, XR CHEST 1VW (PORTABLE), 07/15/2016, 4:30. [facility], CR, XR CHEST 1VW (PORTABLE), 09/13/2016, 7:43. FINDINGS: Surgical changes and devices: Stable positioning of right IJ double-lumen dialysis catheter tip proje cted over the right atrium. Lungs and pleura: Right upper lobe masslike opacity redemonstrated. Interstitial opacities present b ilaterally with patchy bilateral basilar airspace opacities. No pneumothorax. Mediastinum: Mediastinal contours appear normal. Heart size is normal. Bones and chest wall: No suspicious bony lesions. Overlying soft tissues appear unremarkable. IMPRESSION: 1. Focal right upper lobe masslike opacity redemonstrated. Underlying neoplasm cannot be excluded. If indicated chest CT scan could be performed. 2. Mild edema and/or pneumonia involving the lung bases. 1. Dictated by: Noam Amado [facility] Interpreted: Asad Hung MD on 09/28/2016 at 9:35 Approved by: Asad Hung M.D. on 09/28/2016 at 11:51
== END 2016-09-28 02:13 | disposition home or self-care (01) ==
LOC: SED 22:10
DX: J44.1 Chronic obstructive pulmonary disease with (acute) exacerbation (principal); K86.89 Other specified diseases of pancreas; M54.9 Dorsalgia, unspecified; G89.29 Other chronic pain; I13.2 Hypertensive heart and chronic kidney disease with heart failure and with stage 5 chronic kidney disease, or end stage renal disease; E11.22 Type 2 diabetes mellitus with diabetic chronic kidney disease; E11.43 Type 2 diabetes mellitus with diabetic autonomic (poly)neuropathy; N18.6 End stage renal disease; Z99.2 Dependence on renal dialysis; Z86.73 Personal history of transient ischemic attack (TIA), and cerebral infarction without residual deficits; F17.200 Nicotine dependence, unspecified, uncomplicated; Z88.5 Allergy status to narcotic agent; Z88.8 Allergy status to other drugs, medicaments and biological substances; Z91.040 Latex allergy status
CPT/HCPCS: 36415; 71010; 80053; 83735; 83880; 84484; 85025; 85610; 85730; 93005; 94640; 94799; 99285; J7613; J7620

== ENCOUNTER 2016-10-31 15:05 | Inpatient (IN) | payer MEDICARE, MEDICAID ==
[~2016-10-31] VITALS: Ht 152.4 cm; Wt 54.6 kg
[~2016-10-31 15:05] MED LIST changes: +ALBU2.5V4 INHALATION
--- NOTE | 2016-10-31 15:14 | ED.REPORT ---
HPI-General Illness Date of Service Oct 31, 2016 ED Provider: Antonio Carlton MD Patient is a 71 year old female with a hx of C-diff, CVA x3 with residual weakness, CHF, HTN, DM, and ESRD on HD on ,, and Wednesday who presents to the ED via EMS complaining of diarrhea. Patient reports going through 18 adult diapers in 2 days. She also complains of SOB, nausea, vomiting, and decreased appetite onset 3 days ago. She denies fever, chills, headache, chest pain, or any other symptoms. She missed her HD today due to not being able to find a way to make it to her appointment. She has an appointment of Wednesday at 1130. She reports that she has been increasingly weak and having difficulty caring for herself at home. Nursing Notes Stated Complaint: SHORTNESS OF BREATH Nursing Notes Reviewed: Yes Allergies: Coded Allergies: gabapentin (Verified Allergy, Severe, 09/27/16) Swelling and gait problems hydromorphone HCl (Verified Allergy, Severe, Hallucinations, 09/27/16) "Trip like on LSD" sumatriptan succinate (Verified Allergy, Severe, Dizziness, 09/27/16) Chest pain and dizziness TAPE (Verified Allergy, Intermediate, 09/27/16) itching latex (Verified Allergy, Intermediate, 09/27/16) Itching from gloves morphine (Verified Allergy, Unknown, Hallucinations, 09/27/16) Scheduled Fluoxetine (Prozac) 20 Mg Capsule 20 MG PO DAILY Furosemide (Furosemide) 40 Mg Tablet 40 MG PO QAM Scheduled PRN Albuterol Neb Soln (Albuterol Neb Soln) 2.5 Mg/3 Ml Vial.neb 2.5 MG INHALATION Q4H PRN PRN For Shortness of Breath Docusate Sodium (Colace) 100 Mg Capsule 100 MG PO HS PRN PRN For Constipation Ondansetron ODT (Ondansetron ODT) 4 Mg Tab.rapdis 4 MG PO Q8H PRN PRN For Nausea hydrOXYzine Hcl (HydrOXYzine Hcl) 25 Mg Tablet 25 MG PO Q8H PRN PRN For Itching oxyCODONE-Acetaminophen 10-325 mg (oxyCODONE-Acetaminophen 10-325 mg) 1 Each Tablet 1 TABLET PO Q6H PRN PRN For Pain Miscellaneous Medications Cholecalciferol (Vitamin D3) (Cholecalciferol) 1 Gm Crystals 1 GM MC Vit B Comp&C/Folic Acid/Vit D3 (Dialyvite 800 Plus D Wafer) 800 Mcg-2,000 Unit Tab.chew 1 EACH PO General Time Seen by MD: 15:13 Chief Complaint Diarrhea Hx Obtained From: Patient Arrived By: Ambulance Sudden in Onset?: Yes Onset Occurred: 3 days ago Symptom Duration: Since onset Similar Sx Previous: Yes Past Medical History Past Medical History Notes: Contracting Executive: Dr. Allen Past Medical History 1. ESRD on dialysis ,, wednesday 2. Hypertension 3. Recently diagnosed stage IV cancer 4. Diabetes mellitus 5. Stroke 6. COPD 7. Chronic tobacco dependence. 8. Anemia of chronic disease. 9. History of right lower lobe pneumonia. 10. Hospitalization, November 2012, for atypical chest pain with negative myocardial stress test. 11. Staph aureus sepsis, December 2012. 12. Clostridium difficile colitis 13. Diabetic gastroparesis 14. Reports mass on pancreas 15. Diastolic dysfunction on echocardiogram, November 10, 2012. 16. 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 17. CHF 18. Chronic back pain 19. Uterine and breast CA Past Surgical History 1. Left arm fistula. 2. Left brachial basilic fistula. 3. Right brachial basilic fistula. 4. Cholecysectomy 5. 6. Evacuation of wound hematoma due to thrombosed left brachial basilic fistula, April 2012. 7. 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 8. Breast biopsy 9. L tib/fib repair Family History Noncontributory Smoking History Current Every Day Smoker Social History Lives in [place] Alcohol Use: "Social" Drug Use: Denies drug use Other Social History: Lives alone, Local resident Ambulatory Status Wheelchair Review of Systems +decreased appetite Full Review of Systems Constitutional: Denies: Chills, Fever Respiratory: Reports: Shortness of breath Cardiovascular: Denies: Chest pain GI: Reports: Diarrhea, Nausea, Vomiting Neurologic: Denies: Headache Complete sys rev & neg: except as marked. Physical Exam Vital Signs Vital Signs Date Time Temp Pulse Resp B/P Pulse Ox O2 Delivery O2 Flow Rate FiO2 10/31/16 15:16 36.5 159/97 Initial VS: Reviewed, Vital signs abnormal Head / Eyes: Atraumatic, Normocephalic Neck: Supple, Full range of motion Skin: Warm, Dry Neurologic: Alert, Oriented, Nonfocal Psychiatric: Mood/affect normal, Behavior normal, Normal thought content General/Constitutional: Awake, Alert, No acute distress Mouth: Positive: Mucous membranes dry Respiratory / Chest: Atraumatic, Breath sounds NL, Breath sounds = bilat, No respiratory distress dialysis cath in R anterior chest wall Cardiovascular: Heart rate NL, Regular rhythm, Heart sounds NL Abdomen: Atraumatic, Soft, Non-tender Interpretation & Diagnostics Lab Results Interpretation Result Diagram: 11/01/16 0705 11/01/16 0705 Test 10/31/16 17:00 Lactic Acid Level 0.9mmol/L (0.4-2.0) Magnesium Level 2.4mg/dL (1.6-2.6) Lipase 30U/L (13-60) Hold Gordon Top Tube Received (Received) X-Ray Chest Interpretation Chest Xray Interpretation: IMPRESSION: 1. Bilateral interstitial infiltrates compatible with pulmonary edema. 2. Masslike density in the right apex unchanged from 09/27/2016. Dictated by: Eliud Lawrence M.D. on 10/31/2016 at 16:58 Approved by: Eliud Lawrence M.D. on 10/31/2016 at 17:02 View: AP & lat Interpretation / Wet Read by: Interpret - Radiologist Re-Eval/Medical Decision Med Decision/Clinical Course Patient is a 71 year old female with a hx of C-diff, CVA x3 with residual weakness, CHF, HTN, DM, and ESRD on HD on ,, and Wednesday who presents to the ED via EMS complaining of diarrhea. Patient reports going through 18 adult diapers in 2 days. She also complains of SOB, nausea, vomiting, and decreased appetite onset 3 days ago. She denies fever, chills, headache, chest pain, or any other symptoms. She missed her HD today due to not being able to find a way to make it to her appointment. She has an appointment of Wednesday at 1130. She reports that she has been increasingly weak and having difficulty caring for herself at home. Upon arrival to the emergency department the patient is afebrile with stable vital signs and examination as above. She is mentating normally. She appears profoundly dehydrated though is otherwise hemodynamically stable. She was treated with the below medications with good effect: IV fluids and IV Zofran Laboratory studies were obtained including CBC which was unremarkable and CMP which was unremarkable except for underlying renal failure. There were no significant electrolyte abnormalities though alkaline phosphatase was slightly elevated. At this time, I see no evidence of acute infectious etiology, significant traumatic injury or other immediate reversible medical condition. The patient is clearly having significant difficulty caring for herself at home resulting in missed dialysis appointments. I feel that she requires admission for this percent. Regarding her diarrhea, nausea and vomiting she reports history of C. difficile colitis though has not been on any antibiotics recently. She reports that the symptoms today are similar to previous episodes of C. difficile and we have pain to stool sample and sent for PCR. I withholding treatment of C. difficile pending results. Patient was discussed with admitting hospitalist and accepted for further management. She was transferred in stable condition. Time of Eval: 16:30 Re-Evaluation/Progress Note: Discussed plan for admit. Patient understands and agrees with plan. All questions addressed at this time. Consultation : Referral / Consult Name: Siena Sanders DO Consulted With: Hospitalist Call Returned at: 17:30 Verification Specialist: Will see patient, Agrees with eval, Agrees with plan, Accepts admit Note: Discussed pt's case. Accepts admit. Counseled Regarding: Diagnosis, Lab results, Need for admission Discharge & Departure Primary Impression: Dehydration Additional Impressions: Diarrhea Diarrhea type: unspecified type Qualified Code: R19.7 - Diarrhea, unspecified History of hemodialysis End stage renal disease Disposition: ADMITTED TO HOSPITAL Discharge Condition All VS Reviewed: Yes Condition: Stable Referrals: Franklyn Bose DO (PCP) Ebenezer Attestation Portions of this note were transcribed by Destin Young. I, Dr. Carlton personally performed the history, physical exam and medical decision-making; I reviewed and confirmed the accuracy of the information in the transcribed note. Signed: Ebenezer Dubois, 10/31/16 copies to: Franklyn Bose Beck O MD Oct 31, 2016 15:14 DESTIN YOUNG Oct 31, 2016 15:35
[2016-10-31 15:16] VITALS: BP 159/97
[2016-10-31] MEDS ORDERED: 0.9% Sodium Chloride 500 ML IV ONE (15:45)
[2016-10-31] MEDS ORDERED: Ondansetron 2 mg/mL 2 mL Inj IVPUSH ONE (15:45)
[2016-10-31] MEDS ORDERED: Alum-Mag Hydrox-Simeth 30 mL Suspension PO PRN (15:45)
--- NOTE | 2016-10-31 17:03 | DRSVH ---
PROCEDURE: X-RAY CHEST, TWO VIEWS ([id number]) INDICATIONS: sob TECHNIQUE: 2 views of the chest were acquired. COMPARISON: [facility], CR, XR CHEST 1VW (PORTABLE), 09/13/2016, 7:43. [facility], CR, XR CHEST 1VW (PORTABLE), 09/27/2016, 22:42. [facility], CT, CT ABD PELVIS WO C ON, 03/24/2016, 13:42. [facility], CR, CHEST 2VW, 10/30/2013, 22:50. FINDINGS: Surgical changes and devices: Double-lumen dialysis catheter with tip in the right atrium. Surgical clips in the left breast. Lungs and pleura: There is a density in the right apex, unchanged from 09/27/2016. Bilateral intersti tial infiltrates. No pleural effusions or pneumothorax. Mediastinum: Mediastinal contours are normal. Heart size is normal. Hiatal hernia suspected. Bones and chest wall: No suspicious bony abnormalities. Soft tissues appear unremarkable. IMPRESSION: 1. Bilateral interstitial infiltrates compatible with pulmonary edema. 2. Masslike density in the right apex unchanged from 09/27/2016. Dictated by: Eliud Lawrence M.D. on 10/31/2016 at 16:58 Approved by: Eliud Lawrence M.D. on 10/31/2016 at 17:02
[2016-10-31] MEDS ORDERED: CHOL1CRY2 MC (17:08)
[2016-10-31] MEDS ORDERED: VIT1TAB.7 PO (17:08)
[2016-10-31 17:11] LABS: BASOPHILS % (AUTO) 0.2 % (0-3); EOSINOPHILS % (AUTO) 0.9 % (0-5); MONOCYTES % (AUTO) 6.5 % (4-12); Mean Corpuscular Volume 92.5 fL (81-100); Platelet Count 162 bil/L (150-400)
[2016-10-31 17:35] LABS: Magnesium 2.4 mg/dL (1.6-2.6)
[2016-10-31] MEDS ORDERED: Polyethylene Glycol (PEG) 17 Gm Powder PO PRN (17:35)
[2016-10-31] MEDS: Sodium Chloride LOK Flush 10 mL Syringe IVFLUSH SCH (17:35)
[2016-10-31] MEDS ORDERED: HYDROXYZINE HCL 25 MG PO PRN (17:40)
[2016-10-31] MEDS ORDERED: hydrOXYzine Pamoate 25 mg Capsule PO PRN (18:40)
--- NOTE | 2016-10-31 18:53 | PCM.HPMED ---
Subjective Date of Service Oct 31, 2016 Primary Provider: Admitting Physician: Primary Care Physician: Franklyn Bose DO Attending Physician: Admit Status: From the Emergency Department, Admit to Red Team Chief Complaint: diarrhea, nausea, vomiting History of Present Illness: This is pleasant 71 y AA female with PMH of one prior episode of c diff 09/13/16, 7 yr of ESRD due to HTN, HTN, DM II (diet controlled), COPD due to smoking is presenting to the ED due to diarrhea, nausea, vomiting and inability to get dialysis (as daughter was unavailable for transportation 10/31/16), dyspnea. She states she smokes 4-5 cig a day, on 2L of oxygen at home but no COPD maintenance meds. She says her sxs started after dialysis. She is unable to keep food down. Has not eaten much in 3 days. at baseline, she is wheel chair bound, can transfer herself. Pt used to be morbidly obese but lost all her weight in the recent years. CBC/ CMP show 29/8.68. BG is low at 47. Cranberry juice was given. In the ED, CXR was done, result is still pending. She says she has no more cough than her baseline, no fevers or chills. She says she wants a regular diet as she know she would be offered renal diet. Her family does not note increased dyspnea but do say it is getting generally worse as pt continues to smoke. Review of Systems: Complete review of systems performed, pertinent positives and negatives per history of present illness, all other systems reviewed and are negative. Allergies Coded Allergies: gabapentin (Verified Allergy, Severe, 09/27/16) Swelling and gait problems hydromorphone HCl (Verified Allergy, Severe, Hallucinations, 09/27/16) "Trip like on LSD" sumatriptan succinate (Verified Allergy, Severe, Dizziness, 09/27/16) Chest pain and dizziness TAPE (Verified Allergy, Intermediate, 09/27/16) itching latex (Verified Allergy, Intermediate, 09/27/16) Itching from gloves morphine (Verified Allergy, Unknown, Hallucinations, 09/27/16) Home Medications furosemide, fluoxetine, albuterol prn, zofran, oxycodone, hydroxyzine PMH c diff x 1, CVA, CHF, HTN, DM II, ESRD on HD, COPD, Gastroparesis, chronic back pain, L eye blind ness, utirine cancer Surgical History L and R arm fistulae, christine, c-sect, wound hematoma evac, repeated tunnel cath placements, breast biopsy, tib/fib repair Family History Mother form kari Dad: Heart Disease Sister: Heart Disease Social History Hx Alcohol Use: Yes Alcoholic Drinks Per Day: 1 week Hx Substance Use: No Hx Tobacco Use: Yes (1 pack per 2-3 days since the age of 17) Smoking Status: Current Every Day Smoker Living Arrangement: Alone (with daughter's help) Exam Vital Signs Vital Sign - Last Date Time Temp Pulse Resp B/P Pulse Ox O2 Delivery O2 Flow Rate FiO2 10/31/16 15:16 36.5 159/97 Exam General: Alert, oriented, no acute distress; patient was resting in bed HEENT: Atraumatic; arcus senilis noted; left eye has a mass like formation, missing dentition Cardiac: Regular rate and rhythm in time of examination; no murmurs appreciated Respiratory:Poor air movement, no wheezes, no coarse sounds appreciated GI: Soft, nontender, nondistended, normal bowel sounds heard Extremities: No edema; no pain with palpation of feet Skin: Dry, warm; diffuse scaling of bilateral lower extremities. dialysis catheter noted over the right subclavian Neuro: Facial expression symmetric, speech without slurring; cranial nerves grossly intact without focal deficit Psych: Appropriate mood, affect, and response to questioning Lymph: no cervical or supraclavicular lymphadenopathy Neck: Trachea central Lab and Diagnostics Result Diagram: 10/31/16 1700 X-Rays, CTs and MRIs PROCEDURE: X-RAY CHEST, TWO VIEWS ([id number]) INDICATIONS: sob TECHNIQUE: 2 views of the chest were acquired. COMPARISON: [facility], CR, XR CHEST 1VW (PORTABLE), 09/13/2016, 7: 43. [facility], CR, XR CHEST 1VW (PORTABLE), 09/27/2016, 22:42. [facility], CT, CT ABD PELVIS WO CON, 03/24/2016, 13:42. [facility], CR, CHEST 2VW, 10/30/2013, 22:50. FINDINGS: Surgical changes and devices: Double-lumen dialysis catheter with tip in the right atrium. Surgical clips in the left breast. Lungs and pleura: There is a density in the right apex, unchanged from 2016. Bilateral interstitial infiltrates. No pleural effusions or pneumothorax. Mediastinum: Mediastinal contours are normal. Heart size is normal. Hiatal hernia suspected. Bones and chest wall: No suspicious bony abnormalities. Soft tissues appear unremarkable. IMPRESSION: 1. Bilateral interstitial infiltrates compatible with pulmonary edema. 2. Masslike density in the right apex unchanged from 09/27/2016. Dictated by: Eliud Lawrence M.D. on 10/31/2016 at 16:58 Approved by: Eliud Lawrence M.D. on 10/31/2016 at 17:02 Assessment & Plan C diff colitis active ongoing -- Stool PCR is sent -- High suspicion for c diff., she was recently treated in 09/21, was sent home on vancomycin for 14 days. -- Stool neg for c diff will at least r/o c diff -- contact isolation. -- Fidoximicin is the recommended regimen for initial recurrent c diff ( she was discharged on vancomycin just recently). Dificid 200 mg by mouth twice a day Pulmonary Edema, chronic active -- As evidenced by the CXR, at the time of my visit with her, this result was not yet available. -- Could be due to missed dialysis, will discuss with Dr. Bose tomorrow a.m. ESRD on HD chronic ongoing --On admit: Creatinine 5.71, potassium 5.1, phosphorus 5.0 - outpatient inpatient nursing aide Dr. Cartagena, Reports last dialysis day on 09/28/16 she missed a dialysis on 10/31/16 - Appreciate Nephrology input. Review of prior admission records in 09/13/16 says she wanted to stop dialysis. HFrEF, chronic. Presumed stable - Echo 11/2015: EF 65-70, with mild concentric left ventricular hypertrophy; right ventricle mildly dilated with right ventricular systolic function mildly reduced - May be etiology of pulmonary edema in CXR. - PEr prior records: "Resume home furosemide for comfort. Follow up with Hospice for medication reconciliation as outpatient." Elevated alkaline phosphatase, chronic. Appears stable - On admit: Alkaline phosphatase 368, likely due to bony lesions such as bone metastases or Paget's disease. - Previous values, with earliest dated March 2016, at 416 - May be secondary to underlying malignancy Diabetes mellitus, non-insulin using, chronic. Presumed stable - Patient denies any history of diabetes, although diagnosis is found throughout chart - A1c November 2015: 5.5 - No diabetic medications on reconciliation - No correctional scale ordered at time --Hypoglycemic in the ED at 47, cranberry juice was given, asked ED to recheck Chronic bilateral lower extremity pain. Presumed stable - No additional imaging ordered at this time - Resume home pain management with Percocet 10mg Q6H PRN Tobacco dependence, chronic. Presumed stable - Patient and family report daily tobacco use, estimated at 1 pack per day - Nicotine patch ordered Depression, chronic. Presumed stable - Continue fluoxetine per home schedule Goals of care. Ongoing - Patient currently CPR ok, no vent/intubation - Questionable underlying malignancy based on previous imaging and laboratory values for tumor marker - Will ask daughter to bring in POLST as patient mentions there is one Diet: General; although patient is a renal patient, patient is unlikely to be compliant with renal diet. Due to uncertainty of underlying malignancy, will proceed with general diet at this time DVT: Hep q8 GI: None PRN: Bowel/nausea/fever/pain IVF: None Code: Limited interventions. DNI. Patient is admitted under Inpatient status with expected length of stay greater than 2 midnights due to severity of presenting symptoms, risk of adverse event, and complexity of treatment plan. Resuscitation Status: CPR: Attempt Resuscitation (no intub/vent) Time spent 45 min Siena Sanders DO Oct 31, 2016 17:41
[2016-10-31 19:33] VITALS: BP 144/92; PULSE 79; RESP 18; O2SAT 96
[2016-10-31 21:01] VITALS: BP 144/92; PULSE 79; RESP 18; O2SAT 96
[2016-10-31] MEDS: Dextrose 5% 0.9% NaCl 500 ML IV SCH (21:05)
[2016-10-31 21:33] VITALS: BP 154/66; PULSE 79; RESP 20; O2SAT 97
[2016-10-31] MEDS: oxyCODONE-Acetamin 10-325 mg Tablet PO PRN (21:41)
[2016-10-31] MEDS ORDERED: Witch Hazel-Glycerin Pads TOPICAL PRN (21:50)
[2016-10-31] MEDS: Heparin 5,000 Unit/mL Inj SUBQ SCH (22:42)
--- NOTE | 2016-10-31 22:48 | NUR ---
admit: admit completed in the ER, along with med rec. pt A&OX3, c/o generalized pain, and weakness. IVF infusing per orders. BS 87. pt refused tele, hospitalist aware. will continue to monitor pt.
[2016-11-01] VITALS (7 sets, daily range): BP systolic 128–145; BP diastolic 66–75; PULSE 68–75; RESP 20–22; O2SAT 90–95
[2016-11-01] MEDS: Heparin 5,000 Unit/mL Inj SUBQ SCH ×3 (00:30→16:40)
[2016-11-01] MEDS: Sodium Chloride LOK Flush 10 mL Syringe IVFLUSH SCH ×3 (00:30→15:53)
[2016-11-01] MEDS: oxyCODONE-Acetamin 10-325 mg Tablet PO PRN ×2 (05:58→12:15)
[2016-11-01] MEDS: Dextrose 5% 0.9% NaCl 500 ML IV SCH ×4 (06:53→17:05)
[2016-11-01 07:22] LABS: BASOPHILS % (AUTO) 0.2 % (0-3); EOSINOPHILS % (AUTO) 1.4 % (0-5); Mean Corpuscular Hemoglobin 29.9 pg (27.0-35.0); Mean Corpuscular Volume 92.1 fL (81-100); NEUTROPHILS % (AUTO) 75.5 % (40-74); Platelet Count 168 bil/L (150-400)
--- NOTE | 2016-11-01 10:23 | PCM.PNMED ---
Subjective Date of Service Nov 01, 2016 Subjective pt was breathing okay, denied pain, still has ongoing watery diarrhea pt stated that she doesn't thinks she has cancer, was told by family that she has to fight against, therefore, stopped hospice and resumed dialysis, last session on this pt denied n/v, Exam Vital Signs Vital Sign - Last Date Time Temp Pulse Resp B/P Pulse Ox O2 Delivery O2 Flow Rate FiO2 11/01/16 08:56 36.9 72 20 134/68 95 Nasal Cannula 2.00 Intake and Output 10/31/16 10/31/16 11/01/16 Cumulative From/Thru 15:00 23:00 07:00 10/31/16 15:16 - 11/01/16 05:47 Intake Total 500 ml 500 ml 1000 ml Balance 500 ml 500 ml 1000 ml Intake Oral 500 ml 500 ml IV Total 500 ml 500 ml # Bowel Movements 6 6 Exam Frail, AA lady, NAD, comfortably laying down on the bed no JVD, MMM, no LAD RRR, nl s1, s2 no mrg CTAB, no w,c S,ND,NT,hypoactiveBS+ warm, trace edema, pulses 2/2 IVs and Medications Medications Reviewed: Medications were reviewed in detail Lab and Diagnostics Result Diagram: 11/01/1670411/01/16704 X-Rays, CTs and MRIs PROCEDURE: X-RAY CHEST, TWO VIEWS ([id number]) INDICATIONS: sob TECHNIQUE: 2 views of the chest were acquired. COMPARISON: [facility], CR, XR CHEST 1VW (PORTABLE), 09/13/2016, 7: 43. [facility], CR, XR CHEST 1VW (PORTABLE), 09/27/2016, 22:42. [facility], CT, CT ABD PELVIS WO CON, 03/24/2016, 13:42. [facility], CR, CHEST 2VW, 10/30/2013, 22:50. FINDINGS: Surgical changes and devices: Double-lumen dialysis catheter with tip in the right atrium. Surgical clips in the left breast. Lungs and pleura: There is a density in the right apex, unchanged from 2016. Bilateral interstitial infiltrates. No pleural effusions or pneumothorax. Mediastinum: Mediastinal contours are normal. Heart size is normal. Hiatal hernia suspected. Bones and chest wall: No suspicious bony abnormalities. Soft tissues appear unremarkable. IMPRESSION: 1. Bilateral interstitial infiltrates compatible with pulmonary edema. 2. Masslike density in the right apex unchanged from 09/27/2016. Dictated by: lEiud Lawrence M.D. on 10/31/2016 at 16:58 Approved by: Eliud Lawrence M.D. on 10/31/2016 at 17:02 Assessment & Plan acute, active, watery diarrhea, POA, likely due to known C diff colitis, pt admitted she was not compliant to vanc op, pt was startedon Fidoximicin, -will resume vancomycin 125mg po qid as it's unlikely tx failure, no severe c.diff based on exam, labs. Pt also unlikely afford Fidoximicin on d/c -awaits stool PCR -contact isolation acute pulmonary edema, vol overload from missed dialysis in ESRD/HFrEF -appreciate renal service, Dr. Juice LAWRENCE, likely HD tomorrow per discussion GOC with high suspicion for metastatic dz, POA, During last hospitalization, pt was found to have abnormal CT brain and abdomen concerning for metastatic CA, CA 19-9 Dated June 2015: Elevated at 63, Alpha/beta/gamma globulins and monoclonal protein studies were ordered March 2016, were unremarkable. - High index of suspicion for bony metastasis from unknown origin, likely breast cancer. Patient has a history of breast cancer s/p lumpectomy in the past. Unclear of current status. CT brain without contrast 09/12/2016: No acute intracranial findings, abnormal appearance of medullary bone of calvarium suggestive of diffuse metastatic disease or multiple myeloma. CT abdomen Pancreatic protocol on 09/15/16 showed Increased, severe pancreatic ductal dilatation, associated with mild biliary ductal dilatation. Findings indicate a stricture, possibly malignant. Given the suboptimal MRCP examination, ERCP is recommended for further assessment. 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 Atypical appearance of metastatic disease could produce this appearance as well. Further assessment with lumbar spine MRI with and without intravenous contrast recommended. Findings were discussed with the patient and her family on 09/16/16. Patient declined further treatment and agreed to go on Hospice Care. She would like to stop dialysis as well. pt followed up with [facility] but stopped as pt refused and dialysis resumed. -today after discussion, pt agreed on assessment by Oncologist, to see her current status, possible further w/u if it's believed to be cancer. -appreciate input today -Goal likely will be resume hospice given unchanged poor baseline status, multiple cormobidities, -Patient currently CPR ok, no vent/intubation - Will ask daughter to bring in POLST as patient mentions there is one chronic, stable, HFrEF, chronic. overloaded as above, Echo 11/2015: EF 65-70, with mild concentric left ventricular hypertrophy; right ventricle mildly dilated with right ventricular systolic function mildly reduced - resumed lasix Elevated alkaline phosphatase, chronic. Appears stable - On admit: Alkaline phosphatase 368, likely due to bony lesions such as bone metastases or Paget's disease. - Previous values, with earliest dated March 2016, at 416 - May be secondary to underlying malignancy Diabetes mellitus, non-insulin using, chronic. Presumed stable - Patient denies any history of diabetes, although diagnosis is found throughout chart - A1c November 2015: 5.5 - No diabetic medications on reconciliation - No correctional scale ordered at time --Hypoglycemic in the ED at 47, cranberry juice was given, asked ED to recheck Chronic bilateral lower extremity pain. Presumed stable - No additional imaging ordered at this time - Resume home pain management with Percocet 10mg Q6H PRN Tobacco dependence, chronic. Presumed stable - Patient and family report daily tobacco use, estimated at 1 pack per day - Nicotine patch ordered Depression, chronic. Presumed stable - Continue fluoxetine per home schedule Diet: General; although patient is a renal patient, patient is unlikely to be compliant with renal diet. Due to uncertainty of underlying malignancy, will proceed with general diet at this time DVT: Hep q8 GI: None PRN: Bowel/nausea/fever/pain IVF: None Code: Limited interventions. DNI. dispo: will likely prolonged, may need mcc placement, hospice Resuscitation Status: CPR: Attempt Resuscitation (no intub/vent) Time spent 35min Marty Winslow MD Nov 01, 2016 10:23
--- NOTE | 2016-11-01 11:03 | CONS ---
[address] [address] CONSULTATION REPORT PATIENT: ROMAINE ALEXIS : 1945 MR#: [id number] ADMIT: 10/31/2016 JOB ID: [id number] DATE OF SERVICE: 11/01/2016 HISTORY: The patient is a very pleasant, 71-year-old female, who is quite well known to me from multiple previous evaluations. She has a history of end-stage renal disease and renal consultation is sought for further evaluation of her end-stage kidney disease. She had followed up with me for a number of months, but because of geographical issues and her inability did continue to dialyze here she transferred to Dr. Myron Vaughan from the [facility]. She has a history of multiple admissions usually centering around noncompliance with dialysis treatments. She also has a longstanding history of intermittent C. difficile colitis. During her multiple evaluation she has been found to have a metastatic carcinoma most likely with a primary in the pancreas. Because of her overall poor medical condition, she has refused further workup. During her last admission, she was sent to hospice which she subsequently refused. She continues to dialyze intermittently. Her last dialysis was on and she states that following this she had another bout of diarrhea. She did not have dialysis yesterday and subsequently came to the emergency department for diarrhea, nausea, and vomiting. She denies any fever, chills, or rashes. She has a chronic cough secondary to chronic COPD, but states this has not changed. She has not had any chest pain or change in her shortness of breath. PAST MEDICAL HISTORY: 1. Significant for end-stage renal disease secondary to longstanding type 2 diabetes with diabetic nephropathy. 2. Hypertension with hypertensive heart disease and hypertensive nephrosclerosis. 3. COPD. 4. Chronic pain syndrome with narcotic dependence. 5. 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 PAST SURGICAL HISTORY: Significant for placement of fistulas in both arms, tunnel catheter, cholecystectomy, section, hematoma evacuation, and ORIF of the fibula and tibia. ALLERGIES: SHE IS ALLERGIC TO: 1. LATEX. 2. MORPHINE. 3. SUMATRIPTAN. 4. GABAPENTIN. 5. TAPE. SOCIAL HISTORY: She continues to smoke and has a greater than 100 pack year smoking history. She denies any alcohol use and continues to reside by herself and his refused any hospice, home health, or referral to an extended care facility. FAMILY HISTORY: Noncontributory. REVIEW OF SYSTEMS: As detailed above. PHYSICAL EXAMINATION: Reveals a frail somewhat cachectic-appearing 71-year-old -[place] female who was alert and oriented x3, in no distress at time of my evaluation. Her blood pressure is 134/68 with a pulse rate of 72. HEENT examination is remarkable for pale sclerae. Mucous membranes were moist. Neck is supple without adenopathy or thyromegaly. Lungs showed scattered rhonchi and intermittent end-expiratory wheezes. Heart was regular and rhythmical although she had somewhat distant heart sounds. Abdomen is soft with normal bowel sounds. There were some mild generalized tenderness, but no rebound, guarding, or masses were noted. Extremities did not show any evidence of any clubbing, cyanosis, or edema. Skin turgor was good. There is no evidence of any rashes. LABORATORY EXAMINATION: Hemoglobin is 10.6, sodium is 140, potassium 4.9, chloride 101, bicarbonate 19. BUN and creatinine were 31 and 9.0. Her calcium is 8.8. IMPRESSION: 1. End-stage renal disease-dialysis dependent. 2. Noncompliance. 3. Diarrhea and history of Clostridium difficile colitis. 4. Hypertension with hypertensive heart disease and hypertensive nephrosclerosis. RECOMMENDATION: I will make arrangements for her dialysis tomorrow, and I do feel we need to get palliative care involved early as far as some direction in the in the long-term management of the patient. Once again, I would like to thank you for allowing me to participate in the care of this rather unfortunate patient, and I will be following her closely with you.
[2016-11-01] MEDS: Ondansetron 2 mg/mL 2 mL Inj IVPUSH PRN (12:15)
--- NOTE | 2016-11-01 12:56 | NUR ---
Pain Pt reports back pain 9/10 on pain scale, Percocet given as ordered. Pt states "I need something stronger", continues to rate pain 9/10. Pt unable to recall what has worked well for pain management in the past. Jaylin saez in place, MD eugene. Addendum: 11/01/16 at 1758 by EZEKIEL MASSEY RN New order received for PO anti-anxiety medication, offered and administered. Pt has been resting quietly, no complains of increased pain. Pt visited with her financial services auditor and associate for several hours. Call light in place.
--- NOTE | 2016-11-01 14:21 | NUR ---
Case Management: [facility] delivered and explained. Signed original placed in chart. Copy left at bedside. Richelle Guzman RN
[2016-11-01] MEDS: Albuterol 2.5 mg/3 mL Inhalation Solution NEB PRN (15:31)
[2016-11-01] MEDS: LORazepam 1 mg Tablet PO PRN (16:40)
--- NOTE | 2016-11-01 17:30 | NUR ---
Social Work Note: Initial Assessment/Multidisciplinary Rounds Data & Assessment: See Initial Assessment for additional information. Pt is a 71 year old female admitted [facility] for dehydration and diarrhea per H&P. Pt has Medicare and [employer] Supplement. Pt sees Franklyn Bsoe DO for primary care. Pt's readmit risk score is not listed at this time, pt is likely high risk readmission. Pt discussed in multidisciplinary rounds, pt is not medically ready for discharge at this time. feels that pt would benefit from hospice services and that she does not understand her cancer diagnosis. Pt was discharged on 09/16/16 with [facility], subsequently declined these services and continued dialyzing. Pt may benefit from Palliative Care consult during this admission as pt is well known to Palliative team. Palliative Care worked with pt during last admission regarding decision to begin hospice. SW met with pt at bedside regarding discharge planning, SW role explained. Pt confirms she lives at home in a ground level apartment alone. Pt uses a wheelchair but is independent with transfers. Pt is current with [facility] for transportation. Pt has 166 hours of [employer] caregiving with Tanisha Valencia as her CM. H&P faxed to [employer] . Pt has caregivers M-F for 8 hours daily. Pt has had [employer] in the past. Pt is a dialysis pt at [facility] in [place] Wednesday//Wednesday. Apparently pt has a history of noncompliance with dialysis. Pt has hx with [facility] and [facility]. Pt does not have SNF hx and has made clear in the past that she will never go to SNF or [facility]. As soon as SW entered room pt stated "I'm going home!". Pt was agreeable to discussion with TECHNICAL MAINTENANCE TECHNICIAN and in good spirits during conversation once SW reassured her that she does not have to go to SNF. Pt does not have LTC insurance or VA benefits. Pt has DPOA on file, verified in EMR. Pt's daughter Dory [phone] would be pt's transportation home at d/c. Discussed pt's history with hospice. Pt feels that she did not understand the service well enough before she chose to sign consents. Pt states that she is not ready to and is "not planning on it anytime soon." Pt states that she will know when it is time for hospice when she cannot feed herself or provide personal toilet hygiene. SW provided phone number and plan on [employer], d/c planning checklist provided at bedside. Anticipate discharge home via POV with family support and resumption of GAIL. SW will continue to follow for discharge needs. Plan: Anticipate discharge home via POV with family support and resumption of GAIL. SW to continue to follow for MD orders and pt needs. REX Colindres Addendum: 11/01/16 at 1740 by MINO ALFARO Amended: Links added.
[2016-11-02] VITALS (7 sets, daily range): BP systolic 116–154; BP diastolic 70–74; PULSE 65–90; RESP 16–21; O2SAT 92–100
[2016-11-02] MEDS: Sodium Chloride LOK Flush 10 mL Syringe IVFLUSH SCH ×3 (00:30→16:30)
[2016-11-02] MEDS: Dextrose 5% 0.9% NaCl 500 ML IV SCH ×4 (00:58→13:05)
[2016-11-02] MEDS: Heparin 5,000 Unit/mL Inj SUBQ SCH ×3 (04:56→16:58)
[2016-11-02] MEDS: oxyCODONE-Acetamin 10-325 mg Tablet PO PRN ×3 (06:56→21:21)
--- NOTE | 2016-11-02 07:16 | NUR ---
NOC note: Pt drowsy through the night. Woke to voice although fell back to sleep quickly. This morning, pt more awake. Alert and oriented x3. Requested pain medication, taking ice and fluids.
[2016-11-02 08:01] LABS: Mean Corpuscular Hemoglobin 30.4 pg (27.0-35.0); Mean Corpuscular Volume 93.9 fL (81-100); NEUTROPHILS % (AUTO) 72.1 % (40-74); Platelet Count 150 bil/L (150-400)
[2016-11-02 08:02] LABS: BASOPHILS % (AUTO) 0.4 % (0-3); EOSINOPHILS % (AUTO) 1.6 % (0-5); MONOCYTES % (AUTO) 6.6 % (4-12)
[2016-11-02] MEDS: Albuterol 2.5 mg/3 mL Inhalation Solution NEB PRN ×2 (08:28→15:32)
[2016-11-02 08:29] LABS: Magnesium 2.3 mg/dL (1.6-2.6)
--- NOTE | 2016-11-02 09:11 | PCM.PNMED ---
Subjective Date of Service Nov 02, 2016 Subjective pt denied any complaints, due to HD today. recommended Bone scan. pt appreciated that she can get more work-ups Palliative care consult ordered Diarrhea resolving Exam Vital Signs Vital Sign - Last Date Time Temp Pulse Resp B/P Pulse Ox O2 Delivery O2 Flow Rate FiO2 11/02/16 08:29 69 20 92 Room Air 11/02/16 04:27 36.6 154/74 2.00 Intake and Output 11/01/16 11/01/16 11/02/16 Cumulative From/Thru 15:00 23:00 07:00 10/31/16 15:16 - 11/02/16 06:30 Intake Total 1544 ml 1158 ml 3702 ml Balance 1544 ml 1158 ml 3702 ml Intake Oral 444 ml 944 ml IV Total 1100 ml 1158 ml 2758 ml # Voids 1 1 # Bowel Movements 2 8 Exam Frail, AA lady, NAD, comfortably laying down on the bed no JVD, MMM, no LAD RRR, nl s1, s2 no mrg CTAB, no w,c S,ND,NT,hypoactiveBS+ warm, trace edema, pulses 2/2 IVs and Medications Medications Reviewed: Medications were reviewed in detail Lab and Diagnostics Result Diagram: 11/02/16 0730 11/02/16 0730 X-Rays, CTs and MRIs PROCEDURE: X-RAY CHEST, TWO VIEWS ([id number]) INDICATIONS: sob TECHNIQUE: 2 views of the chest were acquired. COMPARISON: [facility], CR, XR CHEST 1VW (PORTABLE), 09/13/2016, 7: 43. [facility], CR, XR CHEST 1VW (PORTABLE), 09/27/2016, 22:42. [facility], CT, CT ABD PELVIS WO CON, 03/24/2016, 13:42. [facility], CR, CHEST 2VW, 10/30/2013, 22:50. FINDINGS: Surgical changes and devices: Double-lumen dialysis catheter with tip in the right atrium. Surgical clips in the left breast. Lungs and pleura: There is a density in the right apex, unchanged from 2016. Bilateral interstitial infiltrates. No pleural effusions or pneumothorax. Mediastinum: Mediastinal contours are normal. Heart size is normal. Hiatal hernia suspected. Bones and chest wall: No suspicious bony abnormalities. Soft tissues appear unremarkable. IMPRESSION: 1. Bilateral interstitial infiltrates compatible with pulmonary edema. 2. Masslike density in the right apex unchanged from 09/27/2016. Dictated by: Eliud Lawrence M.D. on 10/31/2016 at 16:58 Approved by: Eliud Lawrence M.D. on 10/31/2016 at 17:02 Assessment & Plan acute, active, watery diarrhea, POA, likely due to known C diff colitis, pt admitted she was not compliant to vanc op, pt was startedon Fidoximicin, -Fidoximicin seems working, keep it for now, likely resume vancomycin 125mg po qid as it's unlikely tx failure, no severe c.diff based on exam, labs. Pt also unlikely afford Fidoximicin on d/c -awaits stool PCR -contact isolation acute pulmonary edema, vol overload from missed dialysis in ESRD/HFrEF -appreciate renal service, Dr. Juice LAWRENCE, likely HD tomorrow per discussion GOC with high suspicion for metastatic dz, POA, During last hospitalization, pt was found to have abnormal CT brain and abdomen concerning for metastatic CA, CA 19-9 Dated June 2015: Elevated at 63, Alpha/beta/gamma globulins and monoclonal protein studies were ordered March 2016, were unremarkable. - High index of suspicion for bony metastasis from unknown origin, likely breast cancer. Patient has a history of breast cancer s/p lumpectomy in the past. Unclear of current status. CT brain without contrast 09/12/2016: No acute intracranial findings, abnormal appearance of medullary bone of calvarium suggestive of diffuse metastatic disease or multiple myeloma. CT abdomen Pancreatic protocol on 09/15/16 showed Increased, severe pancreatic ductal dilatation, associated with mild biliary ductal dilatation. Findings indicate a stricture, possibly malignant. Given the suboptimal MRCP examination, ERCP is recommended for further assessment. 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 Atypical appearance of metastatic disease could produce this appearance as well. Further assessment with lumbar spine MRI with and without intravenous contrast recommended. Findings were discussed with the patient and her family on 09/16/16. Patient declined further treatment and agreed to go on Hospice Care. She would like to stop dialysis as well. pt followed up with [facility] but stopped as pt refused and dialysis resumed. After discussion, pt agreed on assessment by Oncologist, to see her current status, possible further w/u if it's believed to be cancer. -appreciate input, consulted 11/01. awaits Bone scan. -Goal likely will be resume hospice given unchanged poor baseline status, multiple cormobidities, appreciate Palliative care consult -Patient currently CPR ok, no vent/intubation, - Will ask daughter to bring in POLST as patient mentions there is one chronic, stable, HFrEF, chronic. overloaded as above, Echo 11/2015: EF 65-70, with mild concentric left ventricular hypertrophy; right ventricle mildly dilated with right ventricular systolic function mildly reduced - resumed lasix Elevated alkaline phosphatase, chronic. Appears stable - On admit: Alkaline phosphatase 368, likely due to bony lesions such as bone metastases or Paget's disease. - Previous values, with earliest dated March 2016, at 416 - May be secondary to underlying malignancy Diabetes mellitus, non-insulin using, chronic. Presumed stable - Patient denies any history of diabetes, although diagnosis is found throughout chart - A1c November 2015: 5.5 - No diabetic medications on reconciliation - No correctional scale ordered at time --Hypoglycemic in the ED at 47, cranberry juice was given, asked ED to recheck Chronic bilateral lower extremity pain. Presumed stable - No additional imaging ordered at this time - Resume home pain management with Percocet 10mg Q6H PRN Tobacco dependence, chronic. Presumed stable - Patient and family report daily tobacco use, estimated at 1 pack per day - Nicotine patch ordered Depression, chronic. Presumed stable - Continue fluoxetine per home schedule Diet: General; although patient is a renal patient, patient is unlikely to be compliant with renal diet. Due to uncertainty of underlying malignancy, will proceed with general diet at this time DVT: Hep q8 GI: None PRN: Bowel/nausea/fever/pain IVF: None Code: Limited interventions. DNI. dispo: will likely prolonged, may need half-way placement, hospice Resuscitation Status: CPR: Attempt Resuscitation (no intub/vent) Time spent 35min Marty Winslow MD Nov 02, 2016 09:11
[2016-11-02] MEDS: Ondansetron 2 mg/mL 2 mL Inj IVPUSH PRN ×2 (10:47→15:36)
--- NOTE | 2016-11-02 11:08 | NUR ---
assumed care assumed care at 0910hrs this am. patient has already been transferred to [facility] [place].
--- NOTE | 2016-11-02 11:45 | NUR ---
Palliative Care Palliative Care received order from Dr Winslow 11/02/16 to assist with goals of care. Patient admitted 10/31/16. Betina (daughter) [phone] Palliative Care to follow. Sydnee Scott
--- NOTE | 2016-11-02 13:37 | NUR ---
Dialysis Note total net removed 1999 treatment time 3.5 hours pt stable with facial edema noted accessed R CVC, heparin dwell removed, CVC flush and aspirate with ease heparin 1000units/ml administered treatment started pt c/o nausea during treatment and zofran was given nausea was resolved bp trended down during treatment, pt c/o cramping, uf off and 200ml ns given no further complaints from pt, bp remained low and uf remained off the remainder of the treatment CVC dressing change- old dressing removed, clean and dry but edges loosened, no date of last changed noted, site cleaned with chloreprep, site benign, no redness/drainage noted, sterile dressing applied, pt tolerated well. blood returned without difficult CVC flushed and locked pt tolerated treatment well, report called to Franklyn ESPITIA, discharged in stable condition.
--- NOTE | 2016-11-02 14:15 | NUR ---
patient completed dialysis and returned to room 3028 at 1400hrs. c/o 10/10 back pain and itching. patient refused Vistaril for itching. lotion applied to back, arms and legs to help with dry skin and itching.
--- NOTE | 2016-11-02 15:33 | PCM.CONPAL ---
Date of Service Nov 02, 2016 Date of Hospital Admission: Oct 31, 2016 at 19:26 Date of Palliative Consult: Nov 02, 2016 Requesting Provider: Marty Winslow MD Reason Palliative Care Consult: Goals of Care Discussion Hospital Unit @time of consult: Medical/Pediatric Care Palliative Care Recommendation Summary of palliative recommendations: -Symptom management (Pain/other) Dyspnea- chronic, on home O2-uses neb at home-- no other inhalers. Continues to smoke-- aware of the challenge this is for her lungs and heart. COPD major component. ESRD- has no intention to stop dialysis. Diastolic CHF-component in her dyspnea Debilitiy-Hard for her to see the progression Lytic bone lesions-considering extent and lack of systemic sx or pain increases likelihood-favors more benign process like paget's Pt has agreed to bone scan and hopefully this will give prognosis. -DPOA/Advanced Directives/POLST-Yariel SIBLEY is Jordan Jason--health service worker of her tenriism. 2nd is her daughter- Martha Al Pt very specific-- wants FULL CODE-on clarification- she agrees to option for intubation-short term particularly if tied to a code She does not want to be sustained on vent. She does not want to be in a ECF--she considers that worse than -Family/emotional support-very good but not much for resources to have alternate transportation etc -Spiritual support-very strong--may look here for assistance Problems: End of Life Preferences see above Goals of Care see above-continue dialysis Disposition home Resuscitation Status Resuscitation Status: CPR: Attempt Resuscitation (no intub/vent) POLST Updates/Changes Previous POLST?: No Artificially Admin Nutrition: No Artifical Nutrition by Tube POLST Discussed with: Patient . Advanced Care Planning Address: Durable Power of Placement Officer Symptom management: Nausea, Dyspnea, Pain Pt History History of Present Illness PALLIATIVE CARE CONSULTATION REASON: Goals of Care Sheet Writer- Dr. Myron Vaughan 71 yo female with hx ESRD on HD for 7 yrs due to longstanding HTN, DM2- complicated with peripheral neuropathy, gastroparesis, retinopathy with loss of viz L and diastolic CHF. She was admitted with N,V,diarrhea for 3 days and having missed her dialysis due to lack of transportation. She lives in [place] and has been dialyzed T, TH and sat but will miss sat HD if her daughter is busy since the buses don't run that day. She stopped dialysis briefly and was on hospice but changed her mind. She states she will never stop dialysis and she is "going until the wheels fall off". She has been noted to have multiple lytic bone lesion-particular focus in skull and lumbar spine-where ? raised about infection/disciitis vs malignancy. She had declined further eval but has just agreed to pursue this to help her decide her course. She has chronic LBP but no change in the pain recently. She mentions she had dx of scoliosis. she has recently had some upper back and neck pain which is new for her. She denies issues with HD except some fatigue, difficulty with pruritis, and challenges with transportation. Past Medical History Significant PMH Noted: ESRD on HD Diastolic CHF DM2 with PN, retinopathy, gastroparesis Hx CVA Hx breast CA- lumpectomy Hx uterine CA- s/p hyst Osteoporosis with tib/fib fx Chronic LBP COPD with ongoing smoking "cut way down"-now at about 5 per day. 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 Moved up here to be near her 2 daughters. Helped raise her grandchildren Social Support: outside of family- tenriism community which is strong. Living Situation: lives indep in her appt. Gets support from her daughter Spiritual Support Spiritual Support Very strong. She describes being a mother of the tenriism. Very involved including singing in the choir. Her health service worker is listed as one of her POA Responsive Patient Symptoms Pain (current): Mild Nausea: Mild (to moderate and intermittent) Depression: None Anxiety: None Drowsiness/Sleepiness: Mild Anorexia: None Shortness of Breath: Moderate ("always") Other Pruritis decreased viz numb hands and feet Medications Current Medications: Current Medications Al Hydrox/Mg Hydrox/Simethicone 30 ml Q6 PRN PO; Start 10/31/16 at 15:45 Ondansetron HCl Dose range: 4 mg to 8 mg Q4H PRN IVPUSH Last administered on t 10:47; Admin Dose 4 MG; Start 10/31/16 at 15:45 Acetaminophen 975 mg Q6H PRN PO; Start 10/31/16 at 15:45 Heparin Sodium (Porcine) 5,000 unit Q8 SUBQ Last administered on 11/02/16 07:57 ; Admin Dose 5,000 UNIT; Start 10/31/16 at 17:35 Sodium Chloride 10 ml Q8 IVFLUSH; Start 10/31/16 at 17:35 Senna 17.2 mg BID PRN PO; Start 10/31/16 at 17:35 Polyethylene Glycol 17 gm DAILY PRN PO; Start 10/31/16 at 17:35 Albuterol 2.5 mg Q4H PRN NEB Last administered on 11/02/16 08:28; Admin Dose 2.5 MG; Start 10/31/16 at 17:40 Fluoxetine HCl 20 mg DAILY PO Last administered on 11/02/16 07:57; Admin Dose 20 MG; Start 11/01/16 at 08:30 Furosemide 40 mg DAILY PO Last administered on 11/01/16 09:15; Admin Dose 40 MG ; Start 11/01/16 at 08:30 Oxycodone/ Acetaminophen 1 tab Q6H PRN PO Last administered on 11/02/16 13:58 ; Admin Dose 1 TAB; Start 10/31/16 at 17:40 Non-Formulary Medication 25 mg Q8H PRN PO; Start 10/31/16 at 17:40; Stop at 18:40; Status DC Hydroxyzine Pamoate 25 mg Q8H PRN PO Last administered on 11/01/16 05:58; Admin Dose 25 MG; Start 10/31/16 at 18:40 Nicotine 1 patch DAILY TOPICAL Last administered on 10/31/16 21:41; Admin Dose 1 PATCH; Start 10/31/16 at 21:00; Stop 11/01/16 at 06:18; Status DC Fidaxomicin 200 mg 200 mg BID PO Last administered on 11/02/16 07:57; Admin Dose 200 MG; Start 10/31/16 at 20:30 Dextrose/Sodium Chloride 500 ml @ 100 mls/hr Q5H IV Last administered on 00:58; Admin Dose 100 MLS/HR; Start 10/31/16 at 21:05 Witch Emi/ Glycerin 1 pad PRN PRN TOPICAL; Start 10/31/16 at 21:50 Nicotine 1 patch DAILY TOPICAL Last administered on 11/02/16 07:56; Admin Dose 1 PATCH; Start 11/01/16 at 06:18 Lorazepam 1 mg TID PRN PO Last administered on 11/01/16 16:40; Admin Dose 1 MG ; Start 11/01/16 at 14:50 Scheduled Fluoxetine (Prozac) 20 Mg Capsule 20 MG PO DAILY Furosemide (Furosemide) 40 Mg Tablet 40 MG PO QAM Scheduled PRN Albuterol Neb Soln (Albuterol Neb Soln) 2.5 Mg/3 Ml Vial.neb 2.5 MG INHALATION Q4H PRN PRN For Shortness of Breath Docusate Sodium (Colace) 100 Mg Capsule 100 MG PO HS PRN PRN For Constipation Ondansetron ODT (Ondansetron ODT) 4 Mg Tab.rapdis 4 MG PO Q8H PRN PRN For Nausea hydrOXYzine Hcl (HydrOXYzine Hcl) 25 Mg Tablet 25 MG PO Q8H PRN PRN For Itching oxyCODONE-Acetaminophen 10-325 mg (oxyCODONE-Acetaminophen 10-325 mg) 1 Each Tablet 1 TABLET PO Q6H PRN PRN For Pain Miscellaneous Medications Cholecalciferol (Vitamin D3) (Cholecalciferol) 1 Gm Crystals 1 GM MC Vit B Comp&C/Folic Acid/Vit D3 (Dialyvite 800 Plus D Wafer) 800 Mcg-2,000 Unit Tab.chew 1 EACH PO Objective Findings Exam Vital Sign - Last Date Time Temp Pulse Resp B/P Pulse Ox O2 Delivery O2 Flow Rate FiO2 11/02/16 14:08 Supplement Oxygen 11/02/16 09:13 65 11/02/16 08:29 20 92 11/02/16 04:27 36.6 154/74 2.00 Intake and Output 11/01/16 11/01/16 11/02/16 Cumulative From/Thru 15:00 23:00 07:00 10/31/16 15:16 - 11/02/16 06:30 Intake Total 1544 ml 1158 ml 3702 ml Balance 1544 ml 1158 ml 3702 ml Intake Oral 444 ml 944 ml IV Total 1100 ml 1158 ml 2758 ml # Voids 1 1 # Bowel Movements 2 8 General: Alert/Oriented x3 (talkative, opinionated, definitely decisional) HEENT: Mucous Membr Moist/Tiro (edentulous), Other (L eye lids swollen and itchy- dense cataract L) Heart: Regular Rate/Rhythm Lungs: Clear to Auscultation Abdomen: Soft Neuro: Cranial Nerve 3-12 Intact Extremities: No Edema Lab/Diagnostics Lab and Imaging results reviewed in detail in EMR. Patient/Family Conference Members Present Family Members Present patient Medical Team Members Present? Maggie JULIO PC Discussion/Goals of Care Discussion Pt UNDERSTANDING OF DISEASE: She is very knowledgeable about her illness and potential complications etc. DISEASE PROGRESSION/EVIDENCE OF DECLINE: She sees this as very gradual and manageable at this time SYMPTOM BURDEN: She does not feel this severe GOALS: To maintain her independence-VERY IMPORTANT. To continue dialysis HOPES/WORRIES: -hopes she can continue dialysis and maintain her indep. She states IF she were to be so debilitated as to need NH placement-"shoot me", "I am out of here" etc FAMILY WISHES/VALUES: Do you want to be told truth about his illness, even if unpleasant? She finds info very helpful when explained Does pt want to know prognosis when it can be predicted, to better guide treatment decisions? Yes What is quality of life for the patient: to be able to interact with their loved ones and friends, to go to tenriism, to stay indep and out of NH Palliative counselled: EOL issues including poor prog if codes/need to intubate if codes etc. Time spent Total time 65 minutes; >50% face to face with patient and/or family, providing counselling regarding plans and recommendations, and in care coordination with his/her medical teams. majority of time spent with F2F with patient and later with review of chart. Also reviewed her GOC with SS/CM I also spent an additional [ ] minutes counseling for advanced care planning with the patient/the patients family/the surrogate decision maker. copies to: Myron Vaughan MD, Suzanne Kaiser MD Nov 02, 2016 15:33
--- NOTE | 2016-11-02 16:01 | PCM.PNNEPH ---
Subjective Date of Service Nov 02, 2016 Subjective Overall patient's about the same today she is able to eat a bit better and denies any chest pain, shortness of breath or further diarrhea. Exam Vital Signs Vital Sign - Last Date Time Temp Pulse Resp B/P Pulse Ox O2 Delivery O2 Flow Rate FiO2 11/02/16 15:32 86 20 100 Nasal Cannula 2.00 11/02/16 15:22 36.7 Intake and Output 11/01/16 11/01/16 11/02/16 Cumulative From/Thru 15:00 23:00 07:00 10/31/16 15:16 - 11/02/16 06:30 Intake Total 1544 ml 1158 ml 3702 ml Balance 1544 ml 1158 ml 3702 ml Intake Oral 444 ml 944 ml IV Total 1100 ml 1158 ml 2758 ml # Voids 1 1 # Bowel Movements 2 8 Exam Neck is supple without adenopathy, thyromegaly, or jugular venous distention. Lungs shows increased AP diameter and diffuse rhonchi throughout both lung colon along with end expiratory wheezing sounds were regular but somewhat distant and difficult to hear in light of her pulmonary findings. Abdomen soft without any tenderness rebound guarding masses or hepatosplenomegaly. Extremities did not show any evidence of any clubbing cyanosis or edema. Lab and Diagnostics Result Diagram: 11/02/1630 11/02/16 0730 X-Rays, CTs and MRIs PROCEDURE: X-RAY CHEST, TWO VIEWS ([id number]) INDICATIONS: sob TECHNIQUE: 2 views of the chest were acquired. COMPARISON: [facility], CR, XR CHEST 1VW (PORTABLE), 09/13/2016, 7: 43. [facility], CR, XR CHEST 1VW (PORTABLE), 09/27/2016, 22:42. [facility], CT, CT ABD PELVIS WO CON, 03/24/2016, 13:42. [facility], CR, CHEST 2VW, 10/30/2013, 22:50. FINDINGS: Surgical changes and devices: Double-lumen dialysis catheter with tip in the right atrium. Surgical clips in the left breast. Lungs and pleura: There is a density in the right apex, unchanged from 2016. Bilateral interstitial infiltrates. No pleural effusions or pneumothorax. Mediastinum: Mediastinal contours are normal. Heart size is normal. Hiatal hernia suspected. Bones and chest wall: No suspicious bony abnormalities. Soft tissues appear unremarkable. IMPRESSION: 1. Bilateral interstitial infiltrates compatible with pulmonary edema. 2. Masslike density in the right apex unchanged from 09/27/2016. Dictated by: Eliud Lawrence M.D. on 10/31/2016 at 16:58 Approved by: Eliud Lawrence M.D. on 10/31/2016 at 17:02 Plan Impression Impression #1 end-stage renal disease dialysis dependent number to diabetic nephropathy #3 hypertension with hypertensive heart disease and hypertensive nephrosclerosis #4 chronic noncompliance Recommendations #1 the patient is to dialyze today for 3-1/2 hours on a standard dialyzer, 2 potassium bath, 400 blood flow 600 dialysate flow, dialysate temperature 36.5, sodium of 137 and she will be given the [place] of help in the form of the parotid on the toilet 2-3 L off. Franklyn Bose DO Nov 02, 2016 16:01
--- NOTE | 2016-11-02 17:36 | NUR ---
Wound Note Wound evaluation for left heel ulcer received, patient seen at bedside,71 yo diabetic female with ESRD admitted with diarrhea. Presents with ulceration at left posterior heel which measures 0.8 cm x 0.4 cm x 0.3 cm, wound bed is granular, beefy red, periwound is hyperkeratotic. Wound was cleaned with saline gauze and a #10 blade, redressed with hydrogel and thick duoderm. Nursing to change dressing PRN as patient is known to remove them, Wound ostomy nurse to follow up in recheck Wednesday.
--- NOTE | 2016-11-02 17:37 | NUR ---
neck/back pain patient c/o neck and back pain (reports chronic) after returning from dialysis. PO percocet and K-pad has been effective. she reported mild nausea this afternoon, IV zofran effective in controlling. no stools since returning from dialysis. spoke with Nuc Med regarding bone scan. schedule to perform scan in am. Nuc Med will call approx 1 hour prior so patient can get a neb treatment prior to test so she can lay still and flat for the scan. patient stated that she's try and lay flat but is concerned she may not be able to for the time frame needed for testing. continue with plan of care
[2016-11-03] MEDS: Sodium Chloride LOK Flush 10 mL Syringe IVFLUSH SCH ×3 (01:04→17:09)
[2016-11-03] MEDS: Heparin 5,000 Unit/mL Inj SUBQ SCH ×3 (01:04→17:08)
[2016-11-03 04:45] VITALS: BP 103/61; PULSE 81; RESP 16; O2SAT 91; O2SAT 95
--- NOTE | 2016-11-03 06:15 | NUR ---
Night note: Pt able to sleep off and on through the night. No BM tonight. Turning independently and with assist. Medicated x1 for back pain and using K pad. States feeling a "little better" after dialysis yesterday.
[2016-11-03 06:35] VITALS: PULSE 55; RESP 24; O2SAT 90
[2016-11-03] MEDS: Albuterol 2.5 mg/3 mL Inhalation Solution NEB PRN ×2 (06:35→11:12)
--- NOTE | 2016-11-03 08:24 | CONS ---
[address] [address] CONSULTATION REPORT PATIENT: ROMAINE ALEXIS : 1945 MR#: [id number] ADMIT: 10/31/2016 JOB ID: [id number] DATE OF SERVICE: 11/02/2016 HISTORY OF PRESENT ILLNESS: The patient is a 71-year-old -Citizen Of [place] woman referred for evaluation of possible metastatic cancer. She also has end-stage renal disease associated with diabetes, and is on dialysis every Wednesday, Wednesday, and Wednesday. She has a history of gastroparesis and is hospitalized at this time in part due to ongoing diarrhea and dehydration. She is quite weak. She has had prior stroke. She is blind in her left eye. She has been feeling poorly recently. Imaging on May 21, 2016 showed a poorly visualized appearance of the pancreas with suggestion of enlargement in the pancreatic head and uncinate process. She had diffuse mottled appearance of osseous structures, particularly within the thoracic and lumbar spine, progressive over multiple exams. It was suggested that she had widely metastatic disease. She had evidence of prior left tibial and fibular fractures. Subsequent imaging on September 15, 2016 showed pancreas divisum. Otherwise the pancreas was normal in morphology. She had severe pancreatic ductal dilatation, which had increased to 1.3 cm. Gallbladder was surgically absent. She had a few prominent retrocrural lymph nodes measuring up to 1.4 cm. She continued to exhibit mottled appearance of osseous structures in the thoracic and lumbar spine, with increased severe wedging at T11/T12. There was a new small right lower lobe lung nodule measuring up to 1.7 cm. Concern is for possible widely metastatic disease to her spine. There has been no biopsies to date. PAST MEDICAL HISTORY: 1. C. difficile colitis. 2. CVA x3. 3. Congestive heart failure. 4. Hypertension. 5. Diabetes complicated by end-stage renal disease and gastroparesis. 6. Hemodialysis three times weekly to manage end-stage renal disease. 7. Cholecystectomy. 8. Right breast DCIS. 9. Uterine cancer status post hysterectomy. ALLERGIES: 1. TAPE. 2. GABAPENTIN. 3. HYDROMORPHONE. 4. LATEX. 5. MORPHINE. 6. SUMATRIPTAN. MEDICATIONS: 1. Lorazepam 1 mg p.o. t.i.d. p.r.n. 2. Fluoxetine 20 mg p.o. daily. 3. Lasix 40 mg p.o. daily. 4. Nicotine patch 21 mg daily. 5. Fidaxomicin 200 mg p.o. b.i.d. 6. Vistaril 25 mg p.o. q.8 hours p.r.n. 7. Albuterol inhaler q.4 hours p.r.n. 8. Percocet 10/325 one tab q.6 hours p.r.n. 9. Senokot one tablet p.o. b.i.d. p.r.n. 10. MiraLAX 17 g p.o. daily p.r.n. 11. Maalox Plus 30 mL p.o. q.6 hours p.r.n. 12. Ondansetron 4-8 mg p.o. q.4 hours p.r.n. 13. Tylenol p.r.n. FAMILY HISTORY: The patient is not aware of any family history of breast cancer or uterine cancer in the family. She is not aware of any ovarian cancer. SOCIAL HISTORY AND HABITS: The patient is . She lives in [place]. She is retired. She has been a chronic smoker. She has used alcohol socially in the past. She denies recreational drug abuse. REVIEW OF SYSTEMS: She is very weak and tired. She is blind in her left eye. She is hard of hearing. She denies any developing adenopathy. She denies any bleeding or atypical bruising. She has had nausea and vomiting. She has had dyspnea with minimal exertion. She denies any chest pain. She has had nausea and vomiting. She has had frequent loose stools and often wears adult diapers. She has had urinary incontinence. Remaining review of systems is unremarkable. PHYSICAL EXAMINATION: This is a pleasant elderly woman in no acute distress. Vitals: T 36.6, P77, R 21, BP 154/74, O2 saturation 99% on 2 L oxygen by nasal cannula. Performance status 2. HEENT: She is blind in the left eye. Extraocular muscles intact in the right eye with a slightly injected anicteric sclerae. Conjunctivae pink. Mucous membranes slightly dry. No oral lesions. Chest a few scattered expiratory wheezes. Cardiac exam regular rate and rhythm with occasional ectopic beat. Normal S1, S2. A 1/6 systolic ejection murmur across the precordium. Abdomen soft, nontender, decreased bowel tones. No palpable masses or organomegaly. Extremities 1+ distal pulses. No calf tenderness. No cyanosis or clubbing. Neuro alert and cooperative. She is blind in the left eye. She has decreased strength on the right greater than left. LABORATORIES: WBC 4.9, hemoglobin 10.5, hematocrit 32.4%, platelets 150,000. Sodium 143, potassium 4.9, BUN 34, creatinine 9.61. Glucose 143. AST 10, ALT 5, alkaline phosphatase 350. Total protein 6.3, albumin 3.5, CEA 3.7, CA19-9 67. ASSESSMENT AND PLAN: Possible metastatic cancer, unproven: The patient, who has a history of ductal carcinoma in situ of the breast and early stage uterine cancer, both treated surgically, has also been a lifelong smoker, who has recent findings of a 1.7 cm mass in the right lower lung and enlargement of the pancreatic head and uncinate process on imaging earlier this year. However, most recent abdominal CT on September 15, 2016 that showed no pancreatic mass only pancreas divisum and severe pancreatic ductal dilatation, suggestive of a stricture. Tumor marker CA 19-9 is moderately elevated, but this would not make the diagnosis. She has mottling of bone, particularly in the thoracic and lumbar spine, but this could represent changes from ongoing dialysis or metastatic disease. In short, the additional diagnostic workup is required before a definitive diagnosis of metastatic incurable cancer can be confirmed. Recommend nuclear bone scan, and consideration of MRI of the abdomen with pancreatic protocol to evaluate further. Given her multiple comorbidities, I think she is a poor candidate for ERCP. If there is clear evidence of metastatic cancer, then discussions regarding palliative care with hospice would be appropriate. Until that time, the patient wishes to continue dialysis three times weekly for her end-stage renal disease, which is associated with her diabetes. Await results of the above testing. Thank you very much for allowing us to participate in your patient's care. Cc: Siena Sanders
[2016-11-03] MEDS: Ondansetron 2 mg/mL 2 mL Inj IVPUSH PRN (09:38)
[2016-11-03] MEDS: oxyCODONE-Acetamin 10-325 mg Tablet PO PRN ×2 (11:10→17:09)
[2016-11-03 11:12] VITALS: PULSE 74; RESP 24; O2SAT 98
--- NOTE | 2016-11-03 13:14 | PCM.PNMED ---
Subjective Date of Service Nov 03, 2016 Subjective pt is doing okay, denied any complaints, tolerated HD yesterday awaits bone scan today remained full code per GOC with palliative care Exam Vital Signs Vital Sign - Last Date Time Temp Pulse Resp B/P Pulse Ox O2 Delivery O2 Flow Rate FiO2 11/03/16 11:12 74 24 98 Room Air 11/03/16 06:35 2.00 11/03/16 04:45 36.9 103/61 Intake and Output 11/02/16 11/02/16 11/03/16 Cumulative From/Thru 15:00 23:00 07:00 10/31/16 15:16 - 11/03/16 04:44 Intake Total 0 ml 371 ml 400 ml 4473 ml Output Total 2000 ml 2000 ml Balance -2000 ml 371 ml 400 ml 2473 ml Intake Oral 0 ml 237 ml 400 ml 1581 ml IV Total 134 ml 2892 ml Output Ultrafiltrate 2000 ml 2000 ml # Voids 1 3 0 5 # Bowel Movements 0 0 8 Exam Frail, AA lady, NAD, comfortably laying down on the bed no JVD, MMM, no LAD RRR, nl s1, s2 no mrg CTAB, no w,c S,ND,NT,hypoactiveBS+ warm, trace edema, pulses 2/2 IVs and Medications Medications Reviewed: Medications were reviewed in detail Lab and Diagnostics Result Diagram: 11/02/16 0730 11/02/16 0730 X-Rays, CTs and MRIs PROCEDURE: X-RAY CHEST, TWO VIEWS ([id number]) INDICATIONS: sob TECHNIQUE: 2 views of the chest were acquired. COMPARISON: [facility], CR, XR CHEST 1VW (PORTABLE), 09/13/2016, 7: 43. [facility], CR, XR CHEST 1VW (PORTABLE), 09/27/2016, 22:42. [facility], CT, CT ABD PELVIS WO CON, 03/24/2016, 13:42. [facility], CR, CHEST 2VW, 10/30/2013, 22:50. FINDINGS: Surgical changes and devices: Double-lumen dialysis catheter with tip in the right atrium. Surgical clips in the left breast. Lungs and pleura: There is a density in the right apex, unchanged from 2016. Bilateral interstitial infiltrates. No pleural effusions or pneumothorax. Mediastinum: Mediastinal contours are normal. Heart size is normal. Hiatal hernia suspected. Bones and chest wall: No suspicious bony abnormalities. Soft tissues appear unremarkable. IMPRESSION: 1. Bilateral interstitial infiltrates compatible with pulmonary edema. 2. Masslike density in the right apex unchanged from 09/27/2016. Dictated by: Eliud Lawrence M.D. on 10/31/2016 at 16:58 Approved by: Eliud Lawrence M.D. on 10/31/2016 at 17:02 Assessment & Plan acute, active, watery diarrhea, POA, likely due to known C diff colitis, pt admitted she was not compliant to vanc op, pt was startedon Fidoximicin, no diarrhea observed since adm. -Fidoximicin seems working, keep it for now, likely resume vancomycin 125mg po qid as it's unlikely tx failure, no severe c.diff based on exam, labs. Pt also unlikely afford Fidoximicin on d/c -awaits stool PCR if pt makes diarrhea. -contact isolation acute pulmonary edema, vol overload from missed dialysis in ESRD/HFrEF -appreciate renal service, Dr. Juice LAWRENCE, HD as scheduled. [facility] with high suspicion for metastatic dz, POA, During last hospitalization, pt was found to have abnormal CT brain and abdomen concerning for metastatic CA, CA 19-9 Dated June 2015: Elevated at 63, Alpha/beta/gamma globulins and monoclonal protein studies were ordered March 2016, were unremarkable. - High index of suspicion for bony metastasis from unknown origin, likely breast cancer. Patient has a history of breast cancer s/p lumpectomy in the past. Unclear of current status. CT brain without contrast 09/12/2016: No acute intracranial findings, abnormal appearance of medullary bone of calvarium suggestive of diffuse metastatic disease or multiple myeloma. CT abdomen Pancreatic protocol on 09/15/16 showed Increased, severe pancreatic ductal dilatation, associated with mild biliary ductal dilatation. Findings indicate a stricture, possibly malignant. Given the suboptimal MRCP examination, ERCP is recommended for further assessment. 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 Atypical appearance of metastatic disease could produce this appearance as well. Further assessment with lumbar spine MRI with and without intravenous contrast recommended. Findings were discussed with the patient and her family on 09/16/16. Patient declined further treatment and agreed to go on Hospice Care. She would like to stop dialysis as well. pt followed up with [facility] but stopped as pt refused and dialysis resumed. After discussion, pt agreed on assessment by Oncologist, to see her current status, possible further w/u if it's believed to be cancer. -appreciate input, consulted 11/01. awaits Bone scan. -Goal likely will be resume hospice given unchanged poor baseline status, multiple cormobidities, appreciate Palliative care consult -Patient revoked code status to FULL CODE per discussion with palliative care. chronic, stable, HFrEF, chronic. overloaded as above, Echo 11/2015: EF 65-70, with mild concentric left ventricular hypertrophy; right ventricle mildly dilated with right ventricular systolic function mildly reduced - resumed lasix Elevated alkaline phosphatase, chronic. Appears stable - On admit: Alkaline phosphatase 368, likely due to bony lesions such as bone metastases or Paget's disease. - Previous values, with earliest dated March 2016, at 416 - May be secondary to underlying malignancy Diabetes mellitus, non-insulin using, chronic. Presumed stable - Patient denies any history of diabetes, although diagnosis is found throughout chart - A1c November 2015: 5.5 - No diabetic medications on reconciliation - No correctional scale ordered at time --Hypoglycemic in the ED at 47, cranberry juice was given, asked ED to recheck Chronic bilateral lower extremity pain. Presumed stable - No additional imaging ordered at this time - Resume home pain management with Percocet 10mg Q6H PRN Tobacco dependence, chronic. Presumed stable - Patient and family report daily tobacco use, estimated at 1 pack per day - Nicotine patch ordered Depression, chronic. Presumed stable - Continue fluoxetine per home schedule Diet: General DVT: Hep q8 GI: None PRN: Bowel/nausea/fever/pain IVF: None Code: Full code dispo: will likely prolonged, may need care home placement, hospice Resuscitation Status: CPR: Attempt Resuscitation (no intub/vent) Time spent 35min Marty Winslow MD Nov 03, 2016 13:14
[2016-11-03 13:20] VITALS: BP 111/68; RESP 16; O2SAT 92
--- NOTE | 2016-11-03 15:10 | PCM.PALLBR ---
Palliative Brief Note Date of Service Nov 03, 2016 . Stable. Awaiting bone scan results. If suggestive of widespread metastatic disease, will revisit question of code status/advanced care directives with patient (she has indicated to others in past that such a finding would change her wishes for aggressive end-of-life care ). Diego Spencer MD Nov 03, 2016 15:10
--- NOTE | 2016-11-03 15:28 | NUR ---
BONE SCAN/OUTPUT Patient went down for bone scan today results pending. Patient premedicated with pain medication and RT treatment before scan and she tolerated procedure well, back in room eating 1/3 of lunch. No diarrhea this shift only small smear, oliguric urine (dialysis Pt M/W/F), RA at this time with O2 sats in low 90's.
--- NOTE | 2016-11-03 16:09 | PROG NOTE ---
[address] [address] PROGRESS NOTE PATIENT: ROMAINE ALEXIS : 1945 MR#: [id number] ADMIT: 10/31/2016 JOB ID: [id number] DATE: 11/03/2016 SUBJECTIVE: The patient is a 71-year-old, woman with possible metastatic cancer. She underwent a nuclear bone scan earlier today. She was unable to complete this study due to significant back pain, but it is unclear if we will be able to get a final report on her study. She is comfortable in bed at this time. OBJECTIVE: Vitals: T 36.1, P 74, R 16, BP 111/68. HEENT: Conjunctivae slightly pale. Mucous membranes somewhat dry. Chest: Decreased at the bases. Cardiac exam: Regular rate and rhythm with a rare ectopic beat. Normal S1, S2. Abdomen soft. Slightly decreased bowel tones. Significant scoliosis. Extremities: 1+ distal pulses. No calf tenderness. LABORATORIES: None today. ASSESSMENT AND PLAN: Possible metastatic cancer: The patient has a history of ductal carcinoma in situ of the breast, early-stage uterine cancer, and an enlargement of the pancreatic head and uncinate process on imaging earlier this year with moderately elevated CA19-9. Nonetheless, there is no definite evidence of active malignancy at this time. Await results of nuclear bone scan done earlier today. Consider MRI of the abdomen with pancreatic protocol, but it is unclear if the patient could complete that study. She would be an appropriate candidate for palliative care/hospice, based on her end-stage renal disease, and certainly, if she has metastatic cancer involving bone, she is not a candidate for active treatment given her overall clinical condition. CC: Siena Sanders DO.
--- NOTE | 2016-11-03 17:21 | DRSVH ---
CORRECTED ACCESSION/PLACER # ON 11/06/16 PROCEDURE: NM WHOLE BODY BONE SCAN ([id number]) RADIOPHARMACEUTICAL: 24.5 mCi Tc-99m MDP IV. INDICATIONS: Evaluate possible bone mets. TECHNIQUE: Delayed whole-body scintigrams were obtained approximately 3-4 hours after intravenous injection of r adiotracer. The patient was unable to lie flat for the duration of the study and the study was termin ated early. COMPARISON: None. FINDINGS: This study is markedly limited due to the patient's inability to lie flat for the duration of the study. There are no definite foci of discrete radiotracer uptake. IMPRESSION: Markedly limited study. No definite foci of discrete radiotracer uptake; however, given t he limitations, bony metastasis could be missed. Dictated by: Tiffanie Acosta M.D. on 11/03/2016 at 17:15 Approved by: Tiffanie Acosta M.D. on 11/03/2016 at 17:19
--- NOTE | 2016-11-03 17:36 | NUR ---
Social Work-continued d/c planning: Data:EMR reviewed. Pt is on day 3 of hospitalization for dehydration per H&P. Pt is not medically stable anticipate several more days. Palliative care meet with pt yesterday and pt's goals at this time are clear to continue with dialysis and return home. Pt is not interested in Hospice services at this time. Pt has GAIL caregivers at home. Pt to have bone scan today. Anticipate pt to likely discharge back home with family to transport at discharge. SW will continue to follow. Assessment:Pt who has GAIL at home. Plan:Pt to discharge home when medically stable via POV. Pt to continue with GAIL caregiving at home. SW will continue to follow. REX Gallegos
[2016-11-03] MEDS: LORazepam 1 mg Tablet PO PRN (18:12)
[2016-11-03 20:45] VITALS: PULSE 80; RESP 20; O2SAT 95
[2016-11-03 21:00] VITALS: BP 101/63; PULSE 79; RESP 14; O2SAT 93
[2016-11-04 00:09] VITALS: BP 121/69; PULSE 80; RESP 18; O2SAT 95
[2016-11-04] MEDS: Heparin 5,000 Unit/mL Inj SUBQ SCH ×4 (00:15→23:48)
[2016-11-04] MEDS: Sodium Chloride LOK Flush 10 mL Syringe IVFLUSH SCH ×3 (00:54→15:59)
[2016-11-04 05:27] VITALS: BP 128/72; PULSE 71; RESP 16; O2SAT 99
--- NOTE | 2016-11-04 05:33 | NUR ---
Assumed care Pt was asleep since i assumed care at 2300. She woke up for few minutes during assessment then went back to sleep. Denied pain or nausea. Pt did not have any BM, she is anuric, scheduled for HD this morning. Pt was repositioned as needed.
[2016-11-04 08:46] VITALS: BP 154/90; PULSE 67
--- NOTE | 2016-11-04 09:06 | NUR ---
Dialysis Note pt stable, vitals stable, c/o of paint to back rated 9/10 resting comfortable O2 @3L/NC accessed right CVC, dressing intact, site benign, no redness or drainage noted both ports flush and aspirate with ease heparin 1000u/ml administered treatment started with no difficulty pt sleeping Addendum: 11/04/16 at 1339 by TIMOTEO JENKINS RN c/o back pain rated 10/10 and low blood sugar, pt did not eat breakfast pain reported to renzo ESPITIA, percocet given for pain at 1147 blood sugar 66, drew crackers and soda given, ordered lunch 1215 lunch arrived, some pain relief from medication total treatment time 3:30 net removed 2000ml uneventful treatment, pt tolerated well post treatment temp 36.7 (omitted from DTR) blood returned, both CVC ports flushed and locked with heparin 1000units/ml, no complications, end caps applied dressing change last done on 11/02 report called to [place] ESPITIA, pt discharged in stable condition See DTR for completed treatment record
--- NOTE | 2016-11-04 11:06 | NUR ---
Wound Care Patient seen at bedside during dialysis on [facility] unit for wound care of ulceration at left posterior heel. Currently he dressing is absent as is often thje case with [place]. "it came off." she tells me. Wound measures 0.8 cm x 0.4 cm x 0.3 cm, wound bed is granular, beefy red, periwound is hyperkeratotic. Wound was cleaned with saline and gauze, redressed with hydrogel and a thin duoderm and then I taped her with pink tape to make dressing a little more difficult to remove, next dressing change Wednesday, wound stable and without sign or symptom of infection.
--- NOTE | 2016-11-04 11:34 | PCM.PNNEPH ---
Subjective Date of Service Nov 04, 2016 Subjective Patient is seen during hemodialysis. She is resting well. Blood pressure is stable, 143/82. Exam Vital Signs Vital Sign - Last Date Time Temp Pulse Resp B/P Pulse Ox O2 Delivery O2 Flow Rate FiO2 11/04/16 08:46 67 11/04/16 08:28 Supplement Oxygen 11/04/16 05:27 36.4 16 128/72 99 3.00 Intake and Output 11/03/16 11/03/16 11/04/16 Cumulative From/Thru 15:00 23:00 07:00 10/31/16 15:16 - 11/04/16 06:33 Intake Total 536 ml 0 ml 5009 ml Output Total 2000 ml Balance 536 ml 0 ml 3009 ml Intake Oral 536 ml 0 ml 2117 ml IV Total 2892 ml Output Ultrafiltrate 2000 ml # Voids 0 0 5 # Bowel Movements 8 Exam GENERAL: Sleeping but arousable VITAL SIGNS: as documented HEENT: Head is normocephalic and atraumatic. NECK: Supple, no elevation of JVD, No carotid bruits. LUNGS: Decreased breath sounds at the bases, equal breath sounds bilaterally, no wheezing, no rhonchi no rales. HEART: Normal S1/S2, Regular rate and rhythm, no murmurs, rubs or gallops. ABDOMEN: Soft, nontender, and nondistended. Positive bowel sounds. No hepatosplenomegaly was noted. EXTREMITIES: Without any cyanosis, clubbing, rash, lesions or edema. Right tunneled catheter Lab and Diagnostics Result Diagram: 11/02/16 0730 11/02/16 0730 X-Rays, CTs and MRIs PROCEDURE: X-RAY CHEST, TWO VIEWS ([id number]) INDICATIONS: sob TECHNIQUE: 2 views of the chest were acquired. COMPARISON: [facility], CR, XR CHEST 1VW (PORTABLE), 09/13/2016, 7: 43. [facility], CR, XR CHEST 1VW (PORTABLE), 09/27/2016, 22:42. [facility], CT, CT ABD PELVIS WO CON, 03/24/2016, 13:42. [facility], CR, CHEST 2VW, 10/30/2013, 22:50. FINDINGS: Surgical changes and devices: Double-lumen dialysis catheter with tip in the right atrium. Surgical clips in the left breast. Lungs and pleura: There is a density in the right apex, unchanged from 2016. Bilateral interstitial infiltrates. No pleural effusions or pneumothorax. Mediastinum: Mediastinal contours are normal. Heart size is normal. Hiatal hernia suspected. Bones and chest wall: No suspicious bony abnormalities. Soft tissues appear unremarkable. IMPRESSION: 1. Bilateral interstitial infiltrates compatible with pulmonary edema. 2. Masslike density in the right apex unchanged from 09/27/2016. Dictated by: Eliud Lawrence M.D. on 10/31/2016 at 16:58 Approved by: Eliud Lawrence M.D. on 10/31/2016 at 17:02 Plan Impression 1. End-stage renal disease on hemodialysis 3.5 hr, 2 potassium bath, 35 bicarbonate bath, right tunneled catheter, blood flow rate of 400, dialysate flow rate 600, revaclear, UF 2.5L 2. Possible metastatic cancer 3. History of breast cancer and uterine cancer 4. Chronic low back pain with opioid dependence 5. Anemia of chronic kidney disease. 6. Renal osteodystrophy. Plan: Next hemodialysis on Wednesday. The rest of management as per primary care team. Joseline Garcia MD Nov 04, 2016 11:34
[2016-11-04] MEDS: oxyCODONE-Acetamin 10-325 mg Tablet PO PRN (12:06)
--- NOTE | 2016-11-04 12:51 | PCM.PNMED ---
Subjective Date of Service Nov 04, 2016 Subjective pt is doing okay, received HD tolerated well, pt couldn't tolerate MRI due to Claustrophobia, agreed to try again with more ativan Exam Vital Signs Vital Sign - Last Date Time Temp Pulse Resp B/P Pulse Ox O2 Delivery O2 Flow Rate FiO2 11/04/16 08:46 67 11/04/16 08:28 Supplement Oxygen 11/04/16 05:27 36.4 16 128/72 99 3.00 Intake and Output 11/03/16 11/03/16 11/04/16 Cumulative From/Thru 15:00 23:00 07:00 10/31/16 15:16 - 11/04/16 06:33 Intake Total 536 ml 0 ml 5009 ml Output Total 2000 ml Balance 536 ml 0 ml 3009 ml Intake Oral 536 ml 0 ml 2117 ml IV Total 2892 ml Output Ultrafiltrate 2000 ml # Voids 0 0 5 # Bowel Movements 8 Exam Frail, AA lady, NAD, comfortably laying down on the bed no JVD, MMM, no LAD RRR, nl s1, s2 no mrg CTAB, no w,c S,ND,NT,hypoactiveBS+ warm, trace edema, pulses 2/2 IVs and Medications Medications Reviewed: Medications were reviewed in detail Lab and Diagnostics Result Diagram: 11/02/16 0730 11/02/16 0730 X-Rays, CTs and MRIs PROCEDURE: X-RAY CHEST, TWO VIEWS ([id number]) INDICATIONS: sob TECHNIQUE: 2 views of the chest were acquired. COMPARISON: [facility], CR, XR CHEST 1VW (PORTABLE), 09/13/2016, 7: 43. [facility], CR, XR CHEST 1VW (PORTABLE), 09/27/2016, 22:42. [facility], CT, CT ABD PELVIS WO CON, 03/24/2016, 13:42. [facility], CR, CHEST 2VW, 10/30/2013, 22:50. FINDINGS: Surgical changes and devices: Double-lumen dialysis catheter with tip in the right atrium. Surgical clips in the left breast. Lungs and pleura: There is a density in the right apex, unchanged from 2016. Bilateral interstitial infiltrates. No pleural effusions or pneumothorax. Mediastinum: Mediastinal contours are normal. Heart size is normal. Hiatal hernia suspected. Bones and chest wall: No suspicious bony abnormalities. Soft tissues appear unremarkable. IMPRESSION: 1. Bilateral interstitial infiltrates compatible with pulmonary edema. 2. Masslike density in the right apex unchanged from 09/27/2016. Dictated by: Eliud Lawrence M.D. on 10/31/2016 at 16:58 Approved by: Eliud Lawrence M.D. on 10/31/2016 at 17:02 Assessment & Plan acute, active, watery diarrhea, POA, likely due to known C diff colitis, pt admitted she was not compliant to vanc op, pt was startedon Fidoximicin, no diarrhea observed since adm. -Fidoximicin seems working, given no BM, likely resolving infection, will resume vancomycin 125mg po qid today, consider total 14days, 11days more as it' s unlikely tx failure, no severe c.diff based on exam, labs. Pt also unlikely afford Fidoximicin on d/c -awaits stool PCR if pt makes diarrhea, -contact isolation acute pulmonary edema, vol overload from missed dialysis in ESRD/HFrEF -appreciate renal service, Dr. Juice LAWRENCE, HD as scheduled. [facility] with high suspicion for metastatic dz, POA, During last hospitalization, pt was found to have abnormal CT brain and abdomen concerning for metastatic CA, CA 19-9 Dated June 2015: Elevated at 63, Alpha/beta/gamma globulins and monoclonal protein studies were ordered March 2016, were unremarkable. - High index of suspicion for bony metastasis from unknown origin, likely breast cancer. Patient has a history of breast cancer s/p lumpectomy in the past. Unclear of current status. CT brain without contrast 09/12/2016: No acute intracranial findings, abnormal appearance of medullary bone of calvarium suggestive of diffuse metastatic disease or multiple myeloma. CT abdomen Pancreatic protocol on 09/15/16 showed Increased, severe pancreatic ductal dilatation, associated with mild biliary ductal dilatation. Findings indicate a stricture, possibly malignant. Given the suboptimal MRCP examination, ERCP is recommended for further assessment. 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 Atypical appearance of metastatic disease could produce this appearance as well. Further assessment with lumbar spine MRI with and without intravenous contrast recommended. Findings were discussed with the patient and her family on 09/16/16. Patient declined further treatment and agreed to go on Hospice Care. She would like to stop dialysis as well. pt followed up with [facility] but stopped as pt refused and dialysis resumed. After discussion, pt agreed on assessment by Oncologist, to see her current status, possible further w/u if it's believed to be cancer. Bone scan 11/03 was limited study, no obvious findings suggestive of cancer. -appreciate input, will get abd MRI with pancreatic protocol today with ativan 4mg po. -Goal likely will be resume hospice given unchanged poor baseline status, multiple cormobidities, appreciate Palliative care consult -Patient revoked code status to FULL CODE per discussion with palliative care. chronic, stable, HFrEF, chronic. overloaded as above, Echo 11/2015: EF 65-70, with mild concentric left ventricular hypertrophy; right ventricle mildly dilated with right ventricular systolic function mildly reduced - resumed lasix Elevated alkaline phosphatase, chronic. Appears stable - On admit: Alkaline phosphatase 368, likely due to bony lesions such as bone metastases or Paget's disease. - Previous values, with earliest dated March 2016, at 416 - May be secondary to underlying malignancy Diabetes mellitus, non-insulin using, chronic. Presumed stable - Patient denies any history of diabetes, although diagnosis is found throughout chart - A1c November 2015: 5.5 - No diabetic medications on reconciliation - No correctional scale ordered at time --Hypoglycemic in the ED at 47, cranberry juice was given, asked ED to recheck Chronic bilateral lower extremity pain. Presumed stable - No additional imaging ordered at this time - Resume home pain management with Percocet 10mg Q6H PRN Tobacco dependence, chronic. Presumed stable - Patient and family report daily tobacco use, estimated at 1 pack per day - Nicotine patch ordered Depression, chronic. Presumed stable - Continue fluoxetine per home schedule Diet: General DVT: Hep q8 GI: None PRN: Bowel/nausea/fever/pain IVF: None Code: Full code dispo: pt is clinically stable, pending dispo, likely d/c home with hospice Resuscitation Status: CPR: Attempt Resuscitation (no intub/vent) Time spent 35min Marty Winslow MD Nov 04, 2016 12:51
[2016-11-04 13:01] VITALS: BP 94/64; PULSE 85; RESP 18; O2SAT 98
--- NOTE | 2016-11-04 14:29 | PCM.PALLBR ---
Palliative Brief Note Date of Service Nov 04, 2016 . Bone scan results inconclusive but probably not consistent with metastatic disease Per earlier palliative note: -DPOA/Advanced Directives/POLST-Yariel SIBLEY is Jordan Garciasb--box stapler of her druze. 2nd is her daughter- Martha Melendez Pt very specific-- wants FULL CODE-on clarification- she agrees to option for intubation-short term particularly if tied to a code She does not want to be sustained on vent. She does not want to be in a ECF--she considers that worse than As goals of care are clearly defined, palliative medicine will sign off at this time; please contact us if we may be of further assistance Diego Spencer MD Nov 04, 2016 14:29
--- NOTE | 2016-11-04 16:39 | NUR ---
dialysis, food and medications Pt notified of going to dialysis this morning when alerted by career development coordinator. Notified pt who states she gets dialysis on [facility]. Explained to pt that they took her on wednesday so in the hospital at least she get dialyzed MWF. COMPLIANCE ADVISOR transported pt down to dialysis after she got cleaned up and morning care provided to her. Medications were held prior to dialysis. Pt had just ordered breakfast which was delivered to room later. COMPLIANCE ADVISOR called career development coordinator who reported pt was sleeping and as such she did not receive her breakfast. Pt awoke later and order lunch, a hamburger, 2 regular cola's and a bag of chips. She was able to start eating down while getting dialysis and then finished the food upon returning to the floor. On arrival to floor, pt received her morning medications except lasix which was held after discussion with career development coordinator. Pt had orders to go to MRI, premeds were ordered to help her with pain and claustrophibia. 2mg morphine ordered and was supplied in 0.5ml. This was administered into her IV and then removed with separate syringe along with about 3 ml of blood from IV. This was then flushed with a new saline flush and ativan administered to pt. She went to MRI but was apparently unable to stay still and test was stopped. aware. Pt sleepy on return to floor, on 4L O2 and sats 100% on continuous pulse ox. will continue to monitor. daughter updated of plan and events of the day as well by phone. paged with daughter's name and number and request to call her back.
--- NOTE | 2016-11-04 17:10 | DRSVH ---
PROCEDURE: MRI ABDOMEN WITHOUT CONTRAST ([id number]) INDICATIONS: pancreatic protocol TECHNIQUE: Coronal HASTE through the abdomen, axial 2-D FLASH in- and [id number], and breath-hold T2 FSE with fat saturation through the biliary system and pancreas. Oblique coronal and axial thin-slice HASTE, radial thick-slab HASTE centered on the extrahepatic bile ducts. Intravenous secretin: Not requested. COMPARISON: [facility], CT, CT ABD PANCREATIC PROTOCOL, 09/15/2016, 13:32. FINDINGS: Image quality: Incomplete and limited examination. The patient was unable to continue the test. Pancreas and biliary system: There is intra- and extra-hepatic biliary ducts dilation. Common bile duct measures up to 12 mm. There is also marked pancreatic duct dilation with the pancreatic duct nalini suring up to 17 mm. There is "shouldering" at the ampulla. No discrete mass is identified. Pancreas i s normal in morphology, without adjacent soft tissue edema. Gallbladder is absent. Other solid organs: Liver and spleen are normal in size. No adrenal nodules. Both kidneys are norm al in size, without hydronephrosis. Bilateral small renal cortical cysts. The largest cyst measures 3 cm in the superior pole the right kidney. Nodes and vessels: No retroperitoneal or mesenteric adenopathy by size criteria. Aorta and inferior vena cava are normal in size. Bowel and peritoneum: Stomach is distended. Unenhanced bowel loops are normal in caliber. No free f luid. Lung bases: No basal pleural effusions. Heart size is normal. Bones and soft tissues: No ventral hernias. Bone marrow is of normal overall signal. IMPRESSION: 1. Incomplete and limited examination due to lack of intravenous contrast. 2. Marked biliary dilation and aeration of pancreatic duct at the level of ampulla, suggesting a stri cture. Cannot rule out malignant etiology. ERCP is recommended. 3. Distended stomach. 4. Cholecystectomy. 5. Bilateral renal cysts. Dictated by: Eliud Lawrence M.D. on 11/04/2016 at 17:02 Transcribed by: AUBREE on 11/04/2016 at 17:09 Approved by: Eliud Lawrence M.D. on 11/04/2016 at 21:28
[2016-11-04 20:05] VITALS: BP 113/63; PULSE 73; RESP 16; O2SAT 100
[2016-11-04] MEDS ORDERED: Vancomycin 100 mg/mL Oral Solution PO SCH (20:30)
[2016-11-04] MEDS: Vancomycin 125 mg Oral Capsule PO SCH (20:32)
[2016-11-04] MEDS: LORazepam 1 mg Tablet PO PRN (23:48)
[2016-11-05] MEDS: Vancomycin 125 mg Oral Capsule PO SCH ×2 (02:39→11:09)
[2016-11-05] MEDS: Sodium Chloride LOK Flush 10 mL Syringe IVFLUSH SCH ×2 (02:39→11:10)
[2016-11-05 04:50] VITALS: PULSE 85; RESP 18; O2SAT 95
[2016-11-05 05:05] VITALS: BP 105/57; PULSE 68; RESP 14; O2SAT 95
--- NOTE | 2016-11-05 06:21 | NUR ---
Smoking in room/anxiety Strong smell of smoke came out of pt's room, pt denies vehemently that she had been smoking but then cigarette bud was found in one of her water cups. Pt was strongly advised not to smoke in room. Pt reports anxiety and inability to sleep, Ativan given x1, effective. Pt denies pain all shift.
[2016-11-05 09:21] VITALS: BP 120/69; PULSE 68; RESP 22; O2SAT 99
--- NOTE | 2016-11-05 10:49 | PCM.DIMED ---
Discharge Instructions Date of Service Nov 05, 2016 Dates of Hospitalization Oct 31, 2016 at 19:26 Discharge Diagnosis Discharge Diagnosis # watery diarrhea due to C. 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 overloaded as above, #Elevated alkaline phosphatase, chronic #Diabetes mellitus, non-insulin using, chronic. Presumed stable #Chronic bilateral lower extremity pain. Presumed stable #Tobacco dependence, chronic. Presumed stable #Depression, chronic. Presumed stable Diet Discharge Diet: Diabetic, Renal Diet Activity Discharge Activity: Limited until seen by PCP Call your provider Call your provider for: Fever or Chills, Shortness of breath, Bleeding, Chest pain, Vomitting, Excessive diarrhea, Weakness (unilateral) Patient Instructions Patient Instructions You were hospitalized due to watery diarrhea due to C. difficile colitis. Diarrhea resolved.You were noted to have abnormal CT scan of abdomen and elevated CA 19-9 ( marker for pancreatic cancer) . Oncologist Dr Crump recommended MRI of abdomen but did not tolerate due to claustrophobia. Please follow-up with PCP and oncologist for workup of probable metastatic cancer of unknown primary. Please continue dialysis with . Follow-up Provider: Bere Allen MD Follow-up with PCP in: 1 week Provider: Collin Crump MD Follow-up in: 2 weeks Kevin Painting MD Nov 05, 2016 10:49
[2016-11-05] MEDS ORDERED: VANC125C10 PO (10:52)
[2016-11-05] MEDS ORDERED: VANC125C3 PO (10:56)
[2016-11-05] MEDS: oxyCODONE-Acetamin 10-325 mg Tablet PO PRN (10:59)
[2016-11-05] MEDS: Heparin 5,000 Unit/mL Inj SUBQ SCH (11:00)
--- NOTE | 2016-11-05 11:03 | PCM.PNNEPH ---
Subjective Date of Service Nov 05, 2016 Subjective HD yesterday without complications. Pain is controlled. She wants to go home. Exam Vital Signs Vital Sign - Last Date Time Temp Pulse Resp B/P Pulse Ox O2 Delivery O2 Flow Rate FiO2 11/05/16 09:21 36.7 68 22 120/69 99 Nasal Cannula 4.00 Intake and Output 11/04/16 11/04/16 11/05/16 Cumulative From/Thru 15:00 23:00 07:00 10/31/16 15:16 - 11/04/16 20:05 Intake Total 375 ml 5384 ml Output Total 2000 ml 0 ml 4000 ml Balance -2000 ml 375 ml 1384 ml Intake Oral 375 ml 2492 ml IV Total 2892 ml Output Urine Total 0 ml 0 ml Ultrafiltrate 2000 ml 4000 ml # Voids 5 # Bowel Movements 0 8 Exam GENERAL: Sleeping but arousable VITAL SIGNS: as documented HEENT: Head is normocephalic and atraumatic. NECK: Supple, no elevation of JVD, No carotid bruits. LUNGS: Decreased breath sounds at the bases, equal breath sounds bilaterally, no wheezing, no rhonchi no rales. HEART: Normal S1/S2, Regular rate and rhythm, no murmurs, rubs or gallops. ABDOMEN: Soft, nontender, and nondistended. Positive bowel sounds. No hepatosplenomegaly was noted. EXTREMITIES: Without any cyanosis, clubbing, rash, lesions or edema. Right tunneled catheter Lab and Diagnostics Result Diagram: 11/02/16 0730 11/02/16 0730 X-Rays, CTs and MRIs PROCEDURE: X-RAY CHEST, TWO VIEWS ([id number]) INDICATIONS: sob TECHNIQUE: 2 views of the chest were acquired. COMPARISON: [facility], CR, XR CHEST 1VW (PORTABLE), 09/13/2016, 7: 43. [facility], CR, XR CHEST 1VW (PORTABLE), 09/27/2016, 22:42. [facility], CT, CT ABD PELVIS WO CON, 03/24/2016, 13:42. [facility], CR, CHEST 2VW, 10/30/2013, 22:50. FINDINGS: Surgical changes and devices: Double-lumen dialysis catheter with tip in the right atrium. Surgical clips in the left breast. Lungs and pleura: There is a density in the right apex, unchanged from 2016. Bilateral interstitial infiltrates. No pleural effusions or pneumothorax. Mediastinum: Mediastinal contours are normal. Heart size is normal. Hiatal hernia suspected. Bones and chest wall: No suspicious bony abnormalities. Soft tissues appear unremarkable. IMPRESSION: 1. Bilateral interstitial infiltrates compatible with pulmonary edema. 2. Masslike density in the right apex unchanged from 09/27/2016. Dictated by: Eliud Lawrence M.D. on 10/31/2016 at 16:58 Approved by: Eliud Lawrence M.D. on 10/31/2016 at 17:02 Plan Impression 1. End-stage renal disease on hemodialysis 2. Possible metastatic cancer 3. History of breast cancer and uterine cancer 4. Chronic low back pain with opioid dependence 5. Anemia of chronic kidney disease. 6. Renal osteodystrophy. Plan: Per renal standpoint, she can be d/c'd home. F/u with her primary fishing boat mate. Joseline Garcia MD Nov 05, 2016 11:03
--- NOTE | 2016-11-05 12:22 | NUR ---
Social Work-discharge: Data:EMR Reviewed. Pt is on day 5 of hospitalization for dehydration per H&P. Pt is medically stable for discharge. Pt resides at home and has GIAL caregivers at home. Pt goes to dialysis T//Wed. SW discussed pt's transportation issues, pt states she is working on this and states she does not need any assistance. Pt confirms at bedside that her daughter is going to provide transport home today. No other SW needs identified. All updated and agreeable to plan. Assessment:Pt who is independent at baseline. Plan:Pt to discharge home today via POV. Pt to continue with GAIL at home and dialysis. No other SW needs identified. All updated and agreeable to plan. REX Gallegos
--- NOTE | 2016-11-05 13:14 | NUR ---
Inpatient Wound Nurse Patient had no dressing on LLE posterior heel when CWON RN entered room, stated that she woke up and noticed that it was off, no idea how this happened. Wound bed glossy pink and granular, epibole perimeter is crusted and dry. No drainage noted on bedding where heel had been resting. Wound was cleansed and blotted dry, then filled with wound gel and hydrocolloid cut to fit with tabs to fold over heel planes. [place] surgical tape was placed over entire hydrocolloid and patient was instructed not to remove. Patient anticipating discharge later today. CWON RN will see patient tomorrow if she is still inpatient.
[2016-11-05] MEDS ORDERED: FURO40SO4 PO (14:22)
--- NOTE | 2016-11-05 14:25 | NUR ---
Discharge Nursing note: Patient was discharged to home at 1425. Her IV was removed intact. All of patients discharge information was reviewed with her and her questions were answered to her satisfaction. Patient was brought to the hospital lobby in a wheelchair and she was driven to home by her daughter.
--- NOTE | 2016-11-05 15:00 | PROG NOTE ---
[address] [address] PROGRESS NOTE PATIENT: ROMAINE ALXEIS : 1945 MR#: [id number] ADMIT: 10/31/2016 JOB ID: [id number] DATE: 11/05/2016 SUBJECTIVE: The patient is a 71-year-old woman with end-stage renal disease associated with diabetes. She is on dialysis three times weekly. She has had an elevated tumor marker CA 19-9, and suspicion for possible pancreatic cancer with bone metastases. She has severe back pain. Imaging has been nonspecific. Bone scan, although incomplete, did not show any obvious posterior spine metastases. OBJECTIVE: Vitals: T 36.7, P 68, R 22, BP 120/69, O2 saturation 99% on 4 L oxygen by nasal cannula. HEENT: Conjunctivae slightly pale. Mucous membranes dry. No oral lesions. Blind in the left eye. Nodes: Shotty lymphadenopathy in the neck. Chest: Decreased at the bases. Cardiac exam: Regular rate and rhythm with normal S1, S2. Abdomen: Soft, nontender. Normoactive bowel tones. No splenomegaly or masses. Extremities: 1+ distal pulses. No calf tenderness. LABORATORIES: WBC 4.9, hemoglobin 10.5, hematocrit 32.4%, platelets 150,000. BUN 34, creatinine 9.61. CEA 3.7. CA 19-9 of 67. 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 She had abnormalities in her spine which led to additional tumor marker testing. CEA testing for adenocarcinoma is within normal limits. CA 19-9, a marker for pancreatic cancer, was elevated, but could be a manifestation of her renal dysfunction. She is a chronic dialysis patient. Recommend that she continue her dialysis three times weekly as long as she wants to live. If she chooses to discontinue dialysis, then she would be appropriate for palliative care through hospice. If she was proven to have an underlying malignancy, such as pancreatic cancer, then she would also be a good candidate for palliative care with hospice. At this time she wishes to continue dialysis.
--- NOTE | 2016-11-05 16:33 | PCM.DC.MED ---
Discharge Summary Date of Service Nov 05, 2016 Dates of Hospitalization Date of Hospital Admission Oct 31, 2016 at 19:26 Date of Discharge: Nov 05, 2016 Providers: Admitting Physician: Siena Sanders DO Primary Care Physician: Franklyn Bose DO Attending Physician: Kevin Brian MD Diagnosis at Time of Discharge Diagnosis at Time of Discharge # watery diarrhea due to C. 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 overloaded as above, #Elevated alkaline phosphatase, chronic #Diabetes mellitus, non-insulin using, chronic. Presumed stable #Chronic bilateral lower extremity pain. Presumed stable #Tobacco dependence, chronic. Presumed stable #Depression, chronic. Presumed stable Consultations nephrology Dr Pate oncology Dr Crump Procedures XRay, CTs & MRIs PROCEDURE: X-RAY CHEST, TWO VIEWS ([id number]) INDICATIONS: sob IMPRESSION: 1. Bilateral interstitial infiltrates compatible with pulmonary edema. 2. Masslike density in the right apex unchanged from 09/27/2016. Approved by: Eliud Lawrence M.D. on 10/31/2016 at 17:02 PROCEDURE: MRI ABDOMEN WITHOUT CONTRAST ([id number]) INDICATIONS: pancreatic protocol IMPRESSION: 1. Incomplete and limited examination due to lack of intravenous contrast. 2. Marked biliary dilation and aeration of pancreatic duct at the level of ampulla, suggesting a stricture. Cannot rule out malignant etiology. ERCP is recommended. 3. Distended stomach. 4. Cholecystectomy. 5. Bilateral renal cysts. Dictated by: Eliud Lawrence M.D. on 11/04/2016 at 17:02 PROCEDURE: NM WHOLE BODY BONE SCAN ([id number]) RADIOPHARMACEUTICAL: 24.5 mCi Tc-99m MDP IV. INDICATIONS: Evaluate possible bone mets. IMPRESSION: Markedly limited study. No definite foci of discrete radiotracer uptake; however, given the limitations, bony metastasis could be missed. Dictated by: Tiffanie Acosta M.D. on 11/03/2016 at 17:15 Brief History per HPI This is pleasant 71 y AA female with PMH of one prior episode of c diff 09/13/16, 7 yr of ESRD due to HTN, HTN, DM II (diet controlled), COPD due to smoking is presenting to the ED due to diarrhea, nausea, vomiting and inability to get dialysis (as daughter was unavailable for transportation 10/31/16), dyspnea. She states she smokes 4-5 cig a day, on 2L of oxygen at home but no COPD maintenance meds. She says her sxs started after dialysis. She is unable to keep food down. Has not eaten much in 3 days. at baseline, she is wheel chair bound, can transfer herself. Pt used to be morbidly obese but lost all her weight in the recent years. CBC/ CMP show 29/8.68. BG is low at 47. Cranberry juice was given. In the ED, CXR was done, result is still pending. She says she has no more cough than her baseline, no fevers or chills. She says she wants a regular diet as she know she would be offered renal diet. Her family does not note increased dyspnea but do say it is getting generally worse as pt continues to smoke. Hospital Course acute, active, # watery diarrhea, POA, likely due to known C diff colitis/recurrent , pt admitted she was not compliant to vanc op, pt was started on Fidoximicin upon admission, no diarrhea observed since adm. -Fidoximicin seems working, given no BM, likely resolving infection, resumed vancomycin 125mg po qid today, consider total 14days, 10days more as it's unlikely tx failure, no severe c.diff based on exam, labs. Pt also unlikely afford Fidoximicin on d/c - stool PCR not sent, diarrhea resolved #acute pulmonary edema, vol overload from missed dialysis in ESRD/HFrEF Resolved after dialysis #Probable metastatic dz with unknown primary, POA, - During last hospitalization, pt was found to have abnormal CT brain and abdomen concerning for metastatic CA, CA 19-9 Dated June 2015: Elevated at 63, Alpha/beta/gamma globulins and monoclonal protein studies were ordered March 2016, were unremarkable. - High index of suspicion for bony metastasis from unknown origin, likely breast cancer. Patient has a history of breast cancer s/p lumpectomy in the past. Unclear of current status. CT brain without contrast 09/12/2016: No acute intracranial findings, abnormal appearance of medullary bone of calvarium suggestive of diffuse metastatic disease or multiple myeloma. CT abdomen Pancreatic protocol on 09/15/16 showed Increased, severe pancreatic ductal dilatation, associated with mild biliary ductal dilatation. Findings indicate a stricture, possibly malignant. Given the suboptimal MRCP examination, ERCP is recommended for further assessment. 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 Atypical appearance of metastatic disease could produce this appearance as well. Further assessment with lumbar spine MRI with and without intravenous contrast recommended. Findings were discussed with the patient and her family on 09/16/16. Patient declined further treatment and agreed to go on Hospice Care. She initially stated she would like to stop dialysis as well. pt followed up with [facility] but stopped as pt refused and dialysis resumed. -After discussion, pt agreed on assessment by Oncologist, to see her current status, possible further w/u if it's believed to be cancer. Bone scan 11/03 was limited study, no obvious findings suggestive of cancer.spoke with Dr Crump , no evidence of cancer at this point but is possible and needs more outpatient workup. Patient and daughter agrees for outpatient follow-up. She was to continue dialysis and OPTOUT from hospice -appreciate input, recommended abd MRI with pancreatic protocol. Patient did not tolerate due to claustrophobia. Recommend outpatient workup. Advised to follow-up with Dr. Crump -Patient revoked code status to FULL CODE per discussion with palliative care. # Elevated CA 19-9 -Workup as above chronic, stable, #HFrEF, chronic. overloaded as above, Echo 11/2015: EF 65-70, with mild concentric left ventricular hypertrophy; right ventricle mildly dilated with right ventricular systolic function mildly reduced - resumed lasix #Elevated alkaline phosphatase, chronic. Appears stable - On admit: Alkaline phosphatase 368, likely due to bony lesions such as bone metastases or Paget's disease. - Previous values, with earliest dated March 2016, at 416 - May be secondary to underlying malignancy #Diabetes mellitus, non-insulin using, chronic. Presumed stable - Patient denies any history of diabetes, although diagnosis is found throughout chart - A1c November 2015: 5.5 - No diabetic medications on reconciliation #Chronic bilateral lower extremity pain. Presumed stable - No additional imaging ordered at this time - Resume home pain management with Percocet 10mg Q6H PRN #Tobacco dependence, chronic. Presumed stable - Patient and family report daily tobacco use, estimated at 1 pack per day - Nicotine patch ordered #Depression, chronic. Presumed stable - Continue fluoxetine per home schedule Switched to full code from DNR/DNI Follow-up with PCP for further workup of weight loss and abnormal CT abdomen findings Condition on discharge stable Exam Vital Signs (Last) Date Time Temp Pulse Resp B/P Pulse Ox O2 Delivery O2 Flow Rate FiO2 11/05/16 09:21 36.7 68 22 120/69 99 Nasal Cannula 4.00 Exam Frail, AA lady, NAD, comfortably laying down on the bed no JVD, MMM, no LAD RRR, nl s1, s2 no mrg CTAB, no w,c S,ND,NT,hypoactiveBS+ warm, trace edema, pulses 2/2 Test 10/31/16 17:00 11/02/16 07:30 Lactic Acid Level 0.9mmol/L (0.4-2.0) Lipase 30U/L (13-60) Hold Gordon Top Tube Received (Received) White Blood Count 4.9th/mm3 (3.8-10.1) Red Blood Count 3.45mil/mm3 (3.90-5.20) Hemoglobin 10.5g/dL (12.0-15.6) Hematocrit 32.4% (35.0-46.0) Mean Corpuscular Volume 93.9fL (81-100) Mean Corpuscular Hemoglobin 30.4pg (27.0-35.0) Mean Corpuscular Hemoglobin Concent 32.4% (32.0-37.0) Red Cell Distribution Width 14.7% (12.3-15.4) Platelet Count 150bil/L (150-400) Neutrophils (%) (Auto) 72.1% (40-74) Lymphocytes (%) (Auto) 18.9% (14-46) Monocytes (%) (Auto) 6.6% (4-12) Eosinophils (%) (Auto) 1.6% (0-5) Basophils (%) (Auto) 0.4% (0-3) Sodium Level 143mEq/L (134-144) Potassium Level 4.9mEq/L (3.5-5.2) Chloride Level 105mEq/L (97-108) Carbon Dioxide Level 19mmol/L (18-29) Blood Urea Nitrogen 34mg/dL (8-27) Creatinine 9.61mg/dL (0.57-1.00) Estimat Glomerular Filtration Rate 5mL/min (>59) Glucose Level 143mg/dL (60-99) Calcium Level 8.3mg/dL (8.5-10.1) Magnesium Level 2.3mg/dL (1.6-2.6) Total Bilirubin 0.2mg/dL (0.0-1.2) Aspartate Amino Transf (AST/SGOT) 10U/L (0-50) Alanine Aminotransferase (ALT/SGPT) 5U/L (0-32) Alkaline Phosphatase 350U/L (25-165) Total Protein 6.3g/dL (6.4-8.4) Albumin 3.5g/dL (3.4-5.0) Carcinoembryonic Antigen 3.7ng/mL (0.0-4.7) CA 19-9 Antigen 67U/mL (0-35) Discharge Medications Discharge Medications Fluoxetine (Prozac) 20 Mg Capsule 20 MG PO DAILY (Reported) Furosemide (Furosemide) 40 Mg/4 Ml Solution 40 MG PO DAILY Prescribed by: KEVIN BRIAN MD Vancomycin (Vancomycin) 125 Mg Capsule 125 MG PO Q6 Prescribed by: KEVIN BRIAN MD As needed Albuterol Neb Soln (Albuterol Neb Soln) 2.5 Mg/3 Ml Vial.neb 2.5 MG INHALATION Q4H PRN PRN For Shortness of Breath Prescribed by: WILLIAM DE LA CRUZ MD Docusate Sodium (Colace) 100 Mg Capsule 100 MG PO HS PRN PRN For Constipation ( Reported) Ondansetron ODT (Ondansetron ODT) 4 Mg Tab.rapdis 4 MG PO Q8H PRN PRN For Nausea Prescribed by: ANGIE GIFFORD DO hydrOXYzine Hcl (HydrOXYzine Hcl) 25 Mg Tablet 25 MG PO Q8H PRN PRN For Itching Prescribed by: ANGIE GIFFORD DO oxyCODONE-Acetaminophen 10-325 mg (oxyCODONE-Acetaminophen 10-325 mg) 1 Each Tablet 1 TABLET PO Q6H PRN PRN For Pain Prescribed by: ANGIE GIFFORD DO Miscellaneous Medications Cholecalciferol (Vitamin D3) (Cholecalciferol) 1 Gm Crystals 1 GM MC (Reported) Vit B Comp&C/Folic Acid/Vit D3 (Dialyvite 800 Plus D Wafer) 800 Mcg-2,000 Unit Tab.chew 1 EACH PO (Reported) Followup Plan Disposition: home Discharge Diet: Diabetic, Renal Diet Discharge Activity: Limited until seen by PCP Patient Instructions You were hospitalized due to watery diarrhea due to C. difficile colitis. Diarrhea resolved.You were noted to have abnormal CT scan of abdomen and elevated CA 19-9 ( marker for pancreatic cancer) . Oncologist Dr Crump recommended MRI of abdomen but did not tolerate due to claustrophobia. Please follow-up with PCP and oncologist for workup of probable metastatic cancer of unknown primary. Please continue dialysis with . Follow-up Provider: Bere Allen MD Follow-up with PCP in: 1 week Provider: Collin Crump MD Follow-up in: 2 weeks Time spent 40 minutes coordinating discharge copies to: Bere Allen MD; Collin Crump MD, Melaku MD Nov 05, 2016 16:33
== END 2016-11-05 14:25 | disposition home or self-care (01) | DRG 371 ==
LOC: SED 15:05 → OBSVTOIN 19:26 → MPC 19:26
PROVIDERS: ADMIT Family Medicine; ATTEND Internal Medicine
PROC: 5A1D60Z (ICD-10-PCS; principal; 2016-11-02)
PROC: 0HDNXZZ Extraction of Left Foot Skin, External Approach (ICD-10-PCS; 2016-11-02)
DX: A04.7 Enterocolitis due to Clostridium difficile (principal); N18.6 End stage renal disease; I13.0 Hypertensive heart and chronic kidney disease with heart failure and stage 1 through stage 4 chronic kidney disease, or unspecified chronic kidney disease; I50.32 Chronic diastolic (congestive) heart failure; C25.9 Malignant neoplasm of pancreas, unspecified; C79.51 Secondary malignant neoplasm of bone; C78.89 Secondary malignant neoplasm of other digestive organs; J81.1 Chronic pulmonary edema; F11.20 Opioid dependence, uncomplicated; R64 Cachexia; H54.42 Blindness, left eye, normal vision right eye; F17.210 Nicotine dependence, cigarettes, uncomplicated; F32.9 Major depressive disorder, single episode, unspecified; E11.43 Type 2 diabetes mellitus with diabetic autonomic (poly)neuropathy; E86.0 Dehydration; E11.319 Type 2 diabetes mellitus with unspecified diabetic retinopathy without macular edema; K31.84 Gastroparesis; E11.22 Type 2 diabetes mellitus with diabetic chronic kidney disease; G89.29 Other chronic pain; D63.1 Anemia in chronic kidney disease; Z68.23 Body mass index [BMI] 23.0-23.9, adult; Z99.2 Dependence on renal dialysis; Z86.73 Personal history of transient ischemic attack (TIA), and cerebral infarction without residual deficits; Z79.51 Long term (current) use of inhaled steroids; Z99.81 Dependence on supplemental oxygen

== ENCOUNTER 2016-11-13 06:03 | Inpatient (IN) | payer MEDICARE, MEDICAID ==
[~2016-11-13] VITALS: Ht 152.4 cm; Wt 54.7 kg
[~2016-11-13 06:03] MED LIST changes: +CHOL1CRY2 MC; -DICL100G8 TOPICAL; +FURO40SO4 PO; -FURO40TA4 PO; -MORP-32 PO; -MORPHINE SULFATE PO; +VIT1TAB.7 PO
[2016-11-13 06:43] VITALS: BP 139/85; PULSE 75; RESP 16; O2SAT 99
--- NOTE | 2016-11-13 06:52 | ED.REPORT ---
HPI-NVD Date of Service Nov 13, 2016 ED Provider: Andrew Kim MD Patient is a 71 year old female with a hx of ESRD on HD, COPD, DM, HTN, CVA, CHF , stage 4 pancreatic cancer, and C-diff who presents to the ED via EMS complaining of diarrhea over the last 4 days. She reports having 3 bouts of diarrhea just this morning. Associated symptoms include vomiting and decreased appetite. Patient also reports L hand pain s/p falling out of her wheelchair about a week ago. She denies hematochezia, hematemesis, fever, or any other symptoms. She was admitted October 31- for dehydration and C-diff. She was discharge on Vancomycin but did not take it because she states it made her sick. She has been taking 10mg Percocet for her pain without relief. Patient was last dialyzed yesterday. Nursing Notes Stated Complaint: C DIFF Chief Complaint: General Complaint Nursing Notes Reviewed: Yes ([employer], meds not reconciled) Allergies: Coded Allergies: gabapentin (Verified Allergy, Severe, 11/13/16) Swelling and gait problems hydromorphone HCl (Verified Allergy, Severe, Hallucinations, 11/13/16) "Trip like on LSD" sumatriptan succinate (Verified Allergy, Severe, Dizziness, 11/13/16) Chest pain and dizziness TAPE (Verified Allergy, Intermediate, 11/13/16) itching latex (Verified Allergy, Intermediate, 11/13/16) Itching from gloves morphine (Verified Allergy, Unknown, Hallucinations, 11/13/16) Scheduled Fluoxetine (Prozac) 20 Mg Capsule 20 MG PO DAILY Furosemide (Furosemide) 40 Mg/4 Ml Solution 40 MG PO DAILY Ondansetron (Zofran) 4 Mg Tablet 4 MG PO q8h Scheduled PRN Albuterol Neb Soln (Albuterol Neb Soln) 2.5 Mg/3 Ml Vial.neb 2.5 MG INHALATION Q4H PRN PRN For Shortness of Breath Docusate Sodium (Colace) 100 Mg Capsule 100 MG PO HS PRN PRN For Constipation Oxycodone HCl/Acetaminophen (Endocet 10-325 mg Tablet) 1 Each Tablet 1 EACH PO Q4H PRN PRN For Pain hydrOXYzine Hcl (HydrOXYzine Hcl) 25 Mg Tablet 25 MG PO Q8H PRN PRN For Itching Miscellaneous Medications Cholecalciferol (Vitamin D3) (Cholecalciferol) 1 Gm Crystals 1 GM MC Vit B Comp&C/Folic Acid/Vit D3 (Dialyvite 800 Plus D Wafer) 800 Mcg-2,000 Unit Tab.chew 1 EACH PO General Time Seen by MD: 06:48 Chief Complaint Diarrhea Hx Obtained From: Patient Arrived By: Ambulance Onset Occurred: 4 days ago Symptom Duration: Since onset Additional Notes: vomiting Pertinent Negative: Pt denies other symptoms Related History: Reports: Cancer, Diabetes mellitus Recent Healthcare: Recent doctor visit, Recent hospitalization Similar Sx Previous: Yes Past Medical History Past Medical History Notes: Net Coordinator: Dr. Allen Admitted October 25 6030 for C. difficile, treated initially at 5 Dr. sma, discharged on 14 days of oral vancomycin. Patient also had C. difficile September 2016 Past Medical History 1. ESRD on dialysis ,R, wednesday 2. Hypertension 3. Recently diagnosed stage IV cancer, , metastatic disease of unknown primary, please see discharge summary November 05 4. Diabetes mellitus 5. Stroke 6. COPD 7. Chronic tobacco dependence. 8. Anemia of chronic disease. 9. History of right lower lobe pneumonia. 10. Hospitalization, November 2012, for atypical chest pain with negative myocardial stress test. 11. Staph aureus sepsis, December 2012. 12. Clostridium difficile colitis 13. Diabetic gastroparesis 14. Reports mass on pancreas 15. Diastolic dysfunction on echocardiogram, November 10, 2012. 16. 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 17. CHF 18. Chronic back pain 19. Uterine and breast CA 20. C-diff Past Surgical History 1. Left arm fistula. 2. Left brachial basilic fistula. 3. Right brachial basilic fistula. 4. Cholecysectomy 5. 6. Evacuation of wound hematoma due to thrombosed left brachial basilic fistula, April 2012. 7. 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 8. Breast biopsy 9. L tib/fib repair Family History Noncontributory Smoking History Current Every Day Smoker Social History Lives in [place] Alcohol Use: "Social" Drug Use: Denies drug use Other Social History: Lives alone, Local resident Ambulatory Status Wheelchair Review of Systems Review of Systems Note: +decreased appetite Constitutional: Denies: Fever GI: Reports: Diarrhea, Nausea, Vomiting, Denies: Hematemesis, Hematochezia Complete sys rev & neg: except as marked. Physical Exam Initial Vital Signs Vital Signs (First) Date Time Temp Pulse Resp B/P Pulse Ox O2 Delivery O2 Flow Rate FiO2 11/13/16 06:43 36.6 75 16 139/85 99 Nasal Cannula 2 Initial VS: Reviewed, Vital signs normal Head / Eyes: Atraumatic, Normocephalic Skin: Warm, Dry General/Constitutional: Awake, Alert, Not toxic appearing Frail, fatigued, angry and hostile elderly woman in no acute distress. Wandering historian Abdomen: Atraumatic, Soft, Non-tender Mouth: Positive: Mucous membranes dry Respiratory / Chest: Atraumatic, Breath sounds NL, Breath sounds = bilat, No respiratory distress Catheter in R subclavian chest Cardiovascular: Heart rate NL, Regular rhythm, Heart sounds NL Back: Atraumatic marked kyphosis of spine Upper Extremity / MS: Neurologic intact, Vascular intact In tact ROM of L shoulder, arm, and wrist though she complains of pain over this past week after a fall. Interpretation & Diagnostics Lab Results Interpretation Result Diagram: 11/13/16 0845 11/13/16 0845 Test 11/13/16 08:45 White Blood Count 5.5th/mm3 (3.8-10.1) Red Blood Count 3.35mil/mm3 (3.90-5.20) Hemoglobin 9.9g/dL (12.0-15.6) Hematocrit 30.5% (35.0-46.0) Mean Corpuscular Volume 91.0fL (81-100) Mean Corpuscular Hemoglobin 29.6pg (27.0-35.0) Mean Corpuscular Hemoglobin Concent 32.5% (32.0-37.0) Red Cell Distribution Width 14.8% (12.3-15.4) Platelet Count 156bil/L (150-400) Neutrophils (%) (Auto) 71.6% (40-74) Lymphocytes (%) (Auto) 18.2% (14-46) Monocytes (%) (Auto) 8.3% (4-12) Eosinophils (%) (Auto) 1.3% (0-5) Basophils (%) (Auto) 0.4% (0-3) Sodium Level 137mEq/L (134-144) Potassium Level 4.0mEq/L (3.5-5.2) Chloride Level 96mEq/L (97-108) Carbon Dioxide Level 24mmol/L (18-29) Blood Urea Nitrogen 10mg/dL (8-27) Creatinine 4.06mg/dL (0.57-1.00) Estimat Glomerular Filtration Rate 14mL/min (>59) Glucose Level 98mg/dL (60-99) Calcium Level 9.2mg/dL (8.5-10.1) Phosphorus Level 4.7mg/dL (2.5-4.9) Magnesium Level 2.0mg/dL (1.6-2.6) Total Bilirubin 0.4mg/dL (0.0-1.2) Aspartate Amino Transf (AST/SGOT) 14U/L (0-50) Alanine Aminotransferase (ALT/SGPT) 5U/L (0-32) Alkaline Phosphatase 335U/L (25-165) Total Protein 6.8g/dL (6.4-8.4) Albumin 3.4g/dL (3.4-5.0) Lab Results Interpretation: CBC normal CMP chronic renal failure Repeat C. difficile stool pending Re-Eval/Medical Decision Med Decision/Clinical Course This is a 71-year-old female chronically ill with multiple recent hospitalizations is dialysis dependent and lives in [place] we presents complaining of uncontrolled, severe diarrhea, and intractable pain. His just felt lousy, really has not been able take by mouth for the past 3 days, has had near continuous diarrhea. She was recently admitted for a suspected recurrence of C. difficile, the diarrhea resolved during the hospitalization-in the records indicates she was discharged on oral vancomycin, the patient claims she has not been able to tolerate any of the medicine for the C. difficile. She claims further that the antibiotic was changed, but does not know to what. The way she indicates she has not been able to take it. Reports she had normal dialysis yesterday. She is somewhat hostile, mildly abusive and chronically ill on initial evaluation. She does appear miserable, and somewhat dehydrated. She has poor skin turgor. She has multiple episodes of diarrhea during her ED course and had been changed multiple times. She is chronic pain. She requests pain medicine, but then goes on to list allergies and intolerances to everything but Percocet-then goes on to add the Percocet does not work. I offered her fentanyl which she is not allergic to according the records, but she declined this. She is also extraordinarily difficult IV start, and IV therapy attempted multiple times but was unable to obtain axis. So after direct consultation with nephrology, we the IV therapist obtained permission to access the dialysis catheter for 24 hours THAT after hydration peripheral access could be initiated. The IV therapist noticed that the line did not appear to be well taken care of. She is being hydrated. Contact enteric precautions/isolation was employed. Symptoms discussed with nephrologythe patient. She is being readmitted for continued hydration and therapy. I reinitiate any antibiotics, the recommended Fidoxamicin for recurrent C diff while a repeat stool sample is being sent. Nephrology has requested the palliative care be again consulted-the patient has been followed by palliative care, and has been on and off hospice in the past. My understanding asof a review of the most recent discharge in recent weeks ( please see Discharge summary11/05/16), the patient has revoked her DNR/DNI status and requested full CODE STATUS at this stage. Source of Hx: Old records Re-Evaluation/Progress #1: Time of Eval: 09:00 Re-Evaluation/Progress Note: Authorization from Dr. Vaughan to use pt's port for 24 hours. Re-Evaluation/Progress #2: Time of Eval: 08:30 Re-Evaluation/Progress Note: Discussed plan for admission. Patient understands and agrees with plan. All questions addressed at this time. Consultation #1: Referral / Consult Name: Franklyn Bose DO Consulted With: Nephrology Call Returned at: 09:54 Note: Discussed pt's case. Agrees to consult. Consultation #2: Referral / Consult Name: Tamra Estevez MD Call Returned at: 10:13 Note: Discussed pt's case with palliative care. Agrees to consult. Consultation #3: Referral / Consult Name: Kevin Painting MD Consulted With: Hospitalist Call Returned at: 11:14 Head Custodian: Will see patient, Agrees with eval, Agrees with plan, Accepts admit Note: Discussed pt's case. Accepts admit. Differential Diagnosis: Positive: C. diff colitis, Negative: Drug overdose, Chelsey-Ayala syndrome Counseled Regarding: Diagnosis, Lab results, Need for admission Discharge & Departure Impression: Primary Impression: C. difficile diarrhea Additional Impressions: Dehydration Chronic renal failure Chronic kidney disease stage: stage 5 Qualified Code: N18.5 - Chronic kidney disease, stage 5 Noncompliance with medication regimen Diarrhea Diarrhea type: presumed infectious Qualified Code: A09 - Infectious gastroenteritis and colitis, unspecified Disposition: ADMITTED TO HOSPITAL Discharge Condition All VS Reviewed: Yes Condition: Critical Referrals: Franklyn Bose DO (PCP) Ebenezer Attestation Portions of this note were transcribed by Destin Young. I, Dr. Kim personally performed the history, physical exam and medical decision-making; I reviewed and confirmed the accuracy of the information in the transcribed note. Signed by: Ebenezer Dubois, 11/13/16 copies to: Franklyn Bose Matthew F MD Nov 13, 2016 06:52 DESTIN YOUNG Nov 13, 2016 07:14
[2016-11-13] MEDS ORDERED: fentaNYL-PF 50 mCg/mL 2 mL Inj IM ONE (07:15)
[2016-11-13] MEDS ORDERED: Lactated Ringer's 1,000 ML IV ONE (08:45)
[2016-11-13] MEDS ORDERED: oxyCODONE-Acetamin 10-325 mg Tablet PO ONE (08:45)
[2016-11-13 09:00] LABS: BASOPHILS % (AUTO) 0.4 % (0-3); EOSINOPHILS % (AUTO) 1.3 % (0-5); MONOCYTES % (AUTO) 8.3 % (4-12); Mean Corpuscular Hemoglobin 29.6 pg (27.0-35.0); NEUTROPHILS % (AUTO) 71.6 % (40-74); Platelet Count 156 bil/L (150-400)
[2016-11-13] MEDS ORDERED: ONDA4TAB6 PO (09:10)
[2016-11-13] MEDS ORDERED: OXYC-408 PO (09:11)
[2016-11-13 09:28] LABS: Phosphorus 4.7 mg/dL (2.5-4.9)
--- NOTE | 2016-11-13 09:28 | NUR ---
Admit nurse: Feliciano rec completed with pt interview. Pt has hx of falls, is a dialysis pt, last dialysis 11/12/16, reports being blind in L eye and having cataract to R eye. Pt has pre-existing wound to R heel.
[2016-11-13 10:37] VITALS: BP 104/54; PULSE 71; RESP 12; O2SAT 98
[2016-11-13] MEDS ORDERED: Alum-Mag Hydrox-Simeth 30 mL Suspension PO PRN ×2 (11:35→12:00)
[2016-11-13] MEDS ORDERED: Ondansetron 2 mg/mL 2 mL Inj IVPUSH PRN (11:35)
--- NOTE | 2016-11-13 11:39 | NUR ---
Palliative Care Palliative Care received verbal order from Dr Kim (ED) 11/13/16 to assist with goals of care. Patient admitted 11/13/16. Palliative Care has seen patient during previous admissions. Betina (daughter) [phone] Palliative Care to follow. Sydnee Scott
--- NOTE | 2016-11-13 11:45 | NUR ---
admit Pt. arrived to floor at approx. 1145. Pt. alert and oriented. Reporting pain to low back at 9/10. Nauseated. Loose bm during transit. Pt. wearing brief. IV fluids infusing to dialysis fistula per orders. Pt. assisting with turning in bed. Pt. requesting nicotine patch; daily smoker. Pt. refused Tele box and refuses to be on a renal diet. MD notified about pt.'s arrival and tele box refusal. Anticipating orders at this time.
[2016-11-13] MEDS ORDERED: Polyethylene Glycol (PEG) 17 Gm Powder PO PRN (12:00)
[2016-11-13 12:21] VITALS: BP 136/70; PULSE 73; RESP 18; O2SAT 93
[2016-11-13] MEDS: 0.9% Sodium Chloride 1,000 ML IV SCH (12:34)
[2016-11-13] MEDS: Ondansetron 2 mg/mL 2 mL Inj IVPUSH PRN (12:34)
--- NOTE | 2016-11-13 13:00 | PCM.HPMED ---
Subjective Date of Service Nov 13, 2016 Primary Provider: Admitting Physician: Kevin Painting MD Primary Care Physician: Franklyn Bose DO Attending Physician: Kevin Painting MD Admit Status: From the Emergency Department, Full Admit Chief Complaint: watery diarrhea/3 days History of Present Illness: Patient is a 71 year old female with PMH of ESRD on HD, COPD, DM, HTN, CVA, CHF , suspected pancreatic cancer under work up , and recurrent C-diff who presents to the ED via EMS complaining of diarrhea over the last 4 days. Patient was admitted from September 12 for diarrhea, C. difficile positive. Discharged on oral vancomycin but patient did not take it after discharge. She was readmitted from October 31 due to generalized weakness and also had episodes of diarrhea. Diarrhea resolved and C. difficile was never sent. She was discharged on prolonged course of by mouth vancomycin for suspected recurrent C. difficile. She also received doses of dificid last hospitalization. She states she did not take vancomycin after discharge because of nausea. She is able to tolerate vancomycin while inpatient in the last 2 hospitalizations but does not take it after discharge. She states she started to have diarrhea 3 days ago. Diarrhea is watery, multiple episodes per day. She also has generalized weakness. of note patient was undergoing workup for suspected pancreatic cancer.pt was found to have abnormal CT brain and abdomen concerning for metastatic CA in September admission, CA 19-9 Dated June 2015: Elevated at 63, Alpha/beta/gamma globulins and monoclonal protein studies unremarkable. Patient has a history of breast cancer s/p lumpectomy in the past. CT brain without contrast 2016: No acute intracranial findings, abnormal appearance of medullary bone of calvarium suggestive of diffuse metastatic disease or multiple myeloma. CT abdomen Pancreatic protocol on 09/15/16 showed Increased, severe pancreatic ductal dilatation, associated with mild biliary ductal dilatation. Findings indicate a stricture, possibly malignant. Given the suboptimal MRCP examination , ERCP is recommended for further assessment. 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 Atypical appearance of metastatic disease could produce this appearance as well. Further assessment with lumbar spine MRI with and without intravenous contrast recommended. Findings were discussed with the patient and her family on 09/16/16. Patient declined further treatment and agreed to go on Hospice Care. She initially stated she would like to stop dialysis as well. pt followed up with [facility]. Patient rescind hospice and came to the hospital for admission end of October and dialysis resumed. Oncologist Dr Crump was involved to help with work up . No evidence of metastatic ca so far. Metastatic cancer possible but unlikely. ESRD bone disease may be causing the features. Bone scan 11/03 was limited study, no obvious findings suggestive of cancer.Dr Crump recommended outpatient workup ED course:BP 104/54,HR 71 she had 4 episodes of watery diarrhea .she received a dose of dificid,c.dif checked and negative unable to get iv ,dialysis catheter accessed by ED after getting permission from her primary book repairer for IV fluids. Review of Systems: Comprehensive review of systems performed, pertinent positives and negatives included in history of present illness Allergies Coded Allergies: gabapentin (Verified Allergy, Severe, 11/13/16) Swelling and gait problems hydromorphone HCl (Verified Allergy, Severe, Hallucinations, 11/13/16) "Trip like on LSD" sumatriptan succinate (Verified Allergy, Severe, Dizziness, 11/13/16) Chest pain and dizziness TAPE (Verified Allergy, Intermediate, 11/13/16) itching latex (Verified Allergy, Intermediate, 11/13/16) Itching from gloves morphine (Verified Allergy, Unknown, Hallucinations, 11/13/16) Home Medications Fluoxetine (Prozac) 20 Mg Capsule 20 MG PO DAILY (Reported) Furosemide (Furosemide) 40 Mg/4 Ml Solution 40 MG PO DAILY Prescribed by: KEVIN PAINTING MD Vancomycin (Vancomycin) 125 Mg Capsule 125 MG PO Q6 Prescribed by: KEVIN PAINTING MD As needed Albuterol Neb Soln (Albuterol Neb Soln) 2.5 Mg/3 Ml Vial.neb 2.5 MG INHALATION Q4H PRN PRN For Shortness of Breath Prescribed by: WILLIAM DE LA CRUZ MD Docusate Sodium (Colace) 100 Mg Capsule 100 MG PO HS PRN PRN For Constipation ( Reported) Ondansetron ODT (Ondansetron ODT) 4 Mg Tab.rapdis 4 MG PO Q8H PRN PRN For Nausea Prescribed by: ANGIE GIFFORD DO hydrOXYzine Hcl (HydrOXYzine Hcl) 25 Mg Tablet 25 MG PO Q8H PRN PRN For Itching Prescribed by: ANGIE GIFFORD DO oxyCODONE-Acetaminophen 10-325 mg (oxyCODONE-Acetaminophen 10-325 mg) 1 Each Tablet 1 TABLET PO Q6H PRN PRN For Pain Prescribed by: ANGIE GIFFORD DO Miscellaneous Medications Cholecalciferol (Vitamin D3) (Cholecalciferol) 1 Gm Crystals 1 GM MC (Reported) Vit B Comp&C/Folic Acid/Vit D3 (Dialyvite 800 Plus D Wafer) 800 Mcg-2,000 Unit Tab.chew 1 EACH PO (Reported) PMH per chart and verified with patient ESRD on dialysis MWF Chronic tobacco dependence. Anemia of chronic disease. History of right lower lobe pneumonia. Hospitalization, November 2012, for atypical chest pain with negative myocardial stress test. Staph aureus sepsis, December 2012. 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 Reports: COPD, Diabetes mellitus, Hypertension, Stroke Surgical History per chart and verified with patient Left arm fistula. Not functioning Left brachial basilic fistula. Not functioning Right brachial basilic fistula. Evacuation of wound hematoma due to thrombosed left brachial basilic fistula, April 2012. 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 Reports: , Cholecystectomy Right-sided tunneled dialysis cath Status post ORIF left tibia and fibular proximal fracture Family History per chart and verified with patient Father HTN, DM2, and CAD Mother with early onset Alzheimer's Social History Hx Alcohol Use: Yes (occasionally) Hx Substance Use: No Hx Tobacco Use: Yes (1 pack per 2-3 days since the age of 17) Smoking Status: Current Every Day Smoker Exam Vital Signs Vital Sign - Last Date Time Temp Pulse Resp B/P Pulse Ox O2 Delivery O2 Flow Rate FiO2 11/13/16 12:21 36.9 73 18 136/70 93 Nasal Cannula 2.00 Exam Gen. patient is lying comfortably in hospital bed HEENT: Head is normocephalic atraumatic, Pupils equal and reactive, extraocular movements intact, Lungs clear to auscultation bilaterally.RIJ HD catheter in place Heart regular rate and rhythm without murmurs gallops or rubs Abdomen soft nontender without hepatosplenomegaly Extremities multiple surgical scars on bilateral upper extremity for failed AV fistula .left hell small dry ulcer Psych alert and oriented to person place and time Neuro cranial nerves II through XII are grossly intact Lymph: There is no lymphadenopathy appreciated in the cervical supra infraclavicular regions : no rubi Lab and Diagnostics Result Diagram: 11/13/1684411/13/16844 Microbiology Specimen: [id number] Collected: 11/13/16-UNK Status: COMP Req#: [id number] Received: 11/13/16 Source: STOOL Sp Desc : Subm Dr: Andrew Kim MD Ordered: C DIFF DNA PCR Comments: Collected by Nurse/Unit? Y/N Y Procedure Result Verified Site Microbiology PIPER C DIF PCR STOOL Final 11/13/16-1022 CDIF DNA BY PCR NEGATIVE REFERENCE INTERVAL NEGATIVE Assessment & Plan Patient is a 71 year old female with PMH of ESRD on HD, COPD, DM, HTN, CVA, CHF , suspected pancreatic cancer under work up , and recurrent C-diff who presents to the ED via EMS complaining of diarrhea over the last 4 days # Recurrent episodes of diarrhea, POA, acute -Unclear etiology -She was admitted for C. difficile colitis from September 12-. She was readmitted from October 31- for diarrhea but diarrhea resolved before c.dif sent. Treated empirically for recurrent C. difficile episode. Patient discontinued. Vancomycin after discharge. She came with watery diarrhea which is negative for C. difficile. -Received a dose of difid in ED. consulted ID Dr. Diaz for recommendation.defer empiric anti c.dif to Dr GERMAN at 60ml/h -Keep contact isolation for now #Suspected metastatic pancreatic cancer under workup , POA, - patient was undergoing workup for suspected pancreatic cancer on prior admission.pt was found to have abnormal CT brain and abdomen concerning for metastatic CA in September admission, CA 19-9 Dated June 2015: Elevated at 63, Alpha/beta/gamma globulins and monoclonal protein studies unremarkable. Patient has a history of breast cancer s/p lumpectomy in the past. CT brain without contrast 09/12/2016: No acute intracranial findings, abnormal appearance of medullary bone of calvarium suggestive of diffuse metastatic disease or multiple myeloma. CT abdomen Pancreatic protocol on 09/15/16 showed Increased, severe pancreatic ductal dilatation, associated with mild biliary ductal dilatation. Findings indicate a stricture, possibly malignant. Given the suboptimal MRCP examination, ERCP is recommended for further assessment. 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 Atypical appearance of metastatic disease could produce this appearance as well. Further assessment with lumbar spine MRI with and without intravenous contrast recommended. Findings were discussed with the patient and her family on 09/16/16. Patient declined further treatment and agreed to go on Hospice Care. She initially stated she would like to stop dialysis as well. pt followed up with [facility]. Patient rescind hospice and came to the hospital for admission end of October and dialysis resumed. Oncologist Dr Crump was involved to help with work up . No evidence of metastatic ca so far. Metastatic cancer possible but unlikely. ESRD bone disease may be causing the features. Bone scan 11/03 was limited study, no obvious findings suggestive of cancer.Dr Crump recommended outpatient workup -may reconsider GI consult for ERCP and further workup after diarrhea resolves or may also hold workup for outpatient # Elevated CA 19-9 -Workup as above chronic, stable, #HFrEF, chronic. Echo 11/2015: EF 65-70, with mild concentric left ventricular hypertrophy; right ventricle mildly dilated with right ventricular systolic function mildly reduced - resumed home lasix #Elevated alkaline phosphatase, chronic. Appears stable - On admit: Alkaline phosphatase 368, likely due to bony lesions such as bone metastases or Paget's disease. - Previous values, with earliest dated March 2016, at 416 - May be secondary to underlying malignancy,under workup #Diabetes mellitus, diet controlled , chronic. Presumed stable - Patient denies any history of diabetes, although diagnosis is found throughout chart - A1c November 2015: 5.5 - No diabetic medications #Chronic bilateral lower extremity pain with left heel chronic ulcer . Presumed stable -wound care consult placed - Resume home pain management with Percocet 10mg Q6H PRN #Tobacco dependence, chronic. Presumed stable - Patient and family report daily tobacco use, estimated at 1 pack per day - Nicotine patch ordered #Depression, chronic. Presumed stable - Continue fluoxetine per home schedule # goals of care Full code ,verified from patient .she recently rescind hospice Palliative consulted for continued discussion of goals of care Patient admitted under inpatient status with expected length of stay > 2 midnights for severity of present symptoms, complexities of treatment plan and risk for adverse events Resuscitation Status: CPR: Attempt Resuscitation copies to: Bere Allen MD, Melaku MD Nov 13, 2016 13:00
[2016-11-13] MEDS: oxyCODONE-Acetamin 10-325 mg Tablet PO PRN ×2 (13:41→19:42)
--- NOTE | 2016-11-13 17:16 | CONS ---
[address] [address] CONSULTATION REPORT PATIENT: ROMAINE ALEXIS : 1945 MR#: [id number] ADMIT: 11/13/2016 JOB ID: [id number] DATE OF SERVICE: 11/13/2016 INFECTIOUS DISEASE CONSULTATION: I thank Dr. Painting for this timely consult. REASON FOR CONSULT: Diarrhea with questionable recurrence of Clostridium difficile. HISTORY OF PRESENT ILLNESS: The patient is an extremely unfortunate 71-year-old woman with multiple medical problems including end-stage renal disease due to diabetes and hypertension, as well as COPD, ongoing cigarette smoking, and a possible metastatic malignancy which has been partially worked up to date, but the diagnosis on that is not yet clear. She also has some chronic bilateral edema, congestive heart failure, and many other lesser medical issues. Back in September she was admitted with nausea, vomiting, and diarrhea and a stool was positive for C diff. She was treated while in the hospital and discharged on oral vancomycin, which she did not tolerate, and apparently did not finish a course of therapy. Weeks later, in late October, she was readmitted with what was thought to be a recurrence of the C. diff as her diarrhea had resumed and was once again quite severe. She was again treated with oral C. diff therapy which apparently at that time included Dificid, but when she was discharged to complete a course of oral vancomycin, she again failed to do so because she does not seem to tolerate the oral vancomycin well, at least in the outpatient setting. She was admitted for a third time just yesterday afternoon complaining of diarrhea which had been going on for several days. She notes that she is unable to tolerate long courses of oral vancomycin because of nausea and therefore does not take it as an outpatient. Upon her readmission yesterday she stated she was having diarrhea for three or four days starting on or about November 10 and it was occurring several times per day. It was associated with nausea and anorexia, but no vomiting. She notes she has had very little to eat the last few days. This is similar to the episode in September which proved to be C. diff and the episode in late October which was not diagnosed as C. diff but was treated as such, at least while she was here in the hospital. She is not having any fevers, chills, or sweats. She is having some vertigo and right ear pain and just generalized weakness. PAST MEDICAL HISTORY: 1. End-stage renal disease. 2. Diabetes mellitus. 3. CHF. 4. Chronic bilateral lower extremity edema. 5. Left heel ulcer. 6. Depression. 7. COPD. 8. Ongoing cigarette smoking. 9. Left eye blindness. 10. History of Staph aureus sepsis 2012. 11. History of uterine cancer cured by hysterectomy. 12. History of breast cancer treated with lumpectomy, status unknown. 13. Possible pancreatic mass at this time, along with possible skull and back metastatic lesions. SOCIAL HISTORY: The patient lives with her family and continues to smoke cigarettes. She does not drink significant alcohol. She grew up in [place] and moved here 13 years ago because one of her daughters had relocated here as she was to a [employer] man. FAMILY HISTORY: Completely negative for TB exposure in first- and second-degree relatives. REVIEW OF SYSTEMS: Was done. The patient complains of some occasional headaches, but especially right-sided head pain around the ear, with periods of vertigo which come and go randomly. She denies loss of consciousness, confusion, fevers, chills, night sweats, or weight loss. She always feels cold, though, and keeps her house very very warm. She has no significant sore throat or trouble swallowing. No cough, shortness of breath, or chest pain. She does have persistent anorexia for several days now, with nausea but no vomiting. She does have several loose stools per day and this has been going on now for many weeks, but it tends to come and go. She makes miniscule amounts of urine and does not have dysuria. She has had a couple of fistulas which have failed and is now being dialyzed via right chest percutaneous dialysis. She denies swelling of the joints in lower or upper extremities. She has been too weak to walk for a year so and is now completely wheelchair dependent. Remainder of the review of systems is negative. PHYSICAL EXAMINATION: Reveals an afebrile woman, temperature 36.9. Pulse 73, respiratory rate 18, blood pressure 136/70. She is saturating well but is using 2 L nasal oxygen. She is alert and oriented and able to give a history. She does not have temporal wasting. Her left eye is prosthetic. She does see fairly well out of her right eye, though she says she has cataracts, but I did not formally assess that. Oral cavity without thrush or hairy leukoplakia. Neck reasonably supple. No adenopathy. Right chest hemodialysis line is benign. Lungs relatively clear, with a few crackles bilaterally. Cardiac tones regular rate and rhythm this afternoon. Abdomen soft and nontender. No organomegaly or tenderness is appreciated. There is no ascites. No suprapubic fullness is noted. She does not have a Curry catheter. Her legs and upper extremities for that matter are somewhat wasted. She has a small, about 7 mm, healing ulcer over the left heel. There is no evidence of inflammation or infection around it. The right heel looks benign. Both legs have some venous stasis changes as well as just diffusely dry cracked skin bilaterally. Strength is about 3+/5 bilaterally in her lower extremities and about 4/5 in the arms. She does have what appears to be some neuropathy in her lower extremities. No evidence for cellulitis and really no peripheral edema. LABORATORIES: Include white count 5500, totally normal diff. Creatinine 4.06. C. difficile PCR was done early this morning and it is negative. Looking back at earlier labs, the patient did have a positive C. diff on September 13 of this year. She had a coronavirus PCR respiratory panel back in March 2016. She did have Staph aureus bacteremia in 2012 and that was an MSSA. I see little else of interest from the micro point of view. IMAGING: The patient had a chest x-ray in late October that shows bilateral interstitial infiltrates which look like CHF and a mass was seen in the right apex, which is quite easily visible on chest x-rays which I reviewed. Additionally the patient has had other studies fairly recently including a bone scan done November 03 which showed no definite abnormalities, but that was not a good quality study apparently as the patient was unable lie still. An abdominal MRI scan was done during that admission as well. It showed dilatation and aeration of the pancreatic duct at the level of the ampulla suggesting a stricture and malignancy could not be excluded. IMPRESSION: This patient appears to have had Clostridium difficile colitis based on her presentation in September and received partial treatment for that, though she was unable to complete oral vancomycin at home. In late October she came back with what appeared to be more Clostridium difficile and was treated with Dificid and sent home with oral vancomycin. She reports because of nausea she did not finish the oral vancomycin after either the September or the late October admission. She now presents once again with fairly frequent bowel movements but a PCR done on this occasion is negative. My overall sense is that the patient does not have C. difficile. The C. difficile PCR is very very sensitive and a quite specific assay and the fact that it is now negative suggests to me that she no longer harbors the toxigenic C. difficile organism. I suspect her diarrhea is on the basis of medications, diabetes, or perhaps a gastrointestinal malignant process but is not on the basis of Clostridium difficile. Also possible is what is commonly thought of as post C. difficile irritable bowel. This is very common and occurs in patients who had Clostridium difficile that was appropriately treated and resolved, but they continue to have intermittent frequent loose bowel movements. This is analogous to the travel related irritable bowel syndrome which can occur in patients that have had travelers diarrhea. RECOMMENDATIONS: 1. At this point I see no need for C. diff isolation. 2. I think the patient could be treated with antimotility agents as needed to try and control her diarrhea. 3. A comprehensive review of her medicine should probably be undertaken to make sure that none of these are actually causing her diarrhea. ID will go ahead and sign off at this time. Thank you very much for this consultation.
[2016-11-13 17:44] VITALS: BP 118/69; PULSE 64; RESP 18; O2SAT 96
--- NOTE | 2016-11-13 19:24 | NUR ---
pain/activity Pt. reporting pain to be tolerable at 7/10, post percocet administration. Zofran 8mg IV very effective for nausea. Pt. has had x4 loose bms this shift. C-dif negative; precautions taken off per Dr. Diaz's request. Pt. sleeping intermittently. Report given to Juan Manuel Pond RN to continue care.
[2016-11-13 20:40] VITALS: BP 110/52; PULSE 70; RESP 18; O2SAT 93
[2016-11-13 21:01] VITALS: PULSE 75; RESP 18; O2SAT 92
[2016-11-13] MEDS: Albuterol 2.5 mg/3 mL Inhalation Solution NEB PRN (21:01)
[2016-11-14] MEDS: oxyCODONE-Acetamin 10-325 mg Tablet PO PRN ×5 (01:31→20:15)
[2016-11-14] MEDS: 0.9% Sodium Chloride 1,000 ML IV SCH (02:31)
[2016-11-14 04:30] VITALS: BP 106/62; PULSE 63; RESP 18; O2SAT 94
[2016-11-14] MEDS: Ondansetron 2 mg/mL 2 mL Inj IVPUSH PRN (07:49)
[2016-11-14] MEDS: hydrOXYzine Pamoate 25 mg Capsule PO PRN ×2 (07:50→17:25)
[2016-11-14 08:51] VITALS: BP 103/61; PULSE 67
[2016-11-14 09:00] LABS: BASOPHILS % (AUTO) 0.7 % (0-3); EOSINOPHILS % (AUTO) 2.7 % (0-5); MONOCYTES % (AUTO) 7.2 % (4-12); Mean Corpuscular Hemoglobin 29.7 pg (27.0-35.0); Mean Corpuscular Volume 92.5 fL (81-100); Platelet Count 173 bil/L (150-400)
[2016-11-14 09:26] LABS: Magnesium 1.9 mg/dL (1.6-2.6)
--- NOTE | 2016-11-14 10:42 | NUR ---
Social Work Note: Initial Assessment/Multidisciplinary Rounds Data: See Initial Assessment. Pt is a 71 year old female admitted on 11/13/16 for diarrhea per H&P. Pt has Medicare and [facility] Supplement. Pt's PCP is Franklyn Bose DO Pt's readmission score is 5-high risk. SW met with pt at bedside regarding discharge planning, SW role explained. Pt lives at home in a ground level apartment alone where she remains independent with basic ADLS. Pt uses a wheelchair at baseline and does not drive. Pt uses paratransit for transport. Pt has [facility] caregivers at home and her CM is Tanisha Valencia, clinicals have been faxed. Pt has caregivers 8 hours daily Wednesday-Wednesday. Pt goes to dialysis //Wed. Pt has hx with [facility] and [facility], but no SNF history. Pt does not have LTC insurance or VA benefits. Pt has DPOA on file. Pt discussion in morning rounds, pt does not have capacity for self care at this time due to having caregiver assistance at home. During last admission,palliative care meet with pt and pt continues to want to pursue dialysis and does not want Hospice services at this time. SW provided pt with discharge planning checklist booklet and encouraged her to call with any questions,phone number provided on white board in room. Pt's daughter to provide transport home. SW will continue to follow. Assessment:Pt who would benefit from GAIL. Plan: Pt to likely discharge home when medically stable. Pt to continue with GAIL caregiving at home. No anticipated discharge needs. SW to continue if needs arise. REX Gallegos Addendum: 11/14/16 at 1050 by KHALIF REZA SS Amended: Links added.
--- NOTE | 2016-11-14 12:53 | NUR ---
Dialysis note: 3 1/2 hr tx; Net UF 0.0; right cath: A-V, V-A, QB 400; O2 on 2L. Dresg changed, Island dressing, cleaned with chloroprep; Pt has been dehydrated - IV therapy was unable to establish a line or draw labs and so her dialysis cath access was used to give NS drip - Polishing Wheel Setter informed. I did not give floor RN instructions on discontinuing NS drip even though I was informed of NS infusion. Pt arrived on MOC without venous limb capped. Limbs were cleaned, labs drawn, and pt started tx without difficulty. Polishing Wheel Setter informed. Heparin 1000: bolus 1200, maint 300mL/hr. Pt rested and slept through most of tx with just a little episode of restlessness 2 hrs into tx. Pt was repositioned. Tx dc'd, Limbs secured with Heparin 1000 and secured. Report given to floor RN, Pinky. Pt returned to floor stable. Please see DTR for complete record of VS.
--- NOTE | 2016-11-14 13:00 | NUR ---
Back from MOC Pt. back from dialysis. Denies pain or discomfort. MD notified about IV fluids post dialysis. MD ordered for fluids to be stopped at this time. Dialysis port limbs caped and intact. Pt. eating lunch. Making needs met via call light appropriately. Will continue to monitor.
--- NOTE | 2016-11-14 13:07 | CONS ---
[address] [address] CONSULTATION REPORT PATIENT: ROMAINE ALEXIS : 1945 MR#: [id number] ADMIT: 11/13/2016 JOB ID: [id number] DATE OF SERVICE: 11/14/2016 RENAL CONSULTATION: HISTORY: The patient is a 71-year-old female who is well known to me from multiple previous evaluations. She has a history of end-stage renal disease and normally dialyzes on Wednesday, , and Wednesday. She was admitted to [facility] for diarrhea and concern about C. difficile colitis. The patient has a longstanding history of end-stage renal disease. The etiology of her renal failure is due to longstanding diabetic nephropathy and hypertensive renal disease. She also has had a history of intermittent compliance with medical treatments. She states that she last dialyzed this past without any problems. Following her dialysis she began to have several episodes of diarrhea and this persisted. The following day she was brought to the emergency department and subsequently admitted. She has had a history of C. difficile colitis in the past and has been noncompliant with her medications. This has led to several exacerbations of her C. difficile colitis. On admission her blood pressure was in the low 100 range and she was started on some cautious IV hydration. Her blood pressure improved and she has been able to tolerate small feedings. This morning her diarrhea is improved and subsequent stool evaluation was negative for C. difficile toxin. She denies any other fever, chills, chest pain, or shortness of breath. There is no history of any recent cough. PAST MEDICAL HISTORY: Significant for end-stage renal disease (dialysis dependent as detailed above), diabetes mellitus, biventricular congestive heart failure, COPD, hypertension with hypertensive heart disease and hypertensive nephrosclerosis, tobacco use, staph sepsis, possible pancreatic mass. PAST SURGICAL HISTORY: Significant for multiple AV fistulas placed and a dialysis catheter. ALLERGIES: GABAPENTIN, HYDROMORPHONE, MORPHINE, AND SUMATRIPTAN. SOCIAL HISTORY: She has a greater than [id number] smoking history and she continues to smoke less than a pack of cigarettes a day. She does not take alcohol. Lives by herself. She has resisted any type of placement or assistance at home. She has also been approached about hospice and has refused this also. FAMILY HISTORY: Remarkable for diabetes and hypertension. PHYSICAL EXAMINATION: Revealed a thin frail, somewhat cachectic-appearing 71-year-old female who was alert and oriented x3, in no distress at time my evaluation. Her blood pressure is 106/62 with a pulse rate of 62. HEENT examination is remarkable for pale sclerae. Her left cornea is opaque. She also had some mild to moderate bilateral conjunctival injection. Mucous membranes were moist. Neck is supple, without adenopathy, thyromegaly, or jugular venous distention. Lungs showed a few scattered rhonchi and end-expiratory wheezes. Heart was regular and rhythmical, with a soft systolic murmur. Abdomen is soft, without any tenderness, rebound, guarding, masses, or hepatosplenomegaly. Extremities do not show any evidence of any clubbing, cyanosis, or edema. Skin turgor is good. IMPRESSION: 1. End-stage renal disease, dialysis dependent. 2. Diarrhea which appears to be noninfectious. 3. Diabetic nephropathy. 4. Hypertension with hypertensive heart disease and hypertensive nephrosclerosis. RECOMMENDATION: The patient is to be dialyzed today for three and a half hours on a standard dialyzer, 3 potassium bath, 137 sodium, 36.5 degree dialysate temperature, 1000 heparin and 300 per hour, and will not take any fluid off today. Once again, I would like to thank you for allowing me to participate in the care of this most pleasant but unfortunate patient. We will be following her closely with you.
[2016-11-14 13:20] VITALS: BP 129/72; PULSE 89; RESP 16; O2SAT 92
--- NOTE | 2016-11-14 15:35 | PCM.PNMED ---
Subjective Date of Service Nov 14, 2016 Subjective diarrhea stopped after one dose of imodium. Pt tolerated HD well today denied abd pain, n,v, eating okay. Exam Vital Signs Vital Sign - Last Date Time Temp Pulse Resp B/P Pulse Ox O2 Delivery O2 Flow Rate FiO2 11/14/16 13:20 36.6 89 16 129/72 92 Nasal Cannula 2.00 Intake and Output 11/13/16 11/13/16 11/14/16 Cumulative From/Thru 15:00 23:00 07:00 11/13/16 06:43 - 11/14/16 06:52 Intake Total 1000 ml 924 ml 977 ml 2901 ml Output Total 3 ml 0 ml 3 ml Balance 1000 ml 921 ml 977 ml 2898 ml Intake Oral 924 ml 237 ml 1161 ml IV Total 1000 ml 740 ml 1740 ml Output Urine Total 0 ml 0 ml Stool Total 3 ml 3 ml # Voids 3 3 Exam NAD, comfortably laying down on the bed no JVD, MMM, no LAD RRR, nl s1, s2 no mrg CTAB, no w,c S,ND,NT,normoactive BS+ warm, no edema, pulses 2/2 IVs and Medications Medications Reviewed: Medications were reviewed in detail Lab and Diagnostics Result Diagram: 11/14/1683911/14/16839 Microbiology Specimen: [id number] Collected: 11/13/16-K Status: COMP Req#: [id number] Received: 11/13/16 Source: STOOL Sp Desc : Subm Dr: Andrew Kim MD Ordered: C DIFF DNA PCR Comments: Collected by Nurse/Unit? 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 difficile colitis from September 12-. She was readmitted from October 31- for diarrhea but diarrhea resolved before c.dif sent. Treated empirically for recurrent C. difficile episode. Patient discontinued. Vancomycin after discharge. She came with watery diarrhea which is negative for C. difficile at this admission. ID consulted, agreed not to continue abx based on negative stool PCR. -diarrhea seems resolving with Imodium. -stop IVF #Suspected metastatic pancreatic cancer under workup , POA, - patient was undergoing workup for suspected pancreatic cancer on prior admission.pt was found to have abnormal CT brain and abdomen concerning for metastatic CA in September admission, CA 19-9 Dated June 2015: Elevated at 63, Alpha/beta/gamma globulins and monoclonal protein studies unremarkable. Patient has a history of breast cancer s/p lumpectomy in the past. CT brain without contrast 09/12/2016: No acute intracranial findings, abnormal appearance of medullary bone of calvarium suggestive of diffuse metastatic disease or multiple myeloma. CT abdomen Pancreatic protocol on 09/15/16 showed Increased, severe pancreatic ductal dilatation, associated with mild biliary ductal dilatation. Findings indicate a stricture, possibly malignant. Given the suboptimal MRCP examination, ERCP is recommended for further assessment. 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 Atypical appearance of metastatic disease could produce this appearance as well. Further assessment with lumbar spine MRI with and without intravenous contrast recommended. Findings were discussed with the patient and her family on 09/16/16. Patient declined further treatment and agreed to go on Hospice Care. She initially stated she would like to stop dialysis as well. pt followed up with [facility]. Patient rescind hospice and came to the hospital for admission end of October and dialysis resumed. Oncologist Dr Crump was involved to help with work up . No evidence of metastatic ca so far. Metastatic cancer possible but unlikely. ESRD bone disease may be causing the features. Bone scan 11/03 was limited study, no obvious findings suggestive of cancer.Dr Crump recommended outpatient workup -may reconsider GI consult for ERCP and further workup after diarrhea resolves or may also hold workup for outpatient # Elevated CA 19-9 -Workup as above chronic, stable, #HFrEF, chronic. Echo 11/2015: EF 65-70, with mild concentric left ventricular hypertrophy; right ventricle mildly dilated with right ventricular systolic function mildly reduced - resumed home lasix #Elevated alkaline phosphatase, chronic. Appears stable - On admit: Alkaline phosphatase 368, likely due to bony lesions such as bone metastases or Paget's disease. - Previous values, with earliest dated March 2016, at 416 - May be secondary to underlying malignancy,under workup #Diabetes mellitus, diet controlled , chronic. Presumed stable - Patient denies any history of diabetes, although diagnosis is found throughout chart - A1c November 2015: 5.5 - No diabetic medications #Chronic bilateral lower extremity pain with left heel chronic ulcer . Presumed stable -wound care consult placed - Resume home pain management with Percocet 10mg Q6H PRN #Tobacco dependence, chronic. Presumed stable - Patient and family report daily tobacco use, estimated at 1 pack per day - Nicotine patch ordered #Depression, chronic. Presumed stable - Continue fluoxetine per home schedule # goals of care Full code ,verified from patient .she recently rescind hospice Palliative consulted for continued discussion of goals of care dispo: likely tomorrow if pt remains diarrhea free Resuscitation Status: CPR: Attempt Resuscitation Time spent 35min Marty Winslow MD Nov 14, 2016 13:38
[2016-11-14 16:38] VITALS: BP 92/56; PULSE 78; RESP 20; O2SAT 91
--- NOTE | 2016-11-14 18:01 | NUR ---
Fatigue/itching Pt. reporting general fatigue post dialysis. Blood pressure at 92/56; pt. state this is normal for her on dialysis days. Pt. complaining of itching; has been given vistaril po with good relief. Pt. resting in bed, awaiting family member. Will continue to monitor.
[2016-11-14 20:11] VITALS: BP 103/62; PULSE 68; RESP 18; O2SAT 95
[2016-11-14 20:23] VITALS: PULSE 70; RESP 18; O2SAT 90
[2016-11-14] MEDS: Albuterol 2.5 mg/3 mL Inhalation Solution NEB PRN (20:23)
[2016-11-15] MEDS: hydrOXYzine Pamoate 25 mg Capsule PO PRN (01:09)
[2016-11-15] MEDS: oxyCODONE-Acetamin 10-325 mg Tablet PO PRN ×2 (03:35→09:17)
[2016-11-15 04:11] VITALS: BP 88/74; PULSE 69; RESP 18; O2SAT 92
[2016-11-15 04:40] VITALS: PULSE 77; RESP 18; O2SAT 92
[2016-11-15] MEDS: Albuterol 2.5 mg/3 mL Inhalation Solution NEB PRN (04:40)
[2016-11-15 06:34] VITALS: BP 115/65
--- NOTE | 2016-11-15 06:49 | NUR ---
No diarrhea overnight Pt denies n/v/abdominal pain.
[2016-11-15] MEDS ORDERED: LOPE2CAP PO (07:11)
[2016-11-15 08:30] VITALS: PULSE 77; RESP 20; O2SAT 92
[2016-11-15] MEDS ORDERED: OXYC-408 PO (09:20)
[2016-11-15] MEDS ORDERED: FURO40SO4 PO (09:20)
--- NOTE | 2016-11-15 09:22 | PCM.DIMED ---
Discharge Instructions Date of Service Nov 15, 2016 Dates of Hospitalization Nov 13, 2016 at 11:15 Discharge Diagnosis Discharge Diagnosis acute dx Recurrent episodes of diarrhea, probable post-cdiff IBS, chronic dx #Suspected metastatic pancreatic cancer #HFrEF, chronic. #Elevated alkaline phosphatase, #Diabetes mellitus, diet controlled #Chronic bilateral lower extremity pain with left heel chronic ulcer . #Tobacco dependence, #Depression Diet Discharge Diet: Diabetic, Renal Diet Activity Discharge Activity: No restrictions Patient Instructions Patient Instructions You were hospitalized with recurrent episode of diarrhea. stool study showed that you don't have infection at this time. it was thought be sensitive bowel likely resulted from recent c.diff infection. Please note that you can still use Imodium 2mg tab every 6hours as needed for diarrhea. If you noticed more severe diarrhea with abdominal pain, please return to the hospital. Follow-up with PCP in: 2 weeks Marty Winslow MD Nov 15, 2016 09:19
--- NOTE | 2016-11-15 10:16 | NUR ---
Discharge discharge instructions, medications, and folow-up care reviewed with patient. all of her questions answered at this time. patient verbalized understanding and agrees with plan of care. Awaiting for Aristeo, Daughter-in -law, to take her home. Addendum: 11/15/16 at 1117 by JOE BORGES RN Daughter arrived, discharge instructions and medications reviewed with her. she verbalized understanding. patient discharged at 1115hrs today.
--- NOTE | 2016-11-15 12:26 | NUR ---
Social Work: Discharge / Multidisciplinary Rounds Data & Assessment: EMR reviewed. Patient is on day 2 of hospitalization for c-diff & diarrhea per H&P. Patient was discussed in morning rounds. Patient has been deemed medically stable for discharge today per MD. No concerns were noted by MD or staff. Transportation will be provided by family. Patient has no additional needs at this time. Plan: Patient will discharge home today. Transportation will be provided by [id number]. Patient has no additional needs at this time. REX Schaeffer
--- NOTE | 2016-11-15 17:07 | PCM.DC.MED ---
Discharge Summary Date of Service Nov 15, 2016 Dates of Hospitalization Date of Hospital Admission Nov 13, 2016 at 11:15 Date of Discharge: Nov 15, 2016 Providers: Admitting Physician: Kevin Painting MD Primary Care Physician: Franklyn Bose DO Attending Physician: Marty Campos MD Diagnosis at Time of Discharge Diagnosis at Time of Discharge acute dx Recurrent episodes of diarrhea, probable post-cdiff IBS, chronic dx #Suspected metastatic pancreatic cancer #HFrEF, chronic. #Elevated alkaline phosphatase, #Diabetes mellitus, diet controlled #Chronic bilateral lower extremity pain with left heel chronic ulcer . #Tobacco dependence, #Depression Consultations ID Brief History HPI obtained by on 11/13 Patient is a 71 year old female with PMH of ESRD on HD, COPD, DM, HTN, CVA, CHF , suspected pancreatic cancer under work up , and recurrent C-diff who presents to the ED via EMS complaining of diarrhea over the last 4 days. Patient was admitted from September 12- for diarrhea, C. difficile positive. Discharged on oral vancomycin but patient did not take it after discharge. She was readmitted from October 31- due to generalized weakness and also had episodes of diarrhea. Diarrhea resolved and C. difficile was never sent. She was discharged on prolonged course of by mouth vancomycin for suspected recurrent C. difficile. She also received doses of dificid last hospitalization. She states she did not take vancomycin after discharge because of nausea. She is able to tolerate vancomycin while inpatient in the last 2 hospitalizations but does not take it after discharge. She states she started to have diarrhea 3 days ago. Diarrhea is watery, multiple episodes per day. She also has generalized weakness. of note patient was undergoing workup for suspected pancreatic cancer.pt was found to have abnormal CT brain and abdomen concerning for metastatic CA in September admission, CA 19-9 Dated June 2015: Elevated at 63, Alpha/beta/gamma globulins and monoclonal protein studies unremarkable. Patient has a history of breast cancer s/p lumpectomy in the past. CT brain without contrast 2016: No acute intracranial findings, abnormal appearance of medullary bone of calvarium suggestive of diffuse metastatic disease or multiple myeloma. CT abdomen Pancreatic protocol on 09/15/16 showed Increased, severe pancreatic ductal dilatation, associated with mild biliary ductal dilatation. Findings indicate a stricture, possibly malignant. Given the suboptimal MRCP examination , ERCP is recommended for further assessment. 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 Atypical appearance of metastatic disease could produce this appearance as well. Further assessment with lumbar spine MRI with and without intravenous contrast recommended. Findings were discussed with the patient and her family on 09/16/16. Patient declined further treatment and agreed to go on Hospice Care. She initially stated she would like to stop dialysis as well. pt followed up with [facility]. Patient rescind hospice and came to the hospital for admission end of October and dialysis resumed. Oncologist Dr Crump was involved to help with work up . No evidence of metastatic ca so far. Metastatic cancer possible but unlikely. ESRD bone disease may be causing the features. Bone scan 11/03 was limited study, no obvious findings suggestive of cancer.Dr Crump recommended outpatient workup ED course:BP 104/54,HR 71 she had 4 episodes of watery diarrhea .she received a dose of dificid,c.dif checked and negative unable to get iv ,dialysis catheter accessed by ED after getting permission from her primary engineer chief for IV fluids. Hospital Course Patient is a 71 year old female with PMH of ESRD on HD, COPD, DM, HTN, CVA, CHF , suspected pancreatic cancer under work up , and recurrent C-diff who presents to the ED via EMS complaining of diarrhea over the last 4 days Brief hospital course, pt was admitted with recurrent diarrhea, initially suspicious for recurrent c.diff. However, Stool PCR didn't show C.diff, therefore pt was started on imodium which effectively stopped diarrhea. 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 difficile colitis from September 12-. She was readmitted from October 31- for diarrhea but diarrhea resolved before c.dif sent. Treated empirically for recurrent C. difficile episode. Patient discontinued. Vancomycin after discharge. She came with watery diarrhea which is negative for C. difficile at this admission. ID consulted, agreed not to continue abx based on negative stool PCR. -diarrhea seems resolving with Imodium. -stop IVF #Suspected metastatic pancreatic cancer under workup , POA, - patient was undergoing workup for suspected pancreatic cancer on prior admission.pt was found to have abnormal CT brain and abdomen concerning for metastatic CA in September admission, CA 19-9 Dated June 2015: Elevated at 63, Alpha/beta/gamma globulins and monoclonal protein studies unremarkable. Patient has a history of breast cancer s/p lumpectomy in the past. CT brain without contrast 09/12/2016: No acute intracranial findings, abnormal appearance of medullary bone of calvarium suggestive of diffuse metastatic disease or multiple myeloma. CT abdomen Pancreatic protocol on 09/15/16 showed Increased, severe pancreatic ductal dilatation, associated with mild biliary ductal dilatation. Findings indicate a stricture, possibly malignant. Given the suboptimal MRCP examination, ERCP is recommended for further assessment. 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 Atypical appearance of metastatic disease could produce this appearance as well. Further assessment with lumbar spine MRI with and without intravenous contrast recommended. Findings were discussed with the patient and her family on 09/16/16. Patient declined further treatment and agreed to go on Hospice Care. She initially stated she would like to stop dialysis as well. pt followed up with [facility]. Patient rescind hospice and came to the hospital for admission end of October and dialysis resumed. Oncologist Dr Crump was involved to help with work up . No evidence of metastatic ca so far. Metastatic cancer possible but unlikely. ESRD bone disease may be causing the features. Bone scan 11/03 was limited study, no obvious findings suggestive of cancer.Dr Crump recommended outpatient workup -may reconsider GI consult for ERCP and further workup after diarrhea resolves or may also hold workup for outpatient # Elevated CA 19-9 -Workup as above chronic, stable, #HFrEF, chronic. Echo 11/2015: EF 65-70, with mild concentric left ventricular hypertrophy; right ventricle mildly dilated with right ventricular systolic function mildly reduced - resumed home lasix #Elevated alkaline phosphatase, chronic. Appears stable - On admit: Alkaline phosphatase 368, likely due to bony lesions such as bone metastases or Paget's disease. - Previous values, with earliest dated March 2016, at 416 - May be secondary to underlying malignancy,under workup #Diabetes mellitus, diet controlled , chronic. Presumed stable - Patient denies any history of diabetes, although diagnosis is found throughout chart - A1c November 2015: 5.5 - No diabetic medications #Chronic bilateral lower extremity pain with left heel chronic ulcer . Presumed stable -wound care consult placed - Resume home pain management with Percocet 10mg Q6H PRN #Tobacco dependence, chronic. Presumed stable - Patient and family report daily tobacco use, estimated at 1 pack per day - Nicotine patch ordered #Depression, chronic. Presumed stable - Continue fluoxetine per home schedule # goals of care Full code ,verified from patient .she recently rescind hospice Palliative consulted for continued discussion of goals of care dispo: likely tomorrow if pt remains diarrhea free Exam Vital Signs (Last) Date Time Temp Pulse Resp B/P Pulse Ox O2 Delivery O2 Flow Rate FiO2 11/15/16 08:58 Supplement Oxygen 11/15/16 08:30 77 20 92 1.50 11/15/16 06:34 115/65 11/15/16 04:11 36.4 Exam Patient was examined on the day of discharge Test 11/13/16 08:45 11/14/16 08:40 Phosphorus Level 4.7mg/dL (2.5-4.9) White Blood Count 4.5th/mm3 (3.8-10.1) Red Blood Count 3.47mil/mm3 (3.90-5.20) Hemoglobin 10.3g/dL (12.0-15.6) Hematocrit 32.1% (35.0-46.0) Mean Corpuscular Volume 92.5fL (81-100) Mean Corpuscular Hemoglobin 29.7pg (27.0-35.0) Mean Corpuscular Hemoglobin Concent 32.1% (32.0-37.0) Red Cell Distribution Width 14.9% (12.3-15.4) Platelet Count 173bil/L (150-400) Neutrophils (%) (Auto) 69.0% (40-74) Lymphocytes (%) (Auto) 20.2% (14-46) Monocytes (%) (Auto) 7.2% (4-12) Eosinophils (%) (Auto) 2.7% (0-5) Basophils (%) (Auto) 0.7% (0-3) Sodium Level 139mEq/L (134-144) Potassium Level 3.9mEq/L (3.5-5.2) Chloride Level 99mEq/L (97-108) Carbon Dioxide Level 24mmol/L (18-29) Blood Urea Nitrogen 14mg/dL (8-27) Creatinine 5.24mg/dL (0.57-1.00) Estimat Glomerular Filtration Rate 10mL/min (>59) Glucose Level 111mg/dL (60-99) Calcium Level 8.3mg/dL (8.5-10.1) Magnesium Level 1.9mg/dL (1.6-2.6) Total Bilirubin 0.3mg/dL (0.0-1.2) Aspartate Amino Transf (AST/SGOT) 15U/L (0-50) Alanine Aminotransferase (ALT/SGPT) 5U/L (0-32) Alkaline Phosphatase 343U/L (25-165) Total Protein 6.0g/dL (6.4-8.4) Albumin 3.3g/dL (3.4-5.0) Microbiology Results Specimen: [id number] Collected: 11/13/16-UNK Status: COMP Req#: [id number] Received: 11/13/16 Source: STOOL Sp Desc : Subm Dr: Andrew Kim MD Ordered: C DIFF DNA PCR Comments: Collected by Nurse/Unit? Y/N Y Procedure Result Verified Site Microbiology PIPER C DIF PCR STOOL Final 11/13/16-1022 CDIF DNA BY PCR NEGATIVE REFERENCE INTERVAL NEGATIVE Discharge Medications Discharge Medications Fluoxetine (Prozac) 20 Mg Capsule 20 MG PO DAILY (Reported) Furosemide (Furosemide) 40 Mg/4 Ml Solution 40 MG PO DAILY Prescribed by: MARTY CAMPOS MD Ondansetron (Zofran) 4 Mg Tablet 4 MG PO q8h (Reported) As needed Albuterol Neb Soln (Albuterol Neb Soln) 2.5 Mg/3 Ml Vial.neb 2.5 MG INHALATION Q4H PRN PRN For Shortness of Breath Prescribed by: WILLIAM DE LA CRUZ MD Docusate Sodium (Colace) 100 Mg Capsule 100 MG PO HS PRN PRN For Constipation ( Reported) Loperamide (Loperamide) 2 Mg Capsule 2 MG PO Q6H PRN PRN For Diarrhea or Loose Stool Prescribed by: MARTY CAMPOS MD Oxycodone HCl/Acetaminophen (Endocet 10-325 mg Tablet) 1 Each Tablet 1 EACH PO Q4H PRN PRN For Pain Prescribed by: MARTY CAMPOS MD hydrOXYzine Hcl (HydrOXYzine Hcl) 25 Mg Tablet 25 MG PO Q8H PRN PRN For Itching Prescribed by: ANGIE GIFFORD, Miscellaneous Medications Cholecalciferol (Vitamin D3) (Cholecalciferol) 1 Gm Crystals 1 GM MC (Reported) Vit B Comp&C/Folic Acid/Vit D3 (Dialyvite 800 Plus D Wafer) 800 Mcg-2,000 Unit Tab.chew 1 EACH PO (Reported) Followup Plan Disposition: home Discharge Diet: Diabetic, Renal Diet Discharge Activity: No restrictions Patient Instructions You were hospitalized with recurrent episode of diarrhea. stool study showed that you don't have infection at this time. it was thought be sensitive bowel likely resulted from recent c.diff infection. Please note that you can still use Imodium 2mg tab every 6hours as needed for diarrhea. If you noticed more severe diarrhea with abdominal pain, please return to the hospital. Follow-up with PCP in: 2 weeks Time spent 65min Marty Campos MD Nov 15, 2016 17:06
== END 2016-11-15 11:45 | disposition home or self-care (01) | DRG 391 ==
LOC: EDSEX 06:03 → SED 06:03 → EDBD 06:03 → MPC 11:15
PROVIDERS: ADMIT Internal Medicine; ATTEND Internal Medicine
PROC: 5A1D00Z (ICD-10-PCS; principal; 2016-11-14)
DX: K58.0 Irritable bowel syndrome with diarrhea (principal); N18.6 End stage renal disease; I13.2 Hypertensive heart and chronic kidney disease with heart failure and with stage 5 chronic kidney disease, or end stage renal disease; I50.22 Chronic systolic (congestive) heart failure; L97.429 Non-pressure chronic ulcer of left heel and midfoot with unspecified severity; C25.9 Malignant neoplasm of pancreas, unspecified; F17.210 Nicotine dependence, cigarettes, uncomplicated; Z99.2 Dependence on renal dialysis; E11.21 Type 2 diabetes mellitus with diabetic nephropathy; Z91.14 Patient's other noncompliance with medication regimen

== ENCOUNTER 2016-11-25 10:56 | Emergency (ER) | payer MEDICARE, MEDICAID ==
[~2016-11-25] VITALS: Ht 152.4 cm; Wt 62.0 kg
[~2016-11-25 10:56] MED LIST changes: +LOPE2CAP PO; -ONDA4TAB12 PO; +ONDA4TAB6 PO; +OXYC-408 PO; -OXYC-466 PO; -VANC125C3 PO
[2016-11-25 11:12] VITALS: BP 126/67; PULSE 70; RESP 14; O2SAT 99
--- NOTE | 2016-11-25 11:26 | ED.REPORT ---
HPI-Chest Pain 40 and Over Date of Service Nov 25, 2016 ED Provider: Hermilo Walker MD The pt is a 71 y/o female w/ a hx of ESRD, HTN, cancer, diabetes, COPD, CHF, and a stroke presenting to the ED via EMS due to chest pain onset this morning. She reports waking up w/ the pain. She has also experienced vomiting and diarrhea for the last two days and describes her back pain being terrible. She is not experiencing any CP currently. The pt is also concerned about her L breast being larger than her R. Patient says she takes 10 mg Percocet 4 times daily for her chronic back pain. She says that she is out of this medication and has been awaiting a refill from Dr. Vaughan Nursing Notes Stated Complaint: CHEST PAIN Chief Complaint: Chest Pain Nursing Notes Reviewed: Yes Allergies: Coded Allergies: gabapentin (Verified Allergy, Severe, 11/13/16) Swelling and gait problems hydromorphone HCl (Verified Allergy, Severe, Hallucinations, 11/13/16) "Trip like on LSD" sumatriptan succinate (Verified Allergy, Severe, Dizziness, 11/13/16) Chest pain and dizziness TAPE (Verified Allergy, Intermediate, 11/13/16) itching latex (Verified Allergy, Intermediate, 11/13/16) Itching from gloves morphine (Verified Allergy, Unknown, Hallucinations, 11/13/16) Scheduled Fluoxetine (Prozac) 20 Mg Capsule 20 MG PO DAILY Furosemide (Furosemide) 40 Mg/4 Ml Solution 40 MG PO DAILY Ondansetron (Zofran) 4 Mg Tablet 4 MG PO q8h Scheduled PRN Albuterol Neb Soln (Albuterol Neb Soln) 2.5 Mg/3 Ml Vial.neb 2.5 MG INHALATION Q4H PRN PRN For Shortness of Breath Docusate Sodium (Colace) 100 Mg Capsule 100 MG PO HS PRN PRN For Constipation Loperamide (Loperamide) 2 Mg Capsule 2 MG PO Q6H PRN PRN For Diarrhea or Loose Stool Oxycodone HCl/Acetaminophen (Endocet 10-325 mg Tablet) 1 Each Tablet 1 EACH PO Q4H PRN PRN For Pain hydrOXYzine Hcl (HydrOXYzine Hcl) 25 Mg Tablet 25 MG PO Q8H PRN PRN For Itching Miscellaneous Medications Cholecalciferol (Vitamin D3) (Cholecalciferol) 1 Gm Crystals 1 GM MC Vit B Comp&C/Folic Acid/Vit D3 (Dialyvite 800 Plus D Wafer) 800 Mcg-2,000 Unit Tab.chew 1 EACH PO General Time Seen by MD: 11:00 Chief Complaint Chest pain Hx Obtained From: Patient Arrived By: Ambulance Sudden in Onset?: Yes Onset Occurred: 5 - 8 hours ago Symptom Duration: Since onset Recent Healthcare: Recent doctor visit, Recent hospitalization Similar Sx Previous: Yes Past Medical History Past Medical History Notes: Emergency Services Director: Dr. Vaughan C. difficile September 2016 Past Medical History 1. ESRD on dialysis ,, wednesday 2. Hypertension 3. Recently diagnosed stage IV cancer, , metastatic disease of unknown primary, please see discharge summary November 05 4. Diabetes mellitus 5. Stroke 6. COPD 7. Chronic tobacco dependence. 8. Anemia of chronic disease. 9. History of right lower lobe pneumonia. 10. Hospitalization, November 2012, for atypical chest pain with negative myocardial stress test. 11. Staph aureus sepsis, December 2012. 12. Clostridium difficile colitis 13. Diabetic gastroparesis 14. Reports mass on pancreas 15. Diastolic dysfunction on echocardiogram, November 10, 2012. 16. 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 17. CHF 18. Chronic back pain 19. Uterine and breast CA 20. C-diff Past Surgical History 1. Left arm fistula. 2. Left brachial basilic fistula. 3. Right brachial basilic fistula. 4. Cholecysectomy 5. 6. Evacuation of wound hematoma due to thrombosed left brachial basilic fistula, April 2012. 7. 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 8. Breast biopsy 9. L tib/fib repair Family History Noncontributory Smoking History Current Every Day Smoker Social History Lives in [place] Alcohol Use: "Social" Drug Use: Denies drug use Other Social History: Lives alone, Local resident Ambulatory Status Wheelchair Review of Systems Pt is not experiencing any CP currently, but was this morning; Pt reports her L breast being larger than R; GI: Reports: Diarrhea, Nausea, Vomiting Musculoskeletal: Reports: Back pain Complete sys rev & neg: except as marked. Physical Exam Initial Vital Signs Vital Signs (First) Date Time Temp Pulse Resp B/P Pulse Ox O2 Delivery O2 Flow Rate FiO2 11/25/16 11:12 35.8 70 14 126/67 99 Room Air Initial VS: Reviewed Head / Eyes: Atraumatic, Normocephalic, PERRL ENT: Mucous membranes moist, Conjunctiva normal, No scleral icterus Neck: Supple, Non-tender, Full range of motion Extremities: Vascular intact, Neuro intact, No swelling, No tenderness Skin: Warm, Dry, No cyanosis Neurologic: Alert, Oriented, Nonfocal Psychiatric: Mood/affect normal, Behavior normal, Normal thought content General/Constitutional: Awake, Alert Kyphotic posture; Cachexia; Respiratory / Chest: Atraumatic, Breath sounds NL, Breath sounds = bilat Cardiovascular: Heart rate NL, Regular rhythm, Heart sounds NL Abdomen: Atraumatic, Soft, Non-tender Interpretation & Diagnostics Lab Results Interpretation Result Diagram: 11/25/16 1218 11/25/16 1218 Test 11/25/16 12:18 White Blood Count 5.9th/mm3 (3.8-10.1) Red Blood Count 3.84mil/mm3 (3.90-5.20) Hemoglobin 11.7g/dL (12.0-15.6) Hematocrit 34.5% (35.0-46.0) Mean Corpuscular Volume 89.8fL (81-100) Mean Corpuscular Hemoglobin 30.5pg (27.0-35.0) Mean Corpuscular Hemoglobin Concent 33.9% (32.0-37.0) Red Cell Distribution Width 15.7% (12.3-15.4) Platelet Count 157bil/L (150-400) Neutrophils (%) (Auto) 67.0% (40-74) Lymphocytes (%) (Auto) 22.9% (14-46) Monocytes (%) (Auto) 8.6% (4-12) Eosinophils (%) (Auto) 1.0% (0-5) Basophils (%) (Auto) 0.3% (0-3) Sodium Level 142mEq/L (134-144) Potassium Level 4.6mEq/L (3.5-5.2) Chloride Level 101mEq/L (97-108) Carbon Dioxide Level 21mmol/L (18-29) Blood Urea Nitrogen 20mg/dL (8-27) Creatinine 6.23mg/dL (0.57-1.00) Estimat Glomerular Filtration Rate 9mL/min (>59) Glucose Level 73mg/dL (60-99) Calcium Level 9.2mg/dL (8.5-10.1) Magnesium Level 2.2mg/dL (1.6-2.6) Total Bilirubin 0.4mg/dL (0.0-1.2) Aspartate Amino Transf (AST/SGOT) 15U/L (0-50) Alanine Aminotransferase (ALT/SGPT) 5U/L (0-32) Alkaline Phosphatase 446U/L (25-165) Troponin T 0.350ug/L (0.0-0.011) Total Protein 7.2g/dL (6.4-8.4) Albumin 3.8g/dL (3.4-5.0) ECG Interpretation ECG Interpretation: Rate 75 NSR Low voltage, extremity leads Time: 11:40 Interpreted by: ED physician X-Ray Chest Interpretation Chest Xray Interpretation: IMPRESSION: 1. Probable CHF. Please correlate with clinical data. 2. Poorly defined lucencies in the left scapula which could represent artifact versus nondisplaced fracture. Recommend dedicated left shoulder series if there is clinical concern for left shoulder injury. Dictated by: Adela Díaz MD, PhD on 11/25/2016 at 10:29 Approved by: Adela Díaz MD, PhD on 11/25/2016 at 10:30 View: Portable, 1 view Interpretation / Wet Read by: Interpret - Radiologist Re-Eval/Medical Decision Source of Hx: Old records Consultation : Referral / Consult Name: Myron Vaughan MD Consulted With: Nephrology Call Returned at: 13:29 Note: Discussed pt's case. I reviewed the abnormality of troponin today with Dr. Jennings. We both agreed that given the nonischemic-looking EKG and severe chronicity of her condition that no further workup was indicated at this time given the negative evaluation today. Namely, she has had no recurrent chest pain since earlier this morning. Dr. Vaughan recommends discharging the pt w/ 10-15 pills of Percocet. Counseled Regarding: Diagnosis, Lab results, Need for follow-up, When/why to return to ED Discharge & Departure Primary Impression: Chest pain Disposition: Home Discharge Condition All VS Reviewed: Yes Condition: Stable Patient Instructions: Chest Pain (ED) Additional Instructions: No dangerous cause for your chest pain is discovered today. Dr. Vaughan instructed me to fill #15 Percocet for you. Call dialysis today to see if you can get in later this afternoon or tomorrow morning. Referrals: Franklyn Bose DO (PCP) Myron Vaughan MD Scribe Attestation Portions of this note were transcribed by Johan King. I, Dr. Walker personally performed the history, physical exam and medical decision-making; I reviewed and confirmed the accuracy of the information in the transcribed note. copies to: Franklyn Bose DO; Myron Vaughan MD, Kirk H MD Nov 25, 2016 11:26 Johan King Nov 25, 2016 11:34
--- NOTE | 2016-11-25 11:34 | DRSVH ---
PROCEDURE: X-RAY CHEST ONE VIEW, PORTABLE ([id number]) INDICATIONS: chest pain TECHNIQUE: One view of the chest was acquired. COMPARISON: [facility], CR, XR CHEST 1VW (PORTABLE), 09/27/2016, 22:42. FINDINGS: Surgical changes and devices: Dual-lumen dialysis catheter is stable. Lungs and pleura: No pleural effusions or pneumothorax. Cephalization of pulmonary vasculature, juan antonio hilar indistinctness and basal interstitial opacities suspicious for CHF. Masslike opacity in the ape x of the right lung is stable compared to prior exam. Mediastinum: Mediastinal contours appear normal. Heart size is enlarged.. Bones and chest wall: Poorly defined lucencies noted in the left scapula may relate to artifact versu s nondisplaced fracture. Overlying soft tissues appear unremarkable. IMPRESSION: 1. Probable CHF. Please correlate with clinical data. 2. Poorly defined lucencies in the left scapula which could represent artifact versus nondisplaced fr acture. Recommend dedicated left shoulder series if there is clinical concern for left shoulder injur y. Dictated by: Adela Díaz MD, PhD on 11/25/2016 at 10:29 Approved by: Adela Díaz MD, PhD on 11/25/2016 at 10:30
[2016-11-25 12:22] LABS: BASOPHILS % (AUTO) 0.3 % (0-3); MONOCYTES % (AUTO) 8.6 % (4-12); Mean Corpuscular Hemoglobin 30.5 pg (27.0-35.0); Mean Corpuscular Volume 89.8 fL (81-100); Platelet Count 157 bil/L (150-400)
[2016-11-25 12:30] VITALS: BP 141/74; PULSE 75; RESP 16
[2016-11-25] MEDS ORDERED: Albuterol-Ipratropium 3 mL Inhalation Solution NEB ONE (12:50)
[2016-11-25] MEDS ORDERED: oxyCODONE-Acetamin 10-325 mg Tablet PO ONE (13:10)
[2016-11-25 13:21] LABS: Magnesium 2.2 mg/dL (1.6-2.6)
[2016-11-25 13:22] LABS: TROPONIN T 0.35 ug/L (0.0-0.011)
[2016-11-25 14:30] VITALS: BP 112/60; PULSE 72; RESP 22
[2016-11-25 15:30] VITALS: BP 114/68; PULSE 79; RESP 11; O2SAT 92
== END 2016-11-25 15:27 | disposition home or self-care (01) ==
LOC: SED 13:06
DX: R07.89 Other chest pain (principal); R11.2 Nausea with vomiting, unspecified; R19.7 Diarrhea, unspecified; I13.2 Hypertensive heart and chronic kidney disease with heart failure and with stage 5 chronic kidney disease, or end stage renal disease; I50.9 Heart failure, unspecified; E11.22 Type 2 diabetes mellitus with diabetic chronic kidney disease; E11.59 Type 2 diabetes mellitus with other circulatory complications; N18.6 End stage renal disease; E11.43 Type 2 diabetes mellitus with diabetic autonomic (poly)neuropathy; J44.9 Chronic obstructive pulmonary disease, unspecified; G89.29 Other chronic pain; F17.200 Nicotine dependence, unspecified, uncomplicated; Z99.2 Dependence on renal dialysis; Z87.01 Personal history of pneumonia (recurrent); Z86.73 Personal history of transient ischemic attack (TIA), and cerebral infarction without residual deficits; Z88.5 Allergy status to narcotic agent; Z88.8 Allergy status to other drugs, medicaments and biological substances; Z91.040 Latex allergy status

== ENCOUNTER 2016-11-27 05:26 | Emergency (ER) | payer MEDICARE, MEDICAID ==
[2016-11-27 05:37] VITALS: BP 111/83; PULSE 76; RESP 17; O2SAT 100
[2016-11-27] MEDS ORDERED: Albuterol-Ipratropium 3 mL Inhalation Solution ONE (05:44)
[2016-11-27 05:50] VITALS: PULSE 84; RESP 18; O2SAT 95
[2016-11-27] MEDS ORDERED: Triamcinolone 0.1% 30 Gm Cream TOPICAL ONE (06:05)
--- NOTE | 2016-11-27 06:20 | ED.REPORT ---
HPI-Dyspnea / Wheezing Date of Service Nov 27, 2016 ED Provider: Arnie Rich MD A 71 year old female with a history of CVA, breast cancer s/p lumpectomy, metastatic pancreatic cancer, chronic renal failure on dialysis, hypertension, diabetes, COPD, pneumonia, CHF and chronic back pain is brought to the ED via EMS due to shortness of breath. The pt woke at 04:00 today with significant shortness of breath accompanied by wheezing, back pain and mild chest pain. She denies lightheadedness, dry or productive cough, productive cough, abdominal pain or abnormal nausea. The pt get chest pain frequently, usually associated with stress, and states that she was stressed earlier today. Her EKG en route was normal. The pt is on 2 L of home oxygen but is out of her albuterol. She missed her dialysis appointment two days ago. Her next dialysis appointment is today at 11:[address] [facility]. Nursing Notes Stated Complaint: SHORT OF BREATH Chief Complaint: Respiratory Distress Nursing Notes Reviewed: Yes Allergies: Coded Allergies: gabapentin (Verified Allergy, Severe, 11/27/16) Swelling and gait problems hydromorphone HCl (Verified Allergy, Severe, Hallucinations, 11/27/16) "Trip like on LSD" sumatriptan succinate (Verified Allergy, Severe, Dizziness, 11/27/16) Chest pain and dizziness TAPE (Verified Allergy, Intermediate, 11/27/16) itching latex (Verified Allergy, Intermediate, 11/27/16) Itching from gloves morphine (Verified Allergy, Unknown, Hallucinations, 11/27/16) Scheduled Albuterol HFA (Proair HFA) 8.5 Gm Hfa.aer.ad 2 PUFFS INHALATION Q4H Fluoxetine (Prozac) 20 Mg Capsule 20 MG PO DAILY Furosemide (Furosemide) 40 Mg/4 Ml Solution 40 MG PO DAILY Ondansetron (Zofran) 4 Mg Tablet 4 MG PO q8h Prednisone (PredniSONE) 20 Mg Tablet 40 MG PO DAILY Scheduled PRN Albuterol Neb Soln (Albuterol Neb Soln) 2.5 Mg/3 Ml Vial.neb 2.5 MG INHALATION Q4H PRN PRN For Shortness of Breath Albuterol Neb Soln (Albuterol Neb Soln) 2.5 Mg/3 Ml Vial.neb 2.5 MG INHALATION Q4H PRN PRN For Wheezing Docusate Sodium (Colace) 100 Mg Capsule 100 MG PO HS PRN PRN For Constipation Loperamide (Loperamide) 2 Mg Capsule 2 MG PO Q6H PRN PRN For Diarrhea or Loose Stool Oxycodone HCl/Acetaminophen (Endocet 10-325 mg Tablet) 1 Each Tablet 1 EACH PO Q4H PRN PRN For Pain hydrOXYzine Hcl (HydrOXYzine Hcl) 25 Mg Tablet 25 MG PO Q8H PRN PRN For Itching Miscellaneous Medications Cholecalciferol (Vitamin D3) (Cholecalciferol) 1 Gm Crystals 1 GM MC Vit B Comp&C/Folic Acid/Vit D3 (Dialyvite 800 Plus D Wafer) 800 Mcg-2,000 Unit Tab.chew 1 EACH PO General Time Seen by MD: 06:09 Chief Complaint Shortness of breath Hx Obtained From: Patient, EMS Arrived By: Ambulance Sudden in Onset?: Yes Onset Occurred: 1 - 4 hours ago Symptom Duration: Since onset Recent Healthcare: Recent doctor visit, Recent hospitalization Similar Sx Previous: Yes Past Medical History Past Medical History Notes: Building Construction Inspector: Dr. Vaughan Oncologist: Dr. Alisia Conner difficile September 2016 Past Medical History 1. ESRD on dialysis ,R, wednesday 2. Hypertension 3. Recently diagnosed stage IV cancer, metastatic disease of unknown primary, please see discharge summary November 05 4. Diabetes mellitus 5. Stroke 6. COPD 7. Chronic tobacco dependence. 8. Anemia of chronic disease. 9. History of right lower lobe pneumonia. 10. Hospitalization, November 2012, for atypical chest pain with negative myocardial stress test. 11. Staph aureus sepsis, December 2012. 12. Clostridium difficile colitis 13. Diabetic gastroparesis 14. Reports mass on pancreas 15. Diastolic dysfunction on echocardiogram, November 10, 2012. 16. 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 17. CHF 18. Chronic back pain 19. Uterine and breast CA 20. C-diff Past Surgical History 1. Left arm fistula. 2. Left brachial basilic fistula. 3. Right brachial basilic fistula. 4. Cholecysectomy 5. 6. Evacuation of wound hematoma due to thrombosed left brachial basilic fistula, April 2012. 7. 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 8. Breast biopsy 9. L tib/fib repair Family History Noncontributory Smoking History Current Every Day Smoker Social History Lives in [place] Alcohol Use: "Social" Drug Use: Denies drug use Other Social History: Lives alone, Local resident Ambulatory Status Wheelchair Review of Systems Respiratory: Reports: Shortness of breath, Wheezing, Denies: Non-productive cough, Prod cough, clear Cardiovascular: Reports: Chest pain Musculoskeletal: Reports: Back pain, Denies: Neck pain Skin: Denies Rash Complete sys rev & neg: except as marked. GI: Denies: Abdominal pain, Nausea, Vomiting Neurologic: Denies: Lightheaded Physical Exam Initial Vital Signs Vital Signs (First) Date Time Temp Pulse Resp B/P Pulse Ox O2 Delivery O2 Flow Rate FiO2 11/27/16 05:37 36.4 76 17 111/83 100 Nasal Cannula 2 Initial VS: Reviewed General/Constitutional: Awake, Alert Neck: Atraumatic, Supple, Full range of motion Respiratory / Chest: Atraumatic, Breath sounds = bilat, No respiratory distress faint bilateral wheezes Cardiovascular: Heart rate NL, Regular rhythm, Heart sounds NL ENT: Atraumatic, Airway patent, Mucous membranes moist Abdomen: Atraumatic, Soft, Non-tender Back: Atraumatic, Full range of motion Lower Extremity / Pelvis / MS: Atraumatic, Full range of motion Skin: Atraumatic, Color NL, No rash, Warm, Dry Neurologic: Oriented X3, Speech NL, No motor deficits, No sensory deficits Head / Eyes: Atraumatic, Normocephalic, PERRL, EOMI Upper Extremity / MS: Atraumatic, Full range of motion Psychiatric: Affect NL, Mood NL Interpretation & Diagnostics Lab Results Interpretation Result Diagram: 11/27/16 0805 11/27/16 0805 Test 11/27/16 08:05 White Blood Count 6.2th/mm3 (3.8-10.1) Red Blood Count 4.06mil/mm3 (3.90-5.20) Hemoglobin 12.1g/dL (12.0-15.6) Hematocrit 37.0% (35.0-46.0) Mean Corpuscular Volume 91.1fL (81-100) Mean Corpuscular Hemoglobin 29.8pg (27.0-35.0) Mean Corpuscular Hemoglobin Concent 32.7% (32.0-37.0) Red Cell Distribution Width 16.0% (12.3-15.4) Platelet Count 151bil/L (150-400) Neutrophils (%) (Auto) 70.9% (40-74) Lymphocytes (%) (Auto) 20.9% (14-46) Monocytes (%) (Auto) 5.8% (4-12) Eosinophils (%) (Auto) 1.8% (0-5) Basophils (%) (Auto) 0.3% (0-3) Sodium Level 142mEq/L (134-144) Potassium Level 4.4mEq/L (3.5-5.2) Chloride Level 100mEq/L (97-108) Carbon Dioxide Level 22mmol/L (18-29) Blood Urea Nitrogen 33mg/dL (8-27) Creatinine 7.37mg/dL (0.57-1.00) Estimat Glomerular Filtration Rate 7mL/min (>59) Glucose Level 111mg/dL (60-99) Calcium Level 8.9mg/dL (8.5-10.1) Total Bilirubin 0.3mg/dL (0.0-1.2) Aspartate Amino Transf (AST/SGOT) 16U/L (0-50) Alanine Aminotransferase (ALT/SGPT) 5U/L (0-32) Alkaline Phosphatase 466U/L (25-165) Troponin T 0.322ug/L (0.0-0.011) Pro-B-Type Natriuretic Peptide 49892uu/mL (0-301) Total Protein 7.2g/dL (6.4-8.4) Albumin 3.8g/dL (3.4-5.0) ECG Interpretation ECG Interpretation: normal sinus rhythm with a rate of [address]/T changes Q waves in III, unchanged from previous Time: 08:04 Interpreted by: ED physician X-Ray Chest Interpretation Chest Xray Interpretation: IMPRESSION: Moderate cardiomegaly and interstitial prominence. Please correlate with patient presentation, physical examination findings, and laboratory values for congestive heart failure. Dialysis catheter noted. Dictated by: Oneal Giron M.D. on 11/27/2016 at 8:19 Approved by: Oneal Giron M.D. on 11/27/2016 at 8:23 Interpretation / Wet Read by: Interpret - Radiologist Re-Eval/Medical Decision Med Decision/Clinical Course 71-year-old female history of end-stage renal disease on dialysis with recent diagnosis possible pancreatic cancer with metastasis presenting with her typical dyspnea since this morning. She reports this is typical of her chronic dyspnea. She also reported some chest pain earlier this morning which is also typical of her chronic chest pain. She was mildly wheezy on arrival. She was given nebulizer and felt improved. She had no recurrence of her chest pain. Her troponins are at her baseline. Her vital signs are at her baseline according to liters oxygen which is her home oxygen. Patient requested to go to dialysis back to [facility]. She does not want to be admitted to the hospital. I cannot completely rule out ACS or PE for patient does not want any further evaluation requested to leave understanding risks up to possibility of . Spoke with her paste up copy camera operator and she will follow up with them today for dialysis. I suspect her most likely diagnosis is COPD exacerbation and I believe she will benefit from dialysis. She was discharged with nebulizer and steroid course. Return precautions given. Discharged to dialysis. Source of Hx: Old records Re-Evaluation/Progress : Time of Eval: 09:22 Patient Status: Condition improved Re-Evaluation/Progress Note: Pt rechecked, who is comfortable. The diagnosis and plan for discharge are discussed. The pt understands and agrees with the plan. All questions are addressed at this time. Consultation : Referral / Consult Name: Myron Vaughan MD Consulted With: Nephrology Call Returned at: 09:20 Tool Maker: Agrees with eval, Agrees with plan Note: Spoke with Dr. Vaughan, nephrology, regarding pt's case. Dr. Vaughan agrees with the evaluation and will dialyze the pt today. Counseled Regarding: Diagnosis, Lab results, Need for follow-up, When/why to return to ED Discharge & Departure Impression: Primary Impression: COPD exacerbation Disposition: Home Discharge Condition All VS Reviewed: Yes Condition: Stable Patient Instructions: COPD (Chronic Obstructive Pulmonary Disease) (ED) Additional Instructions: Thank you for entrusting us with your care. Your evaluation was reassuring. Go to dialysis in [facility] at 11:00 as scheduled. Take Prednisone and albuterol as directed. Call your primary care physician to arrange a follow up appointment in the next several days. Return to the emergency department if you develop any new or worsening symptoms such as worsening shortness of breath, chest pain, fever, chills, lightheadedness or weakness. Referrals: Franklyn Bose DO (PCP) Scribe Attestation Portions of this note were transcribed by Chata Bowers. I, Dr. Rich personally performed the history, physical exam and medical decision-making; I reviewed and confirmed the accuracy of the information in the transcribed note. copies to: Franklyn Bose Ben M MD Nov 27, 2016 06:20 CHATA BOWERS Nov 27, 2016 06:33
[2016-11-27] MEDS ORDERED: Albuterol-Ipratropium 3 mL Inhalation Solution NEB ONE (06:35)
[2016-11-27] MEDS ORDERED: MethylprednisoLONE Sodium Succinate 62.5 mg/mL 2 mL Inj IVPUSH ONE (06:35)
[2016-11-27] MEDS ORDERED: oxyCODONE-Acetamin 10-325 mg Tablet PO ONE (07:35)
[2016-11-27 08:10] LABS: BASOPHILS % (AUTO) 0.3 % (0-3); EOSINOPHILS % (AUTO) 1.8 % (0-5); MONOCYTES % (AUTO) 5.8 % (4-12); Mean Corpuscular Hemoglobin 29.8 pg (27.0-35.0); Mean Corpuscular Volume 91.1 fL (81-100); NEUTROPHILS % (AUTO) 70.9 % (40-74); Platelet Count 151 bil/L (150-400)
--- NOTE | 2016-11-27 08:24 | DRSVH ---
PROCEDURE: X-RAY CHEST ONE VIEW, PORTABLE ([id number]) INDICATIONS: chest pain TECHNIQUE: One view of the chest was acquired. COMPARISON: [facility], CR, XR CHEST 1VW (PORTABLE), 09/13/2016, 7:43. [facility], CR, XR CHEST 2VW, 10/31/2016, 16:34. [facility], CR, XR CHEST 1VW (PORTABLE), 11/25, 11:15. FINDINGS: Surgical changes and devices: A right-sided dialysis catheter is seen. Cholecystectomy clips are seen . There are faintly seen breast clips present. Lungs and pleura: Mild interstitial prominence is seen. On this semiupright portable chest examinati on, no large pneumothorax or large pleural effusions are seen. No focal infiltrates are seen. A sta ble nodular opacity is again seen involving the right lung apex. Mediastinum: Mediastinal contours appear normal. Heart size is moderately enlarged. Bones and chest wall: Age-appropriate bony degenerative changes are seen. The No suspicious bony le sions. Overlying soft tissues appear unremarkable. IMPRESSION: Moderate cardiomegaly and interstitial prominence. Please correlate with patient presenta tion, physical examination findings, and laboratory values for congestive heart failure. Dialysis catheter noted. Dictated by: Oneal Giron M.D. on 11/27/2016 at 8:19 Approved by: Oneal Giron M.D. on 11/27/2016 at 8:23
[2016-11-27 08:52] LABS: TROPONIN T 0.322 ug/L (0.0-0.011)
[2016-11-27] MEDS ORDERED: ALBU8.5H2 INHALATION (09:31)
[2016-11-27] MEDS ORDERED: PRE20 PO (09:31)
[2016-11-27] MEDS ORDERED: ALBU2.5V4 INHALATION (09:31)
[2016-11-27 09:33] VITALS: BP 120/70; PULSE 78; RESP 14; O2SAT 98
== END 2016-11-27 11:23 | disposition home or self-care (01) ==
LOC: SED 05:26
DX: J44.1 Chronic obstructive pulmonary disease with (acute) exacerbation (principal); I13.2 Hypertensive heart and chronic kidney disease with heart failure and with stage 5 chronic kidney disease, or end stage renal disease; I50.9 Heart failure, unspecified; E11.22 Type 2 diabetes mellitus with diabetic chronic kidney disease; N18.6 End stage renal disease; E11.59 Type 2 diabetes mellitus with other circulatory complications; E11.43 Type 2 diabetes mellitus with diabetic autonomic (poly)neuropathy; F17.200 Nicotine dependence, unspecified, uncomplicated; Z87.01 Personal history of pneumonia (recurrent); Z88.2 Allergy status to sulfonamides; Z86.73 Personal history of transient ischemic attack (TIA), and cerebral infarction without residual deficits; Z88.5 Allergy status to narcotic agent; Z88.8 Allergy status to other drugs, medicaments and biological substances; Z91.040 Latex allergy status; Z91.048 Other nonmedicinal substance allergy status
CPT/HCPCS: 36415; 71010; 80053; 83880; 84484; 85025; 93005; 94664; 99285; J7620; Q0177